=== PATIENT | male | born 1955 | race Caucasian/White ===

== ENCOUNTER 2016-06-04 13:44 | Emergency (ER) | payer MEDICARE, MEDICAID ==
[2016-06-04 17:28] VITALS: BP 146/89
[2016-06-04] MEDS ORDERED: NS 0.9% 1000 ML* 1,000 ML IV ONE (18:11)
--- NOTE | 2016-06-04 18:16 | ED ---
Abdominal Pain/Male - HPI Summary HPI Summary: Patient presents for delayed presentation of intermittent, atraumatic, generalized, abdominal cramping for the last few weeks with associated intermittent nausea and constipation. No allev factors attempted, change to medications, specific aggrav factors, food or drug associations. Came for evaluation. - History of Current Complaint Chief Complaint: EDAbdPain Stated Complaint: CONSTIPATION Time Seen by Provider: 06/04/16 17:58 Hx Obtained From: Patient Onset/Duration: Gradual Onset Timing: Lasting Weeks Pain Intensity: 7 - Allergies/Home Medications Allergies/Adverse Reactions: Allergies Allergy/AdvReac Type Severity Reaction Status Date / Time No Known Allergies Allergy Verified 10/22/15 16:05 PMH/Surg Hx/FS Hx/Imm Hx Endocrine/Hematology History: Reports: Hx Anticoagulant Therapy - coumadin, Hx Diabetes Denies: Hx Thyroid Disease Cardiovascular History: Reports: Hx Hypercholesterolemia, Hx Peripheral Vascular Disease - BL LE DISCOLORED/LE WOUNDS, Other Cardiovascular Problems/ Disorders - CARDIOMYOPATHY, BL LE VEIN SX Denies: Hx Angina, Hx Congestive Heart Failure, Hx Coronary Artery Disease, Hx Hypertension, Hx Myocardial Infarction, Hx Valvular Heart Disease Respiratory History: Reports: Hx Seasonal Allergies Denies: Hx Asthma, Hx Chronic Obstructive Pulmonary Disease (COPD) GI History: Reports: Hx Gastroesophageal Reflux Disease Denies: Hx Ulcer Comment Only: Other GI Disorders - chest pain intermittent over weekned, constant starting last evening History: Reports: Hx Kidney Stones - hx "small one" per pt, Hx Renal Disease - HX OF KIDNEY STONES Denies: Hx Acute Renal Failure, Hx Benign Prostatic Hyperplasia, Hx Chronic Renal Failure, Hx Dialysis, Hx Kidney Infection Musculoskeletal History: Reports: Hx Arthritis - KNEES, Hx Gout, Hx Orthopedic Injury - ORIF left elbow, Hx Scoliosis, Other Musculoskeletal History - carpal tunnel bilateral wrists Sensory History: Reports: Hx Cataracts - BILAT, Hx Contacts or Glasses Denies: Hx Hearing Aid Opthamlomology History: Reports: Hx Cataracts - BILAT, Hx Contacts or Glasses Neurological History: Reports: Other Neuro Impairments/Disorders - 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 scoliosis repair 1972 WITH SPINAL JEET. left elbow repair [place] 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 Denies: Hx Hepatitis, Hx Human Immunodeficiency Virus (HIV), Traveled Outside the [place] in Last 30 Days - Family History Known Family History: Positive: Unknown - Social History Alcohol Use: None Substance Use Type: Reports: None Smoking Status (MU): Former Smoker Length of Time of Smoking/Using Tobacco: 15 yrs Have You Smoked in the Last Year: No Review of Systems Positive: Abdominal Pain, Nausea. Negative: Vomiting, Diarrhea All Other Systems Reviewed And Are Negative: Yes Physical Exam Triage Information Reviewed: Yes Vital Signs On Initial Exam: Initial Vitals Temp Pulse Resp BP Pulse Ox 98.3 F 100 12 137/89 95 06/04/16 13:51 06/04/16 13:51 06/04/16 13:51 06/04/16 13:51 06/04/16 13:51 Vital Signs Reviewed: Yes Appearance: Positive: Well-Appearing, No Pain Distress, Well-Nourished Skin: Positive: Warm, Skin Color Reflects Adequate Perfusion, Dry Eyes: Positive: Normal, EOMI, KATHY Neck: Positive: Supple Respiratory/Lung Sounds: Positive: Clear to Auscultation, Breath Sounds Present Cardiovascular: Positive: Normal, RRR, Pulses are Symmetrical in both Upper and Lower Extremities Abdomen Description: Positive: Nontender, No Organomegaly, Soft, Other: - Hard, brown stool in the rectal vault.. Negative: CVA Tenderness (R), CVA Tenderness (L), Distended, Guarding Male Genital Exam: Positive: normal genitalia, normal prostate, no hernia. Negative: erythema, scrotum tenderness (R), scrotum tenderness (L), testicular tenderness (R), testicular tenderness (L) Musculoskeletal: Positive: Normal, Strength/ROM Intact Neurological: Positive: Normal, Sensory/Motor Intact, Alert, Oriented to Person Place, Time, CN Intact II-III, Reflexes Intact, NV Bundle Intact Distally - Terry Coma Scale Coma Scale Total: 15 Diagnostics - Vital Signs Vital Signs Temp Pulse Resp BP Pulse Ox 06/04/16 17:26 98.7 F 68 20 146/89 95 06/04/16 16:06 98.7 F 100 20 152/102 96 06/04/16 15:04 97.9 F 62 20 127/85 94 06/04/16 13:51 98.3 F 100 12 137/89 95 - Laboratory Result Diagrams: 06/04/16 19:23 06/04/16 19:23 Lab Statement: Any lab studies that have been ordered have been reviewed, and results considered in the medical decision making process. Abdominal Pain Fem Course/Dx - Diagnoses Differential Diagnosis/HQI/PQRI: Bowel Obstruction, Constipation, Other - Unclear cause for the abdominal pain, but psbo and constipation are moderate concern. CT for structural cause. DC home expected with bowel regimen and PCP FU. Provider Diagnoses: Abdominal pain Discharge - Discharge Plan Condition: Stable Disposition: HOME Patient Education Materials: Abdominal Pain (ED), Constipation (ED) Referrals: Pool Morin MD [Primary Care Provider] -
[2016-06-04] MEDS ORDERED: Ondansetron INJ* 2 MG/ML VIAL ONE (19:06)
[2016-06-04 19:33] LABS: Hematocrit 40 % (42-52); Hemoglobin 12.6 g/dl (14.0-18.0); Mean Corpuscular HGB Conc 32 g/dl (31-36); Mean Corpuscular Hemoglobin 24 pg (27-31); Mean Corpuscular Volume 76 fL (80-94); Mean Platelet Volume 8 um3 (7.4-10.4); Red Blood Count 5.29 10^6/ul (4.0-5.4); Red Cell Distribution Width 18 % (10.5-15); White Blood Count 6.7 10^3/ul (3.5-10.8)
[2016-06-04 19:50] LABS: Albumin 3.7 g/dL (3.2-5.2); BUN/Creatinine Ratio 17.7 (8-20); Calcium 9.6 mg/dL (8.6-10.3); EGFR African American 102.1 (>60); EGFR Non-African American 79.4 (>60); Globulin 4.1 g/dL (2-4); Potassium 3.9 mmol/L (3.5-5.0); Total Bilirubin 0.5 mg/dL (0.2-1.0); Total Protein 7.8 g/dL (6.4-8.9)
[2016-06-04] MEDS ORDERED: Iodixanol* (CONTRAST) 320 MG/ML 100 ML SDV IV ONE (20:17)
--- NOTE | 2016-06-04 20:58 | RAD ---
INDICATION: Abdominal pain COMPARISON: CT abdomen and pelvis June 25, 2013 TECHNIQUE: Axial source images were obtained from the hemidiaphragms to the symphysis pubis following administration of oral and intravenous contrast. 141 mL Visipaque 320 was utilized. Coronal and sagittal reconstructed images were acquired. Lung bases: The lung bases are clear. Liver: The liver is normal in size. There are no masses. There is mild hepatic steatosis There is no ductal dilatation. Gallbladder: There is cholelithiasis. There is no thickening gallbladder wall or pericholecystic fluid Spleen: The spleen is normal in size. There are no masses. Pancreas: There is no focal pancreatic mass or ductal dilatation. Adrenal glands: There is no evidence of adrenal mass. Kidneys: The kidneys are normal in size and position. There are prompt nephrograms and there is prompt excretion bilaterally. There are subcentimeter left-sided renal cortical cysts, unchanged. There is no evidence of nephrolithiasis. Adenopathy: There is no evidence of adenopathy by size criteria. Fluid collections: There are no free or localized fluid collections. Vessels:There are no significant atherosclerotic changes involving the aorta. There is no focal aneurysm. The iliac vessels are normal in caliber. The IVC appears normal. GI tract: There are no acute CT bowel findings. There is no obstruction. There is circumferential thickening of the distal esophagus as also described in 2014 appearing unchanged. The stomach and small bowel appear normal. There are scattered diverticula of the sigmoid colon but no convincing CT evidence of acute diverticulitis. Pelvic organs: The prostate and seminal vesicles appear normal Bladder: There are no bladder masses. Abdominal and pelvic soft tissues: The extraperitoneal abdominal and pelvic soft tissues appear normal.. Osseous structures: There are no acute osseous findings. There are spondylitic changes of the lumbar spine. There is a 50% wedge compression deformity of L1, unchanged. Mat[place]os rods. Other: None IMPRESSION: 1. Hepatic steatosis 2. Cholelithiasis, unchanged. 3. Circumferential thickening of the distal esophagus, unchanged. Scattered diverticula of the sigmoid colon without definitive CT findings of acute diverticulitis. 4. Stable 50% compression deformity of L1
== END 2016-06-04 22:22 | disposition home or self-care (01) ==
LOC: ED 13:44
DX: N28.89 Other specified disorders of kidney and ureter (principal); K80.20 Calculus of gallbladder without cholecystitis without obstruction
CPT/HCPCS: 36415; 74177; 80053; 83690; 85027; 85610; 96374; 99282; J2405; Q9967

== ENCOUNTER 2017-02-02 12:12 | Emergency (ER) | payer MEDICARE, MEDICAID ==
--- NOTE | 2017-02-02 13:55 | RAD ---
Indication: Facial and nasal injury. 2 views of the nasal bones and a Drake' view demonstrates no fracture. No other bone or joint abnormality is identified. IMPRESSION: No fracture of the nasal arch is noted.
--- NOTE | 2017-02-02 13:58 | RAD ---
Indication: Right knee pain. 4 views of the right knee demonstrates no fracture. Chondrocalcinosis is noted. No fracture is identified. IMPRESSION: No fracture of the right knee is noted.
[2017-02-02 14:45] VITALS: BP 112/76
--- NOTE | 2017-02-02 14:46 | UC ---
Minor Trauma HPI - HPI Summary HPI Summary: SLIPPED ON GRASS, FELL FORWARD, HIT FACE AND RIGHT KNEE. ABRASION TO KNEE AND TO NOSE WHERE GLASSES HIT NOSE. NO LOC. NO NOSE BLEED. NO N/V. NO HEADACHE. - History of Current Complaint Chief Complaint: UCLowerExtremity Stated Complaint: KNEE COMPLAINT Time Seen by Provider: 02/02/17 12:45 Hx Obtained From: Patient Onset/Duration: Sudden Onset, Lasting Hours Onset Of Pain: Post Accident Severity Initially: Moderate Severity Currently: Moderate Mechanism Of Injury: Fall From A Standing Position Aggravating Factor(s): Ambulation, Weight Bearing Alleviating Factor(s): Nothing - Risk Factors Penetrating Injury Risk Factors: Negative - Allergies/Home Medications Allergies/Adverse Reactions: Allergies Allergy/AdvReac Type Severity Reaction Status Date / Time No Known Allergies Allergy Verified 10/22/15 16:05 PMH/Surg Hx/FS Hx/Imm Hx Previously Healthy: Yes Other History Of: Anticoagulant Therapy - coumadin - Surgical History Surgical History: Yes Surgery Procedure, Year, and Place: bilateral carpal tunnel repair. scoliosis repair 1972 WITH SPINAL JEET. left elbow repair after [place] in [place]. BLLE VEIN SX - Family History Known Family History: Positive: Unknown, Diabetes - Social History Occupation: Disabled Lives: With Family Alcohol Use: None Substance Use Type: None Smoking Status (MU): Former Smoker Length of Time of Smoking/Using Tobacco: 15 yrs Have You Smoked in the Last Year: No When Did the Patient Quit Smoking/Using Tobacco: 20 yrs ago - Immunization History Most Recent Influenza Vaccination: UNSURE & REFUSES Most Recent Tetanus Shot: 2001 Most Recent Pneumonia Vaccination: NEVER & REFUSES Review of Systems Constitutional: Negative Skin: Other - ABRASION NOSE AND RIGHT KNEE Eyes: Negative ENT: Negative Respiratory: Negative Cardiovascular: Negative Gastrointestinal: Negative Genitourinary: Negative Motor: Negative Neurovascular: Negative Musculoskeletal: Arthralgia - RIGHT KNEE, Edema, Myalgia Neurological: Negative Psychological: Negative All Other Systems Reviewed And Are Negative: Yes Physical Exam Triage Information Reviewed: Yes Appearance: Well-Appearing, Well-Nourished, Pain Distress - MILD Vital Signs: Initial Vital Signs Temp 98.9 F 02/02/17 12:20 Pulse 92 02/02/17 12:20 Resp 18 02/02/17 12:20 BP 127/86 02/02/17 12:20 Pulse Ox 96 02/02/17 12:20 Vital Signs Reviewed: Yes Eye Exam: Normal ENT Exam: Normal ENT: Positive: Normal ENT inspection, TMs normal Dental Exam: Normal Neck exam: Normal Neck: Positive: Supple, Nontender Respiratory Exam: Normal Respiratory: Positive: Chest non-tender, Lungs clear, Normal breath sounds, No respiratory distress, No accessory muscle use Cardiovascular Exam: Normal Cardiovascular: Positive: RRR, No Murmur, Pulses Normal, Brisk Capillary Refill Abdominal Exam: Normal Abdomen Description: Positive: Nontender, No Organomegaly Musculoskeletal Exam: Normal Musculoskeletal: Positive: Strength Intact, ROM Intact Neurological Exam: Normal Psychological Exam: Normal Skin: Positive: Other - ABRASION RIGHT KNEE ; ABRASION NOSE Minor Trauma Course/Dx - Differential Dx/Diagnosis Differential Diagnosis/HQI/PQRI: Abrasion(s), Contusion(s), Sprain, Strain Provider Diagnoses: ABRASIONS RIGHT KNEE & NOSE; RIGHT KNEE CONTUSION & SPRAIN Discharge - Discharge Plan Condition: Stable Disposition: HOME Prescriptions: traMADol TAB* [Ultram*] 50 mg PO Q8H PRN #12 tab MDD THREE TABS PRN Reason: Pain Patient Education Materials: Knee Sprain (ED), Contusion in Adults (ED), Abrasion (ED) Referrals: Pool Morin MD [Primary Care Provider] - Timoteo Wells MD [Medical Doctor] -
== END 2017-02-02 14:21 | disposition home or self-care (01) ==
LOC: UCEAST 12:12
DX: S83.91XA Sprain of unspecified site of right knee, initial encounter (principal); S80.211A Abrasion, right knee, initial encounter; S00.31XA Abrasion of nose, initial encounter; W01.0XXA Fall on same level from slipping, tripping and stumbling without subsequent striking against object, initial encounter; Y92.9 Unspecified place or not applicable
CPT/HCPCS: 70160; 99213; G0463

== ENCOUNTER 2017-05-10 07:23 | Emergency (ER) | payer MEDICARE, MEDICAID ==
--- NOTE | 2017-05-10 08:21 | RAD ---
HISTORY: Right hand and wrist pain COMPARISONS: January 22, 2009 VIEWS: 5, Frontal, lateral, and oblique views of the right hand and wrist FINDINGS: BONE DENSITY: Normal. BONES: Again noted is collapse of the proximal carpal row including avascular necrosis versus resection of the scaphoid. This is similar to the 2009 examination. JOINTS: There is associated advanced osteoarthritis of the intercarpal articulations and the radiocarpal and ulnar-carpal articulations. There is osteoarthritis of the first CMC and MCP joints. ALIGNMENT: There is no dislocation. SOFT TISSUES: Unremarkable. OTHER FINDINGS: None. IMPRESSION: 1. COLLAPSE OF THE PROXIMAL CARPAL ROW WITH AVASCULAR NECROSIS VERSUS RESECTION OF THE SCAPHOID SIMILAR TO THE 2009 EXAMINATION. THERE IS ASSOCIATED ADVANCED OSTEOARTHRITIS OF THE WRIST. 2. THERE IS OSTEOARTHRITIS OF THE FIRST CMC AND MCP JOINTS. 3. NO ACUTE OSSEOUS INJURY. IF SYMPTOMS PERSIST, RECOMMEND REPEAT IMAGING
[2017-05-10 08:34] LABS: ABS Basophils 0 10^3/ul (0-0.2); ABS Eosinophils 0.1 10^3/ul (0-0.6); ABS Lymphocytes 1.2 10^3/ul (1.0-4.8); ABS Monocytes 0.5 10^3/ul (0-0.8); ABS Neutrophils 4.5 10^3/ul (1.5-7.7); ABS Nucleated RBC 0 10^3/ul; Eosinophil % 1.5 % (0-6); Hematocrit 36 % (42-52); Hemoglobin 11.7 g/dl (14.0-18.0); Lymphocyte % 19.1 % (25-47); Mean Corpuscular HGB Conc 33 g/dl (31-36); Mean Corpuscular Hemoglobin 25 pg (27-31); Mean Corpuscular Volume 77 fL (80-94); Mean Platelet Volume 8 um3 (7.4-10.4); Nucleated Red Blood Cells % 0.1; Platelet Count 188 10^3/ul (150-450); Red Blood Count 4.65 10^6/ul (4.0-5.4); Red Cell Distribution Width 19 % (10.5-15); White Blood Count 6.4 10^3/ul (3.5-10.8)
[2017-05-10 08:35] LABS: EGFR Non-African American 72.9 (>60)
[2017-05-10] MEDS ORDERED: Ketorolac INJ* 60 MG/2 ML VIAL IM ONE (08:52)
[2017-05-10 09:00] LABS: Urine Appearance Clear; Urine Blood 1+ (Negative); Urine Color Straw; Urine Ketones Negative (Negative); Urine Protein Negative (Negative); Urine Specific Gravity 1.006 (1.010-1.030); Urine Urobilinogen Negative (Negative)
[2017-05-10 10:05] VITALS: BP 129/61
--- NOTE | 2017-05-10 17:17 | ED ---
Isidoro Preciado Angela, scribed for Colton Villagran MD on 05/10/17 at 0744 . Upper Extremity Pain - HPI Summary HPI Summary: This pt is a 62 y/o male presenting [place] [facility] c/o right wrist pain and swelling since yesterday. He denies fall, trauma or heavy lifting. Pt rates his pain 7/ 10 in severity. His pain is aggravated with movement of his wrist. Pt denies history of gout. PMHx of carpal tunnel surgery on right wrist. - History of Current Complaint Chief Complaint: EDExtremityUpper Stated Complaint: RT WRIST PAIN Hx Obtained From: Patient Mechanism Of Injury: Other - none, per pt Onset/Duration: Started Days Ago, Still Present - Allergies/Home Medications Allergies/Adverse Reactions: Allergies Allergy/AdvReac Type Severity Reaction Status Date / Time No Known Allergies Allergy Verified 10/22/15 16:05 PMH/Surg Hx/FS Hx/Imm Hx Endocrine/Hematology History: Reports: Hx Anticoagulant Therapy - coumadin, Hx Diabetes - type 2 dm Denies: Hx Thyroid Disease Cardiovascular History: Reports: Hx Hypercholesterolemia, Hx Peripheral Vascular Disease - BL LE DISCOLORED/LE WOUNDS, Other Cardiovascular Problems/ Disorders - CARDIOMYOPATHY, BL LE VEIN SX Denies: Hx Angina, Hx Congestive Heart Failure, Hx Coronary Artery Disease, Hx Hypertension, Hx Myocardial Infarction, Hx Valvular Heart Disease Respiratory History: Reports: Hx Seasonal Allergies Denies: Hx Asthma, Hx Chronic Obstructive Pulmonary Disease (COPD) GI History: Reports: Hx Gastroesophageal Reflux Disease Denies: Hx Ulcer Comment Only: Other GI Disorders - chest pain intermittent over weekned, constant starting last evening History: Reports: Hx Kidney Stones - hx "small one" per pt, Hx Renal Disease - HX OF KIDNEY STONES Denies: Hx Acute Renal Failure, Hx Benign Prostatic Hyperplasia, Hx Chronic Renal Failure, Hx Dialysis, Hx Kidney Infection Musculoskeletal History: Reports: Hx Arthritis - KNEES, Hx Gout, Hx Orthopedic Injury - ORIF left elbow, Hx Scoliosis, Other Musculoskeletal History - carpal tunnel bilateral wrists Sensory History: Reports: Hx Cataracts - BILAT, Hx Contacts or Glasses Denies: Hx Hearing Aid Opthamlomology History: Reports: Hx Cataracts - BILAT, Hx Contacts or Glasses Neurological History: Reports: Other Neuro Impairments/Disorders - 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 scoliosis repair 1972 WITH SPINAL JEET. left elbow repair after [place] 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 Denies: Hx Hepatitis, Hx Human Immunodeficiency Virus (HIV), Traveled Outside the [place] in Last 30 Days - Family History Known Family History: Positive: Diabetes - Social History Alcohol Use: None Substance Use Type: Reports: None Smoking Status (MU): Former Smoker Length of Time of Smoking/Using Tobacco: 15 yrs Have You Smoked in the Last Year: No Review of Systems Negative: Fever, Chills Eyes: Negative ENT: Negative Cardiovascular: Negative Respiratory: Negative Musculoskeletal: Other - right wrist pain Skin: Negative Neurological: Negative All Other Systems Reviewed And Are Negative: Yes Physical Exam - Summary Physical Exam Summary: VITAL SIGNS: Reviewed. GENERAL: Patient is a well-developed and nourished male who is lying comfortable in the stretcher. Patient is not in any acute respiratory distress. HEAD AND FACE: No signs of trauma. No ecchymosis, hematomas or skull depressions. No sinus tenderness. EYES: PERRLA, EOMI x 2, No injected conjunctiva, no nystagmus. EARS: Hearing grossly intact. Ear canals and tympanic membranes are within normal limits. MOUTH: Oropharynx within normal limits. NECK: Supple, trachea is midline, no adenopathy, no JVD, no carotid bruit, no c- spine tenderness, neck with full ROM. CHEST: Symmetric, no tenderness at palpation LUNGS: Clear to auscultation bilaterally. No wheezing or crackles. CVS: Regular rate and rhythm, S1 and S2 present, no murmurs or gallops appreciated. ABDOMEN: Soft, non-tender. No signs of distention. No rebound no guarding, and no masses palpated. Bowel sounds are normal. EXTREMITIES: FROM in all major joints, no cyanosis or clubbing. Swelling in the right wrist, mostly in the dorsal aspect. There is tenderness at palpation on the right wrist. Good pulses. Good capillary refill. Good ROM. NEURO: Alert and oriented x 3. No acute neurological deficits. Speech is normal and follows commands. SKIN: Dry and warm Triage Information Reviewed: Yes Vital Signs On Initial Exam: Initial Vitals Temp Pulse Resp BP Pulse Ox 99 F 54 18 129/73 98 05/10/17 07:29 01/22/18 07:29 05/10/17 07:29 05/10/17 07:29 05/10/17 07:29 Vital Signs Reviewed: Yes Diagnostics - Vital Signs Vital Signs Temp Pulse Resp BP Pulse Ox 05/10/17 07:29 99 F 54 18 129/73 98 - Laboratory Lab Results: Lab Results 05/10/17 05/10/17 05/10/17 Range/Units 08:10 08:10 08:15 WBC 6.4 (3.5-10.8) 10^3/ul RBC 4.65 (4.0-5.4) 10^6/ul Hgb 11.7 L (14.0-18.0) g/dl Hct 36 L (42-52) % MCV 77 L (80-94) fL MCH 25 L (27-31) pg MCHC 33 (31-36) g/dl RDW 19 H (10.5-15) % Plt Count 188 (150-450) 10^3/ul MPV 8 (7.4-10.4) um3 Neut % (Auto) 71.0 (38-83) % Lymph % (Auto) 19.1 L (25-47) % Ralls % (Auto) 7.7 (1-9) % Eos % (Auto) 1.5 (0-6) % Baso % (Auto) 0.7 (0-2) % Absolute Neuts (auto) 4.5 (1.5-7.7) 10^3/ul Absolute Lymphs (auto) 1.2 (1.0-4.8) 10^3/ul Absolute Monos (auto) 0.5 (0-0.8) 10^3/ul Absolute Eos (auto) 0.1 (0-0.6) 10^3/ul Absolute Basos (auto) 0 (0-0.2) 10^3/ul Absolute Nucleated RBC 0 10^3/ul Nucleated RBC % 0.1 ESR 32 H (0-20) mm/Hr Sodium 137 (133-145) mmol/L Potassium 4.7 (3.5-5.0) mmol/L Chloride 102 (101-111) mmol/L Carbon Dioxide 31 (22-32) mmol/L Anion Gap 4 (2-11) mmol/L BUN 28 H (6-24) mg/dL Creatinine 1.03 (0.67-1.17) mg/dL Est GFR ( Amer) 93.8 (>60) Est GFR (Non-Af Amer) 72.9 (>60) BUN/Creatinine Ratio 27.2 H (8-20) Glucose 86 (70-100) mg/dL Uric Acid 4.1 L (4.4-7.6) mg/dL Calcium 9.4 (8.6-10.3) mg/dL Total Bilirubin 0.40 (0.2-1.0) mg/dL AST 17 (13-39) U/L ALT 16 (7-52) U/L Alkaline Phosphatase 76 (34-104) U/L C-Reactive Protein 7.11 H (< 5.00) mg/L Total Protein 7.9 (6.4-8.9) g/dL Albumin 3.8 (3.2-5.2) g/dL Globulin 4.1 H (2-4) g/dL Albumin/Globulin Ratio 0.9 L (1-3) Urine Color Straw Urine Appearance Clear Urine pH 5.0 (5-9) Ur Specific [place] 1.006 L (1.010-1.030) Urine Protein Negative (Negative) Urine Ketones Negative (Negative) Urine Blood 1+ H (Negative) Urine Nitrate Negative (Negative) Urine Bilirubin Negative (Negative) Urine Urobilinogen Negative (Negative) Ur Leukocyte Esterase Negative (Negative) Urine WBC (Auto) Trace(0-5/hpf) (Absent) Urine RBC (Auto) Trace(0-2/hpf) (Absent) Urine Bacteria Absent (Absent) Hyaline Casts Present H (Absent) Urine Glucose Negative (Negative) Result Diagrams: 05/10/17 08:10 05/10/17 08:10 Lab Statement: Any lab studies that have been ordered have been reviewed, and results considered in the medical decision making process. - Radiology Right wrist XR Xray Interpretation: Positive (See Comments) - IMPRESSION: 1. Collpase of the proximal carpal row with avascular necrosis versus resection of the scaphoid similar to the 2009 examination. There is associated advanced osteoarthritis of the wrist. 2. There is osteoarthritis of the first CMC and MCP joints. 3. No acute osseous injury. If symptoms persist, recommend repeat imaging. Dr. Villagran has reviewed this radiology report. Radiology Interpretation Completed By: Radiologist Right hand XR Xray Interpretation: Positive (See Comments) - IMPRESSION: 1. Collpase of the proximal carpal row with avascular necrosis versus resection of the scaphoid similar to the 2009 examination. There is associated advanced osteoarthritis of the wrist. 2. There is osteoarthritis of the first CMC and MCP joints. 3. No acute osseous injury. If symptoms persist, recommend repeat imaging. Dr. Villagran has reviewed this radiology report. Radiology Interpretation Completed By: Radiologist Re-Evaluation - Re-Evaluation First Eval Re-Evaluation Time: 09:21 Comment: I reviewed the XR results with the pt. Course/Dx - Course Course Of Treatment: This pt is a 62 y/o male presenting to [facility] c/o right wrist pain and swelling since yesterday. He denies fall, trauma or heavy lifting. Pt rates his pain 7/10 in severity. His pain is aggravated with movement of his wrist. Pt denies history of gout. PMHx of carpal tunnel surgery on right wrist. XR shows no fracture or dislocation, and reveals chronic avascular necrosis. Test results within normal limits except CRP of 7.11. At this point I do not believe the pt has gout, he probably has some swelling secondary to osteoarthritis. I gave the pt Toradol with improvement. The pt was placed on a splint and was advised to follow up with orthopedics. Pt is hemodynamically stable, alert and oriented x3. - Diagnoses Differential Diagnosis/HQI/PQRI: Positive: Bursitis, Contusion, Fracture (Closed ), Strain, Sprain Provider Diagnoses: Wrist pain, Osteoarthritis Discharge - Discharge Plan Condition: Stable Disposition: HOME Patient Education Materials: Osteoarthritis (ED), Arthralgia (ED) Referrals: Pool Morin MD [Primary Care Provider] - Timoteo Wells MD [Medical Doctor] - Additional Instructions: Please follow up with Dr. Wells, from orthopedics. RETURN TO THE ED FOR ANY WORSENING SYMPTOMS. The documentation as recorded by the Isidoro ball Angela accurately reflects the service I personally performed and the decisions made by me, Colton Villagran MD.
== END 2017-05-10 10:03 | disposition home or self-care (01) ==
LOC: ED 07:23
DX: M19.031 Primary osteoarthritis, right wrist (principal); M18.9 Osteoarthritis of first carpometacarpal joint, unspecified; M19.041 Primary osteoarthritis, right hand; Z98.890 Other specified postprocedural states; Z87.891 Personal history of nicotine dependence
CPT/HCPCS: 36415; 80053; 81003; 81015; 84550; 85025; 85652; 86140; 96372; 99282; J1885

== ENCOUNTER 2017-09-25 13:21 | Emergency (ER) | payer MEDICARE, MEDICAID ==
[2017-09-25 15:25] VITALS: BP 104/57
--- NOTE | 2017-09-25 17:10 | ED ---
Upper Extremity Pain - HPI Summary HPI Summary: Patient is a 62-year-old male who presents emergency department for swelling and pain to the left 3rd digit of hand. Patient states he noticed pain and swelling last night. He does not recall any specific injuries or falls. Pain is worse with bending and touching digit. Rest makes symptoms better. No associated symptoms of redness to finger, wounds, fever, nausea or vomiting. Symptoms are mild in severity. - History of Current Complaint Chief Complaint: EDExtremityUpper Stated Complaint: LT HAND MIDDLE FINGER Time Seen by Provider: 09/25/17 13:39 Hx Obtained From: Patient - Allergies/Home Medications Allergies/Adverse Reactions: Allergies Allergy/AdvReac Type Severity Reaction Status Date / Time No Known Allergies Allergy Verified 10/22/15 16:05 PMH/Surg Hx/FS Hx/Imm Hx Previously Healthy: Yes Endocrine/Hematology History: Reports: Hx Anticoagulant Therapy - coumadin, Hx Diabetes - type 2 dm Denies: Hx Thyroid Disease Cardiovascular History: Reports: Hx Hypercholesterolemia, Hx Peripheral Vascular Disease - BL LE DISCOLORED/LE WOUNDS, Other Cardiovascular Problems/ Disorders - CARDIOMYOPATHY, BL LE VEIN SX Denies: Hx Angina, Hx Congestive Heart Failure, Hx Coronary Artery Disease, Hx Hypertension, Hx Myocardial Infarction, Hx Valvular Heart Disease Respiratory History: Reports: Hx Seasonal Allergies Denies: Hx Asthma, Hx Chronic Obstructive Pulmonary Disease (COPD) GI History: Reports: Hx Gastroesophageal Reflux Disease Denies: Hx Ulcer Comment Only: Other GI Disorders - chest pain intermittent over weekned, constant starting last evening History: Reports: Hx Kidney Stones - hx "small one" per pt, Hx Renal Disease - HX OF KIDNEY STONES Denies: Hx Acute Renal Failure, Hx Benign Prostatic Hyperplasia, Hx Chronic Renal Failure, Hx Dialysis, Hx Kidney Infection Musculoskeletal History: Reports: Hx Arthritis - KNEES, Hx Gout, Hx Orthopedic Injury - ORIF left elbow, Hx Scoliosis, Other Musculoskeletal History - carpal tunnel bilateral wrists Sensory History: Reports: Hx Cataracts - BILAT, Hx Contacts or Glasses Denies: Hx Hearing Aid Opthamlomology History: Reports: Hx Cataracts - BILAT, Hx Contacts or Glasses Neurological History: Reports: Other Neuro Impairments/Disorders - 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 scoliosis repair 1972 WITH SPINAL JEET. left elbow repair [place] 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 Denies: Hx Hepatitis, Hx Human Immunodeficiency Virus (HIV), Traveled Outside the [place] in Last 30 Days - Family History Known Family History: Positive: Unknown, Diabetes - Social History Occupation: Disabled Lives: Alone Alcohol Use: None Substance Use Type: Reports: None Smoking Status (MU): Former Smoker Length of Time of Smoking/Using Tobacco: 15 yrs Have You Smoked in the Last Year: No Review of Systems Constitutional: Negative Negative: Fever, Chills Positive: Other - pain and swelling to left digit of left hand Positive: Bruising Negative: Weakness, Paresthesia, Numbness All Other Systems Reviewed And Are Negative: Yes Physical Exam Triage Information Reviewed: Yes Vital Signs On Initial Exam: Initial Vitals Temp Pulse Resp BP Pulse Ox 97.7 F 59 16 119/66 93 09/25/17 13:26 09/25/17 13:26 09/25/17 13:26 09/25/17 13:26 09/25/17 13:26 Vital Signs Reviewed: Yes Appearance: Positive: Well-Appearing - Pt. sitting in chair in NAD. Skin: Positive: Warm, Dry Head/Face: Positive: Normal Head/Face Inspection Eyes: Positive: Normal Neck: Positive: Supple Musculoskeletal: Positive: Other - Mild diffuse edeme to the 3rd digit of left hand. Small area of ecchymosis to the proximal palmar aspect of 3rd digit of left hand. Full ROM with flexion and extension with pain. No erythema or increased warmth. No wounds. Brisk capillary refill. Neurological: Positive: Normal, CN Intact II-III Psychiatric: Positive: Affect/Mood Appropriate Diagnostics - Vital Signs Vital Signs Temp Pulse Resp BP Pulse Ox 09/25/17 15:16 97.5 F 52 18 104/57 95 09/25/17 13:26 97.7 F 59 16 119/66 93 - Laboratory Lab Statement: Any lab studies that have been ordered have been reviewed, and results considered in the medical decision making process. Course/Dx - Course Course Of Treatment: Patient presenting with mild edema to right third digit left hand. There is small area of ecchymosis to digit. There is no erythema to the or wounds. Patient has full range of motion of digit with pain. Does not appear to be an infectious process. X-rays negative for fracture dislocation. Advised Tylenol for pain as directed. Ice and elevate. Close follow-up with PCP. Advised patient to return to the ER for redness, increased swelling, increased pain, fever, vomiting. Patient understands and agrees with plan. - Diagnoses Differential Diagnosis/HQI/PQRI: Positive: Contusion, Fracture (Closed), Strain , Sprain Provider Diagnoses: Finger sprain Discharge - Sign-Out/Discharge Documenting (check all that apply): Discharge/Admit/Transfer - Discharge Plan Condition: Good Disposition: HOME Patient Education Materials: Finger Sprain (ED) Referrals: Pool Morin MD [Primary Care Provider] - Additional Instructions: Follow up with PCP if symptoms persist Tylenol for pain as directed Ice and elevate Return to ER for increased swelling, redness, fever, inability to bend finger, or if concerned - Billing Disposition and Condition Condition: GOOD Disposition: Home
--- NOTE | 2017-09-26 08:50 | RAD ---
INDICATION: Swelling of the left middle finger COMPARISON: None. TECHNIQUE: 3 views of the left middle finger were obtained. FINDINGS: Degenerative changes include mild narrowing of the interphalangeal joints with a mild degree of marginal osteophyte formation. The bones are normal alignment. No fracture is seen. IMPRESSION: DEGENERATIVE CHANGES OF THE INTERPHALANGEAL JOINTS CONSISTENT WITH OSTEOARTHRITIS IN THIS OTHERWISE NORMAL EXAMINATION.
== END 2017-09-25 15:16 | disposition home or self-care (01) ==
LOC: ED 13:21
DX: S63.615A Unspecified sprain of left ring finger, initial encounter (principal); X58.XXXA Exposure to other specified factors, initial encounter; Y92.9 Unspecified place or not applicable; M19.042 Primary osteoarthritis, left hand; I73.9 Peripheral vascular disease, unspecified; Z87.891 Personal history of nicotine dependence; Z79.01 Long term (current) use of anticoagulants
CPT/HCPCS: 73140; 99281

== ENCOUNTER 2017-12-07 16:21 | Emergency (ER) | payer MEDICARE, MEDICAID ==
[2017-12-07] MEDS ORDERED: Acetaminophen TAB* 325 MG PO ONE (17:21)
--- NOTE | 2017-12-07 17:55 | ED ---
Lower Extremity - HPI Summary HPI Summary: Patient complains of bilateral lower extremity pain in anterior thighs starting yesterday afternoon. Pain was sudden onset while trying to get up from a recliner. Pain is worse with walking and weightbearing, diminished with sitting. Patient denies trauma, lifting, increase in activity. Denies knee pain, hip pain, urinary retention, incontinence, fever, cough, sore throat, CP, SOB, N/3/D, abdominal pain, change in urine, change in BM. Medical history is none skin a cardiomyopathy, A. fib, DM, HTN, HDL, osteoarthritis, lymphedema bilaterally. Patient on Coumadin. - History of Current Complaint Chief Complaint: EDExtremityLower Stated Complaint: PAIN BOTH LEGS Time Seen by Provider: 12/07/17 16:33 Hx Obtained From: Patient Mechanism Of Injury: Unknown Onset of Pain: Immediate, Hours Onset/Duration: Hours Severity Initially: Moderate Severity Currently: Moderate Pain Intensity: 7 Pain Scale Used: 0-10 Numeric Timing: Intermittent Location: Is Discrete @ Character Of Pain: Aching Associated Signs And Symptoms: Positive: Negative Aggravating Factor(s): Standing, Ambulation, Weight Bearing Alleviating Factor(s): Rest Able to Bear Weight: Yes - Allergies/Home Medications Allergies/Adverse Reactions: Allergies Allergy/AdvReac Type Severity Reaction Status Date / Time No Known Allergies Allergy Verified 10/22/15 16:05 PMH/Surg Hx/FS Hx/Imm Hx Endocrine/Hematology History: Reports: Hx Anticoagulant Therapy - coumadin, Hx Diabetes - type 2 dm Denies: Hx Thyroid Disease Cardiovascular History: Reports: Hx Hypercholesterolemia, Hx Peripheral Vascular Disease - BL LE DISCOLORED/LE WOUNDS, Other Cardiovascular Problems/ Disorders - CARDIOMYOPATHY, BL LE VEIN SX Denies: Hx Angina, Hx Congestive Heart Failure, Hx Coronary Artery Disease, Hx Hypertension, Hx Myocardial Infarction, Hx Valvular Heart Disease Respiratory History: Reports: Hx Seasonal Allergies Denies: Hx Asthma, Hx Chronic Obstructive Pulmonary Disease (COPD) GI History: Reports: Hx Gastroesophageal Reflux Disease Denies: Hx Ulcer Comment Only: Other GI Disorders - chest pain intermittent over weekned, constant starting last evening History: Reports: Hx Kidney Stones - hx "small one" per pt, Hx Renal Disease - HX OF KIDNEY STONES Denies: Hx Acute Renal Failure, Hx Benign Prostatic Hyperplasia, Hx Chronic Renal Failure, Hx Dialysis, Hx Kidney Infection Musculoskeletal History: Reports: Hx Arthritis - KNEES, Hx Gout, Hx Orthopedic Injury - ORIF left elbow, Hx Scoliosis, Other Musculoskeletal History - carpal tunnel bilateral wrists Sensory History: Reports: Hx Cataracts - BILAT, Hx Contacts or Glasses Denies: Hx Hearing Aid Opthamlomology History: Reports: Hx Cataracts - BILAT, Hx Contacts or Glasses Neurological History: Reports: Other Neuro Impairments/Disorders - 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 scoliosis repair 1972 WITH SPINAL JEET. left elbow repair after [place]. 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 Denies: Hx Hepatitis, Hx Human Immunodeficiency Virus (HIV), Traveled Outside the [place] in Last 30 Days - Family History Known Family History: Positive: Unknown, Diabetes - Social History Alcohol Use: None Substance Use Type: Reports: None Smoking Status (MU): Former Smoker Length of Time of Smoking/Using Tobacco: 15 yrs Have You Smoked in the Last Year: No Review of Systems Constitutional: Negative Eyes: Negative ENT: Negative Cardiovascular: Negative Respiratory: Negative Gastrointestinal: Negative Genitourinary: Negative Positive: Myalgia Skin: Negative Neurological: Negative Psychological: Normal All Other Systems Reviewed And Are Negative: Yes Physical Exam - Summary Physical Exam Summary: Tenderness to palpation of bilateral anterior thighs. No erythema, ecchymosis, deformity, swelling, extra warmth noted to bilateral lower extremities, bilateral knees or ankles. Calves bilaterally soft nontender. No pain with palpation of hips. Patient stands easily and balances well during exam of bilateral lower extremities. PMS intact distally on bilateral extremities. History of DM, no ulcers, open wounds noted on bilateral lower extremities. Triage Information Reviewed: Yes Vital Signs On Initial Exam: Initial Vitals Temp Pulse Resp BP Pulse Ox 97.9 F 53 20 117/66 93 12/07/17 16:27 12/07/17 16:27 12/07/17 16:27 12/07/17 16:27 12/07/17 16:27 Vital Signs Reviewed: Yes Appearance: Positive: Well-Appearing Skin: Positive: Warm Head/Face: Positive: Normal Head/Face Inspection Eyes: Positive: Normal Neck: Positive: Supple Respiratory/Lung Sounds: Positive: Clear to Auscultation Cardiovascular: Positive: Normal Abdomen Description: Positive: Nontender Musculoskeletal: Positive: Normal Neurological: Positive: Normal Psychiatric: Positive: Normal AVPU Assessment: Alert - Terry Coma Scale Best Eye Response: 4 - Spontaneous Best Motor Response: 6 - Obeys Commands Best Verbal Response: 5 - Oriented Coma Scale Total: 15 Diagnostics - Vital Signs Vital Signs Temp Pulse Resp BP Pulse Ox 12/07/17 16:27 97.9 F 53 20 117/66 93 - Laboratory Lab Statement: Any lab studies that have been ordered have been reviewed, and results considered in the medical decision making process. Lower Extremity Course/Dx - Course Course Of Treatment: Patient complains of bilateral lower extremity pain in anterior thighs starting yesterday afternoon. Pain was sudden onset while trying to get up from a recliner. Pain is worse with walking and weightbearing, diminished with sitting. Patient denies trauma, lifting, increase in activity. Denies knee pain, hip pain, urinary retention, incontinence, fever, cough, sore throat, CP, SOB, N/3/D, abdominal pain, change in urine, change in BM. Medical history is none skin a cardiomyopathy, A. fib, DM, HTN, HDL, osteoarthritis, lymphedema bilaterally. Patient on Coumadin. Physical exam: Tenderness to palpation of bilateral anterior thighs. No erythema, ecchymosis, deformity, swelling, extra warmth noted to bilateral lower extremities, bilateral knees or ankles. Calves bilaterally soft nontender. No pain with palpation of hips. Patient stands easily and balances well during exam of bilateral lower extremities. PMS intact distally on bilateral extremities. History of DM, no ulcers, open wounds noted on bilateral lower extremities. Full range of motion bilateral hips and bilateral knees. No evidence of cellulitis or septic joint noted. Symptoms consistent with musculoskeletal pain. - Diagnoses Provider Diagnoses: Musculoskeletal pain of left thigh, Musculoskeletal pain of right thigh Discharge - Sign-Out/Discharge Documenting (check all that apply): Patient Departure - Discharge Plan Condition: Stable Disposition: HOME Patient Education Materials: Musculoskeletal Pain (ED) Referrals: Pool Morin MD [Primary Care Provider] - Additional Instructions: Rest and tylenol for pain. Follow up with primary carte. Return to ED for any new or worsening symptoms. - Billing Disposition and Condition Condition: STABLE Disposition: Home
[2017-12-07 18:24] VITALS: BP 0/0
== END 2017-12-07 18:21 | disposition home or self-care (01) ==
LOC: ED 16:21
DX: M79.652 Pain in left thigh (principal); M79.651 Pain in right thigh; Z79.01 Long term (current) use of anticoagulants; E11.9 Type 2 diabetes mellitus without complications
CPT/HCPCS: 99281; A9270-GY

== ENCOUNTER 2017-12-17 12:53 | Inpatient (IN) | payer MEDICARE, MEDICAID ==
[2017-12-17] MEDS ORDERED: Diltiazem DRIP* 100 MG/100 ML ADDV.BAG IVPB ONE (13:30)
[2017-12-17] MEDS ORDERED: Diltiazem IV* 5 MG/ML 5 ML VIAL (for loading dose/IV Push) (25 MG) IV SLOW PU ONE (13:30)
[2017-12-17 14:05] LABS: ABS Basophils 0 10^3/ul (0-0.2); ABS Eosinophils 0 10^3/ul (0-0.6); ABS Lymphocytes 0.5 10^3/ul (1.0-4.8); ABS Monocytes 0.7 10^3/ul (0-0.8); ABS Neutrophils 10.5 10^3/ul (1.5-7.7); ABS Nucleated RBC 0 10^3/ul; Eosinophil % 0.2 % (0-6); Hematocrit 37 % (42-52); Hemoglobin 12.1 g/dl (14.0-18.0); Lymphocyte % 4.2 % (25-47); Mean Corpuscular HGB Conc 33 g/dl (31-36); Mean Corpuscular Hemoglobin 26 pg (27-31); Mean Corpuscular Volume 81 fL (80-94); Mean Platelet Volume 7.6 um3 (7.4-10.4); Nucleated Red Blood Cells % 0; Platelet Count 179 10^3/ul (150-450); Red Blood Count 4.63 10^6/ul (4.00-5.40); Red Cell Distribution Width 16 % (10.5-15); White Blood Count 11.7 10^3/ul (3.5-10.8)
[2017-12-17] MEDS ORDERED: Diltiazem IV VIAL* 125 MG in NS 0.9% 100 ML* 100 ML IVPB ONE (14:15)
[2017-12-17 14:16] LABS: INR 3.15 (0.77-1.02)
[2017-12-17 14:25] LABS: EGFR Non-African American 58.3 (>60)
--- NOTE | 2017-12-17 14:48 | RAD ---
INDICATION: Chest pain. COMPARISON: Correlation is made with a prior study from January 11, 2013. TECHNIQUE: A portable view of the chest was obtained. FINDINGS: The heart is moderately enlarged and has increased slightly in size. There is prominence of the interstitial markings. No focal infiltrate or pleural effusion is seen. The patient is status post posterior spinal fusion of the dorsal spine. IMPRESSION: FINDINGS SUGGESTIVE OF MILD CONGESTIVE HEART FAILURE.
--- NOTE | 2017-12-17 15:00 | ED ---
HPI Chest Pain - HPI Summary HPI Summary: Patient is a 62 y/o M BIBA w/ c/o midsternal chest pain onsetting today at midnight. Chest pain has worsened since onset and is described as a heaviness. He notes no prior episodes of such chest pain, denies N/V. He reports SOB. On triage, pain is rated 4/10. He was at his PCP's office being seen for his upcoming leg surgery. Patient claims previous cardiac catheterization. He denies PMHx of COPD and CHF. Patient has DM II. He received 1 nitro from doctor' s office and 324 mg of ASA from EMS with no relief. Movement aggravates pain. He notes legs are not more swollen than normally. - History of Current Complaint Chief Complaint: EDChestPainROMI Time Seen by Provider: 12/17/17 13:07 Hx Obtained From: Patient Onset/Duration: Started Hours Ago - onset Timing: Constant Current Severity: Moderate - 4/10 Pain Intensity: 4 Pain Scale Used: 0-10 Numeric - 4/10 Character: Heaviness Aggravating Factor(s): Movement Alleviating Factor(s): Nothing Associated Signs and Symptoms: Positive: Shortness of Breath. Negative: Nausea , Vomiting - Allergy/Home Medications Allergies/Adverse Reactions: Allergies Allergy/AdvReac Type Severity Reaction Status Date / Time No Known Allergies Allergy Verified 12/17/17 13:16 Home Medications: Home Medications Warfarin TAB(*) [Coumadin TAB(*)] 5 mg PO SUMOWEFRSA 12/17/17 [History Confirmed 12/17/17] Warfarin TAB(*) [Coumadin TAB(*)] 7.5 mg PO TUTH 12/17/17 [History Confirmed ] PMH/Surg Hx/FS Hx/Imm Hx Endocrine/Hematology History: Reports: Hx Anticoagulant Therapy - coumadin, Hx Diabetes - type 2 dm Denies: Hx Thyroid Disease Cardiovascular History: Reports: Hx Hypercholesterolemia, Hx Peripheral Vascular Disease - BL LE DISCOLORED/LE WOUNDS, Other Cardiovascular Problems/ Disorders - CARDIOMYOPATHY, BL LE VEIN SX Denies: Hx Angina, Hx Congestive Heart Failure, Hx Coronary Artery Disease, Hx Hypertension, Hx Myocardial Infarction, Hx Valvular Heart Disease Respiratory History: Reports: Hx Seasonal Allergies Denies: Hx Asthma, Hx Chronic Obstructive Pulmonary Disease (COPD) GI History: Reports: Hx Gastroesophageal Reflux Disease Denies: Hx Ulcer Comment Only: Other GI Disorders - chest pain intermittent over weekned, constant starting last evening History: Reports: Hx Kidney Stones - hx "small one" per pt, Hx Renal Disease - HX OF KIDNEY STONES Denies: Hx Acute Renal Failure, Hx Benign Prostatic Hyperplasia, Hx Chronic Renal Failure, Hx Dialysis, Hx Kidney Infection Musculoskeletal History: Reports: Hx Arthritis - KNEES, Hx Gout, Hx Orthopedic Injury - ORIF left elbow, Hx Scoliosis, Other Musculoskeletal History - carpal tunnel bilateral wrists Sensory History: Reports: Hx Cataracts - BILAT, Hx Contacts or Glasses Denies: Hx Hearing Aid Opthamlomology History: Reports: Hx Cataracts - BILAT, Hx Contacts or Glasses Neurological History: Reports: Other Neuro Impairments/Disorders - 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 scoliosis repair 1972 WITH SPINAL JEET. left elbow repair after injury in [place]. 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 Denies: Hx Hepatitis, Hx Human Immunodeficiency Virus (HIV), Traveled Outside the [place] in Last 30 Days - Family History Known Family History: Positive: Diabetes - Social History Alcohol Use: None Substance Use Type: Reports: None Smoking Status (MU): Former Smoker Length of Time of Smoking/Using Tobacco: 15 yrs Have You Smoked in the Last Year: No Review of Systems Positive: Chest Pain Positive: Shortness Of Breath Negative: Vomiting, Nausea All Other Systems Reviewed And Are Negative: Yes Physical Exam - Summary Physical Exam Summary: Appearance: The patient is well-nourished in no acute distress and in no acute pain. Skin: The skin is warm and dry and skin color reflects adequate perfusion. HEENT: The head is normocephalic and atraumatic. The pupils are equal and reactive. The conjunctivae are clear and without drainage. Nares are patent and without drainage. Mouth reveals moist mucous membranes and the throat is without erythema and exudate. The external ears are intact. The ear canals are patent and without drainage. The tympanic membranes are intact. Neck: The neck is supple with full range of motion and non-tender. There are no carotid bruits. There is no neck vein distension. Respiratory: Chest is non-tender. Lungs are clear to auscultation and breath sounds are symmetrical and equal. Cardiovascular: Tachycardia, regularly irregular heartbeat. There is no murmur or rub auscultated. There is no peripheral edema and pulses are symmetrical and equal. Abdomen: The abdomen is soft and non-tender. There are normal bowel sounds heard in all four quadrants and there is no organomegaly palpated. Musculoskeletal: There is no back tenderness noted. Extremities are non-tender with full range of motion. There is good capillary refill. There is no peripheral edema or calf tenderness elicited. Neurological: Patient is alert and oriented to person, place and time. The patient has symmetrical motor strength in all four extremities. Cranial nerves are grossly intact. Deep tendon reflexes are symmetrical and equal in all four extremities. Psychiatric: The patient has an appropriate affect and does not exhibit any anxiety or depression. Triage Information Reviewed: Yes Vital Signs On Initial Exam: Initial Vitals Temp Pulse Resp BP Pulse Ox 97.9 F 117 32 110/68 92 12/17/17 13:02 12/17/17 13:02 12/17/17 13:02 12/17/17 13:02 12/17/17 13:02 Vital Signs Reviewed: Yes Diagnostics - Vital Signs Vital Signs Temp Pulse Resp BP Pulse Ox 12/17/17 13:29 119 30 97/59 99 12/17/17 13:18 118 31 130/78 98 12/17/17 13:02 97.9 F 117 32 110/68 92 - Laboratory Lab Results: Lab Results 12/17/17 12/17/17 12/17/17 Range/Units 13:52 13:52 13:52 WBC 11.7 H (3.5-10.8) 10^3/ul RBC 4.63 (4.00-5.40) 10^6/ul Hgb 12.1 L (14.0-18.0) g/dl Hct 37 L (42-52) % MCV 81 (80-94) fL MCH 26 L (27-31) pg MCHC 33 (31-36) g/dl RDW 16 H (10.5-15) % Plt Count 179 (150-450) 10^3/ul MPV 7.6 (7.4-10.4) um3 Neut % (Auto) 89.7 H (38-83) % Lymph % (Auto) 4.2 L (25-47) % Lassen % (Auto) 5.7 (0-7) % Eos % (Auto) 0.2 (0-6) % Baso % (Auto) 0.2 (0-2) % Absolute Neuts (auto) 10.5 H (1.5-7.7) 10^3/ul Absolute Lymphs (auto) 0.5 L (1.0-4.8) 10^3/ul Absolute Monos (auto) 0.7 (0-0.8) 10^3/ul Absolute Eos (auto) 0 (0-0.6) 10^3/ul Absolute Basos (auto) 0 (0-0.2) 10^3/ul Absolute Nucleated RBC 0 10^3/ul Nucleated RBC % 0 INR (Anticoag Therapy) 3.15 H (0.77-1.02) Sodium 139 (135-145) mmol/L Potassium 4.9 (3.5-5.0) mmol/L Chloride 101 (101-111) mmol/L Carbon Dioxide 30 (22-32) mmol/L Anion Gap 8 (2-11) mmol/L BUN 32 H (6-24) mg/dL Creatinine 1.25 H (0.67-1.17) mg/dL Est GFR ( Amer) 70.6 (>60) Est GFR (Non-Af Amer) 58.3 (>60) BUN/Creatinine Ratio 25.6 H (8-20) Glucose 116 H (70-100) mg/dL Lactic Acid (0.5-2.0) mmol/L Calcium 9.4 (8.6-10.3) mg/dL Total Bilirubin 0.50 (0.2-1.0) mg/dL AST 16 (13-39) U/L ALT 16 (7-52) U/L Alkaline Phosphatase 65 (34-104) U/L Troponin I 0.01 (<0.04) ng/mL B-Natriuretic Peptide ( - 100) pg/mL Total Protein 7.7 (6.4-8.9) g/dL Albumin 4.0 (3.2-5.2) g/dL Globulin 3.7 (2-4) g/dL Albumin/Globulin Ratio 1.1 (1-3) TSH 0.27 L (0.34-5.60) mcIU/mL 12/17/17 12/17/17 Range/Units 13:52 13:52 WBC (3.5-10.8) 10^3/ul RBC (4.00-5.40) 10^6/ul Hgb (14.0-18.0) g/dl Hct (42-52) % MCV (80-94) fL MCH (27-31) pg MCHC (31-36) g/dl RDW (10.5-15) % Plt Count (150-450) 10^3/ul MPV (7.4-10.4) um3 Neut % (Auto) (38-83) % Lymph % (Auto) (25-47) % Lassen % (Auto) (0-7) % Eos % (Auto) (0-6) % Baso % (Auto) (0-2) % Absolute Neuts (auto) (1.5-7.7) 10^3/ul Absolute Lymphs (auto) (1.0-4.8) 10^3/ul Absolute Monos (auto) (0-0.8) 10^3/ul Absolute Eos (auto) (0-0.6) 10^3/ul Absolute Basos (auto) (0-0.2) 10^3/ul Absolute Nucleated RBC 10^3/ul Nucleated RBC % INR (Anticoag Therapy) (0.77-1.02) Sodium (135-145) mmol/L Potassium (3.5-5.0) mmol/L Chloride (101-111) mmol/L Carbon Dioxide (22-32) mmol/L Anion Gap (2-11) mmol/L BUN (6-24) mg/dL Creatinine (0.67-1.17) mg/dL Est GFR ( Amer) (>60) Est GFR (Non-Af Amer) (>60) BUN/Creatinine Ratio (8-20) Glucose (70-100) mg/dL Lactic Acid 1.0 (0.5-2.0) mmol/L Calcium (8.6-10.3) mg/dL Total Bilirubin (0.2-1.0) mg/dL AST (13-39) U/L ALT (7-52) U/L Alkaline Phosphatase (34-104) U/L Troponin I (<0.04) ng/mL B-Natriuretic Peptide 86 ( - 100) pg/mL Total Protein (6.4-8.9) g/dL Albumin (3.2-5.2) g/dL Globulin (2-4) g/dL Albumin/Globulin Ratio (1-3) TSH (0.34-5.60) mcIU/mL Result Diagrams: 12/17/17 13:52 12/17/17 13:52 Lab Statement: Any lab studies that have been ordered have been reviewed, and results considered in the medical decision making process. - Radiology CXR Xray Interpretation: Positive (See Comments) Radiology Interpretation Completed By: Radiologist - findings suggestive of mild congestive heart failure; this report was reviewed by ED physician. - EKG 1307 Cardiac Rate: Tachycardia - rate of 118 BPM EKG Rhythm: Atrial Flutter EKG Interpretation: atrial flutter with intermittent LBBB 1555 Cardiac Rate: Tachycardia - rate of 103 BPM EKG Rhythm: Atrial Fibrillation EKG Interpretation: afib with RVR, intermittent LBBB Re-Evaluation - Re-Evaluation First Eval Re-Evaluation Time: 15:25 Comment: Patient will be admitted to [facility] for further workup. This was discussed with patient, he is agreeable with the plan. Second Eval Re-Evaluation Time: 15:44 Comment: Second EKG ordered as patient has c/o chest heaviness and dizziness. Chest Pain Course/Dx - Course Course Of Treatment: Mr. De La Cruz presented to the emergency department with chest pain. On initial EKG in the sub-waiting room he was noted to have atrial fibrillation with RVR and an intermittent left bundle branch block. He was brought back to a monitored room and Cardizem was started. He was only marginally successful and the hospitalist service was contacted for admission and further workup. His rate did slow with the Cardizem and his chest pain did improve. - Diagnoses Provider Diagnoses: Atrial fibrillation with RVR - Provider Notifications Discussed Care Of Patient With: Betty Up Time Discussed With Above Provider: 15:20 Instructed by Provider To: Other - Dr. Up was consulted on patient's case at 1520. Dr. Up accepts patient for admission for further workup. - Critical Care Time Critical Care Time: 30-74 min Discharge - Sign-Out/Discharge Documenting (check all that apply): Patient Departure - admit Signing out patient TO: Betty Up Receiving patient FROM: Ronal Alvarado All imaging exams completed and their final reports reviewed: Yes - Discharge Plan Condition: Good Disposition: ADMITTED TO [facility] - Billing Disposition and Condition Condition: GOOD Disposition: Admitted to [facility] - Attestation Statements Document Initiated by Twin: Yes Documenting Scribe: Pepe Rivera Provider For Whom Twin is Documenting (Include Credential): Ronal Alvarado MD Scribe Attestation: IPepe, scribed for Ronal Alvarado MD on 12/17/17 at 1856. Scribe Documentation Reviewed: Yes Provider Attestation: The documentation as recorded by the Pepe ball accurately reflects the service I personally performed and the decisions made by me, Ronal Alvarado MD
[2017-12-17] MEDS ORDERED: Dextrose 50% Syringe 50 ML* 25 GM/50 ML SYRINGE IV PUSH PRN (16:54)
[2017-12-17] MEDS ORDERED: Naloxone* 0.4 MG/ML 1 ML VIAL ONE (17:39)
[2017-12-17] MEDS ORDERED: Flumazenil* 0.1 MG/ML 5 ML MDV ONE (17:39)
[2017-12-17] MEDS ORDERED: fentaNYL* 50 MCG/ML 2 ML VIAL (100 MCG VIAL) ONE (17:39)
[2017-12-17] MEDS ORDERED: Midazolam* 1 MG/ML 10 ML VIAL (10 MG) ONE (17:40)
[2017-12-17] MEDS ORDERED: Warfarin TAB(*) 2.5 MG PO ONE (20:00)
--- NOTE | 2017-12-17 20:34 | PROCNOTE ---
Cardiology Procedure Note 12/17/2017 External electrical cardioversion Patient with symptomatic atrial flutter despite rate control < 24 hours in duration with INR 3.15 so JODY not required prior Risks, benefits alternatives discussed and patient wished to proceed 6 mg IV versed, 50 mcg IV fentanyl used for conscious sedation Patient cardioverted from atrial flutter to sinus rhythm with 75 J external electrical sync x 1 No complications No cardiac medication changes Thyroid evaluation per Primary service
--- NOTE | 2017-12-17 20:34 | CONSULT ---
Subjective Date of Service: 12/17/17 Interval History: Admission Date: 12/17/17 Consult date 12/17/2017 Service: Hospitalist PMD: Dr. Morin Combustion Engineer: Dr. Guajardo CC: CP, dyspnea, dizziness Reason for consult: Atrial flutter HISTORY OF PRESENT ILLNESS: Mr. De La Cruz is a 62-year-old man with a medical history as below who presents since last night with chest pain, nausea, dizziness and dyspnea found with rapid atrial flutter. He remained symptomatic despite IV rate control. He is anticoagulated with warfarin and has an INR of 3.15 and his atrial arrhythmia symptoms were less than 24 hours. After discussing risks and benefits, he opted for an external electrical cardioversion for symptom relief. This was subsequently performed and successful with conscious sedation. Of note, his TSH was 0.27 Allergies: No Known Drug Allergy PMH/surgical hx: Diabetes Type II Venous Insufficiency Hypertension Atrial Flutter Gastroesophageal Reflux Disease (GERD) Sleep apnea Back Surgery - as a child for scoliosis Morbid obesity Fluctuating non-ischemic cardiomyopathy, LVEF normal as of 07/2017 Intermittent LBBB, appears rate related Carpal Tunnel Release, Vascular Venous insufficiency with wounds, s/p stabl phlebectomy FAMILY HISTORY: The patient's mother is . He is unaware of her health status. He also reports his father is . He has a brother who has history of coronary artery disease. SOCIAL HISTORY: The patient currently lives alone in [place], [place]. He does not have any children and states he does not have a healthcare proxy. He is a former smoker quitting approximately 20 years ago smoking approximately a pack a day. Denies any alcohol use. Sister is at bedside Medications Active Medications: Atorvastatin Calcium (Lipitor*) 10 mg PO DAILY@2100 [facility] Dextrose (D50w Syringe 50 Ml*) 12.5 gm IV PUSH .FOR FS < 60 - SS PRN PRN Reason: FS < 60 Docusate Sodium (Colace Cap*) 100 mg PO BID [facility] Dronedarone (Multaq Tab*) 400 mg PO BID [facility] Febuxostat (Uloric(Nf)) 80 mg PO DAILY [facility] Insulin Human Lispro (Humalog*) 0 units SUBCUT ACHS [facility]; Protocol Metoprolol Succinate (Toprol Xl Tab*) 25 mg PO QAM [facility] Pharmacy Profile Note (Coumadin Daily Reminder*) 1 note FOLLOW UP 1700 [facility] Potassium Chloride (Klor Con Er Tab*) [facility] [place] [facility] Home Medications: Atorvastatin* [Lipitor 20 MG*] 10 mg PO 2100 11/02/14 [History Confirmed ] Dronedarone TAB* [Multaq TAB*] 400 mg PO BID 11/02/14 [History Confirmed ] Furosemide TAB* [Lasix TAB*] 60 mg PO QAM 11/02/14 [History Confirmed 12/17/17] Metformin HCl [Glucophage] 500 mg PO DAILY 11/02/14 [History Confirmed 12/17/17] Metoprolol Succinate [Toprol Xl] 25 mg PO QAM 11/02/14 [History Confirmed ] Potassium Chlor TAB* [Potassium Chlor TAB 20 MEQ*] 10 meq PO QAM 11/02/14 [ History Confirmed 12/17/17] raNITIdine HCl [Ranitidine HCl] 150 mg PO BID 11/02/14 [History Confirmed ] glipiZIDE TAB* [Glucotrol TAB*] 5 mg PO BID 10/22/15 [History Confirmed 12/17/17 ] traMADol TAB* [Ultram*] 50 mg PO Q8H PRN #12 tab MDD THREE TABS 02/02/17 [Rx Confirmed 12/17/17] Docusate Sodium [Dok] 100 mg PO BID 03/29/17 [History Confirmed 12/17/17] Febuxostat [Uloric] 80 mg PO DAILY 03/29/17 [History Confirmed 12/17/17] Lactobacillus Acidophilus [Probiotic] 1 cap PO DAILY 03/29/17 [History Confirmed 12/17/17] Mupirocin 2% OINT* [Bactroban 2 % Oint*] 1 applic TOPICAL BID 03/29/17 [History Confirmed 12/17/17] Tizanidine HCl 4 mg PO TID PRN 03/29/17 [History Confirmed 12/17/17] Lisinopril [Zestril 5 MG-] 5 mg PO DAILY 03/30/17 [History Confirmed 12/17/17] Warfarin TAB(*) [Coumadin TAB(*)] 5 mg PO SUMOWEFRSA 12/17/17 [History Confirmed 12/17/17] Warfarin TAB(*) [Coumadin TAB(*)] 7.5 mg PO TUTH 12/17/17 [History Confirmed ] Review of Systems - Measurements Intake and Output: Intake and Output Last 24 Hours 12/15/17 12/16/17 12/17/17 12/18/17 06:59 06:59 06:59 06:59 Output Total 150 Balance -150 Weight 282 lb Output: Urine 150 - Review of Systems Constitutional Symptoms: Positive: Weakness, Fatigue Negative: Weight Gain, Weight Loss Dermatology: Negative: Rash, Skin Lesions HEENT: Negative: Change in Hearing, Vertigo Eyes: Negative: Change in Vision, Double Vision Thyroid: Negative: Cold Intolerance, Heat Intolerance, Change in Skin/Hair Pulmonary: Positive: Shortness of Breath Negative: Cough, Sputum, Hemoptysis, COPD Cardiology: Positive: Chest Pain, Shortness of Breath, Edema Negative: Palpitations, Swelling of Ankles, Peripheral Vascular Dis, Syncope , Claudication, Paroxysmal Nocturnal Dyspnea, Orthopnea Gastroenterology: Negative: Abdominal Pain, Nausea, Vomiting, Anorexia Genital - Urinary: Negative: Dysuria, Hematuria Musculoskeletal: Negative: Joint Pain, Joint Stiffness Endocrinology: Positive: Obesity, Diabetes, Pituitary Disease Negative: Adrenal Problems Hematologic/Lymphatic: Positive: Use of Anticoagulant Negative: Anemia, Easy Brusing, Use of Antiplatelet Drugs Neurology: Negative: Change in Speech, Change in Sphincter Function, Change in Walking Psychiatry: Negative: Unusual Anxiety, Suicidal Ideation Allergic/Immunologic: Negative: Hx HIV, Immunocompromise Review of Systems Statement: All other review of systems negative, unless stated above. Objective Vital Signs: Temp Pulse Resp BP Pulse Ox 98.3 F 78 20 110/63 96 12/17/17 19:37 12/17/17 19:01 12/17/17 19:00 12/17/17 19:01 12/17/17 19:01 Oxygen Devices in Use Now: None Appearance: nad, pleasant Ears/Nose/Mouth/Throat: Clear Oropharnyx, Mucous Membranes Moist Neck: Trachea Midline, - - uncertain jvp Respiratory: Symmetrical Chest Expansion and Respiratory Effort, Clear to Auscultation Cardiovascular: - - irregularly irregular, distant, 1+ edema, no significant murmur Abdominal: - - soft, obese Extremities: No Clubbing, Cyanosis Skin: No Rash or Ulcers Neurological: Alert and Oriented x 3 Laboratory Results: 12/17/17 13:52 12/17/17 13:52 INR (Anticoag Therapy) 3.15 (0.77-1.02) H 12/17/17 13:52 Total Bilirubin 0.50 mg/dL (0.2-1.0) 12/17/17 13:52 AST 16 U/L (13-39) 12/17/17 13:52 ALT 16 U/L (7-52) 12/17/17 13:52 Alkaline Phosphatase 65 U/L (34-104) 12/17/17 13:52 B-Natriuretic Peptide 86 pg/mL (-100) 12/17/17 13:52 Total Protein 7.7 g/dL (6.4-8.9) 12/17/17 13:52 Albumin 4.0 g/dL (3.2-5.2) 12/17/17 13:52 Globulin 3.7 g/dL (2-4) 12/17/17 13:52 Albumin/Globulin Ratio 1.1 (1-3) 12/17/17 13:52 TSH 0.27 mcIU/mL (0.34-5.60) L 12/17/17 13:52 12/17/17 12/17/17 12/17/17 13:52 16:25 18:20 Troponin I 0.01 0.01 0.01 12/17/17 19:53 Troponin I 0.01 Diagnostic Imaging: The patient competed a transesophageal echocardiogram 03/30/17 which showed mildly dilated LV size with moderate to severely depressed LV dysfunction with LVEF estimated 30-35%, global hypokinesis, severe bi-atrial dilatation, mild mitral regurgitation, mild dilatation of the aortic root and no intra-cardiac thrombus. Since prior transthoracic echocardiogram completed 12/23/16, there is no significant change. The patient subsequently underwent electrical cardioversion to NSR from AF also on 03/30/17. The patient completed a transthoracic echocardiogram 07/26/2017 which shows normal left ventricular size, moderate asymetric LVH, normal LVEF of 60-65%, mild bi-atrial dilatation, functionally benign heart valves, no significant pulmonary hypertension, mildlly dilated aortic root and mildly dilated ascending aorta. Since the prior transthoracic echocardiogram completed 12/23/16 and prior transesophageal echocardiogram completed 03/30/17, pertinent changes are prior LVEF reportedly moderate to severely depressed and prior moderate pulmonary hypertension noted; overall there does appear to be significant improvement. The patient completed a cardiac chemical nuclear stress test on a two day protocol January 11, 2017, which was abnormal and felt to be high risk. There was no convincing of ischemia; however, there was severe and extensive infarction pattern seen in the anterior wall, inferior wall and septum with intact rest and stress myocardial perfusion seen only in the lateral wall and severely depressed left ventricular function Cardiac catheterization completed 04/20/17 with normal coronary anatomy and moderate to severe LV dysfunction with LVEF 30% as well as anterior wall severe hypokinesis. EKG Data: ekg 12/17/2017: atrial flutter: LVH with repolarization abnormalities, given history likely aberrant beats with LBBB pattern post-cardioversion: NSR, LVH with repolarization pattern, 1avb, one appears conducted pac with aberrant conduction Assessment/Plan Mr De La Cruz is a 62 year old man with a history as above who presents with symptomatic atrial flutter now s/p cardioversion - Continue current cardiac medications except increase toprol from 25 to 50 mg po daily (ordered) - Thyroid evaluation and treatment per Primary service - If otherwise remains stable can be discharged Wednesday from a cardiac standpoint - Patient should follow up with Dr. Evan Guajardo as an outpatient Thank you for allowing me to participate in the cardiovascular care of this patient. Please do not hesitate to contact me with questions or concerns
[2017-12-17] MEDS: Atorvastatin* 10 MG TAB PO SCH (20:54)
[2017-12-17] MEDS: Docusate CAP* 100 MG PO SCH (20:54)
[2017-12-17] MEDS: Dronedarone TAB* 400 MG PO SCH (20:55)
[2017-12-17] MEDS: Insulin LISPRO* 1 UNITS UNIT SUBCUT SCH (21:41)
--- NOTE | 2017-12-17 21:53 | HP ---
CC: Dr. Morin; Dr. Guajardo * HISTORY AND PHYSICAL: DATE OF ADMISSION: 12/17/17 PROVIDER: Saba Dawson NP ATTENDING PHYSICIAN: Dr. Washington * (report dictated by Saba Dawson NP). PRIMARY CARE PROVIDER: Dr. Morin. PRIMARY SERVER SYSTEMS ADMINISTRATOR: Dr. Guajardo. CHIEF COMPLAINT: Midsternal chest pain, shortness of breath, dizziness; sent by ambulance from primary care provider's office. HISTORY OF PRESENT ILLNESS: Mr. De La Cruz is a 62-year-old chronically ill male with a past medical history of atrial fibrillation status post cardioversion on Coumadin, cardiomyopathy with an EF of 30%, hypertension with LVH, non-insulin dependent type 2 diabetes, obesity, peripheral vascular disease status post vascular surgery, chronic lower extremity edema, who presented to the emergency department today from the primary care provider's office for complaint of midsternal chest pain starting last evening, in which he reports he developed midsternal chest pain around midnight, nausea, in which he vomited x1 last night , dizziness with ambulation and shortness of breath. In the emergency department , he was found to be in rapid AFib with a heart rate of 118. The patient's initial troponin is 0.01. The patient did undergo a cardiac catheterization with Dr. Steen in early 2018, which showed normal coronary arteries and moderate LV dysfunction with an EF of 30% with anterior wall severe hypokinesis. On evaluation in the emergency department, the patient is sitting up in the stretcher alert and oriented x3, in no acute distress. He does report when he went to stand 20 minutes ago, he felt very dizzy. The patient was started on a Cardizem drip by the emergency department. This was initially started at 10 mg , titrated up to 15 and at that time, his blood pressure dropped with systolic blood pressures in the 70s and low 80s. The drip was then decreased back down to 10 mg and his systolic blood pressures have been stable systolically in the 90s and low 100s. The patient's heart rate currently is between a 100 and 110. He reports he feels a little bit better, but still states he does not feel well. He currently denies chest pain or heaviness. No shortness of breath. Denies dizziness. The patient reports prior to last evening, he felt well and has not had any recent illnesses. No further nausea or vomiting. Denies abdominal pain. No diarrhea or constipation. The patient will be admitted to the hospitalist service to the ICU with plan for cardioversion by the manager of financial reporting. Please note the patient is noted to have a TSH of 0.27. The patient denies history of thyroid disease in the past and is not noted in this chart. The patient denies any recent increase in lower extremity edema. Denies orthopnea. Denies any recent cough or wheezing. PAST MEDICAL HISTORY: 1. Atrial fibrillation status post cardioversion. 2. History of cardiac catheterization 04/20/2017 showing normal coronary arteries, moderate LV dysfunction with EF of 30% with anterior wall severe hypokinesis. 3. Hypertension with LVH. 4. Non-insulin dependent type 2 diabetes. 5. Obesity. 6. Cardiomyopathy with an EF of 30%. 7. Chronic lower extremity edema. 8. Peripheral vascular disease status post vascular surgery approximately 1 to 2 years ago with [facility]. 9. Gout. 10. History of spinal francie placed in high school for scoliosis. 11. Hyperlipidemia. HOME MEDICATIONS: 1. Lasix 60 mg p.o. q.a.m. 2. Uloric 80 mg p.o. daily. 3. Multaq 400 mg p.o. b.i.d. 4. Docusate sodium 100 mg p.o. b.i.d. 5. Lipitor 10 mg p.o. daily at 2100. 6. Lisinopril 5 mg p.o. daily. 7. Metoprolol succinate 25 mg p.o. q.a.m. 8. Bactroban 2% one application topically b.i.d. 9. Potassium chloride 10 mEq p.o. q.a.m. 10. Tizanidine HCl 4 mg p.o. t.i.d. p.r.n. 11. Coumadin 7.5 mg p.o. Wednesday and . 12. Coumadin 5 mg p.o. Wednesday, Wednesday, Wednesday, Wednesday, and Wednesday. 13. Glipizide 5 mg p.o. b.i.d. 14. Ranitidine 150 mg p.o. b.i.d. 15. Tramadol 50 mg p.o. q.8 hours p.r.n. ALLERGIES: No known allergies. FAMILY HISTORY: The patient's mother is . He is unaware of her health status. He also reports his father is . He has a brother who has history of coronary artery disease. SOCIAL HISTORY: The patient currently lives alone in [place], [place]. He does not have any children and states he does not have a healthcare proxy. He is a former smoker quitting approximately 20 years ago smoking approximately a pack a day. Denies any alcohol use. REVIEW OF SYSTEMS: A 14-point review of systems was performed. All the pertinent positives and negatives are mentioned in the history of present illness. Otherwise, negative. PHYSICAL EXAMINATION GENERAL APPEARANCE: Chronically ill 62-year-old male, alert and oriented x3, in no acute distress. VITAL SIGNS: Temperature 97.9, heart rate 110, respirations 20, pulse oximetry 95% on 4 L nasal cannula, blood pressure 95/62. HEENT: Head is normocephalic, atraumatic. Pupils are equal and reactive to light. Oropharynx is clear. Moist mucous membranes. NECK: Supple. CARDIAC: Irregularly irregular. No JVD noted. 1+ lower extremity edema noted to bilateral lower extremities. RESPIRATORY: Lungs are clear to auscultation bilaterally. Good aeration throughout. No accessory muscle use. ABDOMEN: Obese, soft, nontender, nondistended. Normal bowel sounds throughout. EXTREMITIES: No clubbing or cyanosis. Vascular skin changes to bilateral lower extremities. NEURO: Cranial nerves II through XII are grossly intact. No focal deficits noted. PSYCH: Flat affect. [id number] historian. Appropriate to situation. SKIN: No open wounds, lesions, or rashes noted. ASSESSMENT AND PLAN: Mr. De La Cruz is a 62-year-old male with a past medical history of atrial fibrillation status post cardioversion on Coumadin, cardiomyopathy with an EF of 30%, chronic lower extremity edema, peripheral vascular disease, non-insulin dependent type 2 diabetes, obesity, hypertension, who presents to the emergency department today with atrial fibrillation with rapid ventricular rate. 1. Atrial fibrillation with rapid ventricular rate. The patient was started on Cardizem drip in the emergency department. It has been difficult to titrate due to softer blood pressures. The patient clinically is stable; however, he will be admitted to the ICU for close monitoring and plan for manager of financial reporting, Dr. Wray who I spoke to over the phone to cardiovert the patient. The patient reports he has not had anything to eat since last evening at 7 p.m. His INR is therapeutic at 3.15. It is noted that the patient's TSH is suppressed at 0.27 per the patient chart review. I do not see that he has had a history of thyroid disease in the past. I have added on a thyroid panel. There was some question in the emergency department that the patient had mild congestive heart failure per the chest x-ray showing finding suggestive mild congestive heart failure; however, in comparison to the prior chest x-ray, this appears to be very similar and his BNP is 86 as well as he does not appear to be fluid overload on exam. However, with the atrial fibrillation with RVR and poor perfusion, very possibly he does have some mild congestive heart failure. At this time, I am going to hold his home Lasix dose due to hypotension, however, this needs to be reconsidered to restart in the morning. Continue the Multaq and metoprolol succinate home doses and wait further recommendations from the manager of financial reporting. The patient's INR is 3.15. The patient would normally take 5 mg of Coumadin this evening. We will give the patient half the dose 2.5 mg and recheck INR in the morning. 2. Acute renal failure. The patient's creatinine is 1.25, slightly above his baseline most likely in the setting of hyperperfusion. Repeat BMP in the morning. 3. Hypertension. The patient is on lisinopril, Lasix, and metoprolol succinate , as well as a Multaq. As stated above, we will continue the metoprolol succinate and Multaq, but will hold lisinopril and Lasix due to soft blood pressures. 4. Non-insulin dependent type 2 diabetes. Hold oral diabetic medications. Start fingerstick blood glucose monitoring a.c. and h.s. with lispro sliding scale. 5. Peripheral vascular disease. Continue Coumadin. 6. Hyperlipidemia. Continue Lipitor. 7. DVT prophylaxis. INR is therapeutic, on Coumadin. 8. Code status. Full code. 9. Disposition. Inpatient ICU. TIME SPENT: Approximately 60 minutes were spent on this admission. SABA DAWSON, OPERATIONS RESEARCH GROUP MANAGER [id number]/[facility] #: [id number] DOROTHY
[2017-12-18 06:39] LABS: ABS Basophils 0 10^3/ul (0-0.2); ABS Eosinophils 0.1 10^3/ul (0-0.6); ABS Lymphocytes 1.2 10^3/ul (1.0-4.8); ABS Monocytes 0.7 10^3/ul (0-0.8); ABS Neutrophils 6.5 10^3/ul (1.5-7.7); ABS Nucleated RBC 0 10^3/ul; Eosinophil % 0.7 % (0-6); Hematocrit 34 % (42-52); Hemoglobin 11.1 g/dl (14.0-18.0); Lymphocyte % 14.1 % (25-47); Mean Corpuscular HGB Conc 33 g/dl (31-36); Mean Corpuscular Hemoglobin 26 pg (27-31); Mean Corpuscular Volume 81 fL (80-94); Mean Platelet Volume 7.6 um3 (7.4-10.4); Nucleated Red Blood Cells % 0; Platelet Count 169 10^3/ul (150-450); Red Blood Count 4.22 10^6/ul (4.00-5.40); Red Cell Distribution Width 16 % (10.5-15); White Blood Count 8.5 10^3/ul (3.5-10.8)
[2017-12-18 06:42] LABS: INR 3.71 (0.77-1.02)
[2017-12-18 06:56] LABS: EGFR Non-African American 43.6 (>60)
[2017-12-18] MEDS: Insulin LISPRO* 1 UNITS UNIT SUBCUT SCH ×4 (07:30→21:30)
[2017-12-18] MEDS ORDERED: NS 0.9% 500 ML* 500 ML IV ONE (07:54)
--- NOTE | 2017-12-18 08:52 | PN ---
Subjective Date of Service: 12/18/17 Interval History: Patient seen and examined. States he is feeling better than yesterday. Denies SOB, no chest pain, no chest pressure or palpitations. No further complaints. Objective Active Medications: Atorvastatin Calcium (Lipitor*) 10 mg PO DAILY@2100 [facility] Last Admin: 12/17/17 20:54 Dose: 10 mg Dextrose (D50w Syringe 50 Ml*) 12.5 gm IV PUSH .FOR FS < 60 - SS PRN PRN Reason: FS < 60 Docusate Sodium (Colace Cap*) 100 mg PO BID [facility] Last Admin: 12/17/17 20:54 Dose: 100 mg Dronedarone (Multaq Tab*) 400 mg PO BID [facility] Last Admin: 12/17/17 20:55 Dose: 400 mg Febuxostat (Uloric(Nf)) 80 mg PO DAILY [facility] Sodium Chloride (Ns 0.9% 500 Ml*) 500 mls @ 500 mls/hr IV ONCE ONE Stop: 12/18/17 08:53 Last Admin: 12/18/17 08:36 Dose: 500 mls/hr Insulin Human Lispro (Humalog*) 0 units SUBCUT [facility]; Protocol Last Admin: 12/17/17 21:41 Dose: Not Given Metoprolol Succinate (Toprol Xl Tab*) 50 mg PO QAM [facility] Pharmacy Profile Note (Coumadin Daily Reminder*) 1 note FOLLOW UP 1700 [facility] Potassium Chloride (Klor Con Er Tab*) 10 meq PO QAM [facility] Vital Signs - 8 hr 12/18/17 12/18/17 12/18/17 00:50 01:00 01:10 Temperature Pulse Rate 64 66 59 Respiratory 20 Rate Blood Pressure 83/52 (mmHg) O2 Sat by Pulse 95 95 95 Oximetry 12/18/17 12/18/17 12/18/17 01:15 01:20 01:30 Temperature Pulse Rate 77 76 70 Respiratory Rate Blood Pressure 93/53 96/69 (mmHg) O2 Sat by Pulse 92 97 97 Oximetry 12/18/17 12/18/17 12/18/17 01:40 01:50 02:00 Temperature Pulse Rate 63 72 69 Respiratory 22 Rate Blood Pressure 108/50 (mmHg) O2 Sat by Pulse 96 97 97 Oximetry 12/18/17 12/18/17 12/18/17 02:10 02:20 02:30 Temperature Pulse Rate 70 64 60 Respiratory Rate Blood Pressure (mmHg) O2 Sat by Pulse 99 97 97 Oximetry 12/18/17 12/18/17 12/18/17 02:40 02:50 02:59 Temperature Pulse Rate 60 64 Respiratory 20 Rate Blood Pressure (mmHg) O2 Sat by Pulse 98 98 Oximetry 12/18/17 12/18/17 12/18/17 03:00 03:10 03:20 Temperature Pulse Rate 63 77 71 Respiratory Rate Blood Pressure 99/46 (mmHg) O2 Sat by Pulse 96 99 96 Oximetry 12/18/17 12/18/17 12/18/17 03:30 03:40 03:50 Temperature Pulse Rate 74 77 76 Respiratory Rate Blood Pressure (mmHg) O2 Sat by Pulse 95 95 95 Oximetry 12/18/17 12/18/17 12/18/17 04:00 04:10 04:20 Temperature 99.2 F Pulse Rate 76 63 64 Respiratory 23 Rate Blood Pressure 110/52 (mmHg) O2 Sat by Pulse 97 96 95 Oximetry 12/18/17 12/18/17 12/18/17 04:30 04:40 04:50 Temperature Pulse Rate 57 63 62 Respiratory Rate Blood Pressure (mmHg) O2 Sat by Pulse 95 96 95 Oximetry 12/18/17 12/18/17 12/18/17 05:00 05:10 05:20 Temperature Pulse Rate 60 60 84 Respiratory 22 Rate Blood Pressure 103/53 (mmHg) O2 Sat by Pulse 96 95 97 Oximetry 12/18/17 12/18/17 12/18/17 05:30 05:40 05:50 Temperature Pulse Rate 68 82 63 Respiratory Rate Blood Pressure (mmHg) O2 Sat by Pulse 91 98 98 Oximetry 12/18/17 12/18/17 06:00 08:00 Temperature 99.1 F Pulse Rate 74 Respiratory Rate Blood Pressure 115/65 (mmHg) O2 Sat by Pulse 98 Oximetry Oxygen Devices in Use Now: None Appearance: Alert, NAD Eyes: No Scleral Icterus, PERRLA, - - glasses Ears/Nose/Mouth/Throat: NL Teeth, Lips, Gums, Clear Oropharnyx, Mucous Membranes Moist Neck: NL Appearance and Movements; NL JVP, Trachea Midline Respiratory: Symmetrical Chest Expansion and Respiratory Effort, Clear to Auscultation Cardiovascular: NL Sounds; No Murmurs; No JVD, RRR, No Edema Abdominal: NL Sounds; No Tenderness; No Distention Extremities: No Clubbing, Cyanosis Neurological: Alert and Oriented x 3, NL Sensation Nutrition: Taking PO's Result Diagrams: 12/18/17 06:00 12/18/17 06:00 Additional Lab and Data: Lab Results 12/17/17 12/17/17 12/17/17 Range/Units 13:52 13:52 13:52 WBC 11.7 H (3.5-10.8) 10^3/ul RBC 4.63 (4.00-5.40) 10^6/ul Hgb 12.1 L (14.0-18.0) g/dl Hct 37 L (42-52) % MCV 81 (80-94) fL MCH 26 L (27-31) pg MCHC 33 (31-36) g/dl RDW 16 H (10.5-15) % Plt Count 179 (150-450) 10^3/ul MPV 7.6 (7.4-10.4) um3 Neut % (Auto) 89.7 H (38-83) % Lymph % (Auto) 4.2 L (25-47) % Amite % (Auto) 5.7 (0-7) % Eos % (Auto) 0.2 (0-6) % Baso % (Auto) 0.2 (0-2) % Absolute Neuts (auto) 10.5 H (1.5-7.7) 10^3/ul Absolute Lymphs (auto) 0.5 L (1.0-4.8) 10^3/ul Absolute Monos (auto) 0.7 (0-0.8) 10^3/ul Absolute Eos (auto) 0 (0-0.6) 10^3/ul Absolute Basos (auto) 0 (0-0.2) 10^3/ul Absolute Nucleated RBC 0 10^3/ul Nucleated RBC % 0 INR (Anticoag Therapy) 3.15 H (0.77-1.02) Sodium 139 (135-145) mmol/L Potassium 4.9 (3.5-5.0) mmol/L Chloride 101 (101-111) mmol/L Carbon Dioxide 30 (22-32) mmol/L Anion Gap 8 (2-11) mmol/L BUN 32 H (6-24) mg/dL Creatinine 1.25 H (0.67-1.17) mg/dL Est GFR ( Amer) 70.6 (>60) Est GFR (Non-Af Amer) 58.3 (>60) BUN/Creatinine Ratio 25.6 H (8-20) Glucose 116 H (70-100) mg/dL Lactic Acid (0.5-2.0) mmol/L Calcium 9.4 (8.6-10.3) mg/dL Total Bilirubin 0.50 (0.2-1.0) mg/dL AST 16 (13-39) U/L ALT 16 (7-52) U/L Alkaline Phosphatase 65 (34-104) U/L Troponin I 0.01 (<0.04) ng/mL B-Natriuretic Peptide ( - 100) pg/mL Total Protein 7.7 (6.4-8.9) g/dL Albumin 4.0 (3.2-5.2) g/dL Globulin 3.7 (2-4) g/dL Albumin/Globulin Ratio 1.1 (1-3) TSH 0.27 L (0.34-5.60) mcIU/mL 12/17/17 12/17/17 Range/Units 13:52 13:52 WBC (3.5-10.8) 10^3/ul RBC (4.00-5.40) 10^6/ul Hgb (14.0-18.0) g/dl Hct (42-52) % MCV (80-94) fL MCH (27-31) pg MCHC (31-36) g/dl RDW (10.5-15) % Plt Count (150-450) 10^3/ul MPV (7.4-10.4) um3 Neut % (Auto) (38-83) % Lymph % (Auto) (25-47) % Amite % (Auto) (0-7) % Eos % (Auto) (0-6) % Baso % (Auto) (0-2) % Absolute Neuts (auto) (1.5-7.7) 10^3/ul Absolute Lymphs (auto) (1.0-4.8) 10^3/ul Absolute Monos (auto) (0-0.8) 10^3/ul Absolute Eos (auto) (0-0.6) 10^3/ul Absolute Basos (auto) (0-0.2) 10^3/ul Absolute Nucleated RBC 10^3/ul Nucleated RBC % INR (Anticoag Therapy) (0.77-1.02) Sodium (135-145) mmol/L Potassium (3.5-5.0) mmol/L Chloride (101-111) mmol/L Carbon Dioxide (22-32) mmol/L Anion Gap (2-11) mmol/L BUN (6-24) mg/dL Creatinine (0.67-1.17) mg/dL Est GFR ( Amer) (>60) Est GFR (Non-Af Amer) (>60) BUN/Creatinine Ratio (8-20) Glucose (70-100) mg/dL Lactic Acid 1.0 (0.5-2.0) mmol/L Calcium (8.6-10.3) mg/dL Total Bilirubin (0.2-1.0) mg/dL AST (13-39) U/L ALT (7-52) U/L Alkaline Phosphatase (34-104) U/L Troponin I (<0.04) ng/mL B-Natriuretic Peptide 86 ( - 100) pg/mL Total Protein (6.4-8.9) g/dL Albumin (3.2-5.2) g/dL Globulin (2-4) g/dL Albumin/Globulin Ratio (1-3) TSH (0.34-5.60) mcIU/mL Microbiology and Other Data: Microbiology 12/17/17 20:00 Nasal Screen MRSA (PCR) - Final Nasal Mrsa Not Detected Diagnostic Imaging: Patient Name: OLIVER COSTELLO Medical Record#: [id number] Ordering Physician: Ronal Alvarado MD Acct.#: [id number] : 1955 Age: 62 Sex: M Location: EMERGENCY DEPARTMENT Exam Date: 12/17/17 1330 ADM Status: REG ER Order Information: CHEST AP PORTABLE Accession Number: [id number] CPT: 30035 INDICATION: Chest pain. COMPARISON: Correlation is made with a prior study from January 11, 2013. TECHNIQUE: A portable view of the chest was obtained. FINDINGS: The heart is moderately enlarged and has increased slightly in size. There is prominence of the interstitial markings. No focal infiltrate or pleural effusion is seen. The patient is status post posterior spinal fusion of the dorsal spine. IMPRESSION: FINDINGS SUGGESTIVE OF MILD CONGESTIVE HEART FAILURE. <Electronically signed by Markie Hurtado MD in [place]> 12/17/17 1445 Dictated By: Markie Hurtado MD Dictated Date/Time: 12/17/17 1445 Transcribed Date/Time: 12/17/17 1443 Copy to: Assess/Plan/Problems-Billing Assessment: This is a 62 year old male with complex medical comorbidities that presented to the ER with complaints of chest pressure, found to be in afib with RVR, now s/p cardioversion. - Patient Problems (1) Atrial fibrillation with rapid ventricular response Code(s): I48.91 - UNSPECIFIED ATRIAL FIBRILLATION SNOMED Code(s): 836979341210243 Comment: - Cardizem drip DC'd - S/P successful cardioversion - Continue BB and multaq per cardiology - Countinue coumadin, currently therapeutic - Does not appear fluid overloaded (2) Hypotension Comment: - Likely combination of cardizem, BP meds and general hypovolemia - Will give small bolus NS now and monitor BP - Continue to hold BP meds except metoprolol (3) EMELY (acute kidney injury) Code(s): N17.9 - ACUTE KIDNEY FAILURE, UNSPECIFIED SNOMED Code(s): 98983072 Comment: - Likely 2/2 hypovolemia/hypotension, daily lasix use and cardizem drip - Small fluid bolus now and monitor for fluid overload - Continue to monitor renal function daily - Hold nephrotoxic meds (4) Diabetes mellitus Code(s): E11.9 - TYPE 2 DIABETES MELLITUS WITHOUT COMPLICATIONS SNOMED Code(s) : 52397405 Comment: - Hold PO meds - Continue lispro SS (5) Cardiomyopathy Code(s): I42.9 - CARDIOMYOPATHY, UNSPECIFIED SNOMED Code(s): 08198814 Comment: - Cardiac cath earlier this year showed no CAD - EF around 30% iwth severe hypokinesis - CXR suggestive of CHF, however clinically he is not hypervolemic - Continue supportive care (6) Abnormal TSH Code(s): R79.89 - OTHER SPECIFIED ABNORMAL FINDINGS OF BLOOD CHEMISTRY SNOMED Code(s): 793407273 Comment: - O.27 yesterday, in the past TSH was around 0.4 - T3, T4 normal - Pending anti-TPO - Repeat TSH this AM (7) Peripheral vascular disease Code(s): I73.9 - PERIPHERAL VASCULAR DISEASE, UNSPECIFIED SNOMED Code(s): 905340528 Comment: - With chronic edema - Supportive care, PT eval (8) Obesity Code(s): E66.9 - OBESITY, UNSPECIFIED SNOMED Code(s): 518370664 Comment: - Heart healthy diet, recommend weight loss in the setting of CM and PVD (9) GERD (gastroesophageal reflux disease) Code(s): K21.9 - GASTRO-ESOPHAGEAL REFLUX DISEASE WITHOUT ESOPHAGITIS SNOMED Code(s): 882378351 Comment: - On ranitidine at home, will start PPI today (10) DVT prophylaxis Code(s): DQU0264 - SNOMED Code(s): 421875851 Comment: - On coumadin (11) Full code status Code(s): Z78.9 - OTHER SPECIFIED HEALTH STATUS SNOMED Code(s): 959254764 Status and Disposition: PT eval today. Patient appears deconditioned. Was at [facility] in the past. Re-eval later for dispo.
[2017-12-18] MEDS ORDERED: Metoprolol Succinate XL TAB* 25 MG PO SCH (09:00)
[2017-12-18] MEDS: Potassium Chlor TAB* 10 MEQ TAB.ER PO SCH (09:03)
[2017-12-18] MEDS: Metoprolol Succinate XL TAB* 50 MG PO SCH (09:03)
[2017-12-18] MEDS: Dronedarone TAB* 400 MG PO SCH ×2 (09:03→21:30)
[2017-12-18] MEDS: Docusate CAP* 100 MG PO SCH ×2 (09:03→21:30)
[2017-12-18] MEDS: FEBUXOSTAT 40 MG PO SCH (09:04)
[2017-12-18] MEDS: Atorvastatin* 10 MG TAB PO SCH (21:30)
[2017-12-19] MEDS: Omeprazole CAP* 20 MG PO SCH (06:08)
[2017-12-19] MEDS: traMADol TAB* 50 MG PO PRN (07:36)
[2017-12-19] MEDS: Insulin LISPRO* 1 UNITS UNIT SUBCUT SCH ×4 (07:41→20:42)
[2017-12-19] MEDS: Potassium Chlor TAB* 10 MEQ TAB.ER PO SCH (09:39)
[2017-12-19] MEDS: Metoprolol Succinate XL TAB* 50 MG PO SCH (09:39)
[2017-12-19] MEDS: FEBUXOSTAT 40 MG PO SCH (09:39)
[2017-12-19] MEDS: Docusate CAP* 100 MG PO SCH ×2 (09:39→19:54)
[2017-12-19] MEDS: Dronedarone TAB* 400 MG PO SCH ×2 (09:39→19:53)
[2017-12-19] MEDS ORDERED: Magnesium Sulfate 1 GM IV* 1 GM/100 ML BAG IV ONE (09:45)
--- NOTE | 2017-12-19 13:40 | PN ---
Subjective Date of Service: 12/19/17 Interval History: Patient seen and examined. Appears very nervous but states he feels "ok". Denies any chest pain, no SOB, no palpitations. Complains of fatigue and inability to ambulate secondary to chronic left knee pain. States he has "a touch of arthritis" on that side. Objective Active Medications: Atorvastatin Calcium (Lipitor*) 10 mg PO DAILY@2100 [facility] Last Admin: 12/18/17 21:30 Dose: 10 mg Dextrose (D50w Syringe 50 Ml*) 12.5 gm IV PUSH .FOR FS < 60 - SS PRN PRN Reason: FS < 60 Docusate Sodium (Colace Cap*) 100 mg PO BID [facility] Last Admin: 12/19/17 09:39 Dose: 100 mg Dronedarone (Multaq Tab*) 400 mg PO BID [facility] Last Admin: 12/19/17 09:39 Dose: 400 mg Febuxostat (Uloric(Nf)) 80 mg PO DAILY [facility] Last Admin: 12/19/17 09:39 Dose: 80 mg Insulin Human Lispro (Humalog*) 0 units SUBCUT [facility]; Protocol Last Admin: 12/19/17 12:08 Dose: 12 units Metoprolol Succinate (Toprol Xl Tab*) 50 mg PO QAM [facility] Last Admin: 12/19/17 09:39 Dose: 50 mg Omeprazole (Prilosec Cap*) 20 mg PO DAILY@0600 [facility] Last Admin: 12/19/17 06:08 Dose: 20 mg Pharmacy Profile Note (Coumadin Daily Reminder*) 1 note FOLLOW UP 1700 [facility] Last Admin: 12/18/17 18:49 Dose: Not Given Potassium Chloride (Klor Con Er Tab*) 10 meq PO QAM [facility] Last Admin: 12/19/17 09:39 Dose: 10 meq Tramadol HCl (Ultram*) 50 mg PO Q8H PRN PRN Reason: PAIN Last Admin: 12/19/17 07:36 Dose: 50 mg Vital Signs - 8 hr 12/19/17 12/19/17 12/19/17 07:25 07:36 07:49 Temperature Pulse Rate 116 Respiratory 22 22 22 Rate Blood Pressure 153/65 (mmHg) O2 Sat by Pulse 94 Oximetry 12/19/17 12/19/17 09:41 11:28 Temperature 98.0 F Pulse Rate 56 Respiratory 22 22 Rate Blood Pressure 142/53 (mmHg) O2 Sat by Pulse 100 Oximetry Oxygen Devices in Use Now: Nasal Cannula Appearance: Alert, anxious Eyes: No Scleral Icterus, PERRLA Ears/Nose/Mouth/Throat: NL Teeth, Lips, Gums, Mucous Membranes Moist Neck: NL Appearance and Movements; NL JVP, Trachea Midline Respiratory: Symmetrical Chest Expansion and Respiratory Effort, Clear to Auscultation Cardiovascular: NL Sounds; No Murmurs; No JVD, RRR, - - LE edema +2 Extremities: No Clubbing, Cyanosis Skin: No Rash or Ulcers Neurological: Alert and Oriented x 3, NL Sensation Nutrition: Taking PO's Result Diagrams: 12/18/17 06:00 12/18/17 06:00 Additional Lab and Data: Lab Results 12/17/17 12/17/17 12/17/17 Range/Units 13:52 13:52 13:52 WBC 11.7 H (3.5-10.8) 10^3/ul RBC 4.63 (4.00-5.40) 10^6/ul Hgb 12.1 L (14.0-18.0) g/dl Hct 37 L (42-52) % MCV 81 (80-94) fL MCH 26 L (27-31) pg MCHC 33 (31-36) g/dl RDW 16 H (10.5-15) % Plt Count 179 (150-450) 10^3/ul MPV 7.6 (7.4-10.4) um3 Neut % (Auto) 89.7 H (38-83) % Lymph % (Auto) 4.2 L (25-47) % [place] % (Auto) 5.7 (0-7) % Eos % (Auto) 0.2 (0-6) % Baso % (Auto) 0.2 (0-2) % Absolute Neuts (auto) 10.5 H (1.5-7.7) 10^3/ul Absolute Lymphs (auto) 0.5 L (1.0-4.8) 10^3/ul Absolute Monos (auto) 0.7 (0-0.8) 10^3/ul Absolute Eos (auto) 0 (0-0.6) 10^3/ul Absolute Basos (auto) 0 (0-0.2) 10^3/ul Absolute Nucleated RBC 0 10^3/ul Nucleated RBC % 0 INR (Anticoag Therapy) 3.15 H (0.77-1.02) Sodium 139 (135-145) mmol/L Potassium 4.9 (3.5-5.0) mmol/L Chloride 101 (101-111) mmol/L Carbon Dioxide 30 (22-32) mmol/L Anion Gap 8 (2-11) mmol/L BUN 32 H (6-24) mg/dL Creatinine 1.25 H (0.67-1.17) mg/dL Est GFR ( Amer) 70.6 (>60) Est GFR (Non-Af Amer) 58.3 (>60) BUN/Creatinine Ratio 25.6 H (8-20) Glucose 116 H (70-100) mg/dL Lactic Acid (0.5-2.0) mmol/L Calcium 9.4 (8.6-10.3) mg/dL Total Bilirubin 0.50 (0.2-1.0) mg/dL AST 16 (13-39) U/L ALT 16 (7-52) U/L Alkaline Phosphatase 65 (34-104) U/L Troponin I 0.01 (<0.04) ng/mL B-Natriuretic Peptide ( - 100) pg/mL Total Protein 7.7 (6.4-8.9) g/dL Albumin 4.0 (3.2-5.2) g/dL Globulin 3.7 (2-4) g/dL Albumin/Globulin Ratio 1.1 (1-3) TSH 0.27 L (0.34-5.60) mcIU/mL 12/17/17 12/17/17 Range/Units 13:52 13:52 WBC (3.5-10.8) 10^3/ul RBC (4.00-5.40) 10^6/ul Hgb (14.0-18.0) g/dl Hct (42-52) % MCV (80-94) fL MCH (27-31) pg MCHC (31-36) g/dl RDW (10.5-15) % Plt Count (150-450) 10^3/ul MPV (7.4-10.4) um3 Neut % (Auto) (38-83) % Lymph % (Auto) (25-47) % [place] % (Auto) (0-7) % Eos % (Auto) (0-6) % Baso % (Auto) (0-2) % Absolute Neuts (auto) (1.5-7.7) 10^3/ul Absolute Lymphs (auto) (1.0-4.8) 10^3/ul Absolute Monos (auto) (0-0.8) 10^3/ul Absolute Eos (auto) (0-0.6) 10^3/ul Absolute Basos (auto) (0-0.2) 10^3/ul Absolute Nucleated RBC 10^3/ul Nucleated RBC % INR (Anticoag Therapy) (0.77-1.02) Sodium (135-145) mmol/L Potassium (3.5-5.0) mmol/L Chloride (101-111) mmol/L Carbon Dioxide (22-32) mmol/L Anion Gap (2-11) mmol/L BUN (6-24) mg/dL Creatinine (0.67-1.17) mg/dL Est GFR ( Amer) (>60) Est GFR (Non-Af Amer) (>60) BUN/Creatinine Ratio (8-20) Glucose (70-100) mg/dL Lactic Acid 1.0 (0.5-2.0) mmol/L Calcium (8.6-10.3) mg/dL Total Bilirubin (0.2-1.0) mg/dL AST (13-39) U/L ALT (7-52) U/L Alkaline Phosphatase (34-104) U/L Troponin I (<0.04) ng/mL B-Natriuretic Peptide 86 ( - 100) pg/mL Total Protein (6.4-8.9) g/dL Albumin (3.2-5.2) g/dL Globulin (2-4) g/dL Albumin/Globulin Ratio (1-3) TSH (0.34-5.60) mcIU/mL Microbiology and Other Data: Microbiology 12/17/17 20:00 Nasal Screen MRSA (PCR) - Final Nasal Mrsa Not Detected Diagnostic Imaging: Patient Name: OLIVER COSTELLO Medical Record#: [id number] Ordering Physician: Ronal Alvarado MD Acct.#: [id number] : 1955 Age: 62 Sex: M Location: EMERGENCY DEPARTMENT Exam Date: 12/17/17 1330 ADM Status: REG ER Order Information: CHEST AP PORTABLE Accession Number: [id number] CPT: 42339 INDICATION: Chest pain. COMPARISON: Correlation is made with a prior study from January 11, 2013. TECHNIQUE: A portable view of the chest was obtained. FINDINGS: The heart is moderately enlarged and has increased slightly in size. There is prominence of the interstitial markings. No focal infiltrate or pleural effusion is seen. The patient is status post posterior spinal fusion of the dorsal spine. IMPRESSION: FINDINGS SUGGESTIVE OF MILD CONGESTIVE HEART FAILURE. <Electronically signed by Markie Hurtado MD in [facility]> 12/17/17 1445 Dictated By: Markie Hurtado MD Dictated Date/Time: 12/17/17 1445 Transcribed Date/Time: 12/17/17 1443 Copy to: Assess/Plan/Problems-Billing Assessment: This is a 62 year old male with complex medical comorbidities that presented to the ER with complaints of chest pressure, found to be in afib with RVR, now s/p cardioversion. - Patient Problems (1) Atrial fibrillation with rapid ventricular response Code(s): I48.91 - UNSPECIFIED ATRIAL FIBRILLATION SNOMED Code(s): 293368623458523 Comment: - Off cardizem drip since 12/18 - S/P successful cardioversion - Continue BB and multaq per cardiology - Hold coumadin today, INR = 3.71 - Does not appear fluid overloaded (2) Hypotension Comment: - Now resolved/normotensive - Likely combination of cardizem, BP meds and general hypovolemia - s/p small bolus (3) EMELY (acute kidney injury) Code(s): N17.9 - ACUTE KIDNEY FAILURE, UNSPECIFIED SNOMED Code(s): 70246278 Comment: - Likely 2/2 hypovolemia/hypotension, daily lasix use and cardizem drip - Small fluid bolus now and monitor for fluid overload - Continue to monitor renal function daily - Hold nephrotoxic meds (4) Diabetes mellitus Code(s): E11.9 - TYPE 2 DIABETES MELLITUS WITHOUT COMPLICATIONS SNOMED Code(s) : 73884478 Comment: - Hold PO meds - Continue lispro SS (5) Cardiomyopathy Code(s): I42.9 - CARDIOMYOPATHY, UNSPECIFIED SNOMED Code(s): 88477562 Comment: - Cardiac cath earlier this year showed no CAD - EF around 30% iwth severe hypokinesis - CXR suggestive of CHF, however clinically he is not hypervolemic - Continue supportive care (6) Abnormal TSH Code(s): R79.89 - OTHER SPECIFIED ABNORMAL FINDINGS OF BLOOD CHEMISTRY SNOMED Code(s): 066805628 Comment: - O.27 yesterday, in the past TSH was around 0.4 - T3, T4 normal - Thyroid peroxidase WNL - Likely subclinical hyperthyroidism, continue BB, will likely need thyroid uptake screening as an outpatient (7) Peripheral vascular disease Code(s): I73.9 - PERIPHERAL VASCULAR DISEASE, UNSPECIFIED SNOMED Code(s): 080389177 Comment: - With chronic edema - Supportive care (8) Obesity Code(s): E66.9 - OBESITY, UNSPECIFIED SNOMED Code(s): 026500794 Comment: - Heart healthy diet, recommend weight loss in the setting of CM and PVD (9) GERD (gastroesophageal reflux disease) Code(s): K21.9 - GASTRO-ESOPHAGEAL REFLUX DISEASE WITHOUT ESOPHAGITIS SNOMED Code(s): 343526671 Comment: - On ranitidine at home, started PPI (10) DVT prophylaxis Code(s): [id number] - SNOMED Code(s): 291906731 Comment: - On coumadin (11) Full code status Code(s): Z78.9 - OTHER SPECIFIED HEALTH STATUS SNOMED Code(s): 262201733 Status and Disposition: Patient did poorly with PT, highly recommend STR, patient would like [facility].
[2017-12-19] MEDS: Atorvastatin* 10 MG TAB PO SCH (19:53)
[2017-12-20] MEDS: Omeprazole CAP* 20 MG PO SCH (06:05)
[2017-12-20] MEDS: traMADol TAB* 50 MG PO PRN ×2 (06:05→19:21)
[2017-12-20] MEDS: Insulin LISPRO* 1 UNITS UNIT SUBCUT SCH ×4 (07:20→20:32)
--- NOTE | 2017-12-20 09:03 | PN ---
Subjective Date of Service: 12/20/17 Interval History: Patient seen and examined. States he still has pain in left knee, but did better in PT yesterday. Remains on O2, but denies SOB, no chest pain and no palpitations. Objective Active Medications: Atorvastatin Calcium (Lipitor*) 10 mg PO DAILY@2100 [facility] Last Admin: 12/19/17 19:53 Dose: 10 mg Dextrose (D50w Syringe 50 Ml*) 12.5 gm IV PUSH .FOR FS < 60 - SS PRN PRN Reason: FS < 60 Docusate Sodium (Colace Cap*) 100 mg PO BID [facility] Last Admin: 12/19/17 19:54 Dose: 100 mg Dronedarone (Multaq Tab*) 400 mg PO BID [facility] Last Admin: 12/19/17 19:53 Dose: 400 mg Febuxostat (Uloric(Nf)) 80 mg PO DAILY [facility] Last Admin: 12/19/17 09:39 Dose: 80 mg Insulin Human Lispro (Humalog*) 0 units SUBCUT [facility]; Protocol Last Admin: 12/20/17 07:20 Dose: Not Given Metoprolol Succinate (Toprol Xl Tab*) 50 mg PO QAM [facility] Last Admin: 12/19/17 09:39 Dose: 50 mg Omeprazole (Prilosec Cap*) 20 mg PO DAILY@0600 [facility] Last Admin: 12/20/17 06:05 Dose: 20 mg Pharmacy Profile Note (Coumadin Daily Reminder*) 1 note FOLLOW UP 1700 [facility] Last Admin: 12/19/17 16:13 Dose: Not Given Potassium Chloride (Klor Con Er Tab*) 10 meq PO QAM [facility] Last Admin: 12/19/17 09:39 Dose: 10 meq Tramadol HCl (Ultram*) 50 mg PO Q8H PRN PRN Reason: PAIN Last Admin: 12/20/17 06:05 Dose: 50 mg Vital Signs - 8 hr 12/20/17 12/20/17 03:17 06:05 Temperature 97.5 F Pulse Rate 58 Respiratory 20 18 Rate Blood Pressure 138/63 (mmHg) O2 Sat by Pulse 96 Oximetry Oxygen Devices in Use Now: Nasal Cannula Appearance: alert, NAD Eyes: No Scleral Icterus, PERRLA Ears/Nose/Mouth/Throat: Clear Oropharnyx, Mucous Membranes Moist Neck: NL Appearance and Movements; NL JVP, Trachea Midline Respiratory: Symmetrical Chest Expansion and Respiratory Effort, Clear to Auscultation Cardiovascular: NL Sounds; No Murmurs; No JVD, RRR Abdominal: NL Sounds; No Tenderness; No Distention Extremities: No Clubbing, Cyanosis, - - bipedal edema at baseline Skin: No Rash or Ulcers Neurological: Alert and Oriented x 3 Nutrition: Taking PO's Result Diagrams: 12/18/17 06:00 12/18/17 06:00 Additional Lab and Data: Lab Results 12/17/17 12/17/17 12/17/17 Range/Units 13:52 13:52 13:52 WBC 11.7 H (3.5-10.8) 10^3/ul RBC 4.63 (4.00-5.40) 10^6/ul Hgb 12.1 L (14.0-18.0) g/dl Hct 37 L (42-52) % MCV 81 (80-94) fL MCH 26 L (27-31) pg MCHC 33 (31-36) g/dl RDW 16 H (10.5-15) % Plt Count 179 (150-450) 10^3/ul MPV 7.6 (7.4-10.4) um3 Neut % (Auto) 89.7 H (38-83) % Lymph % (Auto) 4.2 L (25-47) % [place] % (Auto) 5.7 (0-7) % Eos % (Auto) 0.2 (0-6) % Baso % (Auto) 0.2 (0-2) % Absolute Neuts (auto) 10.5 H (1.5-7.7) 10^3/ul Absolute Lymphs (auto) 0.5 L (1.0-4.8) 10^3/ul Absolute Monos (auto) 0.7 (0-0.8) 10^3/ul Absolute Eos (auto) 0 (0-0.6) 10^3/ul Absolute Basos (auto) 0 (0-0.2) 10^3/ul Absolute Nucleated RBC 0 10^3/ul Nucleated RBC % 0 INR (Anticoag Therapy) 3.15 H (0.77-1.02) Sodium 139 (135-145) mmol/L Potassium 4.9 (3.5-5.0) mmol/L Chloride 101 (101-111) mmol/L Carbon Dioxide 30 (22-32) mmol/L Anion Gap 8 (2-11) mmol/L BUN 32 H (6-24) mg/dL Creatinine 1.25 H (0.67-1.17) mg/dL Est GFR ( Amer) 70.6 (>60) Est GFR (Non-Af Amer) 58.3 (>60) BUN/Creatinine Ratio 25.6 H (8-20) Glucose 116 H (70-100) mg/dL Lactic Acid (0.5-2.0) mmol/L Calcium 9.4 (8.6-10.3) mg/dL Total Bilirubin 0.50 (0.2-1.0) mg/dL AST 16 (13-39) U/L ALT 16 (7-52) U/L Alkaline Phosphatase 65 (34-104) U/L Troponin I 0.01 (<0.04) ng/mL B-Natriuretic Peptide ( - 100) pg/mL Total Protein 7.7 (6.4-8.9) g/dL Albumin 4.0 (3.2-5.2) g/dL Globulin 3.7 (2-4) g/dL Albumin/Globulin Ratio 1.1 (1-3) TSH 0.27 L (0.34-5.60) mcIU/mL 12/17/17 12/17/17 Range/Units 13:52 13:52 WBC (3.5-10.8) 10^3/ul RBC (4.00-5.40) 10^6/ul Hgb (14.0-18.0) g/dl Hct (42-52) % MCV (80-94) fL MCH (27-31) pg MCHC (31-36) g/dl RDW (10.5-15) % Plt Count (150-450) 10^3/ul MPV (7.4-10.4) um3 Neut % (Auto) (38-83) % Lymph % (Auto) (25-47) % [place] % (Auto) (0-7) % Eos % (Auto) (0-6) % Baso % (Auto) (0-2) % Absolute Neuts (auto) (1.5-7.7) 10^3/ul Absolute Lymphs (auto) (1.0-4.8) 10^3/ul Absolute Monos (auto) (0-0.8) 10^3/ul Absolute Eos (auto) (0-0.6) 10^3/ul Absolute Basos (auto) (0-0.2) 10^3/ul Absolute Nucleated RBC 10^3/ul Nucleated RBC % INR (Anticoag Therapy) (0.77-1.02) Sodium (135-145) mmol/L Potassium (3.5-5.0) mmol/L Chloride (101-111) mmol/L Carbon Dioxide (22-32) mmol/L Anion Gap (2-11) mmol/L BUN (6-24) mg/dL Creatinine (0.67-1.17) mg/dL Est GFR ( Amer) (>60) Est GFR (Non-Af Amer) (>60) BUN/Creatinine Ratio (8-20) Glucose (70-100) mg/dL Lactic Acid 1.0 (0.5-2.0) mmol/L Calcium (8.6-10.3) mg/dL Total Bilirubin (0.2-1.0) mg/dL AST (13-39) U/L ALT (7-52) U/L Alkaline Phosphatase (34-104) U/L Troponin I (<0.04) ng/mL B-Natriuretic Peptide 86 ( - 100) pg/mL Total Protein (6.4-8.9) g/dL Albumin (3.2-5.2) g/dL Globulin (2-4) g/dL Albumin/Globulin Ratio (1-3) TSH (0.34-5.60) mcIU/mL Microbiology and Other Data: Microbiology 12/17/17 20:00 Nasal Screen MRSA (PCR) - Final Nasal Mrsa Not Detected Diagnostic Imaging: Patient Name: OLIVER COSTELLO Medical Record#: [id number] Ordering Physician: Ronal Alvarado MD Acct.#: [id number] : 1955 Age: 62 Sex: M Location: EMERGENCY DEPARTMENT Exam Date: 12/17/17 1330 ADM Status: REG ER Order Information: CHEST AP PORTABLE Accession Number: [id number] CPT: 57403 INDICATION: Chest pain. COMPARISON: Correlation is made with a prior study from January 11, 2013. TECHNIQUE: A portable view of the chest was obtained. FINDINGS: The heart is moderately enlarged and has increased slightly in size. There is prominence of the interstitial markings. No focal infiltrate or pleural effusion is seen. The patient is status post posterior spinal fusion of the dorsal spine. IMPRESSION: FINDINGS SUGGESTIVE OF MILD CONGESTIVE HEART FAILURE. <Electronically signed by Markie Hurtado MD in [facility]> 12/17/17 1445 Dictated By: Markie Hurtado MD Dictated Date/Time: 12/17/17 1445 Transcribed Date/Time: 12/17/17 1443 Copy to: Assess/Plan/Problems-Billing Assessment: This is a 62 year old male with complex medical comorbidities that presented to the ER with complaints of chest pressure, found to be in afib with RVR, now s/p cardioversion. - Patient Problems (1) Atrial fibrillation with rapid ventricular response Code(s): I48.91 - UNSPECIFIED ATRIAL FIBRILLATION SNOMED Code(s): 813688246418316 Comment: - Off cardizem drip since 12/18 - S/P successful cardioversion - Continue BB and multaq per cardiology - Held coumadin yesterday for INR = 3.71, recheck today and adjust coumadin accordingly - Does not appear fluid overloaded (2) Hypotension Comment: - Now resolved/normotensive - Likely combination of cardizem, BP meds and general hypovolemia - s/p small bolus (3) EMELY (acute kidney injury) Code(s): N17.9 - ACUTE KIDNEY FAILURE, UNSPECIFIED SNOMED Code(s): 06156726 Comment: - Likely 2/2 hypovolemia/hypotension, daily lasix use and cardizem drip - Follow BMP today, restart lasix today (4) Diabetes mellitus Code(s): E11.9 - TYPE 2 DIABETES MELLITUS WITHOUT COMPLICATIONS SNOMED Code(s) : 63281164 Comment: - Hold PO meds - Continue lispro SS (5) Cardiomyopathy Code(s): I42.9 - CARDIOMYOPATHY, UNSPECIFIED SNOMED Code(s): 51775197 Comment: - Cardiac cath earlier this year showed no CAD - EF around 30% iwth severe hypokinesis - CXR suggestive of CHF, however clinically he is not hypervolemic, restart lasix today - Walking sats to wean O2 - Continue supportive care (6) Abnormal TSH Code(s): R79.89 - OTHER SPECIFIED ABNORMAL FINDINGS OF BLOOD CHEMISTRY SNOMED Code(s): 614043730 Comment: - O.27 yesterday, in the past TSH was around 0.4 - T3, T4 normal - Thyroid peroxidase WNL - Likely subclinical hyperthyroidism, continue BB, will likely need thyroid uptake screening as an outpatient (7) Peripheral vascular disease Code(s): I73.9 - PERIPHERAL VASCULAR DISEASE, UNSPECIFIED SNOMED Code(s): 707199085 Comment: - With chronic edema, lasix restarted - Supportive care (8) Obesity Code(s): E66.9 - OBESITY, UNSPECIFIED SNOMED Code(s): 928437316 Comment: - Heart healthy diet, recommend weight loss in the setting of CM and PVD (9) GERD (gastroesophageal reflux disease) Code(s): K21.9 - GASTRO-ESOPHAGEAL REFLUX DISEASE WITHOUT ESOPHAGITIS SNOMED Code(s): 046529617 Comment: - On ranitidine at home, started PPI (10) DVT prophylaxis Code(s): OLQ4438 - SNOMED Code(s): 622890553 Comment: - On coumadin (11) Full code status Code(s): Z78.9 - OTHER SPECIFIED HEALTH STATUS SNOMED Code(s): 066462718 Status and Disposition: Patient did better with PT yesterday, however we should re-evaluate again today for dispo, likely STR.
[2017-12-20] MEDS: Furosemide TAB* 20 MG PO SCH (10:07)
[2017-12-20] MEDS: Dronedarone TAB* 400 MG PO SCH ×2 (10:08→19:54)
[2017-12-20] MEDS: Docusate CAP* 100 MG PO SCH ×2 (10:08→19:54)
[2017-12-20] MEDS: Potassium Chlor TAB* 10 MEQ TAB.ER PO SCH (10:08)
[2017-12-20] MEDS: Metoprolol Succinate XL TAB* 50 MG PO SCH (10:08)
[2017-12-20] MEDS: FEBUXOSTAT 40 MG PO SCH (10:09)
[2017-12-20 11:15] LABS: INR 1.89 (0.77-1.02)
[2017-12-20 11:27] LABS: EGFR Non-African American 86.3 (>60)
[2017-12-20] MEDS: Warfarin TAB(*) 5 MG PO SCH (17:11)
[2017-12-20] MEDS: Atorvastatin* 10 MG TAB PO SCH (19:54)
[2017-12-21] MEDS: Omeprazole CAP* 20 MG PO SCH (04:51)
[2017-12-21] MEDS: traMADol TAB* 50 MG PO PRN (04:51)
[2017-12-21 06:18] LABS: ABS Basophils 0 10^3/ul (0-0.2); ABS Eosinophils 0.1 10^3/ul (0-0.6); ABS Lymphocytes 0.9 10^3/ul (1.0-4.8); ABS Monocytes 0.5 10^3/ul (0-0.8); ABS Neutrophils 3.9 10^3/ul (1.5-7.7); ABS Nucleated RBC 0 10^3/ul; Eosinophil % 2.2 % (0-6); Hematocrit 34 % (42-52); Hemoglobin 10.9 g/dl (14.0-18.0); Lymphocyte % 17.3 % (25-47); Mean Corpuscular HGB Conc 32 g/dl (31-36); Mean Corpuscular Hemoglobin 26 pg (27-31); Mean Corpuscular Volume 81 fL (80-94); Mean Platelet Volume 7.5 um3 (7.4-10.4); Nucleated Red Blood Cells % 0; Platelet Count 180 10^3/ul (150-450); Red Blood Count 4.17 10^6/ul (4.00-5.40); Red Cell Distribution Width 16 % (10.5-15); White Blood Count 5.5 10^3/ul (3.5-10.8)
[2017-12-21 06:24] LABS: INR 1.55 (0.77-1.02)
[2017-12-21 06:36] LABS: EGFR Non-African American 76.3 (>60)
[2017-12-21] MEDS: Insulin LISPRO* 1 UNITS UNIT SUBCUT SCH ×4 (07:41→21:16)
[2017-12-21] MEDS: FEBUXOSTAT 40 MG PO SCH (08:03)
[2017-12-21] MEDS: Dronedarone TAB* 400 MG PO SCH ×2 (08:03→21:16)
[2017-12-21] MEDS: Metoprolol Succinate XL TAB* 50 MG PO SCH (08:04)
[2017-12-21] MEDS: Docusate CAP* 100 MG PO SCH ×2 (08:04→21:15)
[2017-12-21] MEDS: Furosemide TAB* 20 MG PO SCH (08:04)
[2017-12-21] MEDS: Potassium Chlor TAB* 10 MEQ TAB.ER PO SCH (08:04)
[2017-12-21] MEDS ORDERED: Warfarin TAB(*) 5 MG PO SCH (17:00)
--- NOTE | 2017-12-21 18:34 | PN ---
Subjective Date of Service: 12/21/17 Interval History: Patient seen and examined. States he feels improved, Did better in PT today and oxygen via NC down to 1.5 liters. Denies chest pain, remains sinus kali on tele. No further complaints. Objective Active Medications: Atorvastatin Calcium (Lipitor*) 10 mg PO DAILY@2100 [facility] Last Admin: 12/20/17 19:54 Dose: 10 mg Dextrose (D50w Syringe 50 Ml*) 12.5 gm IV PUSH .FOR FS < 60 - SS PRN PRN Reason: FS < 60 Docusate Sodium (Colace Cap*) 100 mg PO BID [facility] Last Admin: 12/21/17 08:04 Dose: 100 mg Dronedarone (Multaq Tab*) 400 mg PO BID [facility] Last Admin: 12/21/17 08:03 Dose: 400 mg Febuxostat (Uloric(Nf)) 80 mg PO DAILY [facility] Last Admin: 12/21/17 08:03 Dose: 80 mg Furosemide (Lasix Tab*) 20 mg PO DAILY [facility] Last Admin: 12/21/17 08:04 Dose: 20 mg Insulin Human Lispro (Humalog*) 0 units SUBCUT LOCATED WITHIN [facility]; Protocol Last Admin: 12/21/17 17:48 Dose: 3 units Metoprolol Succinate (Toprol Xl Tab*) 50 mg PO [facility] Last Admin: 12/21/17 08:04 Dose: 50 mg Omeprazole (Prilosec Cap*) 20 mg PO DAILY@0600 [facility] Last Admin: 12/21/17 04:51 Dose: 20 mg Pharmacy Profile Note (Coumadin Daily Reminder*) 1 note FOLLOW UP 1700 [facility] Last Admin: 12/21/17 17:59 Dose: 1 note Potassium Chloride (Klor Con Er Tab*) 10 meq PO QAM [facility] Last Admin: 12/21/17 08:04 Dose: 10 meq Tramadol HCl (Ultram*) 50 mg PO Q8H PRN PRN Reason: PAIN Last Admin: 12/21/17 04:51 Dose: 50 mg Warfarin Sodium (Coumadin Tab(*)) 5 mg PO SuMoWeFrSa@1700 [facility]; Protocol Last Admin: 12/20/17 17:11 Dose: 5 mg Warfarin Sodium (Coumadin Tab(*)) 7.5 mg PO TuTh@1700 [facility]; Protocol Last Admin: 12/21/17 17:48 Dose: 7.5 mg Vital Signs - 8 hr 12/21/17 12/21/17 11:10 15:26 Temperature 98.5 F 98.0 F Pulse Rate 53 55 Respiratory 20 20 Rate Blood Pressure 119/57 135/53 (mmHg) O2 Sat by Pulse 98 99 Oximetry Oxygen Devices in Use Now: Nasal Cannula Appearance: alert, NAD Eyes: No Scleral Icterus, PERRLA Ears/Nose/Mouth/Throat: NL Teeth, Lips, Gums, Mucous Membranes Moist Neck: NL Appearance and Movements; NL JVP, Trachea Midline Respiratory: Symmetrical Chest Expansion and Respiratory Effort, Clear to Auscultation Cardiovascular: NL Sounds; No Murmurs; No JVD, - - bipedal edema, SB on tele Abdominal: NL Sounds; No Tenderness; No Distention Extremities: No Clubbing, Cyanosis Skin: No Rash or Ulcers Neurological: Alert and Oriented x 3, NL Sensation Nutrition: Taking PO's Result Diagrams: 12/21/17 05:53 12/21/17 05:53 Additional Lab and Data: Lab Results 12/17/17 12/17/17 12/17/17 Range/Units 13:52 13:52 13:52 WBC 11.7 H (3.5-10.8) 10^3/ul RBC 4.63 (4.00-5.40) 10^6/ul Hgb 12.1 L (14.0-18.0) g/dl Hct 37 L (42-52) % MCV 81 (80-94) fL MCH 26 L (27-31) pg MCHC 33 (31-36) g/dl RDW 16 H (10.5-15) % Plt Count 179 (150-450) 10^3/ul MPV 7.6 (7.4-10.4) um3 Neut % (Auto) 89.7 H (38-83) % Lymph % (Auto) 4.2 L (25-47) % Hunt % (Auto) 5.7 (0-7) % Eos % (Auto) 0.2 (0-6) % Baso % (Auto) 0.2 (0-2) % Absolute Neuts (auto) 10.5 H (1.5-7.7) 10^3/ul Absolute Lymphs (auto) 0.5 L (1.0-4.8) 10^3/ul Absolute Monos (auto) 0.7 (0-0.8) 10^3/ul Absolute Eos (auto) 0 (0-0.6) 10^3/ul Absolute Basos (auto) 0 (0-0.2) 10^3/ul Absolute Nucleated RBC 0 10^3/ul Nucleated RBC % 0 INR (Anticoag Therapy) 3.15 H (0.77-1.02) Sodium 139 (135-145) mmol/L Potassium 4.9 (3.5-5.0) mmol/L Chloride 101 (101-111) mmol/L Carbon Dioxide 30 (22-32) mmol/L Anion Gap 8 (2-11) mmol/L BUN 32 H (6-24) mg/dL Creatinine 1.25 H (0.67-1.17) mg/dL Est GFR ( Amer) 70.6 (>60) Est GFR (Non-Af Amer) 58.3 (>60) BUN/Creatinine Ratio 25.6 H (8-20) Glucose 116 H (70-100) mg/dL Lactic Acid (0.5-2.0) mmol/L Calcium 9.4 (8.6-10.3) mg/dL Total Bilirubin 0.50 (0.2-1.0) mg/dL AST 16 (13-39) U/L ALT 16 (7-52) U/L Alkaline Phosphatase 65 (34-104) U/L Troponin I 0.01 (<0.04) ng/mL B-Natriuretic Peptide ( - 100) pg/mL Total Protein 7.7 (6.4-8.9) g/dL Albumin 4.0 (3.2-5.2) g/dL Globulin 3.7 (2-4) g/dL Albumin/Globulin Ratio 1.1 (1-3) TSH 0.27 L (0.34-5.60) mcIU/mL 12/17/17 12/17/17 Range/Units 13:52 13:52 WBC (3.5-10.8) 10^3/ul RBC (4.00-5.40) 10^6/ul Hgb (14.0-18.0) g/dl Hct (42-52) % MCV (80-94) fL MCH (27-31) pg MCHC (31-36) g/dl RDW (10.5-15) % Plt Count (150-450) 10^3/ul MPV (7.4-10.4) um3 Neut % (Auto) (38-83) % Lymph % (Auto) (25-47) % Hunt % (Auto) (0-7) % Eos % (Auto) (0-6) % Baso % (Auto) (0-2) % Absolute Neuts (auto) (1.5-7.7) 10^3/ul Absolute Lymphs (auto) (1.0-4.8) 10^3/ul Absolute Monos (auto) (0-0.8) 10^3/ul Absolute Eos (auto) (0-0.6) 10^3/ul Absolute Basos (auto) (0-0.2) 10^3/ul Absolute Nucleated RBC 10^3/ul Nucleated RBC % INR (Anticoag Therapy) (0.77-1.02) Sodium (135-145) mmol/L Potassium (3.5-5.0) mmol/L Chloride (101-111) mmol/L Carbon Dioxide (22-32) mmol/L Anion Gap (2-11) mmol/L BUN (6-24) mg/dL Creatinine (0.67-1.17) mg/dL Est GFR ( Amer) (>60) Est GFR (Non-Af Amer) (>60) BUN/Creatinine Ratio (8-20) Glucose (70-100) mg/dL Lactic Acid 1.0 (0.5-2.0) mmol/L Calcium (8.6-10.3) mg/dL Total Bilirubin (0.2-1.0) mg/dL AST (13-39) U/L ALT (7-52) U/L Alkaline Phosphatase (34-104) U/L Troponin I (<0.04) ng/mL B-Natriuretic Peptide 86 ( - 100) pg/mL Total Protein (6.4-8.9) g/dL Albumin (3.2-5.2) g/dL Globulin (2-4) g/dL Albumin/Globulin Ratio (1-3) TSH (0.34-5.60) mcIU/mL Microbiology and Other Data: Microbiology 12/17/17 20:00 Nasal Screen MRSA (PCR) - Final Nasal Mrsa Not Detected Diagnostic Imaging: Patient Name: OLIVER COSTELLO Medical Record#: [id number] Ordering Physician: Ronal Alvarado MD Acct.#: [id number] : 1955 Age: 62 Sex: M Location: EMERGENCY DEPARTMENT Exam Date: 12/17/17 1330 ADM Status: REG ER Order Information: CHEST AP PORTABLE Accession Number: [id number] CPT: 26987 INDICATION: Chest pain. COMPARISON: Correlation is made with a prior study from January 11, 2013. TECHNIQUE: A portable view of the chest was obtained. FINDINGS: The heart is moderately enlarged and has increased slightly in size. There is prominence of the interstitial markings. No focal infiltrate or pleural effusion is seen. The patient is status post posterior spinal fusion of the dorsal spine. IMPRESSION: FINDINGS SUGGESTIVE OF MILD CONGESTIVE HEART FAILURE. <Electronically signed by Markie Hurtado MD in OV> 12/17/17 144 Dictated By: Markie Hurtado MD Dictated Date/Time: 12/17/17 1445 Transcribed Date/Time: 12/17/17 1443 Copy to: Assess/Plan/Problems-Billing Assessment: This is a 62 year old male with complex medical comorbidities that presented to the ER with complaints of chest pressure, found to be in afib with RVR, now s/p cardioversion. - Patient Problems (1) Atrial fibrillation with rapid ventricular response Code(s): I48.91 - UNSPECIFIED ATRIAL FIBRILLATION SNOMED Code(s): 917507226947944 Comment: - Off cardizem drip since 12/18 - S/P successful cardioversion - Continue BB and multaq per cardiology - INR = 1.55 today, continue coumadin - Does not appear fluid overloaded (2) Hypotension Comment: - Now resolved/normotensive - Likely combination of cardizem, BP meds and general hypovolemia - s/p small bolus (3) EMELY (acute kidney injury) Code(s): N17.9 - ACUTE KIDNEY FAILURE, UNSPECIFIED SNOMED Code(s): 06709740 Comment: - Likely 2/2 hypovolemia/hypotension, daily lasix use and cardizem drip - Follow BMP and continue lasix daily (4) Diabetes mellitus Code(s): E11.9 - TYPE 2 DIABETES MELLITUS WITHOUT COMPLICATIONS SNOMED Code(s) : 04834947 Comment: - Hold PO meds - Continue lispro SS (5) Cardiomyopathy Code(s): I42.9 - CARDIOMYOPATHY, UNSPECIFIED SNOMED Code(s): 76524008 Comment: - Cardiac cath earlier this year showed no CAD - EF around 30% iwth severe hypokinesis - CXR suggestive of CHF, however clinically he is not hypervolemic, continue lasix - Walking sats to wean O2 today to determine home O2 requirement - Continue supportive care (6) Abnormal TSH Code(s): R79.89 - OTHER SPECIFIED ABNORMAL FINDINGS OF BLOOD CHEMISTRY SNOMED Code(s): 851567111 Comment: - O.27 yesterday, in the past TSH was around 0.4 - T3, T4 normal - Thyroid peroxidase WNL - Likely subclinical hyperthyroidism, continue BB, will likely need thyroid uptake screening as an outpatient (7) Peripheral vascular disease Code(s): I73.9 - PERIPHERAL VASCULAR DISEASE, UNSPECIFIED SNOMED Code(s): 496707781 Comment: - With chronic edema, lasix restarted - Supportive care (8) Obesity Code(s): E66.9 - OBESITY, UNSPECIFIED SNOMED Code(s): 574646616 Comment: - Heart healthy diet, recommend weight loss in the setting of CM and PVD (9) GERD (gastroesophageal reflux disease) Code(s): K21.9 - GASTRO-ESOPHAGEAL REFLUX DISEASE WITHOUT ESOPHAGITIS SNOMED Code(s): 834278912 Comment: - On ranitidine at home, started PPI (10) DVT prophylaxis Code(s): CQM5951 - SNOMED Code(s): 297929932 Comment: - On coumadin (11) Full code status Code(s): Z78.9 - OTHER SPECIFIED HEALTH STATUS SNOMED Code(s): 848060350 Status and Disposition: Patient accepted at [facility] but no bed yet.
[2017-12-21] MEDS: Atorvastatin* 10 MG TAB PO SCH (21:15)
[2017-12-22] MEDS: Omeprazole CAP* 20 MG PO SCH (06:12)
[2017-12-22 06:58] LABS: ABS Basophils 0 10^3/ul (0-0.2); ABS Eosinophils 0.1 10^3/ul (0-0.6); ABS Lymphocytes 0.8 10^3/ul (1.0-4.8); ABS Monocytes 0.5 10^3/ul (0-0.8); ABS Neutrophils 4.1 10^3/ul (1.5-7.7); ABS Nucleated RBC 0 10^3/ul; Eosinophil % 1.5 % (0-6); Hematocrit 36 % (42-52); Hemoglobin 11.9 g/dl (14.0-18.0); Mean Corpuscular HGB Conc 33 g/dl (31-36); Mean Corpuscular Hemoglobin 26 pg (27-31); Mean Corpuscular Volume 80 fL (80-94); Mean Platelet Volume 7.7 um3 (7.4-10.4); Nucleated Red Blood Cells % 0; Platelet Count 181 10^3/ul (150-450); Red Cell Distribution Width 16 % (10.5-15); White Blood Count 5.6 10^3/ul (3.5-10.8)
[2017-12-22 07:00] LABS: INR 1.48 (0.77-1.02)
[2017-12-22 07:32] LABS: EGFR Non-African American 82.1 (>60)
[2017-12-22] MEDS: Metoprolol Succinate XL TAB* 50 MG PO SCH (09:51)
[2017-12-22] MEDS: Potassium Chlor TAB* 10 MEQ TAB.ER PO SCH (09:51)
[2017-12-22] MEDS: Furosemide TAB* 20 MG PO SCH (09:51)
[2017-12-22] MEDS: Dronedarone TAB* 400 MG PO SCH ×2 (09:51→20:38)
[2017-12-22] MEDS: Insulin LISPRO* 1 UNITS UNIT SUBCUT SCH ×4 (09:52→20:38)
[2017-12-22] MEDS: Docusate CAP* 100 MG PO SCH ×2 (10:01→20:38)
[2017-12-22] MEDS: FEBUXOSTAT 40 MG PO SCH (10:02)
[2017-12-22] MEDS: Warfarin TAB(*) 5 MG PO SCH (17:39)
[2017-12-22] MEDS: Atorvastatin* 10 MG TAB PO SCH (20:38)
--- NOTE | 2017-12-22 23:08 | DS ---
CC: Dr. Jada Washington; Dr. Ayo Che; Dr. Morin; Dr. Guajardo; Dr. Grupo Wray * DISCHARGE SUMMARY: DATE OF ADMISSION: 12/17/17 DATE OF DISCHARGE: 12/23/17 ATTENDING FOR THIS ADMISSION: Dr. Jada Washington MY ATTENDING FOR TODAY: Dr. Ayo Che * (DICTATED BY SOFIYA HAMEED NP) PRIMARY CARE PROVIDER: Dr. Morin. PRIMARY BRAZING MACHINE SETTER: Dr. Guajardo HOSPITAL COURSE: This is a 62-year-old male patient with complex comorbidities including atrial fibrillation, cardiomyopathy, ejection fraction of 30%, hypertension, left ventricular hypertrophy, non-insulin dependent diabetes mellitus, PVD, chronic lower extremity edema and obesity. The patient presented to the emergency department with the complaint of midsternal chest pain and palpitations, also some nausea and dizziness. He vomited 1 time prior to his admission and was also becoming progressively short of breath. In the ED , he was found to be in rapid AFib. The patient had negative troponins. It was noted that the patient had a cardiac cath early in 2018 which showed no acute coronary artery disease. He had clean arteries and moderate left ventricular dysfunction, however, he did have some severe anterior wall hypokinesis. The patient was seen by Dr. Wray, who brought the patient in for cardioversion. The patient underwent that procedure on 12/17/17. The patient was externally cardioverted for his symptomatic atrial fib/flutter. He did not respond to rate control, also his INR was slightly elevated at 3.15 and so the patient did not undergo JODY. The patient was sedated for the procedure. He was successfully cardioverted and had no complications after. He had some few bouts of ventricular ectopy which resolved on their own. The patient's blood sugar remained stable. Rest of his laboratories were essentially unremarkable. The patient was having some trouble amputating. He was initially admitted to the ICU, however, he was downgraded after he was medically stable. He was seen by physical therapy who determined the short- term rehab as the patient is generally very deconditioned and given his cardiomyopathy does have trouble ambulating. Short-term rehab is recommended. The patient did obtain a bed offer initially from [facility], however, [facility] did not have any male beds. [facility] made an offer and are agreeable to take him on 12/23/17. Thyroid peroxidase antibody is 4.71, thyroglobulin antibody was less than 1.8. TSH was moderately suppressed at 0.27 and 0.23. DISCHARGE DIAGNOSES: 1. Atrial fibrillation with rapid ventricular response status post cardioversion. 2. Acute renal failure. The patient's baseline creatinine was slightly above on admission. He responded well to fluid management. 3. History of hypertension. The patient was hypotensive. His Lasix was initially held. Blood pressure medications were titrated and then he was continued on his Multaq. Lisinopril and Lasix again initially were held and then restarted later. 4. Diabetes mellitus. We held his oral diabetic medications. Fingersticks were stable and he received lispro sliding scale. 5. History of peripheral vascular disease. The patient is on Coumadin that will be continued. 6. Hyperlipidemia, stable on Lipitor. 7. Deconditioning, the patient requiring short-term rehab. 8. Subclinical hypothyroidism. MEDICATIONS FOR DISCHARGE: Include: 1. Ranitidine 150 mg p.o. b.i.d. 2. Glipizide 5 mg p.o. b.i.d. 3. Tramadol 50 mg q.8 as needed. 4. Coumadin 5 mg Wednesday, Wednesday, Wednesday, Wednesday, Wednesday; 7.5 mg on Tuesdays and . 5. Tizanidine 4 mg p.o. t.i.d. 6. K-Katey 10 mEq daily. 7. Bactroban topical daily. 8. Metoprolol succinate XL 25 mg in the morning. 9. Glucophage 500 mg p.o. daily. 10. Lisinopril 5 mg daily. 11. Probiotic 1 capsule daily. 12. Furosemide 60 mg daily. 13. Uloric 80 mg daily. 14. Multaq 400 mg p.o. b.i.d. 15. Docusate 100 mg p.o. b.i.d. 16. Lipitor 10 mg daily in the evening. DISPOSITION: The patient will be discharged to [facility]. All questions were answered. The patient states his understanding of his discharge plan, and his medications. FOLLOWUP: The patient is instructed to follow up with his primary care provider , Dr. Morin after he is discharged from rehab. He is also instructed to follow up with Dr. Guajardo, his camera repairman also after discharge from rehab. Followup with Dr. Morin to continue to follow the patient's thyroid function and determine if therapy should be initiated or if the patient needs additional testing on his thyroid as an outpatient. The patient was discharged in stable condition. All questions were answered. The patient stated understanding of his discharge instructions. REVIEW OF SYSTEMS: Review of systems is negative except as noted in the hospital course above. PHYSICAL EXAMINATION: The patient is alert, in no acute distress. Vital signs are 134/60, heart rate of 52, he is sinus kali, respiratory rate of 16, O2 saturation 94% on 1.5 L, temperature is 98.1. HEENT: The patient is atraumatic , normocephalic. PERRLA with nonicteric sclerae. Oral mucosa is moist. Tongue is midline. Neck: Supple. Nontender. No JVD noted. No carotid bruits auscultated. Cardiovascular: Rate is irregular. Rhythm is bradycardic. No murmurs, gallops, or rubs noted. Lungs are clear bilaterally to auscultation, slightly diminished at the bases. No wheezing, rhonchi, or rales. Abdomen is soft, nontender, nondistended, moderately obese. Positive bowel sounds in all 4 quadrants. No organomegaly noted. was deferred. Musculoskeletal: There is no clubbing and no cyanosis. He has bipedal lower extremity edema +2. He has full range of motion, steady gait with wheelchair and assistance. Neurologic: He is grossly intact with no focalities. Psychiatric: He is cooperative and appropriate. LABORATORY DATA: Dated 12/22/17, WBCs 5.6, RBCs 4.50, hemoglobin 11.9, hematocrit 36, platelets 181. BUN 23, creatinine 0.93, GFR is 82.1, glucose is 141. SOFIYA HOA YOKOJaiden, SILVERWARE BUFFER [id number]/[facility] #: [id number] [facility]
[2017-12-23] MEDS: Omeprazole CAP* 20 MG PO SCH (05:57)
[2017-12-23 06:13] LABS: ABS Basophils 0 10^3/ul (0-0.2); ABS Eosinophils 0.1 10^3/ul (0-0.6); ABS Lymphocytes 0.9 10^3/ul (1.0-4.8); ABS Monocytes 0.6 10^3/ul (0-0.8); ABS Neutrophils 4.2 10^3/ul (1.5-7.7); ABS Nucleated RBC 0 10^3/ul; Eosinophil % 1.8 % (0-6); Hematocrit 34 % (42-52); Hemoglobin 11.3 g/dl (14.0-18.0); Lymphocyte % 14.8 % (25-47); Mean Corpuscular HGB Conc 33 g/dl (31-36); Mean Corpuscular Hemoglobin 26 pg (27-31); Mean Corpuscular Volume 80 fL (80-94); Mean Platelet Volume 7.2 um3 (7.4-10.4); Nucleated Red Blood Cells % 0; Platelet Count 183 10^3/ul (150-450); Red Blood Count 4.29 10^6/ul (4.00-5.40); Red Cell Distribution Width 16 % (10.5-15); White Blood Count 5.8 10^3/ul (3.5-10.8)
[2017-12-23 06:17] LABS: INR 1.52 (0.77-1.02)
[2017-12-23 06:26] LABS: EGFR Non-African American 80.1 (>60)
[2017-12-23] MEDS ORDERED: Enoxaparin(*) 150 MG/ML 1 ML SYRINGE SUBCUT ONE (08:15)
[2017-12-23 08:20] VITALS: BP 150/60
[2017-12-23] MEDS: Dronedarone TAB* 400 MG PO SCH (09:06)
[2017-12-23] MEDS: Docusate CAP* 100 MG PO SCH (09:06)
[2017-12-23] MEDS: Potassium Chlor TAB* 10 MEQ TAB.ER PO SCH (09:06)
[2017-12-23] MEDS: Furosemide TAB* 20 MG PO SCH (09:07)
[2017-12-23] MEDS: FEBUXOSTAT 40 MG PO SCH (09:07)
[2017-12-23] MEDS: Metoprolol Succinate XL TAB* 50 MG PO SCH (09:07)
[2017-12-23] MEDS: Insulin LISPRO* 1 UNITS UNIT SUBCUT SCH (09:07)
--- NOTE | 2017-12-23 09:44 | DS ---
ADDENDUM: Addendum to discharge summary dictated originally by Pastora Mims NP DATE OF ADMISSION: 12/17/17 DATE OF DISCHARGE: 12/23/17 ADDENDUM TO DISCHARGE SUMMARY OF PATIENT WHO IS LEAVING TO [facility]: Due to patient's INR on the day of discharge of 1.5 and history of recent cardioversion, it is necessary for the patient to be bridged with Lovenox until his INR is therapeutic. For that reason, the patient is going to be placed on Lovenox at 120 mg subcutaneously every 12 hours and he is going to get the first injection in the hospital prior to discharge. It is recommended for the patient's INR to be above 2 for the Lovenox to be discontinued. The Coumadin prescription at discharge is unchanged. Dr. Guajardo's office was called and notified about the need of followup. Dr. Guajardo's office will call [facility] with a followup appointment for patient. The patient remained in sinus rhythm prior to discharge. PHYSICAL EXAM AT THE TIME OF DISCHARGE: Blood pressure of 144/57, heart rate of 50 and regular, respiratory rate 20, oxygen saturation 95% on room air, temperature 98.0. General: The patient is a pleasant is a 62-year-old male who is no acute distress. Alert, awake and oriented x3. HEENT: Head: Atraumatic, normocephalic. Eyes: Pupils are equal, reactive to light and accommodation. Oropharynx is clear. Mucosa moist. Neck is supple. No JVD. No bruits bilaterally. Cardiovascular: Regular rate and rhythm. No murmur. Respiratory: Clear to auscultation bilaterally. Abdomen: Soft, nontender. Bowel sounds are present in all 4 quadrants. Extremities: There is +1 pitting pedal edema. Pulses +2 bilaterally. No clubbing, cyanosis. On evaluation of patient's skin, the patient has rather severe venostasis discoloration of bilateral lower extremities with no evidence of active dermatitis. Neuro evaluation: Cranial nerves II through XII grossly intact. Motor strength is 5/ 5 bilaterally. Please note that patient is rather obese and deconditioned. [id number]/[facility] #: [id number] [facility]
== END 2017-12-23 11:20 | DRG 309 ==
LOC: ED 12:53 → ICU 16:16 → MEDTELE 12-18 17:46
PROVIDERS: ADMIT Hospitalist; ATTEND Internal Medicine
PROC: 5A2204Z Restoration of Cardiac Rhythm, Single (ICD-10-PCS; principal; 2017-12-17)
DX: I48.91 Unspecified atrial fibrillation (principal); N17.9 Acute kidney failure, unspecified; I48.92 Unspecified atrial flutter; E11.51 Type 2 diabetes mellitus with diabetic peripheral angiopathy without gangrene; I42.9 Cardiomyopathy, unspecified; J30.2 Other seasonal allergic rhinitis; K21.9 Gastro-esophageal reflux disease without esophagitis; M10.9 Gout, unspecified; M17.0 Bilateral primary osteoarthritis of knee; E11.40 Type 2 diabetes mellitus with diabetic neuropathy, unspecified; E11.36 Type 2 diabetes mellitus with diabetic cataract; I44.7 Left bundle-branch block, unspecified; E66.9 Obesity, unspecified; E78.5 Hyperlipidemia, unspecified; I95.9 Hypotension, unspecified; I10 Essential (primary) hypertension; G47.30 Sleep apnea, unspecified; I77.819 Aortic ectasia, unspecified site; I27.20 Pulmonary hypertension, unspecified; E02 Subclinical iodine-deficiency hypothyroidism; Z79.01 Long term (current) use of anticoagulants; Z87.442 Personal history of urinary calculi; Z86.14 Personal history of Methicillin resistant Staphylococcus aureus infection; Z83.3 Family history of diabetes mellitus; Z87.891 Personal history of nicotine dependence; Z82.49 Family history of ischemic heart disease and other diseases of the circulatory system; Z79.84 Long term (current) use of oral hypoglycemic drugs; Z68.39 Body mass index [BMI] 39.0-39.9, adult
CPT/HCPCS: 36415; 71045; 80048; 80053; 82565; 83605; 83735; 83880; 84439; 84443; 84479; 84481; 84484; 84520; 85025; 85610; 86376; 86800; 87641; 93005; 99283; A9270-GY; G8978-GP-CK; G8979-GP-CH; J1650; J2250; J2310; J3010; J3475

== ENCOUNTER 2018-03-14 08:47 | Emergency (ER) | payer MEDICARE, MEDICAID ==
[2018-03-14 09:28] LABS: ABS Basophils 0 10^3/ul (0-0.2); ABS Eosinophils 0.1 10^3/ul (0-0.6); ABS Lymphocytes 1.4 10^3/ul (1.0-4.8); ABS Monocytes 0.5 10^3/ul (0-0.8); ABS Neutrophils 4.9 10^3/ul (1.5-7.7); ABS Nucleated RBC 0 10^3/ul; Eosinophil % 1.5 % (0-6); Hematocrit 37 % (42-52); Lymphocyte % 20.6 % (25-47); Mean Corpuscular HGB Conc 32 g/dl (31-36); Mean Corpuscular Hemoglobin 26 pg (27-31); Mean Corpuscular Volume 80 fL (80-94); Nucleated Red Blood Cells % 0; Platelet Count 222 10^3/ul (150-450); Red Blood Count 4.68 10^6/ul (4.00-5.40); Red Cell Distribution Width 17 % (10.5-15)
--- NOTE | 2018-03-14 10:23 | ED ---
Upper Extremity Pain - HPI Summary HPI Summary: Patient is a 62-year-old male with a remote history of bilateral carpal tunnel surgery performed by Dr. Lloyd presenting to the ED with a 5 day history of acute swelling. Denies any injury. Denies any erythema, warmth, red streaking up the arm, fevers. Denies any decrease in sensation or strength. However, patient is endorsing some intermittent tingling to the fingertips of the index, middle and ring fingers. Continues to be able to flex at the wrist, but is unable to extend. Denies any pain to the forearm. He has never had anything like this before since his surgeries. Denies history of sepsis or septic joint. - History of Current Complaint Chief Complaint: EDExtremityUpper Stated Complaint: LEFT WRIST INJURY Time Seen by Provider: 03/14/18 08:48 Hx Obtained From: Patient Onset/Duration: Started Hours Ago Timing: Constant Severity Initially: Moderate Severity Currently: Moderate Pain Location: Wrist Character: Aching Aggravating Factor(s): Movement, Lifting, Extension Alleviating Factor(s): Rest, Ice Associated Signs & Symptoms: Positive: Swelling. Negative: Redness, Bruising Related History: Dominant Hand Right - Risk Factors Non-Orthopedic Risk Factor: Negative DVT Risk Factors: Negative Septic Arthritis Risk Factor: Negative Compartment Syndrome Risk Factors: Pain - Allergies/Home Medications Allergies/Adverse Reactions: Allergies Allergy/AdvReac Type Severity Reaction Status Date / Time No Known Allergies Allergy Verified 03/14/18 08:53 PMH/Surg Hx/FS Hx/Imm Hx Previously Healthy: Yes Endocrine/Hematology History: Reports: Hx Anticoagulant Therapy - coumadin, Hx Diabetes Denies: Hx Thyroid Disease Cardiovascular History: Reports: Hx Hypercholesterolemia, Other Cardiovascular Problems/Disorders - CARDIOMYOPATHY, BL LE VEIN SX Denies: Hx Angina, Hx Congestive Heart Failure, Hx Coronary Artery Disease, Hx Hypertension, Hx Myocardial Infarction, Hx Peripheral Vascular Disease, Hx Valvular Heart Disease Respiratory History: Reports: Hx Seasonal Allergies Denies: Hx Asthma, Hx Chronic Obstructive Pulmonary Disease (COPD) GI History: Reports: Hx Gastroesophageal Reflux Disease Denies: Hx Ulcer Comment Only: Other GI Disorders - chest pain intermittent over weekned, constant starting last evening History: Reports: Hx Kidney Stones - hx "small one" per pt, Hx Renal Disease - HX OF KIDNEY STONES Denies: Hx Acute Renal Failure, Hx Benign Prostatic Hyperplasia, Hx Chronic Renal Failure, Hx Dialysis, Hx Kidney Infection Musculoskeletal History: Reports: Hx Arthritis - KNEES, Hx Gout, Hx Orthopedic Injury - ORIF left elbow, Hx Scoliosis, Other Musculoskeletal History - carpal tunnel bilateral wrists Sensory History: Reports: Hx Cataracts - BILAT, Hx Contacts or Glasses Denies: Hx Hearing Aid Opthamlomology History: Reports: Hx Cataracts - BILAT, Hx Contacts or Glasses Neurological History: Reports: Other Neuro Impairments/Disorders - 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 scoliosis repair 1972 WITH SPINAL JEET. left elbow repair after injury in [place]. BLLE VEIN SX Hx Anesthesia Reactions: No - Immunization History Hx Pertussis Vaccination: No Immunizations Up to Date: Yes Infectious Disease History: No Infectious Disease History: Reports: Hx of Known/Suspected MRSA - TO LEGS Denies: Hx Hepatitis, Hx Human Immunodeficiency Virus (HIV), Traveled Outside the [place] in Last 30 Days - Family History Known Family History: Positive: Unknown, Diabetes - Social History Occupation: Unemployed Lives: With Family Alcohol Use: None Hx Substance Use: No Substance Use Type: Reports: None Hx Tobacco Use: Yes Smoking Status (MU): Former Smoker Length of Time of Smoking/Using Tobacco: 15 yrs Have You Smoked in the Last Year: No Review of Systems Negative: Fever, Chills, Fatigue, Skin Diaphoresis Negative: Epistaxis, Dental Pain Negative: Palpitations, Chest Pain Genitourinary: Negative Positive: no symptoms reported, see HPI Positive: Arthralgia - left wrist swelling and pain (dorsal side of the wrist) Negative: Rash, Bruising Neurological: Negative All Other Systems Reviewed And Are Negative: Yes Physical Exam Triage Information Reviewed: Yes Vital Signs On Initial Exam: Initial Vitals Temp Pulse Resp BP Pulse Ox 100 F 65 16 145/67 94 03/14/18 08:50 03/14/18 08:50 03/14/18 08:50 03/14/18 08:50 03/14/18 08:50 Vital Signs Reviewed: Yes Appearance: Positive: Well-Appearing, Well-Nourished Skin: Positive: Warm, Skin Color Reflects Adequate Perfusion Head/Face: Positive: Normal Head/Face Inspection Eyes: Positive: EOMI, KATHY, Conjunctiva Clear Neck: Positive: Supple Respiratory/Lung Sounds: Positive: Clear to Auscultation, Breath Sounds Present Cardiovascular: Positive: RRR, Pulses are Symmetrical in both Upper and Lower Extremities Musculoskeletal: Positive: Strength/ROM Intact, Pain @ - left wrist pain and swelling Neurological: Positive: Speech Normal Psychiatric: Positive: Normal, Affect/Mood Appropriate AVPU Assessment: Alert Diagnostics - Vital Signs Vital Signs Temp Pulse Resp BP Pulse Ox 03/14/18 08:50 100 F 65 16 145/67 94 - Laboratory Lab Results: Lab Results 03/14/18 03/14/18 Range/Units 09:21 09:22 WBC 7.0 (3.5-10.8) 10^3/ul RBC 4.68 (4.00-5.40) 10^6/ul Hgb 12.0 L (14.0-18.0) g/dl Hct 37 L (42-52) % MCV 80 (80-94) fL MCH 26 L (27-31) pg MCHC 32 (31-36) g/dl RDW 17 H (10.5-15) % Plt Count 222 (150-450) 10^3/ul MPV 7.0 L (7.4-10.4) fL Neut % (Auto) 70.4 (38-83) % Lymph % (Auto) 20.6 L (25-47) % [place] % (Auto) 7.0 (0-7) % Eos % (Auto) 1.5 (0-6) % Baso % (Auto) 0.5 (0-2) % Absolute Neuts (auto) 4.9 (1.5-7.7) 10^3/ul Absolute Lymphs (auto) 1.4 (1.0-4.8) 10^3/ul Absolute Monos (auto) 0.5 (0-0.8) 10^3/ul Absolute Eos (auto) 0.1 (0-0.6) 10^3/ul Absolute Basos (auto) 0 (0-0.2) 10^3/ul Absolute Nucleated RBC 0 10^3/ul Nucleated RBC % 0 C-Reactive Protein 4.93 (<8.01) mg/L Result Diagrams: 03/14/18 09:22 Lab Statement: Any lab studies that have been ordered have been reviewed, and results considered in the medical decision making process. Course/Dx - Course Course Of Treatment: During the course of treatment, the patient is evaluated for left wrist swelling with a mild amount of pain. Patient is unable to extend at the wrist, but continues to be able to flex. Range of motion is limited. There is acute swelling to the wrist with pain on palpation to the dorsum of the wrist without pain on palpation to the volar side of the wrist. Denies any fevers, sweats, chills. Denies any erythema or warmth to the area. He endorses acute swelling 4 days ago which is not improved with his at home medications of ibuprofen and using ice. X-ray obtained which shows similar to the contralateral wrist there is advanced arthropathy with collapse and resorption of the proximal carpal row as described. Decreased bone density. No discrete fracture evident. No compelling radiographic stigmata of osteomyelitis. Discussed with patient, treatment options. Patient will follow- up with Dr. Lloyd this week. He understands return precautions for erythema, warmth, worsening swelling or pain to the area. At this time I did not believe this is a septic joint, osteomyelitis or concern for infection otherwise. Labs obtained and are otherwise unremarkable including a WBC and CRP. - Diagnoses Differential Diagnosis/HQI/PQRI: Positive: Contusion, Fracture (Closed), Strain , Sprain Provider Diagnoses: Wrist swelling, Osteoarthritis Discharge - Sign-Out/Discharge Documenting (check all that apply): Patient Departure - Discharge Plan Condition: Stable Disposition: HOME Referrals: Pool Morin MD [Primary Care Provider] - Melvina Lloyd MD [Medical Doctor] - Additional Instructions: Please follow-up with Dr. Lloyd KAREN Call today to make an appointment - Billing Disposition and Condition Condition: STABLE Disposition: Home
[2018-03-14 10:40] VITALS: BP 136/61
== END 2018-03-14 10:39 | disposition home or self-care (01) ==
LOC: ED 08:47
DX: M25.432 Effusion, left wrist (principal); M19.032 Primary osteoarthritis, left wrist; Z79.01 Long term (current) use of anticoagulants; Z87.891 Personal history of nicotine dependence; I87.311 Chronic venous hypertension (idiopathic) with ulcer of right lower extremity; L97.811 Non-pressure chronic ulcer of other part of right lower leg limited to breakdown of skin; M79.632 Pain in left forearm; M25.532 Pain in left wrist; R60.0 Localized edema
CPT/HCPCS: 36415; 85025; 86140; 99212; 99282; G0463

== ENCOUNTER 2018-12-28 23:32 | Observation (INO) | payer MEDICARE, MEDICAID ==
[2018-12-28] MEDS ORDERED: oxyCODONE/Acetamin 5/325 MG* TAB PO ONE (23:50)
--- NOTE | 2018-12-29 00:52 | ED ---
Lower Extremity - HPI Summary HPI Summary: This patient is a 63 year old M history of atrial fibrillation, on Coumadin arriving via ambulance to [facility] with a chief complaint of left knee pain and left wrist pain due to a fall since 929 on 12/28/18. Patient states that he fell onto his left knee and left wrist when he tripped on a curb earlier today. Patient states that his knee pain has worsened since the fall and notes difficulty with ambulation. The patient rates the pain 8/10 in severity per leadership program internship. Symptoms aggravated by movement. Symptoms alleviated by rest. Patient has SHx of bilateral wrist surgery for carpel tunnel. Patient has PMHx of Afib, HTN and takes labetalol as well as Coumadin. - History of Current Complaint Chief Complaint: EDFall Stated Complaint: FALL PER EMS Time Seen by Provider: 12/28/18 23:39 Hx Obtained From: Patient Mechanism Of Injury: Fall From A Standing Position Onset of Pain: Post Accident Onset/Duration: Hours - 929 on 12/28/18 Severity Currently: Severe Pain Intensity: 8 Pain Scale Used: 0-10 Numeric Timing: Constant, Lasting Hours Location: Is Discrete @ - left knee and left wrist Associated Signs And Symptoms: Positive: Knee Pain Aggravating Factor(s): Nothing Alleviating Factor(s): Nothing - Allergies/Home Medications Allergies/Adverse Reactions: Allergies Allergy/AdvReac Type Severity Reaction Status Date / Time No Known Allergies Allergy Verified 12/29/18 00:28 PMH/Surg Hx/FS Hx/Imm Hx Endocrine/Hematology History: Reports: Hx Anticoagulant Therapy - coumadin, Hx Diabetes Denies: Hx Thyroid Disease Cardiovascular History: Reports: Hx Hypercholesterolemia, Other Cardiovascular Problems/Disorders - CARDIOMYOPATHY, BL LE VEIN SX Denies: Hx Angina, Hx Congestive Heart Failure, Hx Coronary Artery Disease, Hx Hypertension, Hx Myocardial Infarction, Hx Peripheral Vascular Disease, Hx Valvular Heart Disease Respiratory History: Reports: Hx Seasonal Allergies Denies: Hx Asthma, Hx Chronic Obstructive Pulmonary Disease (COPD) GI History: Reports: Hx Gastroesophageal Reflux Disease Denies: Hx Ulcer Comment Only: Other GI Disorders - chest pain intermittent over weekned, constant starting last evening History: Reports: Hx Kidney Stones - hx "small one" per pt, Hx Renal Disease - HX OF KIDNEY STONES Denies: Hx Acute Renal Failure, Hx Benign Prostatic Hyperplasia, Hx Chronic Renal Failure, Hx Dialysis, Hx Kidney Infection Musculoskeletal History: Reports: Hx Arthritis - KNEES, Hx Gout, Hx Orthopedic Injury - ORIF left elbow, Hx Scoliosis, Other Musculoskeletal History - carpal tunnel bilateral wrists Sensory History: Reports: Hx Cataracts - BILAT, Hx Contacts or Glasses Denies: Hx Hearing Aid Opthamlomology History: Reports: Hx Cataracts - BILAT, Hx Contacts or Glasses Neurological History: Reports: Other Neuro Impairments/Disorders - DIABETIC NEUTOPATHY IN LEGS - Surgical History Surgical History: Yes Surgery Procedure, Year, and Place: bilateral carpal tunnel repair. scoliosis repair 1972 WITH SPINAL JEET. left elbow repair after injury in [place]. 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 Denies: Hx Hepatitis, Hx Human Immunodeficiency Virus (HIV), Traveled Outside the [place] in Last 30 Days - Family History Known Family History: Positive: Diabetes - Social History Alcohol Use: None Hx Substance Use: No Substance Use Type: Reports: None Hx Tobacco Use: Yes Smoking Status (MU): Former Smoker Length of Time of Smoking/Using Tobacco: 15 yrs Have You Smoked in the Last Year: No Review of Systems Negative: Fever Positive: Other - left knee pain, left wrist pain All Other Systems Reviewed And Are Negative: Yes Physical Exam - Summary Physical Exam Summary: Constitutional: Well-developed, Well-nourished, Alert. (-) Distressed Skin: Chronic venous stasis changes of lower extremities, HENT: Normocephalic; Atraumatic Eyes: Conjunctiva normal Neck: Musculoskeletal ROM normal neck. (-) JVD, (-) Stridor, (-) Nuchal rigidity Cardio: Irregularly irregular, Heart sounds normal; Intact distal pulses; Radial pulses are 2+ and symmetric. (-) Murmur Pulmonary/Chest wall: Effort normal. (-) Respiratory distress, (-) Wheezes, (-) Rales Abd: Soft, (-) tenderness, (-) Distension, (-) Guarding, (-) Rebound Musculoskeletal: (-) Edema, Tenderness over left ventral wrist with no obvious deformity, Swelling of L knee w tenderness over patella, pain with knee flexion 2+ dp pulse bilaterally Lymph: (-) Cervical adenopathy Neuro: Alert, Oriented x3 Psych: Mood and affect Normal Triage Information Reviewed: Yes Vital Signs On Initial Exam: Initial Vitals Temp Pulse Resp BP Pulse Ox 98.3 F 102 16 153/89 92 12/28/18 23:35 12/28/18 23:35 12/28/18 23:35 12/28/18 23:35 12/28/18 23:35 Vital Signs Reviewed: Yes Diagnostics - Vital Signs Vital Signs Temp Pulse Resp BP Pulse Ox 12/29/18 00:25 16 12/29/18 00:12 91 131/78 95 12/29/18 00:00 109 93 12/28/18 23:41 97 153/89 89 12/28/18 23:35 98.3 F 102 16 153/89 92 - Laboratory Result Diagrams: 12/29/18 03:17 12/29/18 03:17 Lab Statement: Any lab studies that have been ordered have been reviewed, and results considered in the medical decision making process. - Radiology Wrist Xray Radiology Interpretation Completed By: ED Physician Summary of Radiographic Findings: Wrist XR reveals, per ED Physician, No acute fractures. Pending offical report. Knee Xray Radiology Interpretation Completed By: ED Physician Summary of Radiographic Findings: Knee XR reveals, per ED Physician, No acute fractures. Pending offical report. Hand Xray Radiology Interpretation Completed By: ED Physician Summary of Radiographic Findings: Hand XR reveals, per ED Physician, No acute fractures. Pending offical report. Left Wrist Xray Radiology Interpretation Completed By: ED Physician Summary of Radiographic Findings: Wrist XR reveals, per ED Physician, No acute fractures. Pending offical report. Left Knee Xray Radiology Interpretation Completed By: ED Physician Summary of Radiographic Findings: Knee XR reveals, per ED Physician, No acute fractures. Pending offical report. Left Hand Xray Radiology Interpretation Completed By: ED Physician Summary of Radiographic Findings: Hand XR reveals, per ED Physician, No acute fractures. Pending offical report. Xray Radiology Interpretation Completed By: ED Physician - CT Left Lower Extremity CT scan CT Interpretation Completed By: Radiologist Summary of CT Findings: Lower Extremity CT scan reveals, per Radiologist, IMPRESSION: 1. Acute traumatic patellar fracture. 2. Moderate tricompartmental left knee primary osteoarthritis. ED Physician has reviewed this report. Re-Evaluation - Re-Evaluation First Eval Comment: CT knee shows a linear patellar fracture without displacement. Patient placed in a knee immobilizer. Given that patient has L wrist pain, is nonweightbearing of the left leg, patient will likely need rehab for safe mobility. Will admit to medicine Lower Extremity Course/Dx - Course Course Of Treatment: 63-year-old male on Coumadin presents with left knee pain and left wrist pain after fall. Physical exam with a well-appearing male, no acute distress. Tenderness to the volar surface of distal radius and patella. Plain films without obvious fractures. Will check a CT of the knee given severe tenderness and inability to ambulate - Diagnoses Provider Diagnoses: Patellar fracture, Wrist pain, Fall - Physician Notifications Discussed Care Of Patient With: Jolene Ramos Time Discussed With Above Provider: 02:48 Instructed by Provider To: Other - Patient's case was discussed with Dr. Ramos , Dr. Ramos accepts for admission. Discharge ED - Sign-Out/Discharge Documenting (check all that apply): Patient Departure - admitted Patient Received Moderate/Deep Sedation with Procedure: No - Discharge Plan Condition: Stable Disposition: ADMITTED TO [facility] Referrals: Pool Morin MD [Primary Care Provider] - - Billing Disposition and Condition Condition: STABLE Disposition: Admitted to [facility] - Attestation Statements Document Initiated by Twin: Yes Documenting Scribe: La Rivera Provider For Whom Twin is Documenting (Include Credential): Jama Partida MD Scribe Attestation: La Preciado, scribed for Jama Partida MD on 12/29 at 0354. Scribe Documentation Reviewed: Yes Provider Attestation: The documentation as recorded by the [email or web address], La Rivera accurately reflects the service I personally performed and the decisions made by Jama rodriguez MD Status of Scribe Document: Viewed
[2018-12-29] MEDS ORDERED: Morphine 4 MG/ML VIAL (1 ml) 4 MG/ML VIAL IV ONE (02:46)
[2018-12-29 03:27] LABS: Hematocrit 36 % (42-52); Hemoglobin 11.7 g/dL (14.0-18.0); Mean Corpuscular HGB Conc 32 g/dL (31-36); Mean Corpuscular Hemoglobin 26 pg (27-31); Mean Corpuscular Volume 82 fL (80-94); Mean Platelet Volume 7.6 fL (7.4-10.4); Platelet Count 201 10^3/uL (150-450); Red Blood Count 4.44 10^6 /uL (4.18-5.48); Red Cell Distribution Width 17 % (10-15); White Blood Count 7.7 10^3/uL (3.5-10.8)
[2018-12-29 03:41] LABS: BUN/Creatinine Ratio 25.6 (8-20); Calcium 8.7 mg/dL (8.6-10.3); EGFR African American 51.4 (>60); EGFR Non-African American 42.5 (>60); Magnesium 2.1 mg/dL (1.9-2.7); Potassium 4.9 mmol/L (3.5-5.0)
[2018-12-29] MEDS ORDERED: Acetaminophen TAB* 325 MG PO PRN (03:43)
[2018-12-29] MEDS ORDERED: Magnesium Hydroxide LIQ* 30 ML UDC PO PRN ×2 (03:43→18:26)
[2018-12-29] MEDS ORDERED: tiZANidine TAB* 2 MG PO PRN (03:46)
[2018-12-29 03:49] LABS: INR 1.94 (0.82-1.09)
[2018-12-29] MEDS: traMADol TAB* 50 MG PO PRN ×2 (04:59→21:51)
[2018-12-29] MEDS: Potassium Chlor TAB* 10 MEQ TAB.ER PO SCH (08:21)
[2018-12-29] MEDS: Lactobacillus Acidophilus* 1 TAB PO SCH (08:21)
[2018-12-29] MEDS: glipiZIDE TAB* 5 MG PO SCH ×2 (08:22→17:14)
[2018-12-29] MEDS: Famotidine TAB* 20 MG PO SCH ×2 (08:22→21:30)
[2018-12-29] MEDS: metFORMIN* 500 MG TAB PO SCH (08:23)
[2018-12-29] MEDS: Dronedarone TAB* 400 MG PO SCH ×2 (08:23→17:14)
[2018-12-29] MEDS: Metoprolol Succinate XL TAB* 25 MG PO SCH (08:31)
[2018-12-29] MEDS ORDERED: Furosemide TAB* 20 MG PO SCH (09:00)
[2018-12-29] MEDS ORDERED: Lisinopril TAB* 5 MG PO SCH (09:00)
--- NOTE | 2018-12-29 09:17 | HP ---
CC: Dr. Morin * HISTORY AND PHYSICAL: DATE OF ADMISSION: 12/29/18 PRIMARY CARE PHYSICIAN: Dr. Morin. HEALTHCARE PROXY: His brother, Lisandro. CODE STATUS: Full. CHIEF COMPLAINT: Significant left knee pain after a mechanical fall. HISTORY OF PRESENT ILLNESS: Mr. De La Cruz is a 62-year-old man with AFib, on warfarin; heart failure with reduced ejection fraction 30%; hypertension; diabetes; obesity; chronic lower extremity edema; peripheral vascular disease; and gout who is presenting with significant left knee pain after suffering from a mechanical fall this morning. He reports being in his usual state of health, when he went to [place] to visit his mother and sister. As he was going to step up on a curb, he misstepped and fell and landed on his left knee and left wrist. Around this time, he denies lightheadedness, shortness of breath, chest pain or loss of consciousness. He did not hit his head when he fell. Afterwards, he was able to eat breakfast, but the pain was not getting better throughout the day, so he came to the emergency room. In the emergency room, imaging per EM doctor read showed a left patellar closed fracture, so it was recommended that he be nonweightbearing on this leg and follow up in ortho clinic; however, the patient was unable to use crutches given difficulty understanding how to use them as well as significant wrist pain, so he is asked to be admitted to the medical service for pain control, physical therapy, and possible orthopedics consult. PAST MEDICAL HISTORY: 1. Atrial fibrillation, status post cardioversion, now in normal sinus rhythm on warfarin. 2. Heart failure, reduced ejection fraction 30%, cardiac catheterization 2017 with normal coronaries. 3. Hypertension. 4. Diabetes, type 2. 5. Obesity. 6. Chronic lower extremity edema and peripheral vascular disease, status post vascular surgeries. 7. Gout. 8. Carpal tunnel, status post surgery bilaterally. 9. History of spinal francie placed in high school for scoliosis. HOME MEDICATIONS: 1. Warfarin 5 mg 5 days a week, 7.5 mg 2 days a week. 2. Metformin 500 mg daily. 3. Glipizide 5 mg twice a day. 4. Tramadol 50 mg every 8 hours as needed for pain. 5. Ranitidine 150 mg twice a day. 6. Tizanidine 4 mg every 8 hours as needed for muscle spasm. 7. Furosemide 60 mg daily. 8. Potassium 10 mEq daily. 9. Metoprolol 25 mg daily. 10. Lisinopril 5 mg daily. 11. Febuxostat 80 mg daily. 12. Atorvastatin 20 mg daily. 13. Dronedarone 400 mg twice a day. 14. Lactobacillus 1 tablet daily. ALLERGIES: No known drug allergies. FAMILY HISTORY: The patient denies heart disease, diabetes, or hypertension. He states his brother recently received a pacemaker, he is not sure why. SOCIAL HISTORY: The patient lives alone. 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 He is a never smoker, drinker, or recreational drug user. His healthcare proxy is his brother, Lisandro. REVIEW OF SYSTEMS: A complete 10-point review of systems was performed and pertinent positives and negatives are listed in the HPI. PHYSICAL EXAMINATION GENERAL: Anxious-appearing man in no acute distress. He is alert and interactive. Significant delay occasionally in answering questions. VITAL SIGNS: The patient is afebrile, heart rate 80s, blood pressure 138/83, respiratory rate 16, oxygen saturation 94% on room air. HEENT: OP clear. Moist mucous membranes. NECK: No JVD. LUNGS: Clear to auscultation bilaterally. HEART: Regular rate and rhythm. No murmurs, gallops or rubs. ABDOMEN: Soft, nontender, and nondistended. EXTREMITIES: Warm and well perfused. Mild tenderness surrounding left wrist without gross abnormalities or deformities. No swelling noted. Full range of motion intact, but elicits mild pain. Left knee with mild swelling. No appreciable effusion. Significant tenderness over patella without overlying ecchymosis. Significant pain with passive knee flexion. Distal lower extremities with diffuse hyperpigmented skin and chronic venous stasis changes. DP pulses 1+ bilaterally. NEUROLOGIC: A and O x3. No slurred speech. DIAGNOSTIC STUDIES/LAB DATA: CBC, BMP, and INR are pending. Wrist, knee, and hand x-rays are pending official report. Lower extremity CT with acute traumatic patellar fracture on the left, moderate tricompartmental left knee primary osteoarthritis. ASSESSMENT AND PLAN: Mr. De La Cruz is a 63-year-old man with atrial fibrillation, on warfarin; heart failure, reduced ejection fraction 30%; diabetes; hypertension; obesity; and chronic back pain, status post spinal surgeries who is presenting in the setting of a mechanical left with a left patellar fracture. 1. Patellar fracture. The patient is to be nonweightbearing on that leg. We will consult Ortho in the morning. PT order placed. Will control pain with high-dose Tylenol every 8 hours as needed for [id number] pain or tramadol 50 mg every 8 hours as needed for severe pain. We will continue to reassess pain medication requirement. 2. Wrist pain, pending official Radiology read. 3. Heart failure. Continue the patient's home metoprolol 25 mg daily and lisinopril 5 mg daily with furosemide 60 mg daily and potassium oral supplement daily. We will continue to monitor blood pressure and heart rate and up titrate these medicines accordingly. Continue to monitor BMP to assess the need for potassium supplement. 4. Atrial fibrillation. Continue the patient's home warfarin, dosed by INR level. Continue dronedarone 400 mg twice a day. 5. Chronic back pain. The patient will be continued on Tylenol and tramadol p.r.n. as above with tizanidine as needed for muscle spasm. 6. Diabetes. We will continue the patient's home metformin 500 mg daily and glipizide 5 mg twice a day; however, inpatient medical team can consider discontinuing glipizide as this is no longer a recommended sulfonylurea. He can likely have more metformin if further glucose control as needed or consider other medications such as linagliptin or liraglutide. 7. Gout. Continue febuxostat 80 mg daily. 8. DVT prophylaxis. The patient is on therapeutic anticoagulation with warfarin. 9. Code status. The patient is full code. TIME SPENT: Approximately 60 minutes was spent on admission of this patient, more than half of which was spent at bedside for interview and exam. [id number]/[facility] #: [id number] DOROTHY
[2018-12-29] MEDS: FEBUXOSTAT 40 MG PO SCH ×2 (10:46→14:51)
--- NOTE | 2018-12-29 14:26 | CONS ---
CONSULTATION REPORT: DATE OF CONSULT: 12/29/18 ATTENDING ORTHOPEDIC PROVIDER: Dr. Timoteo Drake. CHIEF COMPLAINT: Left patellar fracture. HISTORY OF PRESENT ILLNESS: The patient is a 63-year-old male who presents to [facility] Emergency Room on 12/29/18 with history of AFib, heart failure, hypertension, diabetes, obesity, chronic lower extremity edema, peripheral vascular disease, and gout. His presenting complaint was significant left knee pain after a mechanical fall while visiting his mother at [place] this morning. He tripped while stepping onto a curb and fell directly onto his left knee and left wrist. He had severe pain of the left knee and mild pain of the left wrist. He denies any associated chest pain, shortness of breath, dizziness, or nausea with the fall. He did not hit his head and did not lose consciousness. The patient was admitted due to inability to ambulate with crutches and need for rehab placement. PAST MEDICAL HISTORY: Atrial fibrillation, heart failure, hypertension, diabetes, obesity, chronic lower extremity edema and peripheral vascular disease , gout, carpal tunnel. PAST SURGICAL HISTORY: Carpal tunnel bilateral, spinal francie placement for scoliosis. HOME MEDICATIONS: 1. Warfarin 5 mg 5 days a week, 7.5 mg 2 days a week. 2. Metformin 500 mg daily. 3. Glipizide 5 mg twice a day. 4. Tramadol 50 mg every 8 hours as needed for pain. 5. Ranitidine 150 mg twice a day. 6. Tizanidine 4 mg every 8 hours as needed for muscle spasm. 7. Furosemide 60 mg daily. 8. Potassium 10 mEq daily. 9. Metoprolol 25 mg daily. 10. Lisinopril 5 mg daily. 11. Febuxostat 80 mg daily. 12. Atorvastatin 20 mg daily. 13. Dronedarone 400 mg twice a day. 14. Lactobacillus 1 tab daily. ALLERGIES: No known drug allergies. FAMILY HISTORY: Brother, history of pacemaker placement. SOCIAL HISTORY: The patient lives alone. Nonsmoker, nondrinker. No drug use. REVIEW OF SYSTEMS: General: Denies fever, chills. HEENT: Denies any head trauma. Cardiac: Confirms history of AFib. No current chest pain. Respiratory: Denies any shortness of breath. GI: Denies any abdominal pain, nausea, vomiting, diarrhea. : Denies any dysuria. Musculoskeletal: Positive for left knee pain. Left wrist pain has resolved. Neuro: Confirms sensation intact throughout bilateral upper and lower extremities. PHYSICAL EXAM: Vital Signs: Temperature 97.6, pulse rate 93, respiratory rate 20, oxygen saturation 92% on 1 L oxygen, and blood pressure 113/72. General: The patient appears well. He is in no acute distress. HEENT: Normocephalic, atraumatic. Extraocular movements intact. Lungs: Clear to auscultation bilaterally. Cardiac: S1, S2. Abdomen: Soft, nontender. Extremities: Bilateral upper extremities: Skin envelope intact. Very mild tenderness to palpation about wrist joint more so on the radial side, though no point tenderness and no severe tenderness. Flexion, extension, ulnar deviation, radial deviation intact without pain. Flexion and extension of digits, elbow, and shoulder intact without pain as well. Right upper extremity: Nontender to palpation. Flexion and extension of all joints intact without pain. Bilateral lower extremities: There are significant venous stasis changes bilateral lower extremities with no open wounds at this time. Right lower extremity: Skin envelope is intact. He is nontender to palpation. Able to flex and extend the MTPs, ankle, knee, and hip without pain. Negative log roll of the hip. Left lower extremity: The patient is wearing a knee immobilizer. Skin envelope is intact. Flexion and extension at MTPs and ankle intact without pain. Negative log roll of the hip. The patient is unwilling to flex at the hip due to pain in the knee. He is able to engage the quadriceps muscle with no obvious defect , but he is unwilling to attempt to straight leg raise due to pain in the knee. Knee flexion was not attempted. He is globally tender around the knee, most severely directly over the patella. Neuro: Sensation intact to light touch bilateral lower extremities. Vascular: DP 2+ bilateral lower extremities. Obvious venous stasis hyperpigmentation bilateral lower extremities. DIAGNOSTIC STUDIES/LAB DATA: White blood cell count 7.7, hemoglobin 11.7, hematocrit 36. INR 1.94. Sodium 139, potassium 4.9, creatinine 1.64. Left lower extremity CT scan: Acute linear patellar fracture with no displacement. Left wrist x-ray: No acute fracture. Scaphoid bone is dysplastic and small. ASSESSMENT: Left patellar fracture. PLAN: The patient should remain with knee in extension in his knee immobilizer until follow up visit. He can be weight bearing as tolerated with immobilizer in place. Reviewed with Dr Mccabe who agrees with assessment and plan and will see the patient in 2 weeks as an outpatient. SUZI CHAVES [id number]/[facility] #: [id number] [facility]ICAL CENTERIron
--- NOTE | 2018-12-29 15:47 | PN ---
Subjective Date of Service: 12/29/18 Interval History: Pt had mechanical fall and landed on L knee. No LOC, did not strike head. Pt continues to have L knee pain rated at 7/10. Knee is placed in immobilizer. L wrist pain has improved and he rates this at 4/10. He has no other complaints today. Objective Active Medications: Acetaminophen (Tylenol Tab*) 975 mg PO Q8H PRN Atorvastatin Calcium (Lipitor*) 10 mg PO 2100 CELENA Dronedarone (Multaq Tab*) 400 mg PO BID WITH MEALS CELENA Famotidine (Pepcid Tab*) 20 mg PO BID CELENA Febuxostat (Uloric(Nf)) 80 mg PO DAILY CELENA Furosemide (Lasix Tab*) 60 mg PO QAM CELENA Glipizide (Glucotrol Tab*) 5 mg PO BID AC CELENA Lactobacillus Rhamnosus (Lactobacillus Acidophilus*) 1 tab PO DAILY CELENA Lisinopril (Prinivil Tab*) 5 mg PO DAILY CELENA Magnesium Hydroxide (Milk Of Magnesia Liq*) 30 ml PO Q4H PRN Metformin HCl (Glucophage*) 1,000 mg PO DAILY WITH MEAL [facility] Metformin HCl (Glucophage*) 500 mg PO 1700 CELENA Metoprolol Succinate (Toprol Xl Tab*) 25 mg PO QAM [facility] Potassium Chloride (Klor Con Er Tab*) 10 meq PO QAM [facility] Tizanidine HCl (Zanaflex Tab*) 4 mg PO TID PRN Tramadol HCl (Ultram*) 50 mg PO Q8H PRN Warfarin Sodium (Coumadin Tab(*)) 5 mg PO SUMOWEFRSA [facility]; Protocol Warfarin Sodium (Coumadin Tab(*)) 7.5 mg PO TUTH [facility]; Protocol Vital Signs: Temp Pulse Resp BP Pulse Ox 97.6 F 93 20 113/72 92 12/29/18 11:25 12/29/18 11:25 12/29/18 11:25 12/29/18 11:25 12/29/18 11:42 Oxygen Devices in Use Now: None Appearance: Pt is laying flat in bed with HOB elevated. He appears mildly uncomfortable. Eyes: No Scleral Icterus, PERRLA Ears/Nose/Mouth/Throat: Clear Oropharnyx, Mucous Membranes Moist Neck: NL Appearance and Movements; NL JVP, Trachea Midline Respiratory: Symmetrical Chest Expansion and Respiratory Effort, Clear to Auscultation Cardiovascular: NL Sounds; No Murmurs; No JVD, RRR Abdominal: NL Sounds; No Tenderness; No Distention, No Hepatosplenomegaly Extremities: No Edema, No Clubbing, Cyanosis, - - L wrist TTP with ROM intact. L knee in immobilizer; sensation intact. Chronic skin changes to b/l LE. Pedal pulses intact b/l. Neurological: Alert and Oriented x 3, NL Sensation Result Diagrams: 12/29/18 03:17 12/29/18 03:17 Assess/Plan/Problems-Billing Assessment: 63yom PMHxAF on warfarin, HF EF 30%, PVD, obesity, chronic LE edema presents with patellar fracture after mechanical fall. - Patient Problems (1) Left patella fracture Comment: -Mechanical fall resulting in L patellar fracture -Ortho consulted; thank you for recommendations -L knee immobilizer in place -WBAT with immobilizer -PT/OT ordered; likely will d/c to [facility] -Continue pain management; bowel regimen added -F/u with Dr. Mccabe outpatient 2 weeks after d/c (2) Left wrist pain Comment: -L wrist pain improving -XR shows small, dysplastic scaphoid suggestive of previous trauma/avascular necrosis -Ortho consulted (3) EMELY (acute kidney injury) Comment: -Suspect this is due to hypovolemia -Holding lisinopril -Hold lasix x1 dose; set to restart 12/31 -Gentle IV hydration x1L (4) Heart failure with reduced ejection fraction Comment: -Holding lisinopril in setting of EMELY -Holding lasix x1 dose tomorrow morning; set to restart 12/31 (5) Atrial fibrillation Comment: -Continue home metoprolol -Continue Coumadin -Monitor INR (6) Diabetes mellitus Comment: -Continue home medications metformin, glipizide (7) Obesity Comment: -BMI 42.8 (8) DVT prophylaxis Comment: -Continue home coumadin (9) Full code status Status and Disposition: Observation. Awaiting [facility] placement.
[2018-12-29] MEDS ORDERED: NS 0.9% 1000 ML** 1,000 ML IV SCH (16:45)
[2018-12-29] MEDS ORDERED: metFORMIN* 500 MG TAB PO SCH (17:00)
[2018-12-29] MEDS ORDERED: Warfarin TAB(*) 5 MG PO SCH (17:00)
[2018-12-29] MEDS ORDERED: Senna TAB 8.6 mg* TAB PO PRN (18:26)
[2018-12-29] MEDS ORDERED: Atorvastatin* 10 MG TAB PO SCH (21:00)
[2018-12-29] MEDS: Docusate CAP* 100 MG PO PRN (21:30)
[2018-12-30 05:41] LABS: INR 1.85 (0.82-1.09)
[2018-12-30 05:55] LABS: BUN/Creatinine Ratio 26.8 (8-20); Calcium 8.9 mg/dL (8.6-10.3); EGFR African American 69.1 (>60); EGFR Non-African American 57.1 (>60); Potassium 4.9 mmol/L (3.5-5.0)
[2018-12-30] MEDS: Metoprolol Succinate XL TAB* 25 MG PO SCH (08:45)
[2018-12-30] MEDS: metFORMIN* 500 MG TAB PO SCH (08:45)
[2018-12-30] MEDS: Potassium Chlor TAB* 10 MEQ TAB.ER PO SCH (08:45)
[2018-12-30] MEDS: glipiZIDE TAB* 5 MG PO SCH (08:45)
[2018-12-30] MEDS: Lactobacillus Acidophilus* 1 TAB PO SCH (08:45)
[2018-12-30] MEDS: FEBUXOSTAT 40 MG PO SCH (08:46)
[2018-12-30] MEDS: Dronedarone TAB* 400 MG PO SCH (08:46)
[2018-12-30] MEDS: Famotidine TAB* 20 MG PO SCH (08:46)
[2018-12-30] MEDS: Docusate CAP* 100 MG PO PRN (09:00)
--- NOTE | 2018-12-30 11:16 | PN ---
Progress Note - Progress Note Date of Service: 12/30/18 SOAP: Subjective: Pt is doing well. Pain controlled. Compliant with knee immobilizer. Brian F/C, CP/SOB or calf pain Objective: PE- 63 y/o WDWN M NAD LLE- immobilizer in proper placement, skin intact, mild effusion of knee, calf soft NT, +DF/PF ankle, NVI Vital Signs Temp Pulse Resp BP Pulse Ox 97.5 F 106 18 131/72 97 12/30/18 07:50 12/30/18 07:50 12/30/18 08:00 12/30/18 07:50 12/30/18 07:50 Laboratory Results - last 24 hr 12/30/18 12/30/18 05:09 05:09 INR (Anticoag Therapy) 1.85 H Sodium 139 Potassium 4.9 Chloride 105 Carbon Dioxide 31 Anion Gap 3 BUN 34 H Creatinine 1.27 H Est GFR ( Amer) 69.1 Est GFR (Non-Af Amer) 57.1 BUN/Creatinine Ratio 26.8 H Glucose 94 Calcium 8.9 Assessment: Left knee patellar fracture Plan: NWB Immobilzer- keep knee in ext at all times Wrist pain d/t OA is resolved, Ok to f/u with Dr. Lloyd outpatient as needed F/U with Dr. Mccabe in 2 weeks
--- NOTE | 2018-12-30 12:34 | PN ---
Subjective Date of Service: 12/30/18 Interval History: Mr. De La Cruz denies complaint today and is happy with the plan for discharge to subacute rehab. Objective Active Medications: Acetaminophen (Tylenol Tab*) 975 mg PO Q8H PRN Atorvastatin Calcium (Lipitor*) 10 mg PO 2100 CELENA Docusate Sodium (Colace Cap*) 100 mg PO BID PRN Dronedarone (Multaq Tab*) 400 mg PO BID WITH MEALS CELENA Famotidine (Pepcid Tab*) 20 mg PO BID CELENA Febuxostat (Uloric(Nf)) 80 mg PO DAILY CELENA Furosemide (Lasix Tab*) 60 mg PO QAM CELENA Glipizide (Glucotrol Tab*) 5 mg PO BID AC CELENA Lactobacillus Rhamnosus (Lactobacillus Acidophilus*) 1 tab PO DAILY CELENA Magnesium Hydroxide (Milk Of Magnesia Liq*) 30 ml PO BID PRN Metformin HCl (Glucophage*) 1,000 mg PO DAILY WITH MEAL [facility] Metformin HCl (Glucophage*) 500 mg PO 1700 [facility] Metoprolol Succinate (Toprol Xl Tab*) 25 mg PO QAM [facility] Potassium Chloride (Klor Con Er Tab*) 10 meq PO QAM [facility] Senna (Senokot 8.6 Mg Tab*) 1 tab PO BEDTIME PRN Tizanidine HCl (Zanaflex Tab*) 4 mg PO TID PRN Tramadol HCl (Ultram*) 50 mg PO Q8H PRN Warfarin Sodium (Coumadin Tab(*)) 5 mg PO SUMOWEFRSA [facility]; Protocol Warfarin Sodium (Coumadin Tab(*)) 7.5 mg PO TUTH [facility]; Protocol Vital Signs: Temp Pulse Resp BP Pulse Ox 98.0 F 101 19 122/67 90 12/30/18 11:45 12/30/18 11:45 12/30/18 11:45 12/30/18 11:45 12/30/18 11:45 Oxygen Devices in Use Now: None Appearance: Male sitting up in chair in NAD Eyes: No Scleral Icterus Ears/Nose/Mouth/Throat: Mucous Membranes Moist Neck: Trachea Midline Respiratory: Symmetrical Chest Expansion and Respiratory Effort, Clear to Auscultation Cardiovascular: NL Sounds; No Murmurs; No JVD Abdominal: NL Sounds; No Tenderness; No Distention Skin: No Rash or Ulcers Neurological: Alert and Oriented x 3, NL Muscle Strength and Tone Nutrition: Taking PO's Result Diagrams: 12/29/18 03:17 12/30/18 05:09 Assess/Plan/Problems-Billing Assessment: 63yom PMHxAF on warfarin, HF EF 30%, PVD, obesity, chronic LE edema presents with patellar fracture after mechanical fall. - Patient Problems (1) Left patella fracture Comment: - Mechanical fall resulting in L patellar fracture - Appreciate ortho recommendations - L knee immobilizer in place. WBAT with immobilizer - PT/OT ordered, needs [facility] - Continue pain management; bowel regimen added - F/u with Dr. Mccabe outpatient 2 weeks after d/c (2) EMELY (acute kidney injury) Comment: - Resolving - Suspect this is due to hypovolemia - Holding lisinopril until follow up labs early next week - Hold lasix x1 dose; set to restart 12/31 (3) Heart failure with reduced ejection fraction Comment: - Holding lisinopril in setting of EMELY, plan to resume after recheck of labs early next week - Restart lasix 12/31 (4) Atrial fibrillation Comment: - Continue home metoprolol - Continue Coumadin - Monitor INR (5) Left wrist pain Comment: - L wrist pain improving - XR shows small, dysplastic scaphoid suggestive of previous trauma/avascular necrosis (6) DVT prophylaxis Comment: -Continue home coumadin (7) Full code status Comment: Status and Disposition: Observation. Discharge to [facility]
--- NOTE | 2018-12-30 14:18 | DS ---
CC: Dr. Morin * [facility] DISCHARGE SUMMARY: DATE OF ADMISSION: 12/29/18 DATE OF DISCHARGE: 12/30/18 PRIMARY CARE PHYSICIAN: Dr. Morin. ATTENDING PHYSICIAN: Dr. Angel Dubon * (dictation provided by Nia Barnes NP). PRIMARY DIAGNOSES: 1. Left patellar fracture. 2. Acute kidney injury, resolving. SECONDARY DIAGNOSES: 1. Atrial fibrillation, on warfarin. 2. History of chronic systolic congestive heart failure, ejection fraction 30%. 3. Hypertension. 4. Type 2 diabetes, [id number]. 5. Obesity. 6. Chronic lower extremity edema and peripheral vascular disease, status post vascular surgeries. 7. Gout. 8. Carpal tunnel, status post surgery bilaterally. 9. History of spinal francie placed in high school for scoliosis. MEDICATIONS AT THE TIME OF DISCHARGE: 1. Tramadol 50 mg as needed. 2. Ranitidine 150 mg p.o. b.i.d. 3. Glipizide 5 mg p.o. b.i.d. 4. Warfarin 5 mg on Wednesday, Wednesday, Wednesday, Wednesday, Wednesday and warfarin on Wednesday, at 7.5 mg. 5. Tizanidine 4 mg p.o. t.i.d. p.r.n. 6. Potassium chloride 10 mEq p.o. q.a.m. 7. Mupirocin 2% one application topically b.i.d. 8. Metoprolol succinate 25 mg p.o. q.a.m. 9. Lactobacillus 1 cap p.o. daily. 10. Furosemide 60 mg p.o. q.a.m. 11. Febuxostat 80 mg p.o. daily. 12. Multaq 400 mg p.o. b.i.d. 13. Docusate 100 mg p.o. b.i.d. 14. Atorvastatin 10 mg p.o. daily. 15. Metformin 1000 mg in the morning and 500 mg in the evening. 16. Magnesium hydroxide 30 mL p.o. b.i.d. p.r.n. HOSPITAL COURSE: Mr. De La Cruz is a 63-year-old male with a past medical history of atrial fibrillation, on Coumadin; chronic systolic congestive heart failure; and pky-ceerqim-vjdhvkgan diabetes, who presented to the hospital on 12/29/18 with concern for knee pain after a fall. Please see the dictated H and P from Jolene Ramos MD, for complete details. The patient states that he misstepped on a curb and landed on his left knee and left wrist. In the emergency room here, he had imaging, which consisted of a knee x-ray, which showed no acute osseous injury; however, he did go on for a lower extremity CT, which showed acute traumatic patellar fracture, moderate tricompartmental left knee primary osteoarthritis. For his wrist pain, he also had a hand and wrist x-ray, both of which were negative for acute injury. He had labs, which showed a BUN and creatinine of 42 and 1.64 respectively. This was higher than he has been in the past and our last check in February 2018 showed a 1.16 creatinine. For this , he was given intravenous fluids and his Lasix and lisinopril were held. Today , his BUN is 34 and his creatinine is 1.27. Mr. De La Cruz has been seen in consultation by the orthopedic services team and I refer you to their note for complete details, but in brief, they recommended that the patient wear a knee immobilizer and be weightbearing as tolerated. He will be seeing Dr. Mccabe in followup in 2 weeks. The plan is for Mr. De La Cruz to resume his Lasix tomorrow, but to hold lisinopril until he has a recheck of his BUN and creatinine on Wednesday of next week, at which time lisinopril could be resumed. I will also note that the patient is on metformin and if his BUN and creatinine remain elevated, there should be consideration for discontinuation of this medication and review of all his meds to make sure that they are appropriate given his new creatinine clearance. Mr. De La Cruz is medically stable for discharge to [facility] where he will be having subacute rehab. DISPOSITION: To [facility]. DIET: Low-fat, low-salt, low-carb. ACTIVITY: Weightbearing as tolerated with knee immobilizer in place. FOLLOWUP PLANS: 1. Please follow up with Dr. Garcia in 2 weeks. 2. Please follow up with your primary care physician at the time of discharge from the rehab facility. TIME SPENT: Approximately 60 minutes were spent on the discharge of this patient, more than half the time was spent with the patient at the bedside reviewing the events leading up to this hospitalization, performing the physical examination, and reviewing the plan of care. NIA BARNES NP [id number]/[facility] #: [id number] DOROTHY
[2018-12-30 15:35] VITALS: BP 142/72
[2018-12-30] MEDS ORDERED: Warfarin TAB(*) 5 MG PO SCH (17:00)
[2018-12-31] MEDS ORDERED: Furosemide TAB* 20 MG PO SCH (09:00)
== END 2018-12-30 16:55 ==
LOC: ED 23:32 → MED 12-29 03:43
PROVIDERS: ADMIT Internal Medicine; ATTEND Internal Medicine
DX: S82.002A Unspecified fracture of left patella, initial encounter for closed fracture (principal); M25.532 Pain in left wrist; I10 Essential (primary) hypertension; E11.9 Type 2 diabetes mellitus without complications; W01.0XXA Fall on same level from slipping, tripping and stumbling without subsequent striking against object, initial encounter; Y92.9 Unspecified place or not applicable; Z79.01 Long term (current) use of anticoagulants; K21.9 Gastro-esophageal reflux disease without esophagitis; Z87.442 Personal history of urinary calculi; Z86.14 Personal history of Methicillin resistant Staphylococcus aureus infection; Z87.891 Personal history of nicotine dependence; E66.9 Obesity, unspecified; R60.0 Localized edema; I73.9 Peripheral vascular disease, unspecified; M10.9 Gout, unspecified; G56.03 Carpal tunnel syndrome, bilateral upper limbs; Z79.899 Other long term (current) drug therapy
CPT/HCPCS: 36415; 80048; 83735; 85027; 85610; 93005; 96374; 99284; A9270-GY; G0378; G8978-GP-CJ; G8979-GP-CI; G8987-GO-CK; G8988-GO-CH; J2270

== ENCOUNTER 2019-01-18 00:18 | Inpatient (IN) | payer MEDICARE, MEDICAID ==
--- NOTE | 2019-01-18 01:21 | ED ---
Shortness of Breath - HPI Summary HPI Summary: Pt is a 63 y/o M presenting to the ED brought in by EMS from [facility] for shortness of breath. He states he experienced sudden SOB and severe cough causing him to vomit mucous tonight. He notes he was recently sent to [facility] for rehab after breaking his L knee cap after a fall. He notes hx of COPD, CHF, and AFib. - History of Current Complaint Chief Complaint: EDShortnessOfBreath Time Seen by Provider: 01/18/19 00:36 Hx Obtained From: Patient Onset/Duration: Sudden Onset, Lasting Hours Current Severity: Moderate Dyspnea At: Rest Aggravating Factors: Nothing Alleviating Factors: Nothing Associated Signs & Symptoms: Cough (Productive) - Allergy/Home Medications Allergies/Adverse Reactions: Allergies Allergy/AdvReac Type Severity Reaction Status Date / Time No Known Allergies Allergy Verified 12/29/18 00:28 PMH/Surg Hx/FS Hx/Imm Hx Previously Healthy: Yes Endocrine/Hematology History: Reports: Hx Anticoagulant Therapy - coumadin, Hx Diabetes Denies: Hx Thyroid Disease Cardiovascular History: Reports: Hx Atrial Fibrillation, Hx Congestive Heart Failure, Hx Hypercholesterolemia, Other Cardiovascular Problems/Disorders - CARDIOMYOPATHY, BL LE VEIN SX Denies: Hx Angina, Hx Coronary Artery Disease, Hx Hypertension, Hx Myocardial Infarction, Hx Peripheral Vascular Disease, Hx Valvular Heart Disease Respiratory History: Reports: Hx Chronic Obstructive Pulmonary Disease (COPD), Hx Seasonal Allergies Denies: Hx Asthma GI History: Reports: Hx Gastroesophageal Reflux Disease Denies: Hx Ulcer Comment Only: Other GI Disorders - chest pain intermittent over weekned, constant starting last evening History: Reports: Hx Kidney Stones - hx "small one" per pt, Hx Renal Disease - HX OF KIDNEY STONES Denies: Hx Acute Renal Failure, Hx Benign Prostatic Hyperplasia, Hx Chronic Renal Failure, Hx Dialysis, Hx Kidney Infection Musculoskeletal History: Reports: Hx Arthritis - KNEES, Hx Gout, Hx Orthopedic Injury - ORIF left elbow, Hx Scoliosis, Other Musculoskeletal History - carpal tunnel bilateral wrists Sensory History: Reports: Hx Cataracts - BILAT, Hx Contacts or Glasses Denies: Hx Hearing Aid Opthamlomology History: Reports: Hx Cataracts - BILAT, Hx Contacts or Glasses Neurological History: Reports: Other Neuro Impairments/Disorders - 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 scoliosis repair 1972 WITH SPINAL JEET. left elbow repair after injury in [place]. 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 Denies: Hx Hepatitis, Hx Human Immunodeficiency Virus (HIV), Traveled Outside the [place] in Last 30 Days - Family History Known Family History: Positive: Diabetes - Social History Alcohol Use: None Hx Substance Use: No Substance Use Type: Reports: None Hx Tobacco Use: Yes Smoking Status (MU): Former Smoker Length of Time of Smoking/Using Tobacco: 15 yrs Have You Smoked in the Last Year: No Review of Systems Positive: Shortness Of Breath, Cough Positive: Vomiting All Other Systems Reviewed And Are Negative: Yes Physical Exam - Summary Physical Exam Summary: Constitutional: Well-developed, Well-nourished, Alert. (-) Distressed Skin: Warm, Dry HENT: Normocephalic; Atraumatic Eyes: Conjunctiva normal Neck: Musculoskeletal ROM normal neck. (-) JVD, (-) Stridor, (-) Tracheal deviation Cardio: Rhythm regular, rate normal, Heart sounds normal; Intact distal pulses. Radial pulses are 2+ and symmetric. (-) Murmur Pulmonary/Chest wall: Effort normal. (-) Respiratory distress, (-) Wheezes, (-) Rales Abd: Soft, (-) tenderness, (-) Distension, (-) Guarding, (-) Rebound Musculoskeletal: (-) Edema Lymph: (-) Cervical adenopathy Neuro: Alert, Oriented x3 Psych: Mood and affect Normal Triage Information Reviewed: Yes Vital Signs On Initial Exam: Initial Vitals Temp Pulse Resp BP Pulse Ox 98.2 F 88 22 129/101 83 01/18/19 00:27 01/18/19 00:27 01/18/19 00:27 01/18/19 00:27 01/18/19 00:27 Vital Signs Reviewed: Yes Procedures - Sedation Patient Received Moderate/Deep Sedation with Procedure: No Diagnostics - Vital Signs Vital Signs Temp Pulse Resp BP Pulse Ox 01/18/19 00:34 94 25 137/98 96 01/18/19 00:27 98.2 F 88 22 129/101 83 - Laboratory Result Diagrams: 01/19/19 06:22 01/19/19 06:22 Lab Statement: Any lab studies that have been ordered have been reviewed, and results considered in the medical decision making process. - Radiology CXR Radiology Interpretation Completed By: ED Physician Summary of Radiographic Findings: Right middle lobe infiltrate vs. edema. Pending official radiology report. - EKG 0037 Cardiac Rate: Other Rate - 100bpm atrial flutter EKG Rhythm: Atrial Flutter ST Segment: Normal Ectopy: None Summary of EKG Findings: EKG at 0037 shows atrial flutter at 100bpm with LBBB. Unchanged from prior. No STEMI. Re-Evaluation - Re-Evaluation 1st re-eval Re-Evaluation Time: 02:06 Change: Unchanged Comment: Pt states he is feeling okay. I informed him of the plan for abx and he is agreeable. Course/Dx - Course Course Of Treatment: Patient is here with worsening or S4 status from a [facility]. Upon arrival, patient was satting well on 4 L nasal cannula. Patient does not need oxygen at home. Patient had an x-ray showed a right middle lobe infiltrate. Patient had blood work performed which showed normal BNP and no other other etiologies for his shortness of breath. Patient is therapeutic on his Coumadin and I do not believe the symptoms represent a PE. Given patient's oxygen requirement and infiltrate, patient was admitted to the hospital for pneumonia. Patient is given Levaquin and cefepime as he lives in a [facility]. - Diagnoses Provider Diagnoses: PNA (pneumonia) - Physician Notifications Discussed Care of Patient With: Tenzin Lorenzo Time Discussed With Above Provider: 02:11 Instructed by Provider To: Admit As Inpatient Discharge ED - Sign-Out/Discharge Documenting (check all that apply): Patient Departure - Discharge Plan Condition: Stable Disposition: ADMITTED TO [facility] - Billing Disposition and Condition Condition: STABLE Disposition: Admitted to [facility] - Attestation Statements Document Initiated by Scribe: Yes Documenting Scribe: Angie Land Provider For Whom Twin is Documenting (Include Credential): Tima Read MD. Scribe Attestation: Angie Preciado, scribed for Tima Read MD. on 01/21/19 at 1041. Scribe Documentation Reviewed: Yes Provider Attestation: The documentation as recorded by the Angie ball accurately reflects the service I personally performed and the decisions made by me, Tima Read MD. Status of Scribe Document: Viewed
[2019-01-18 01:35] LABS: ABS Eosinophils 0.1 10^3/ul (0-0.6); ABS Lymphocytes 0.9 10^3/ul (1.0-4.8); ABS Monocytes 0.6 10^3/ul (0-0.8); ABS Neutrophils 5.4 10^3/ul (1.5-7.7); Eosinophil % 1.2 %; Hematocrit 38 % (42-52); Hemoglobin 12.1 g/dL (14.0-18.0); Lymphocyte % 13.4 %; Mean Corpuscular HGB Conc 32 g/dL (31-36); Mean Corpuscular Hemoglobin 26 pg (27-31); Mean Corpuscular Volume 80 fL (80-94); Mean Platelet Volume 7.3 fL (7.4-10.4); Platelet Count 250 10^3/uL (150-450); Red Blood Count 4.73 10^6 /uL (4.18-5.48); Red Cell Distribution Width 16 % (10-15)
--- OUTSIDE RECORDS SUMMARY | 2019-01-18 01:38 | XMS REPORT | Continuity of Care Document ---
:1955 External Reference #:[id number] Author Name Zhou Salazar M.D. 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 Onset: 09/28/2014 Localized, primary osteoarthritis Radha Lopes M.D. Onset: 11/15/2014 Lymphedema Radha Lopes M.D. Onset: 11/15/2014 Ulcer of lower extremity Radha Lopes M.D. Onset: 11/15/2014 Hypertrophic Obstructive Evan Guajardo M.D., [facility], Onset: 01/04/2015 Cardiomyopathy FASNC Electrocardiogram abnormal Evan Guajardo M.D., [facility], Onset: 03/08/2015 FASNC Disturbance in sleep behavior Nhi Portillo MD Onset: 07/24/2015 Morbid obesity Nhi Portillo MD Onset: 07/24/2015 Obstructive sleep apnea syndrome Nhi Portillo MD Onset: 10/16/2015 Persistent atrial fibrillation Evan Guajardo M.D., [facility], Onset: 2016 FASNC Essential hypertension Evan Guajardo M.D., [facility], Onset: 04/26/2017 FASNC Paroxysmal atrial fibrillation Evan Guajardo M.D., [facility], Onset: 2017 FASNC Cardiomyopathy, unspecified Evan Guajardo M.D., [facility], Onset: 04/26/2017 FASNC Acute renal failure syndrome Yessica Jean NP Onset: 12/17/2017 Atrial fibrillation Yessica Jean, JIG GRINDER Onset: 12/17/2017 Type 2 diabetes mellitus with diabetic Yessica Jean, JIG GRINDER Onset: 12/17/2017 peripheral angiopathy without gangrene Peripheral vascular disease Yessica Jean NP Onset: 12/17/2017 Obesity Pastora Mims, JIG GRINDER Onset: 12/18/2017 Thoracic aortic ectasia Evan Guajardo M.D., [facility], Onset: 04/22/2018 [facility] Social History Type Date Description Comments Sex Unknown ETOH Use Denies alcohol use Tobacco Use Start: Unknown End: Patient is a former smoker Quit 1989 Unknown Recreational Drug Use Denies Drug Use Smoking Status Reviewed: 01/04/19 Patient is a former smoker Quit 1989 Exercise Type/Frequency Exercises sporadically Allergies, Adverse Reactions, Alerts Description No Known Drug Allergies Medications Active Medications SIG Qnty Indications Ordering Date Provider Zinc 15 1 by mouth every 30tabs E60 Taina Price, 05/17/2018 66mg Tablets day GILLIAN ESPINOZA, CIG[employer] P[employer]ER-BC Vitron-C 1 po q day x 6 30tabs D50.8 Taina Price, 05/17/2018 65-125mg months GILLIAN ESPINOZA, CIG[employer] P[employer]ER-BC Tablets Meloxicam 1 by mouth daily 60tabs Melvina Lloyd 04/07/2018 7.5mg Tablets M.DSonam Lisinopril 1 by mouth per 90tabs R94.31 Evan Ryan 03/09/2017 5mg Tablets day. Lamonte Guajardo, [facility] Toprol XL 1 po qd 90tabs Evan Ryan 04/27/2012 25mg Tablets Lamonte Guajardo, ER 24HR [facility], [facility] Metformin HCL take one tablet by Unknown 1000mg mouth twice a day Tablets Lactobacillus 1 by mouth twice a Unknown Tablets day Metoprolol Succinate 1 by mouth every Unknown ER day 25mg Tablets ER 24HR Dok Take One Capsule Unknown 100mg Capsules By Mouth Twice A Day Uloric Take One Tablet By Unknown 80mg Tablets Mouth Every Day For Gout Tramadol HCL Take One Tablet By Unknown 50mg Mouth Every 6 Tablets Hours as Needed For Pain Maximum Mohini Potassium Chloride 1 by mouth every Unknown day 10Meq Tablets ER Probiotic Daily 1 tab three times Unknown a day Capsules Furosemide 3 po qam as Unknown 20mg Tablets directed for edema Warfarin Sodium 7.5mg tues and Unknown 5mg thur, 5 mg Tablets mon,wed,fri,sat,crawford n PM as directed ( adjustment per Dr. Morin) Ranitidine HCL take one tablet by Unknown 150mg mouth twice a day Tablets Multaq 1 tab twice daily Unknown 400mg Tablets Atorvastatin Calcium take 1/2 tablet at Unknown bedtime 20mg Tablets Metformin HCL ER 2 by mouth in Am, Unknown 500mg 1 by mouth in PM Tablets ER 24HR Glipizide 1 by mouth twice a Unknown 5mg Tablets day Medications Administered in Office Medication SIG Qnty Indications Ordering Provider Date Depomedrol 40MG Melvina Lloyd M.D. 03/17/2018 Injection Technetium TC 99M Ica Nuclear Schedule 01/11/2017 Tetrofosmin, Per Unit Dose Up To 40 Millicuries Injection Inj, Regadenoson, 0.1 MG Evan Guajardo M.D., 01/06/2017 Injection FACC, CORAZON Aminophylline Evan Guajardo M.D., 01/06/2017 Injection FACC, JOAQUINANC Technetium TC 99M Evan Guajardo M.D., 01/06/2017 Tetrofosmin, Per Unit Dose Up CORAZON BENTON To 40 Millicuries Injection Inj, Regadenoson, 0.1 MG Evan Guajardo M.D., 03/21/2015 Injection ARCHANAC, FASNC Inj, Regadenoson, 0.1 MG Ceferino Steen M.D. 03/21/2015 Injection Aminophylline Evan Guajardo M.D., 03/21/2015 Injection CHETAN, CORAZON Aminophylline Ceferino Steen M.D. 03/21/2015 Injection Technetium TC 99M Evan Guajardo M.D., 03/21/2015 Tetrofosmin, Per Unit Dose Up CORAZON BENTON To 40 Millicuries Injection Technetium TC 99M Ceferino Steen M.D. 03/21/2015 Tetrofosmin, Per Unit Dose Up To 40 Millicuries Injection Depomedrol 80MG Radha Lopes M.D. 09/28/2014 Injection Immunizations Description No Information Available Vital Signs Date Vital Result Comment 01/04/2019 11:12am Height 69 inches 5'9" Weight 276.00 lb Heart Rate 96 /min BP Systolic 120 mmHg BP Diastolic 70 mmHg Respiratory Rate 16 /min Body Temperature 98.8 F Pain Level 6 BMI (Body Mass Index) 40.8 kg/m2 11/09/2018 9:58am Height 69 inches 5'9" Weight 284.00 lb with shoes Heart Rate 58 /min BP Systolic Sitting 148 mmHg lue large cuff BP Diastolic Sitting 70 mmHg lue large cuff BP Systolic Standing 134 mmHg lue large cuff BP Diastolic Standing 70 mmHg lue large cuff Respiratory Rate 20 /min BMI (Body Mass Index) 41.9 kg/m2 Ejection Fraction 60-65% echo. 11/02/18 Results Description No Information Available Procedures Date Code Description Status 11/09/2018 47825 EKG Tracing & Interpretation Completed 11/02/2018 20987 ECHO Transthoracic, Real-Time 2D With Doppler And Color Completed Flow 11/02/2018 64607 ECHO Transthoracic, Real-Time 2D With Doppler And Color Completed Flow 07/22/2018 51278 Apply Unna Boot Completed Medical Devices Description No Information Available Encounters Type Date Location Provider Dx Diagnosis Office Visit 11/09/2018 [facility] Evan Ryan I77.810 Thoracic aortic 10:15a Of Tyler Guajardo M.D., ectasia [facility], [facility] I10 Essential (primary) hypertension R94.31 Abnormal electrocardiogram [ECG] [EKG] I42.2 Other hypertrophic cardiomyopathy Office Visit 07/11/2018 11:40a [facility] [address] [facility] Wesley Brito, I83.009 Varicose veins MD of [facility] lower extremity w ulcer of [facility] site Assessments Date Code Description Provider 01/04/2019 S82.002A Unspecified fracture of left patella, Zhou Salazar M.D. initial encounter for closed fracture 11/09/2018 I77.810 Thoracic aortic ectasia Evan Guajardo M.D., [facility], [facility] 11/09/2018 I10 Essential (primary) hypertension Evan Guajardo M.D., [facility], [facility] 11/09/2018 R94.31 Abnormal electrocardiogram [ECG] Evan Guajardo M.D., [EKG] [facility], [facility] 11/09/2018 I42.2 Other hypertrophic cardiomyopathy Evan Guajardo M.D., [facility] 11/02/2018 I42.9 Cardiomyopathy, unspecified Evan Guajardo M.D., [facility] 11/02/2018 I42.9 Cardiomyopathy, unspecified Traveling ECHO 1 07/22/2018 I83.018 Varicose veins of right lower Wesley Brito MD extremity with ulcer other par 07/22/2018 I83.028 Varicose veins of l low extrem w Wesley Brito MD ulcer oth part of lower leg 07/11/2018 I83.009 Varicose veins of unspecified lower Wesley Brito MD extremity with ulcer of Plan of Treatment Future Appointment(s):02/06/2019 10:45 am - Zhou Salazar M.D. at [facility]01/04/2019 - Zhou Salazar M.D.S82.002A Unspecified fracture of left patella, initial encounter for closed fractureFollow up:Follow up: February 06, 2019 OK to put weight on the left foot Use a walker OK to start left leglifting exercises. 10 in the morning and evening for 5 seconds each Start to wiggle the left knee for straight to a little bending (20 degrees of bending) now also. Move the left ankle and toes each morning and evening as well Use the knee brace most of the time until 02/02/2019, to keep the knee mainly straight The knee cap takes 6-8 weeks to heal up Functional Status Description No Information Available Mental Status Description No Information Available Referrals Description No Information Available
--- OUTSIDE RECORDS SUMMARY | 2019-01-18 01:38 | XMS REPORT | Continuity of Care Document ---
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 Onset: 06/03/2007 Hypertrophic obstructive cardiomyopathy Pool Morin M.D. Onset: 2007 Idiopathic scoliosis AND/OR Pool Morin M.D. Onset: 06/03/2007 kyphoscoliosis Obesity Pool Morin M.D. Onset: 09/07/2007 Contact dermatitis Pool Morin M.D. Onset: 01/09/2008 Edema Pool Morin M.D. Onset: 07/03/2008 Peripheral venous insufficiency Pool Morin M.D. Onset: 09/26/2010 Type 2 diabetes mellitus Pool Morin M.D. Onset: 11/07/2010 Benign neoplasm of skin Pool Morin M.D. Onset: 12/09/2010 Dystrophia unguium Pool Morin M.D. Onset: 03/23/2011 Cellulitis and abscess of lower limb Pool Morin M.D. Onset: 06/20/2011 Ulcer of lower extremity Pool Morin M.D. Onset: 06/29/2011 Tachycardia Pool Morin M.D. Onset: 07/21/2011 Hypertrophic Obstructive Cardiomyopathy Pool Morin M.D. Onset: 2011 Atrial flutter Pool Morin M.D. Onset: 07/31/2011 Acute bronchitis Chanelle Abarca M.D. Onset: 08/12/2011 Anticoagulant agent Pool Morin M.D. Onset: 10/30/2011 Arthralgia of the ankle and/or foot Pool Morin M.D. Onset: 11/09/2011 Gout Pool Morin M.D. Onset: 11/09/2011 Chest pain Pool Morin M.D. Onset: 02/05/2012 Gastroesophageal reflux disease Pool Morin M.D. Onset: 02/05/2012 Carbuncle of leg (excluding foot) Pool Morin M.D. Onset: 08/19/2012 Late effect of open wound of extremities Pool Morin M.D. Onset: 2013 without tendon injury Hyperlipidemia Pool Morin M.D. Onset: 01/29/2014 Eruption Pool Morin M.D. Onset: 02/23/2014 Cellulitis Pool Morin M.D. Onset: 08/27/2014 Disorder of male genital organ Pool Morin M.D. Onset: 09/03/2014 Cellulitis and abscess of toe Pool Morin M.D. Onset: 09/11/2014 Congenital capsular cataract Pool Morin M.D. Onset: 11/01/2014 Essential hypertension Pool Morin M.D. Onset: 02/01/2015 Obstructive hypertrophic cardiomyopathy Pool Morin M.D. Onset: 2014 Balanoposthitis Pool Morin M.D. Onset: 03/04/2015 Candidiasis of skin and nails Pool Morin M.D. Onset: 03/04/2015 Symptom of skin and integumentary tissue Pool Morin M.D. Onset: 2014 Other cardiomyopathies Pool Morin M.D. Onset: 04/02/2015 Hypoxemia Pool Morin M.D. Onset: 05/20/2015 Paroxysmal atrial fibrillation Pool Morin M.D. Onset: 04/21/2016 Slow transit constipation Pool Morin M.D. Onset: 06/15/2016 Idiopathic gout, unspecified site Pool Morin M.D. Onset: 08/18/2016 Benign prostatic hypertrophy without Pool Morin M.D. Onset: 08/18/2016 outflow obstruction Localized, primary osteoarthritis Pool Morin M.D. Onset: 08/18/2016 Persistent atrial fibrillation Pool Morin M.D. Onset: 05/31/2017 Social History Type Date Description Comments Sex Unknown Tobacco Use Start: Unknown End: Unknown Former Cigarette Smoker 1994 ETOH Use Denies alcohol use Tobacco Use Start: Unknown End: Unknown Patient is a former smoker Smoking Status Reviewed: 12/26/18 Patient is a former smoker Allergies, Adverse Reactions, Alerts Active Allergies Reaction Severity Comments Date NKDA 12/01/2010 Seasonal 01/09/2010 Medications Active Medications SIG Qnty Indications Ordering Date Provider Betamethasone apply to affected 45gm R21 Ella Montero 12/26/2018 Dipropionate area twice a day LUCIUS Colon 0.05% Cream Docusate Sodium take one capsule 60caps K59.09 Pool Morin, 04/08/2018 100mg by mouth twice a M.D. Capsules day Tylenol Extra 1-2 tab by mouth 90tabs Pool Morin, 01/25/2018 Strength as needed pain M.D. 500mg Tablets Lisinopril 1 by mouth every 90tabs [facility] 09/01/2017 5mg day [facility] [place] Miralax 17 gm in 8 oz 527units Pool Morin, 05/31/2017 3350NF Powder water daily as M.D. needed for constipation Biofreeze Colorless apply to sore spot 1Tube R10.11 Maria Del Carmen 06/25/2016 abdomen three Peg, TRAINING AND DEVELOPMENT REP 4% Gel times a day Ammonium Lactate apply to dry skin 400units L24.4 Maria Del Carmen 05/29/2016 12% two times A day as Peg, TRAINING AND DEVELOPMENT REP Lotion needed Uloric take one tablet by 30tabs M10.9 Pool Morin, 12/02/2015 80mg Tablets mouth every day M.D. for gout Tramadol HCL take one tablet by 120tabs I87.2 Pool Morin, 04/08/2015 50mg mouth every 6 M.D. Tablets hours as needed for pain maximum daily dose = 4 tablets M25.562 M79.622 Glipizide take one tablet by 60tabs Pool Morin, 11/05/2014 5mg Tablets mouth twice a day M.D. Metformin HCL ER take two tablets by 90tabs Pool Morin, 02/01/2014 500mg mouth every morning M.D. Tablets ER 24HR and take one tablet by mouth every evening Multaq take 1 tablet by 60tabs Pool Morin, 05/20/2012 400mg Tablets mouth two times M.D. daily Atorvastatin Calcium take 1/2 tablet by 30tabs Pool Morin, 05/20/2012 20mg mouth every day M.D. Tablets Toprol XL take one tablet by 30tabs Rodriguez Gordon, 04/18/2012 25mg Tablets ER mouth every day M.D. 24HR Ranitidine HCL take 1 tablet by 60tabs R07.9 Pool Morin, 02/05/2012 150mg Tablets mouth two times M.D. daily for hiatal hernia Warfarin Sodium take two tablets by 60tabs Daniel Guzman, 07/31/2011 5mg Tablets mouth every day or M.D. as directed Furosemide take three tablets 90tabs R60.0 Pool Morin, 01/05/2011 20mg Tablets by mouth every day M.D. as needed for edema Probiotic 1 po tid Unknown Tablets DR Potassium Chloride ER take one tablet by 30tabs Pool Morin, 10Meq mouth every day M.D. Tablets ER Medications Administered in Office Medication SIG Qnty Indications Ordering Provider Date Injection Rocephrin 250 MG SWETHA Mark 03/25/2015 Injection Injection Subcutaneous Or SWETHA Mark 03/25/2015 Intramuscular Injection TB Intradermal Test Pool Morin M.D. 01/06/2010 Injection TB Intradermal Test Anastasia Theodore 12/18/2009 Injection Immunizations CPT Code Status Date Vaccine Lot # [id number] Given 04/02/2015 Tdap Tetanus, W Pertussis [id number] Vital Signs Date Vital Result Comment 12/26/2018 10:11am BP Systolic 132 mmHg BP Diastolic 80 mmHg Heart Rate 112 /min Body Temperature 98.8 F Respiratory Rate 17 /min Weight 280.00 lb 11/15/2018 8:41am BP Systolic 152 mmHg BP Diastolic 66 mmHg Weight 285.38 lb Results Test Date Facility Test Result H/L Range Note Laboratory test 12/06/2018 [facility] ([facility]) 2.9 2.0-3.0 finding (607)- - Laboratory test 11/03/2018 [facility] ([facility]) 2.2 2.0-3.0 finding (607)- - Lipid Profile 10/04/2018 [facility]) Cholesterol 133 mg/dL 120- 200 Triglycerides 95 mg/dL 30-200 HDL Cholesterol 41 mg/dL 30-70 LDL (Calculated) 73 CALC 0-129 VLDL Cholesterol 19 mg/dL 0-50 HDL Risk Factor 3.2 CALC 0.0-4.4 CBC Electronic Fma 10/04/2018 [facility]) WBC 4.7 x10^3/UL 4.0- 10.0 RBC 4.48 x10^6/UL 3.93-6.00 HGB 11.7 g/dL Low 12.0-17.0 HCT 38 % 35-50 MCV 85.5 fL 80.0-95.0 MCH 26.1 pg 25.6-32.2 MCHC 32.2 g/dL 32.2-36.0 RDW-CV 15.2 % High 11.6-14.4 PLT 186 x10^3/UL 163-400 MPV 10.2 fL 9.4-12.4 Tri# 2.84 x10^3/UL 1.56-6.13 Lymph# 1.19 x10^3/UL 1.18-3.74 [place]# 0.52 x10^3/UL 0.24-0.82 Eos # 0.2 x10^3/UL 0.0-0.5 Baso # 0.02 x10^3/UL 0.01-0.08 Tri% 60.2 % 34.0-70.0 Lymph % 25.2 % 20.0-52.0 [place]% 11.0 % 5.0-12.0 Eos% 3.2 % 0.7-7.0 Baso% 0.4 % 0.1-1.2 Comprehensive Metabolic 10/04/2018 [facility](fma) Sodium 140 mEq/L 134-149 Prof Potassium 5.2 mEq/L 3.6-5.5 Chloride 100 mEq/L 94-112 Carbon Dioxide 31 mEq/L 21-32 Glucose 63 mg/dL Low 70-105 1 BUN 46 mg/dL High 6-26 Creatinine 1.4 mg/dL 0.6-1.4 BUN/Creat Ratio 32.9 CALC 8.0-36.0 Calcium 9.3 mg/dL 8.6-10.2 Total Protein 7.9 g/dL 6.4-8.3 Albumin 4.4 g/dL 3.8-5.5 Globulin 3.5 g/dL 2.0-4.8 A/G Ratio 1.3 CALC 0.6-2.3 Alk. Phosphatase 67 U/L 22-95 Alt (SGPT) 20 U/L 7-35 Ast (Sgot) 22 U/L 5-34 Total Bilirubin 0.2 mg/dL 0.2-1.3 GFR Non- 54 ml/min/1.73m^ Low >=60 GFR >60 ml/min/1.73m^ >=60 Laboratory test 10/04/2018 [facility] Hemoglobin A1c 6.3 % High 4.1- 5.7 finding (607)- - (Fma) Inr (Fma) 2.3 2.0-3.0 Laboratory test 08/31/2018 [facility] (Fma) 2.3 2.0-3.0 finding (607)- - Wound 08/22/2018 [facility] Wound/Misc SEE RESULT 2 Culture/Sensi Culture-Gram BELOW Stain Laboratory test 08/01/2018 [facility] (Fma) 2.2 2.0-3.0 finding (607)- - Laboratory test 07/01/2018 [facility] Hemoglobin A1c 6.5% % High 4.1 -5.7 finding (607)- - (Fma) Inr (Fma) 2.7 2.0-3.0 1 RESULTS VERIFIED BY REPEAT ANALYSIS 2 SEE RESULT BELOW Name: COSTELLOOLIVER : [address]: Doreen Obrien MD Acct: [id number] Unit: [id number] AGE: 63 Location: WOUND Re08/22/18 SEX: M Status: REG REF SPEC: [id number] SABRINA: 08/22/[address] [facility] [address]: Doreen Obrien MD REQ: [id number] RECD: 08/22/18 STATUS: RONNIE DOWNING DR: Pool Morin MD _ SOURCE: LEG, RIGHT SPDESC: ORDERED: Culture Stain Procedure Result Reported Site Wound/Misc Gram Stain Final 08/23/18- 0820 ML 1+ Epithelial Cells No Neutrophils Observed No Organisms Seen Wound/Misc Culture Final 08/24/18- 1135 ML Organism 1 NORMAL AIME Quantity 3+ * ML - Main Lab . END OF REPORT DEPARTMENT OF PATHOLOGY, [address] [place] [address] Manjeet Del Valle M.D. Director [facility] # [id number] Procedures Date Code Description Status 12/06/2018 25335 Finger Or Heel Stick Completed 11/03/2018 60464 Finger Or Heel Stick Completed 08/31/2018 42004 Finger Or Heel Stick Completed 08/01/2018 36061 Finger Or Heel Stick Completed 07/01/2018 17330 Finger Or Heel Stick Completed 10/24/2015 [id number] Colonoscopy Completed Medical Devices Description No Information Available Encounters Type Date Location Provider Dx Diagnosis Office Visit 12/26/2018 Main Office Ella Montero R21 Rash and other 10:30a LUCIUS Colon nonspecific skin eruption Office Visit 11/15/2018 Main Office Oralia Salcedo S90.922A Unspecified 8:30a LUCIUS Salvador superficial injury of left foot, init encntr M25.562 Pain in left knee Office Visit 10/04/2018 10:00a Main Office Pool Morin, I10 Essential ( primary) M.D. hypertension E11.9 Type 2 diabetes mellitus without complications I48.3 Typical atrial flutter Z79.01 correction (current) use of anticoagulants I87.2 Venous insufficiency (chronic) (peripheral) I42.1 Obstructive hypertrophic cardiomyopathy K21.9 Gastro-esophageal reflux disease without esophagitis Office Visit 10/04/2018 8:00a Main Office Pool Morin, I10 Essential ( primary) M.D. hypertension E11.9 Type 2 diabetes mellitus without complications I48.3 Typical atrial flutter Z79.01 correction (current) use of anticoagulants I87.2 Venous insufficiency (chronic) (peripheral) I42.1 Obstructive hypertrophic cardiomyopathy K21.9 Gastro-esophageal reflux disease without esophagitis Office Visit 08/10/2018 11:30a Main Office Maria Del Carmen Ruvalcaba, R21 Rash and other TRAINING AND DEVELOPMENT REP nonspecific skin eruption Office Visit 07/01/2018 8:00a Main Office Pool Morin, I10 Essential ( primary) M.D. hypertension E11.9 Type 2 diabetes mellitus without complications I48.3 Typical atrial flutter I87.2 Venous insufficiency (chronic) (peripheral) I42.1 Obstructive hypertrophic cardiomyopathy K21.9 Gastro-esophageal reflux disease without esophagitis Z79.01 correction (current) use of anticoagulants Assessments Date Code Description Provider 12/26/2018 R21 Rash and other nonspecific skin eruption Ella Colon, LUCIUS 12/06/2018 Z79.01 long term (current) use of anticoagulants Pool Morin M.D. 12/06/2018 I48.3 Typical atrial flutter Pool Morin M.D. 11/15/2018 S90.922A Unspecified superficial injury of left Oralia Salvador , LUCIUS foot, initial encount 11/15/2018 M25.562 Pain in left knee Oralia Salvador, LUCIUS 11/03/2018 Z79.01 long term (current) use of anticoagulants Pool Morin M.D. 11/03/2018 I48.3 Typical atrial flutter Pool Morin M.D. 10/04/2018 I10 Essential (primary) hypertension Pool Mroin M.D. 10/04/2018 E11.9 Type 2 diabetes mellitus without Pool Morin M.D. complications 10/04/2018 I48.3 Typical atrial flutter Pool Morin M.D. 10/04/2018 Z79.01 correction (current) use of anticoagulants Pool Morin M.D. 10/04/2018 I87.2 Venous insufficiency (chronic) Pool Morin M.D. (peripheral) 10/04/2018 I42.1 Obstructive hypertrophic cardiomyopathy Pool Morin M.D. 10/04/2018 K21.9 Gastro-esophageal reflux disease without Pool Morin M.D. esophagitis 08/31/2018 Z79.01 correction (current) use of anticoagulants Pool Morin M.D. 08/31/2018 I48.3 Typical atrial flutter Pool Morin M.D. 08/10/2018 R21 Rash and other nonspecific skin eruption Maria Del Carmen Ruvalcaba, [facility] 08/01/2018 Z79.01 correction (current) use of anticoagulants Pool Morin M.D. 08/01/2018 I48.3 Typical atrial flutter Pool Morin M.D. 07/01/2018 I10 Essential (primary) hypertension Pool Morin M.D. 07/01/2018 E11.9 Type 2 diabetes mellitus without Pool Morin M.D. complications 07/01/2018 I48.3 Typical atrial flutter Pool Morin M.D. 07/01/2018 I87.2 Venous insufficiency (chronic) Pool Morin M.D. (peripheral) 07/01/2018 I42.1 Obstructive hypertrophic cardiomyopathy Pool Morin M.D. 07/01/2018 K21.9 Gastro-esophageal reflux disease without Pool Morin M.D. esophagitis 07/01/2018 Z79.01 correction (current) use of anticoagulants Pool Morin M.D. Plan of Treatment Future Appointment(s):01/03/2019 10:15 am - Pool Morin M.D. at Main Gyjmnf8802/03/2019 8:00 am - Pool Morin M.D. at Main Ininmr7412/26/2018 - Ella Colon, NPR21 Rash and other nonspecific skin eruptionNew Medication :Betamethasone Dipropionate 0.05 % - apply to affected area twice a dayComments: Supportive Care: avoid new lotions, soaps, laundry detergentavoid sun exposure to rashavoid itching if possible keep rash clean and dryTake medications as directed.If rash worsens or is not responsive to therapy, please return to office or seek medical attention.AllComments:Medication Management Patient Understands medications he 's taking? Yes No Are there Barriers to Adherence? Yes No Has the patient been asked about herbal supplements and therapies, andOTC meds? Yes No Care Plan1. Patient has been queried about patient's goals/preferences and functional/lifestyle goals at relevant visits. If relevant, describe: na2. Treatment goals as explained to the patient: above3. Are there barriers to meeting treatment goals? Yes No If Yes, please describe: comorbid conditions, polypharmacy 4. Self- Management goals as described to the patient: Yes NoAs always, we strongly encourage a healthy diet and making physical activity apart of your every day life. If you have questions about how or where to start, please contact the office. Functional Status Description No Information Available Mental Status Description No Information Available Referrals Description No Information Available
[2019-01-18 01:41] LABS: INR 2.61 (0.82-1.09)
[2019-01-18 01:53] LABS: Albumin/Globulin Ratio 1.1 (1-3); Calcium 9.4 mg/dL (8.6-10.3); EGFR African American 61.2 (>60); EGFR Non-African American 50.6 (>60); Globulin 3.5 g/dL (2-4); Potassium 4.3 mmol/L (3.5-5.0); Total Bilirubin 0.4 mg/dL (0.2-1.0); Total Protein 7.5 g/dL (6.4-8.9)
[2019-01-18 01:55] LABS: Troponin I 0.01 ng/mL (<0.04)
[2019-01-18] MEDS ORDERED: Cefepime(*) 1 GM in NS 0.9% 50 ML* 50 ML IVPB ONE (02:04)
[2019-01-18] MEDS ORDERED: Levofloxacin 750 MG IVPREMIX(* 750 MG/150 ML BAG IVPB ONE (02:04)
[2019-01-18] MEDS ORDERED: NS 0.9% 50 ML* 50 ML ONE (02:09)
[2019-01-18] MEDS ORDERED: Cefepime 1 GM in Dextrose(*) 1 GM/50 ML BAG IV ONE (02:19)
[2019-01-18] MEDS ORDERED: Albuterol 2.5 MG/3 ML NEB.SOL* (0.083%) INH PRN (04:28)
--- NOTE | 2019-01-18 08:28 | HP ---
CC: Dr. Morin * DATE OF ADMISSION: 01/18/19 PRIMARY CARE PHYSICIAN: Dr. Morin. CHIEF COMPLAINT: Shortness of breath. HISTORY OF PRESENT ILLNESS: This is a 53-year-old gentleman with past medical history of AFib, who was recently admitted for left knee pain after mechanical fall, noted to have left knee fracture, history of congestive heart failure with EF of 30%, hypertension, diabetes, obesity, chronic lower extremity edema, history of peripheral vascular disease, came in due to cough and shortness of breath. The patient has been at [facility] after he had the left patellar fracture. He was doing well up until yesterday when he started severe coughing spell, which was productive of white sputum, not accompanied by any chest pain or any further leg swelling or any runny nose or any sore throat. He was severely short of breath and was noted to be hypoxic and was sent to the ER for further evaluation. Per ER doctor, his chest x-ray suggested more of pneumonia type picture and he was started on some antibiotics and recommended for admission as he was still hypoxic on room air to low 86. PAST MEDICAL HISTORY: As mentioned, history of heart failure with reduced ejection fraction as of previous echo-cardiogram at 30%; history of AFib, on Coumadin for anticoagulation; history of hypertension; history of type 2 diabetes; history of morbid obesity; history of chronic lower extremity edema; and peripheral vascular disease. PAST SURGICAL HISTORY: Include left elbow repair, history of multiple vascular surgeries for both lower extremities, history of carpal tunnel repair, and spinal francie placed many years ago for scoliosis. HOME MEDICATIONS: Currently still pending medical reconciliation for proper dosing, but the patient was on according to previous H and P; 1. Coumadin. 2. Metformin. 3. Glipizide. 4. Tramadol. 5. Ranitidine. 6. Tizanidine. 7. Furosemide. 8. Potassium. 9. Metoprolol. 10. Lisinopril. 11. Febuxostat. 12. Atorvastatin. 13. Dronedarone. 14. Lactobacillus. ALLERGIES: No known drug allergies. FAMILY HISTORY: His brother recently received a pacemaker, he is unsure of why. SOCIAL HISTORY: The patient lives at [facility], prior to that he used to live alone at home. 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 He has smoked about a pack a day for 5 years, but quit in 1989. Denies any drug or alcohol use. He is otherwise full code and his brother, Lisandro , is the healthcare proxy. REVIEW OF SYSTEMS: A 14-point review of systems did not reveal any new information other than the ones mentioned in the HPI. PHYSICAL EXAMINATION GENERAL: The patient is awake, alert, and oriented x3. Does not appear to be in any acute distress. VITAL SIGNS: Temperature was noted to be 98.2, BP was 129/101, heart rate 88, respirations 22, saturating 83% on room air, which improved to 96% on 2 L nasal cannula. HEAD AND NECK: Atraumatic and normocephalic. Bilateral pupils are reactive. Oral mucosa is moist. NECK: Supple. No jugular venous distention. LUNGS: Clear to auscultation bilaterally. No wheezes, rhonchi, or rales. HEART: S1, S2, regular rate and rhythm. ABDOMEN: Obese, soft, nontender. EXTREMITIES: The patient had bilateral chronic venous stasis changes in the lower extremity with left knee being minimally tender. DIAGNOSTIC STUDIES/LAB DATA: CBC was unremarkable except for mild anemia with hemoglobin of 12.1, hematocrit of 38, platelet count within normal limits. Coagulation profile shows INR therapeutic at 2.61. Venous blood gas shows pH normal at 7.40. Comprehensive metabolic panel shows BUN elevated at 31, creatinine elevated at 1.41. Portable chest x-ray was read by the ER physician as possible right middle lobe pneumonia, however, I suspect the patient is having more vascular congestion, causing hypoxia. I ordered a repeat PA lateral imaging. We will wait for the official read by the Radiology. EKG shows atrial flutter with 2:1 block and left bundle type picture with QRS duration to be at 184. When compared to his previous EKG from 3 weeks ago, still showed the atrial flutter and left bundle-branch block, however, the QRS duration was much more narrower. ASSESSMENT: 1. Shortness of breath, suspect secondary to congestive heart failure, possible pneumonia. We will wait and see what the official read by Radiology is. Currently, the patient is stable. We will continue the oxygen therapy and consider starting the patient on higher dose Lasix versus antibiotics based on the official x-ray read. We will also start the patient on DuoNeb. 2. Atrial flutter/fibrillation, on anticoagulation. We will restart Coumadin and dronedarone once dose confirmed by Pharmacy. 3. History of diabetes. We will start the patient on insulin sliding scale. 4. History of congestive heart failure with low ejection fraction. We will repeat echocardiogram and given his left bundle-branch block and elevated QRS duration, he may be a candidate for BiV pacemaker for better cardiac synchronization, if okay with Cardiology and consider Cardiology consult in the morning. 5. History of chronic kidney disease. Creatinine is stable compared to his previous admission. 6. History of recent left patellar fracture. We will continue with physical therapy. 7. DVT prophylaxis. The patient is already on Coumadin therapy. 8. Code status. The patient is full code. As mentioned, his brother, Lisandro, would be the healthcare proxy. [id number]/CPS #: [id number] MTDD
[2019-01-18] MEDS ORDERED: Perflutren Lipid Microsphere* 3 ML VIAL ONE (08:42)
[2019-01-18] MEDS ORDERED: tiZANidine TAB* 2 MG PO PRN (10:27)
[2019-01-18] MEDS ORDERED: traMADol TAB* 50 MG PO PRN (10:27)
[2019-01-18] MEDS ORDERED: Magnesium Hydroxide LIQ* 30 ML UDC PO PRN (10:27)
[2019-01-18] MEDS: cefTRIAXone(*) 1 GM in NS 0.9% 50 ML* 50 ML IVPB SCH (11:05)
--- NOTE | 2019-01-18 11:45 | ECHO ---
*[facility]* [place] [address] Fax #: [phone] Transthoracic Echocardiogram Patient: Cesar De La Cruz : 1955 Study Date: 01/18/2019 Age: 63 Gender: M HR: 109 bpm Height: 68.9 in /175 cm BSA: 2.53 m^2 Weight: 276 lb /125.5 kg BMI: 41 kg/m^2 *Clinical Reimbursement Specialist: * Dary Quiroz [facility] *Referring Physician: * Tenzin Lorenzo *Reading Physician: * Shraddha Cuellar MD Indications: SOB. History: Atrial fibrillation. Congestive heart failure. Risk factors: Former tobacco use. Diabetes mellitus. Dyslipidemia. Conclusions Summary: - Left ventricle: The cavity size is normal. Wall thickness is moderately increased. Systolic function is mildly to moderately reduced. The estimated ejection fraction is 35-40%. There is interventricular dyssynchrony c/w patients LBBB. - Right ventricle: Systolic function is low normal. - Tricuspid valve: There is trace to mild regurgitation. - Aorta: The ascending aorta internal dimension in the A-P direction, maximal systolic dimension is 3.5 cm. - Ascending aorta: The ascending aorta is mildly dilated. - Pulmonary arteries: Systolic pressure is within the normal range. The peak pressure during systole by Doppler is 24.0 mm Hg. - Compared with the patient's prior transesophageal echocardiogram of 04/04/17EF previously 30-35%, aortic, mitral and tricuspid valve function not significantly changed. Pulmonary regurgitation is new. Aorta dilatation of the arch is new. Study data: Transthoracic echocardiogram. Procedure: Transthoracic echocardiography was performed. Image quality was adequate. Intravenous Definity , 2 mlswas administered. Image enhancement administered by GILLIAN Mckoyfeeder worker power unit operator. Complete 2D, spectral Doppler, and color flow Doppler. Location: ICU Patient status: Inpatient. Patient room number: 7. Rhythm: Atrial fibrillation. LBBB. Findings Left ventricle: The cavity size is normal. Wall thickness is moderately increased. Systolic function is mildly to moderately reduced. The estimated ejection fraction is 35-40%. There is interventricular dyssynchrony. Left ventricular diastolic function parameters are indeterminate. Right ventricle: The cavity size is normal. Systolic function is low normal. Ventricular septum: There is septal flattening of the interventricular septum consistent with RV volume or pressure overload. The outflow septum has a sigmoid appearance. Left atrium: The atrium is mildly dilated. Right atrium: The atrium is mildly to moderately dilated. Mitral valve: The Mitral valve annulus appears calcified. The leaflets are mildly thickened. There is no evidence of stenosis. There is trace regurgitation. Aortic valve: The annulus is mildly calcified. The valve is trileaflet. The leaflets are mildly thickened. There is no evidence of stenosis. There is no significant regurgitation. Tricuspid valve: The leaflets are normal thickness. There is no evidence of stenosis. There is trace to mild regurgitation. Pulmonic valve: The leaflets are normal thickness. There is no evidence of stenosis. There is mild regurgitation. Aorta: Aortic root: The aortic root is mildly dilated. Ascending aorta: The ascending aorta is mildly dilated. Aortic arch: The aortic arch is not visualized. Pericardium: There is no significant pericardial effusion. Pulmonary arteries: The main pulmonary artery is normal-sized. Systolic pressure is within the normal range. Systemic veins: Inferior vena cava: The vessel is normal in size. There is (>= 50%) respiratory change in the IVC dimension. Measurements Left ventricle Value Ref Aortic valve Value Ref VINCENZO, LAX 4.9 cm 4.2 - 5.8 Parish diam, ED 2.3 cm ----- ESD, LAX (H) 4.5 cm 2.5 - 4.0 Peak v, S 1.5 m/sec ----- FS, LAX (L) 8 % 25 - 43 Peak grad, S 9.0 mm Hg ----- PW, ED, LAX (H) 1.6 cm 0.6 - 1.0 EF (L) 18 % 52 - 72 Mitral valve Value Ref E', lat parish, TDI (L) 5.8 cm/sec >=10.0 Peak E 0.92 m/sec --- -- E/e', lat parish, 16 Decel time 169 ms ----- TDI Peak grad, D 3.4 mm Hg ----- LVOT Value Ref Pulmonic valve Value Ref Peak tomas, S 0.83 m/sec Peak v, S 0.98 m/sec ----- Peak grad, S 3 mm Hg Peak grad, S 4.0 mm Hg ----- Ventricular septum Value Ref Tricuspid valve Value Ref IVS, ED (H) 1.8 cm 0.6 - 1.0 TR peak v 2.24 m/sec <=2.8 Peak RV-RA grad, S 20 mm Hg ----- Right ventricle Value Ref VINCENZO, LAX 3.1 cm Aortic root Value Ref VINCENZO minor ax, A4C (H) 4.0 cm 1.9 - 3.5 Root diam 3.6 cm <4.5 mid Pressure, S 28 mm Hg Ascending aorta Value Ref AAo AP diam, S 3.5 cm ----- Left atrium Value Ref AP dim, ES (H) 4.50 cm 3.00 - Decending aorta Value Ref 4.00 Lulú peak tomas 0.52 m/sec ----- ML dim, A4C 5.1 cm SI dim, A4C 6.2 cm Pulmonary artery Value Ref Vol/bsa, ES, A/L (H) 43 ml/m^2 16 - 34 Pressure, S 24.0 mm Hg ----- Right atrium Value Ref Inferior vena cava Value Ref SI dim, ES (H) 5.9 cm 3.4 - 5.3 Diam 1.0 cm ----- ML dim, ES, A4C (H) 5.9 cm 2.6 - 4.4 Estimated RAP 8 mm Hg Legend: (L) and (H) guerita values outside specified reference range. Prepared and electronically signed by Shraddha Cuellar MD 01/18/2019 11:44
[2019-01-18 11:46] LABS: % Iron Saturation 9 % (15-55); Anion Gap 5 mmol/L (2-11); BUN/Creatinine Ratio 20.2 (8-20); Blood Urea Nitrogen 26 mg/dL (6-24); CO2 Carbon Dioxide 34 mmol/L (22-32); Calcium 9.1 mg/dL (8.6-10.3); Chloride 98 mmol/L (101-111); EGFR African American 67.8 (>60); EGFR Non-African American 56.1 (>60); Glucose 181 mg/dL (70-100); Iron 38 ug/dL (50-212); Potassium 4.1 mmol/L (3.5-5.0); Sodium 137 mmol/L (135-145); Total Iron Binding Capacity 409 mcg/dL (250-450); Transferrin 292 mg/dL (203-362)
[2019-01-18 12:06] LABS: Ferritin 15.7 ng/mL (24-336)
[2019-01-18] MEDS ORDERED: Furosemide IV* 10 MG/ML 2 ML VIAL (20 MG) IV SLOW PU ONE (12:14)
[2019-01-18] MEDS ORDERED: Iron Sucrose* 20 MG/ML 5 ML VIAL IV PUSH ONE (12:20)
[2019-01-18] MEDS: DOXYcycline IV* 100 MG in NS 0.9% 250 ML* 250 ML IVPB SCH ×2 (12:41→22:35)
[2019-01-18] MEDS ORDERED: Iron Sucrose* 200 MG in NS 0.9% 100 ML* 100 ML IVPB ONE (13:00)
[2019-01-18] MEDS: Dronedarone TAB* 400 MG PO SCH ×2 (14:00→21:11)
[2019-01-18] MEDS ORDERED: metFORMIN* 500 MG TAB PO SCH (17:00)
--- NOTE | 2019-01-18 17:30 | PN ---
Subjective Date of Service: 01/18/19 Interval History: Patient states he is feeling entirely better and denies any SOB. Patient also denies CP, dizziness, N/V, F/C, abdominal pain, diarrhea, or other pain. Patient is very anxious for discharge. Family History: Unchanged from Admission Social History: Unchanged from Admission Past Medical History: Unchanged from Admission Objective Active Medications: Albuterol (Ventolin 2.5 Mg/3 Ml Neb.Mariah*) 2.5 mg INH RT.T1NP-UHYIM AWAKE PRN PRN Reason: sob/wheezing Atorvastatin Calcium (Lipitor*) 10 mg PO 2100 [facility] Dronedarone (Multaq Tab*) 400 mg PO BID [facility] Last Admin: 01/18/19 14:00 Dose: 400 mg Febuxostat (Uloric(Nf)) 80 mg PO DAILY [facility] Furosemide (Lasix Tab*) 60 mg PO QAM [facility] Glipizide (Glucotrol Tab*) 5 mg PO BID [facility] Doxycycline Hyclate 100 mg/ (Sodium Chloride) 250 mls @ 250 mls/hr IVPB Q12H [facility] Last Admin: 01/18/19 12:41 Dose: 250 mls/hr Ceftriaxone Sodium 1 gm/ (Sodium Chloride) 50 mls @ 100 mls/hr IVPB Q24H [facility] Last Admin: 01/18/19 11:05 Dose: 100 mls/hr Lactobacillus Rhamnosus (Lactobacillus Acidophilus*) 1 tab PO DAILY [facility] Magnesium Hydroxide (Milk Of Magnesia Liq*) 30 ml PO BID PRN PRN Reason: CONSTIPATION Metformin HCl (Glucophage*) 500 mg PO 1700 [facility] Last Admin: 01/18/19 17:01 Dose: 500 mg Metformin HCl (Glucophage*) 1,000 mg PO DAILY WITH MEAL [facility] Metoprolol Succinate (Toprol Xl Tab*) 25 mg PO QAM [facility] Potassium Chloride (Klor Con Er Tab*) 10 meq PO QAM [facility] Ranitidine HCl (Zantac Soln* Oralsyr (Nf)) 150 mg PO BID [facility] Tizanidine HCl (Zanaflex Tab*) 4 mg PO TID PRN PRN Reason: spasm Tramadol HCl (Ultram*) 50 mg PO Q8H PRN PRN Reason: PAIN Warfarin Sodium (Coumadin Tab(*)) 5 mg PO DAILY [facility]; Protocol Vital Signs - 8 hr 01/18/19 01/18/1901/18/19 11:15 12:15 15:15 Temperature 98.3 F 97.7 F 98.3 F Pulse Rate 93 110 Respiratory 18 20 Rate Blood Pressure 117/70 132/84 (mmHg) O2 Sat by Pulse 95 92 Oximetry Oxygen Devices in Use Now: Nasal Cannula Appearance: 63yo male who appears stated age and is sitting in the bed in NAD. Eyes: No Scleral Icterus, PERRLA Ears/Nose/Mouth/Throat: NL Teeth, Lips, Gums, Clear Oropharnyx, Mucous Membranes Moist Neck: NL Appearance and Movements; NL JVP, Trachea Midline Respiratory: Symmetrical Chest Expansion and Respiratory Effort, - - Diminished in bases. Cardiovascular: NL Sounds; No Murmurs; No JVD, RRR, - - 1+ B/L LE edema with brawny changes and chronic venous stasis changes. Abdominal: NL Sounds; No Tenderness; No Distention, No Hepatosplenomegaly Lymphatic: No Cervical Adenopathy Extremities: No Clubbing, Cyanosis, - - Left Leg in Brace. Skin: No Nodules or Sclerosis Neurological: Alert and Oriented x 3, NL Sensation, NL Muscle Strength and Tone , - - CN II-XII intact. Result Diagrams: 01/18/19 01:27 01/18/19 10:55 Microbiology and Other Data: Microbiology 01/18/19 06:34 Nasal Screen MRSA (PCR) - Final Nasal Mrsa Not Detected Assess/Plan/Problems-Billing Assessment: Patient is a 63yo male with a PMH for NICM, Afib, CKD, HTN, LBBB, here with Acute hypoxic respiratory failure with productive cough and concern for pneumonia. - Patient Problems (1) Acute respiratory failure with hypoxia Current Visit: Yes Status: Acute Code(s): J96.01 - ACUTE RESPIRATORY FAILURE WITH HYPOXIA SNOMED Code(s): 68441757 Comment: - Resaturating to low 80s on RA - Due to ? Combination of PNA and HF exacerbation - Antibiotics and diuresis - Improving subjectively. (2) Pneumonia Current Visit: Yes Status: Acute Code(s): J18.9 - PNEUMONIA, UNSPECIFIED ORGANISM SNOMED Code(s): 184794244 Comment: - Questionable infiltrate on CXR - Continue ceftriaxone and Azithromycin - Productive cough, no fevers - Check Urine antigens (3) Heart failure with reduced ejection fraction Current Visit: No Status: Acute Code(s): I50.20 - UNSPECIFIED SYSTOLIC ( CONGESTIVE) HEART FAILURE SNOMED Code(s): 180045433 Comment: - Acute on Chronic - Already on BB - Will need ACEI, Possibly Spironolactone - Will discuss the appropriateness of Multaq with solar manager. - IV lasix today, then PO lasix tomorrow. (4) TONI (obstructive sleep apnea) Current Visit: Yes Status: Acute Code(s): G47.33 - OBSTRUCTIVE SLEEP APNEA ( ADULT) (PEDIATRIC) SNOMED Code(s): 82843765 Comment: - Documented in record - Noted to desaturate while sleeping - Denies ever having been tested. Needs outpatient F/U (5) EMELY (acute kidney injury) Current Visit: No Status: Acute Code(s): N17.9 - ACUTE KIDNEY FAILURE, UNSPECIFIED SNOMED Code(s): 94799538 Comment: - Resolving - Possibly due to fluid overload or infection - Monitor with diuresis (6) Atrial fibrillation Current Visit: No Status: Acute Code(s): I48.91 - UNSPECIFIED ATRIAL FIBRILLATION SNOMED Code(s): 40143432 Comment: - Continue home metoprolol - Continue Coumadin - Monitor INR - On Multaq for rhythm control but in Afib, will discuss with primary solar manager Dr. Guajardo who will be in the hospital tomorrow. (7) Cardiomyopathy Current Visit: No Status: Acute Code(s): I42.9 - CARDIOMYOPATHY, UNSPECIFIED SNOMED Code(s): 83563724 Comment: - Cardiac cath showed no CAD - EF now 35-40%, was 60-65% earlier this year - Will discuss with solar manager tomorrow. (8) Diabetes mellitus Current Visit: No Status: Acute Code(s): E11.9 - TYPE 2 DIABETES MELLITUS WITHOUT COMPLICATIONS SNOMED Code(s): 00451363 Comment: -Continue home medications metformin, glipizide (9) Peripheral vascular disease Current Visit: No Status: Acute Code(s): I73.9 - PERIPHERAL VASCULAR DISEASE , UNSPECIFIED SNOMED Code(s): 025717494 Comment: - With chronic edema, lasix restarted - With venous stasis - Supportive care, keep legs elevated. (10) Left patella fracture Current Visit: No Status: Acute Code(s): S82.002A - UNSP FRACTURE OF LEFT PATELLA, INIT FOR CLOS FX SNOMED Code(s): 69894824 Comment: - Mechanical fall resulting in L patellar fracture - Appreciate ortho recommendations - L knee immobilizer in place. WBAT with immobilizer - PT/OT at [facility] on D/C - Continue pain management; bowel regimen added - F/u with Dr. Mccabe outpatient 2 weeks after d/c (11) DVT prophylaxis Current Visit: No Status: Acute Code(s): OCN0028 - SNOMED Code(s): 547259689 Comment: -Continue home coumadin - Therapeutic (12) Full code status Current Visit: No Status: Acute Code(s): Z78.9 - OTHER SPECIFIED HEALTH STATUS SNOMED Code(s): 012756482 Comment: Status and Disposition: Observation for PNA and CHF.
[2019-01-18] MEDS ORDERED: Atorvastatin* 20 MG TAB PO SCH (21:00)
[2019-01-18] MEDS: glipiZIDE TAB* 5 MG PO SCH (21:10)
[2019-01-18] MEDS: RANITIDINE 15 MG/ML PO SCH (21:11)
[2019-01-19 06:42] LABS: ABS Eosinophils 0.1 10^3/ul (0-0.6); ABS Monocytes 0.6 10^3/ul (0-0.8); ABS Neutrophils 4.7 10^3/ul (1.5-7.7); Eosinophil % 1.1 %; Hematocrit 40 % (42-52); Hemoglobin 13.1 g/dL (14.0-18.0); Lymphocyte % 15.8 %; Mean Corpuscular HGB Conc 33 g/dL (31-36); Mean Corpuscular Hemoglobin 26 pg (27-31); Mean Corpuscular Volume 80 fL (80-94); Mean Platelet Volume 7.7 fL (7.4-10.4); Nucleated Red Blood Cells % 0.1; Platelet Count 251 10^3/uL (150-450); Red Blood Count 5.03 10^6 /uL (4.18-5.48); Red Cell Distribution Width 16 % (10-15); White Blood Count 6.4 10^3/uL (3.5-10.8)
[2019-01-19 06:57] LABS: BUN/Creatinine Ratio 19.4 (8-20); Calcium 9.6 mg/dL (8.6-10.3); EGFR Non-African American 58.7 (>60); Magnesium 1.8 mg/dL (1.9-2.7); Potassium 4.4 mmol/L (3.5-5.0)
[2019-01-19] MEDS ORDERED: Magnesium Sulfate 2 GM IV* 2 GM/50 ML BAG IVPB ONE (07:17)
[2019-01-19] MEDS ORDERED: metFORMIN* 500 MG TAB PO SCH (08:30)
[2019-01-19] MEDS ORDERED: Metoprolol Succinate XL TAB* 25 MG PO SCH ×2 (09:00→21:00)
[2019-01-19] MEDS ORDERED: Iron Sucrose* 200 MG in NS 0.9% 100 ML* 100 ML IVPB ONE (09:00)
[2019-01-19] MEDS ORDERED: Furosemide TAB* 20 MG PO SCH (09:00)
[2019-01-19] MEDS ORDERED: Warfarin TAB(*) 5 MG PO SCH (09:00)
[2019-01-19] MEDS ORDERED: Potassium Chlor TAB* 10 MEQ TAB.ER PO SCH (09:00)
[2019-01-19] MEDS ORDERED: Lactobacillus Acidophilus* 1 TAB PO SCH (09:00)
[2019-01-19] MEDS ORDERED: FEBUXOSTAT 40 MG PO SCH (09:00)
[2019-01-19] MEDS: cefTRIAXone(*) 1 GM in NS 0.9% 50 ML* 50 ML IVPB SCH (10:14)
[2019-01-19] MEDS: glipiZIDE TAB* 5 MG PO SCH (10:58)
[2019-01-19] MEDS: RANITIDINE 15 MG/ML PO SCH (11:03)
[2019-01-19] MEDS: Dronedarone TAB* 400 MG PO SCH (11:16)
[2019-01-19] MEDS: DOXYcycline IV* 100 MG in NS 0.9% 250 ML* 250 ML IVPB SCH (11:39)
[2019-01-19 12:33] VITALS: BP 150/81
--- NOTE | 2019-01-19 12:37 | DS ---
CC: [facility] * DATE OF ADMISSION: 01/18/2019. DATE OF DISCHARGE: 01/19/2019. PRIMARY CARE PHYSICIAN: Dr. Pool Morin. MY ATTENDING PHYSICIAN WHILE IN THE HOSPITAL: Dr. Jolene Ramos * (dictated by SUZI Correia). PATIENT'S OUTPATIENT RHEOSTAT ASSEMBLER: Dr. Evan Guajardo. PRIMARY DISCHARGE DIAGNOSES: Community-acquired pneumonia, secondary to probable with slight CHF exacerbation, new diagnosis heart failure with reduced ejection fraction, iron deficiency, acute kidney injury resolved, acute hypoxic respiratory failure resolved. SECONDARY DISCHARGE DIAGNOSES: Atrial fibrillation, recent patellar fracture, hypertension, gout, diabetes mellitus type 2, non-insulin dependent. STUDIES DONE WHILE IN THE HOSPITAL: 1. Chest x-ray from 01/18/2019, read as atelectasis versus consolidation, likely mild CHF. Repeat chest x-ray shows no significant changes. 2. Transthoracic echocardiogram showed a decreased ejection to 35 to 40 percent with significant interventricular dyssynchrony due to left bundle branch block. 3. EKG shows left bundle branch block, atrial fibrillation, rate of 100, QTC 529, ST segment is otherwise uninterpretable due to large left bundle branch block, QRS duration 184 msec. MEDICATIONS AT DISCHARGE: 1. Potassium Chloride 10 mEq p.o. daily. 2. Furosemide 60 mg p.o. daily. 3. Ranitidine 150 mg p.o. b.i.d. 4. Atorvastatin 10 mg p.o. daily. 5. Glipizide 5 mg p.o. b.i.d. 6. Tramadol 50 mg p.o. daily. 7. Tizanidine 4 mg p.o. t.i.d. as needed. 8. Lactobacillus Acidophilus one tab p.o. daily. 9. Uloric 80 mg p.o. daily. 10. Docusate 100 mg p.o. b.i.d. 11. Warfarin 5 mg p.o. daily. 12. Magnesium Hydroxide 30 ml p.o. b.i.d. as needed. 13. Metformin 1,000 mg p.o. daily. 14. Metformin 500 mg p.o. nightly. 15. Albuterol 2.5 mg inhalation q.4 hours as needed for wheezing. 16. Cefuroxime 500 mg p.o. b.i.d. times 10 doses. 17. Doxycycline 100 mg p.o. b.i.d. times 10 doses. 18. Metoprolol Succinate 25 mg p.o. b.i.d. 19. Ferrous Sulfate 325 mg p.o. daily at noon. New medications at discharge: Albuterol, Cefuroxime, Doxycycline, Metoprolol, Ferrous Sulfate. Medications discontinued at discharge: Dronedarone 400 mg p.o. b.i.d., Metoprolol Succinate 25 mg p.o. daily. HOSPITAL COURSE: This is a brief summary of the patient's presentation. For more details, please see the history and physical from Dr. Tenzin Lorenzo on 2018. In brief, the patient is a 63-year-old male with a past medical history significant significant for the above who presented to the emergency department after he was sent in from [facility] after he was found to be short of breath with a productive cough and hypoxia. The patient had no documented fevers or chills. The patient is not a very good historian. The patient in the emergency department was found to be hypoxic, was given antibiotics and started on oxygen. He had a chest x-ray which was read as above, concerning for pneumonia and CHF. The patient was given one IV dose of Lasix and was started on Ceftriaxone and Azithromycin and Doxycycline and improved greatly. The patient has been able to be weaned off of his oxygen. The patient was found to be in atrial fibrillation which he was also in when he was admitted to this institution in early December of 2018. The patient's echocardiogram was read as above which showed a newly decreased EF which is decreased from when he was most recently seen by his outpatient pulmonary function technician, Dr. Evan Guajardo in October of this year. The patient improved greatly and felt back to his baseline on 2018. His oxygen saturations were staying above 90 percent on room air. His heart rate was variable between the 80s and 1-teens. The patient has chronic lower extremity venous stasis changes with trace edema, unchanged during this admission. Patient was insistent on discharge back to [facility] on 01/19/2019. The patient was found to be iron deficient while in the hospital and was given one dose of IV iron due to the efficacy in decreasing the frequency of CHF exacerbations. The patient also had an acute kidney injury and acute knee injury with his creatinine trending down approaching his mostly known baseline. PHYSICAL EXAMINATION ON THE DAY OF DISCHARGE: General: The patient is a 63-year - old male who appears stated age and is sitting comfortably in bed, in no acute distress. Vital Signs: Temperature 98.5, pulse rate 85, respiratory rate 20, oxygen saturation 90 percent on room air, blood pressure 149/63. HEENT : Head normocephalic, atraumatic. Sclerae anicteric. No conjunctival injection. Nasal mucosa moist. Oral mucosa moist. No pharyngeal erythema, discharge, or exudate. Neck: Supple, nontender. No lymphadenopathy. No carotid bruits auscultated. No JVD. Cardiac: Regular rate and rhythm. No clicks, murmurs, gallops, or rubs. Pulses are 2+ in the bilateral dorsalis pedis , posterior tibialis, and radial areas. There are not any changes in bilateral lower extremity chronic venous stasis changes. Respiratory: Clear to auscultation bilaterally. No wheezes, rales, or rhonchi. Good air exchange bilaterally. Abdomen: Soft, nontender, nondistended. Bowel sounds present. Normoactive in all four quadrants. No hepatosplenomegaly. No abdominal bruits auscultated. No hepatojugular reflux. Genitourinary: No suprapubic or CVA tenderness. Skin: Clean, dry, and intact. Venous stasis changes as above. Neuro: Cranial nerves II through XII intact. No focal deficits. Alert and oriented times three. Psychiatric: Pleasant and cooperative. Musculoskeletal: Left leg is in a knee brace and immobilized. DISCHARGE PLAN BY PROBLEM: 1. Acute hypoxic respiratory failure, resolved: The patient's acute hypoxic respiratory failure was likely due to the combination of community-acquired pneumonia and mild CHF exacerbation. This resolved with diuretics and antibiotics. The patient will be continued on antibiotics as above and resumed on his home diuretic regimen. The patient's rate will be hopefully better controlled with his increased Metoprolol. His Multaq has been stopped as he is currently in atrial fibrillation with heart failure and is contraindicated. The patient should continued to be monitored and diuresed as needed to achieve euvolemia at [facility]. 2. Heart failure, reduced ejection fraction: The patient's heart failure and reduced ejection fraction is likely due to the combination of his atrial fibrillation which he has not tolerated in the past and his left bundle branch block. The patient should follow-up with his outpatient pulmonary function technician, Dr. Evan Guajardo, in one month to assess his rhythm and consider cardioversion and possible biventricular pacemaker placement for resynchronization therapy at some point. The patient will continue on his Lasix as above. The patient is on Metoprolol. The patient at his follow-up will be considered for an DIOMEDES inhibitor and possibly Spironolactone therapy. The patient was given one dose of IV iron for symptomatic control and was started on oral iron. The patient is currently therapeutic on his Warfarin. 3. Iron deficiency anemia: Treatment as above with IV transitioned to oral iron. 4. Left patellar fracture: Continue PT and OT. Follow-up as outpatient with Orthopedics as scheduled. 5. Diabetes mellitus type 2: Continue the patient's Glipizide and Metformin. 6. Gout: Continue patient's Uloric. 7. Pneumonia: Antibiotics as above. CONDITION ON DISCHARGE: Stable. DISPOSITION: To [facility]. SUZI CORREIA [id number]/[facility] #: [id number] DOROTHY
--- NOTE | 2019-01-19 14:00 | CONS ---
CC: Dr. Morin * CARDIOLOGY CONSULTATION: DATE OF CONSULT: 01/19/19 REFERRING PHYSICIAN: SUZI Key. REASON FOR CARDIOLOGY CONSULTATION: RECURRENT AF AND CMP. HISTORY OF PRESENT ILLNESS: The patient was admitted on 01/18/19, who developed abrupt shortness of breath. Here he was found to have pneumonia and concern for congestive heart failure. He was also found to have recurrence of his atrial fibrillation and cardiomyopathy. The patient is responding to antibiotics and diuresis. The patient states he is feeling better now and would like to go home. He denies chest pain, shortness of breath at this time, in fact, he states his breathing is "fine." He also denies fainting or palpitations. Repeat echocardiogram completed yesterday showed ejection fraction of 35% to 40%. PAST MEDICAL HISTORY: Includes chronic left bundle branch block with paroxysmal atrial fibrillation with resultant prior non-ischemic cardiomyopathy , requiring cardioversion on 03/30/17 with normalization of LV function. The patient had been maintained on dronedarone. No CAD on cath 04/20/17. Other past medical history includes hypertension, hyperlipidemia, recent left lower extremity cellulitis after tripping, diabetes, GERD. OUTPATIENT MEDICATIONS: 1. Lipitor 10 mg once a day. 2. Lasix 60 mg p.o. q. a.m. 3. Glucotrol 5 mg p.o. b.i.d. 4. Metformin 500 mg p.o. q.p.m. and 1 g p.o. daily with meals 5. Toprol-XL 25 mg daily. 6. Potassium chloride 10 mEq once a day. 7. Zantac 150 mg p.o. b.i.d. 8. Ultram 50 mg p.o. q.8 hours p.r.n. 9. Coumadin as directed. ALLERGIES: The patient denies allergies to medications. He denies shrimp, sea food allergies. FAMILY HISTORY: Negative for TX, stroke, cancer, diabetes. His brother has had a pacemaker. SOCIAL HISTORY: The patient denies smoking cigarettes, abuse of alcohol. No use of illicit drugs. He is avoiding caffeine since March 2017. He is recently residing at [facility] as he is convalescing from his left lower extremity cellulitis, but usually lives alone in an apartment. 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 Prior to his left lower extremity cellulitis injury 2 weeks ago, he had been walking quite a bit without problems. REVIEW OF SYSTEMS: The patient denies personal history of stroke, cancer, vomiting of blood, coughing up blood, bright red blood per rectum, bleeding stomach ulcer, renal calculi, cholelithiasis, asthma, emphysema, pneumonia, or tuberculosis. He does have a sleep apnea, but was not treated. He does not use home oxygen. He has a history of diabetes. He has a history of hypertension. He denies prior TX, coronary bypass grafting surgery or stent. He has had prior cardiomyopathy with atrial fibrillation. He denies psychiatric illnesses, lupus, psoriasis, seizures, Parkinson disease, myasthenia gravis, thyroid disorder, liver disorder, kidney disorders, claudication symptoms, pulmonary emboli, GERD symptoms currently. All other review of systems are negative x14 except as per this documentation. PHYSICAL EXAM: On general exam, height 5 feet 9 inches, weight 269 pounds, temperature 98.2 degrees Fahrenheit, had been as high as 99 on admission. Heart rate 94, blood pressure 125/67, O2 saturation 92%. On general exam, he is a pleasant, eccentric gentleman, in no acute distress. HEENT shows cranium is normocephalic and atraumatic. Moist mucosal membranes. Neck veins are not distended on limited assessment. There are no carotid bruits. Visible skin warm and perfused. Affect appropriate. He appears oriented. Moderate kyphoscoliosis. Back exam stable. Lungs revealed few rhonchi at the right base. There are no wheezes. Cardiac Exam: S1, S2. Irregular rate. soft HS murmur without radiation. There is no rub or gallop. PMI is nondisplaced. Abdomen: Soft and appears benign. Extremities show 1+ peripheral brawny edema. His left lower extremity has a splint in place with bandages covering his LLE cellultis. DIAGNOSTIC STUDIES/LAB DATA: A 12-lead EKG competed on 01/18/19 at 00:37 demonstrates atrial fibrillation/flutter with left bundle branch block. Echocardiogram completed 01/18/19. Please see also that report. EF reported at 35% to 40%. Echo 11/02/18 [facility] [employer]IC[employer]: Normal LV size and LVEF 60-65%. Impaired diastolic relaxation. Mod LAE. Functionally benign heart valves. Mildly dilated aortic root. NSC 07/26/17. The patient competed a transesophageal echocardiogram 03/30/17 which showed mildly dilated LV size with moderate to severely depressed LV dysfunction with LVEF estimated 30-35%, global hypokinesis, severe bi-atrial dilatation, mild mitral regurgitation, mild dilatation of the aortic root and no intra-cardiac thrombus. Since prior transthoracic echocardiogram completed 12/23/16, there is no significant change. The patient subsequently underwent electrical cardioversion to NSR from AF also on 03/30/17. The patient completed a transthoracic echocardiogram 07/26/2017 which shows normal left ventricular size, moderate asymetric LVH, normal LVEF of 60-65%, mild bi-atrial dilatation, functionally benign heart valves, no significant pulmonary hypertension, mildlly dilated aortic root and mildly dilated ascending aorta. Since the prior transthoracic echocardiogram completed 12/23/16 and prior transesophageal echocardiogram completed 03/30/17, pertinent changes are prior LVEF reportedly moderate to severely depressed and prior moderate pulmonary hypertension noted; overall there does appear to be significant improvement. EKG [facility] [employer]: NSR with 1 PVC, 1st AV block. inc LBBB. LVH and anterolateral Tw changes. NSC 01/25/18. The patient completed a cardiac chemical nuclear stress test on a two day protocol January 11, 2017, which was abnormal and felt to be high risk. There was no convincing of ischemia; however, there was severe and extensive infarction pattern seen in the anterior wall, inferior wall and septum with intact rest and stress myocardial perfusion seen only in the lateral wall and severely depressed left ventricular function with EF at rest of 22% and stress 17%. Cardiac catheterization completed 04/20/17 with normal coronary anatomy and moderate to severe LV dysfunction with LVEF 30% as well as anterior wall severe hypokinesis. White blood cell count 6.4, hematocrit 40, platelet count 251. INR 2.61. Sodium 138, potassium 4.4, chloride 100, BUN 24, creatinine 1.24, magnesium 1.8. IMPRESSION: Mr. De La Cruz is a 63-year-old gentleman with a history of paroxysmal atrial fibrillation with rate related cardiomyopathy with recurrence of his atrial fibrillation of uncertain onset. He was admitted with volume overload, likely related to recurrence of the atrial fibrillation which seems precipitated by his left lower extremity cellulitis and pneumonia. His recurrent cardiomyopathy appears related to the recurrence of the atrial fibrillation and the PAF itself seems precipitated by his pneumonia and LLE cellulitis. RECOMMENDATIONS: 1. For now, we would like the patient to complete his treatment for pneumonia and left lower extremity cellulitis and then plan for cardioversion if he remains in atrial fibrillation. The patient is insistent on being discharged today so can pursue cardioversion as outpatient. At this point, given that he was admitted with decompensated congestive heart failure, he is no longer a candidate for Multaq, so we will discontinue that. We will increase his Toprol- XL to 25 mg p.o. b.i.d. for heart rate control and continue his Coumadin therapy as well as diuresis. He did not appear volume overloaded at this time. 2. Treat obstructive sleep apnea as an outpatient. 3. Keep magnesium 2 or greater. 4. Follow up with myself in 4 to 6 weeks after discharge and if he remains in atrial fibrillation and is symptomatic, we would plan for cardioversion at that time, again, once antibiotic therapy for his left lower extremity cellulitis and recently diagnosed pneumonia are complete. 5. Other management as per the hospitalist medicine service.Case discussed with Mr. Zamora. Dear Mr. Jeremiah Zamora, many thanks for asking me to participate in the cardiovascular consultative care of Mr. De La Cruz. I have discussed the above in detail with the patient who states clearly he is in agreement with these recommendations including pursuing outpatient cardioversion if needed. Please do not hesitate to contact me if you have any questions or concerns regarding the patient's cardiovascular consultative care. [id number]/[facility] #: [id number] MTDD
== END 2019-01-19 14:00 | DRG 291 ==
LOC: ED 00:18 → ICU 04:28 → MEDTELE 12:29
PROVIDERS: ADMIT Internal Medicine; ATTEND Internal Medicine
DX: I13.0 Hypertensive heart and chronic kidney disease with heart failure and stage 1 through stage 4 chronic kidney disease, or unspecified chronic kidney disease (principal); J18.9 Pneumonia, unspecified organism; J96.01 Acute respiratory failure with hypoxia; I50.23 Acute on chronic systolic (congestive) heart failure; S82.002A Unspecified fracture of left patella, initial encounter for closed fracture; J44.0 Chronic obstructive pulmonary disease with (acute) lower respiratory infection; I48.92 Unspecified atrial flutter; L03.116 Cellulitis of left lower limb; N17.9 Acute kidney failure, unspecified; I48.0 Paroxysmal atrial fibrillation; E78.00 Pure hypercholesterolemia, unspecified; J30.2 Other seasonal allergic rhinitis; E11.51 Type 2 diabetes mellitus with diabetic peripheral angiopathy without gangrene; E66.01 Morbid (severe) obesity due to excess calories; I44.7 Left bundle-branch block, unspecified; N18.9 Chronic kidney disease, unspecified; E78.5 Hyperlipidemia, unspecified; I42.8 Other cardiomyopathies; I34.0 Nonrheumatic mitral (valve) insufficiency; I77.819 Aortic ectasia, unspecified site; I27.20 Pulmonary hypertension, unspecified; G47.33 Obstructive sleep apnea (adult) (pediatric); M17.0 Bilateral primary osteoarthritis of knee; K21.9 Gastro-esophageal reflux disease without esophagitis; I87.8 Other specified disorders of veins; D50.9 Iron deficiency anemia, unspecified; M10.9 Gout, unspecified; E11.42 Type 2 diabetes mellitus with diabetic polyneuropathy; W19.XXXA Unspecified fall, initial encounter; E11.36 Type 2 diabetes mellitus with diabetic cataract; Z86.14 Personal history of Methicillin resistant Staphylococcus aureus infection; Z87.891 Personal history of nicotine dependence; Z87.442 Personal history of urinary calculi; Z68.39 Body mass index [BMI] 39.0-39.9, adult; Y92.9 Unspecified place or not applicable; Z79.84 Long term (current) use of oral hypoglycemic drugs; Z79.01 Long term (current) use of anticoagulants
CPT/HCPCS: 36415; 71045; 71046; 80048; 80053; 82728; 82803; 83540; 83550; 83735; 83880; 84484; 85025; 85610; 87641; 87899; 93005; 93306; 96365; 96366; 99284; A9270-GY; C8929; G8978-GP-CI; G8978-GP-CJ; G8979-GP-CI; G8980-GP-CI; J0692; J0696; J1756; J1940; J3475

== ENCOUNTER 2019-01-30 13:33 | Inpatient (IN) | payer MEDICARE, MEDICAID ==
--- NOTE | 2019-01-30 13:54 | ED ---
Shortness of Breath - HPI Summary HPI Summary: Pt. is a 63 y.o male who presents to the ER from [facility] for SOB. Pt. admitted 01/18 for pneumonia and CHF. Pt. reportedly had O2 sats in the 80's today with ambulation. Pt. has a hx of CHF, afib, PVD. Pt. placed on 4L NC by EMS and states he is feeling better. Pt. denies cp, fever, abd. pain, vomiting. Has ongoing cough. Sxs are moderate in severity. No current modifying factors. - History of Current Complaint Time Seen by Provider: 01/30/19 13:46 Hx Obtained From: Patient, EMS - Allergy/Home Medications Allergies/Adverse Reactions: Allergies Allergy/AdvReac Type Severity Reaction Status Date / Time No Known Allergies Allergy Verified 12/29/18 00:28 Home Medications: Home Medications Lactobacillus Acidophilus/Fos [Acidophilus Probiotic Tablet] 1 each PO DAILY [History Confirmed 01/30/19] ceFUROXime 250 MG TAB [Ceftin TAB 250 MG(*)] 500 mg PO BID 01/30/19 [History Confirmed 01/30/19] PMH/Surg Hx/FS Hx/Imm Hx Previously Healthy: Yes Endocrine/Hematology History: Reports: Hx Anticoagulant Therapy - coumadin, Hx Diabetes Denies: Hx Thyroid Disease Cardiovascular History: Reports: Hx Atrial Fibrillation, Hx Congestive Heart Failure, Hx Hypercholesterolemia, Other Cardiovascular Problems/Disorders - CARDIOMYOPATHY, BL LE VEIN SX Denies: Hx Angina, Hx Coronary Artery Disease, Hx Hypertension, Hx Myocardial Infarction, Hx Peripheral Vascular Disease, Hx Valvular Heart Disease Respiratory History: Reports: Hx Chronic Obstructive Pulmonary Disease (COPD), Hx Seasonal Allergies Denies: Hx Asthma GI History: Reports: Hx Gastroesophageal Reflux Disease Denies: Hx Ulcer Comment Only: Other GI Disorders - chest pain intermittent over weekned, constant starting last evening History: Reports: Hx Kidney Stones - hx "small one" per pt, Hx Renal Disease - HX OF KIDNEY STONES Denies: Hx Acute Renal Failure, Hx Benign Prostatic Hyperplasia, Hx Chronic Renal Failure, Hx Dialysis, Hx Kidney Infection Musculoskeletal History: Reports: Hx Arthritis - KNEES, Hx Gout, Hx Orthopedic Injury - ORIF left elbow, Hx Scoliosis, Other Musculoskeletal History - carpal tunnel bilateral wrists Sensory History: Reports: Hx Cataracts - BILAT, Hx Contacts or Glasses Denies: Hx Hearing Aid Opthamlomology History: Reports: Hx Cataracts - BILAT, Hx Contacts or Glasses Neurological History: Reports: Other Neuro Impairments/Disorders - 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 scoliosis repair 1972 WITH SPINAL JEET. left elbow repair after injury in [place]. BLLE VEIN SX Hx Anesthesia Reactions: No Infectious Disease History: Reports: Hx of Known/Suspected MRSA - TO LEGS Denies: Hx Hepatitis, Hx Human Immunodeficiency Virus (HIV) - Family History Known Family History: Positive: Diabetes, Non-Contributory - Social History Occupation: Retired Lives: [facility] Alcohol Use: None Hx Substance Use: No Substance Use Type: Reports: None Hx Tobacco Use: Yes Smoking Status (MU): Former Smoker Type: Cigarettes Length of Time of Smoking/Using Tobacco: 15 yrs Have You Smoked in the Last Year: No Review of Systems Constitutional: Negative Negative: Fever Cardiovascular: Negative Positive: Shortness Of Breath, Cough Gastrointestinal: Negative Neurological: Negative All Other Systems Reviewed And Are Negative: Yes Physical Exam Triage Information Reviewed: Yes Vital Signs Reviewed: Yes Appearance: Positive: Ill-Appearing - Pt. sitting up in bed. Speaks in short sentences. Skin: Positive: Warm, Dry Head/Face: Positive: Normal Head/Face Inspection Neck: Positive: Supple Respiratory/Lung Sounds: Positive: Breath Sounds Present, Decreased Breath Sounds, Rhonchi Cardiovascular: Positive: Tachycardia Abdomen Description: Positive: Nontender, Soft Musculoskeletal: Positive: Other - Knee immobilizer on left. Chronic venous stasis changes bialterally .. Negative: Edema Left, Edema Right Neurological: Positive: Normal, CN Intact II-III Psychiatric: Positive: Affect/Mood Appropriate Procedures - Sedation Patient Received Moderate/Deep Sedation with Procedure: No Diagnostics - Laboratory Result Diagrams: 01/30/19 14:41 01/30/19 14:32 Lab Statement: Any lab studies that have been ordered have been reviewed, and results considered in the medical decision making process. Course/Dx - Course Course Of Treatment: Pt. presenting with increased SOB. Afebrile. Hypotensive. HR in the one teens. Oxygen saturation in mid 90's on 4L NC. CXR reviewed with Dr. Rao and he is concerned for right sided infiltrate. He recommends treating for HAP with cefepime and azithromycin. Bolus of NS given due to tachycardia and hypotension. ECG done at 1410 shows atrial flutter at 64bpm, LBBB, unchanged from prior tracing. CBC is unremarkable. INR low at 1.83, pH 7.24, K 5.1, cl 97, BUN 46, cr 3.33, GFR 18.8, trop 0.16, crp 102, BNP 1020. CXR per radiology showing vascular congestion without effusion. Case discussed with hospitalist, Dr. Hayes, who accepts pt. for admission. - Diagnoses Provider Diagnoses: CHF (congestive heart failure), Acute kidney injury, Elevated troponin Discharge ED - Sign-Out/Discharge Documenting (check all that apply): Patient Departure - Discharge Plan Condition: Stable Disposition: ADMITTED TO [facility] - Billing Disposition and Condition Condition: STABLE [facility] - Attestation Statements Provider Attestation: pt seen by midlevel provider independently, based on their assessment, it was not necessary to present the case to me but I was available for consultation. I did not form a physician-patient relationship with the patient. The chart however, has been reviewed. am signing this note strictly in an administrative capacity.
[2019-01-30] MEDS ORDERED: Cefepime 2 GM in Dextrose(*) 2 GM/50 ML BAG IV ONE (14:16)
[2019-01-30] MEDS ORDERED: Azithromycin 500 mg/250 ml NS 500 MG/250 ML BAG IVPB ONE (14:16)
[2019-01-30] MEDS ORDERED: NS 0.9% 1000 ML** 1,000 ML IV ONE (14:18)
[2019-01-30] MEDS ORDERED: Albuterol/Ipratropium NEB.SOL* Albuterol 2.5 MG/Ipratropium 0.5 MG 3 ML INH ONE (14:19)
[2019-01-30] MEDS: NS 0.9% 250 ML* 250 ML IV ONE ×2 (14:33→15:27)
[2019-01-30 14:57] LABS: ABS Lymphocytes 1.2 10^3/ul (1.0-4.8); ABS Neutrophils 6.5 10^3/ul (1.5-7.7); Hematocrit 38 % (42-52); Hemoglobin 11.8 g/dL (14.0-18.0); Lymphocyte % 14.1 %; Mean Corpuscular HGB Conc 31 g/dL (31-36); Mean Corpuscular Hemoglobin 26 pg (27-31); Mean Corpuscular Volume 82 fL (80-94); Mean Platelet Volume 7.8 fL (7.4-10.4); Platelet Count 208 10^3/uL (150-450); Red Blood Count 4.58 10^6 /uL (4.18-5.48); Red Cell Distribution Width 17 % (10-15); White Blood Count 8.7 10^3/uL (3.5-10.8)
[2019-01-30 15:06] LABS: Activated Partial Thrombo Time 39.5 seconds (26.0-38.0); INR 1.83 (0.82-1.09)
[2019-01-30 15:17] LABS: ALT 352 U/L (7-52); AST 267 U/L (13-39); Albumin 3.8 g/dL (3.2-5.2); Albumin/Globulin Ratio 0.9 (1-3); Alkaline Phosphatase 67 U/L (34-104); BUN/Creatinine Ratio 13.8 (8-20); Blood Urea Nitrogen 46 mg/dL (6-24); CO2 Carbon Dioxide 32 mmol/L (22-32); Calcium 9.2 mg/dL (8.6-10.3); Chloride 97 mmol/L (101-111); EGFR African American 22.7 (>60); EGFR Non-African American 18.8 (>60); Globulin 4.2 g/dL (2-4); Glucose 88 mg/dL (70-100); Sodium 137 mmol/L (135-145)
[2019-01-30 15:21] LABS: Troponin I 0.16 ng/mL (<0.04)
[2019-01-30 15:24] LABS: Anion Gap 8 mmol/L (2-11); Potassium 5.1 mmol/L (3.5-5.0)
[2019-01-30] MEDS ORDERED: Warfarin TAB(*) 5 MG PO SCH (17:00)
[2019-01-30] MEDS ORDERED: Diltiazem IV push/loading dose 5 MG/ML 5 ML vial (25 mg) ONE (17:15)
[2019-01-30] MEDS ORDERED: Diltiazem IV BAG* D5W Premix 125 MG/125 ML BAG IV ONE (17:23)
[2019-01-30] MEDS ORDERED: Diltiazem IV push/loading dose 5 MG/ML 5 ML vial (25 mg) IV SLOW PU ONE (17:25)
[2019-01-30] MEDS ORDERED: tiZANidine TAB* 2 MG PO PRN (17:25)
[2019-01-30] MEDS ORDERED: Magnesium Hydroxide LIQ* 30 ML UDC PO PRN (17:25)
[2019-01-30] MEDS ORDERED: Albuterol 2.5 MG/3 ML NEB.SOL* (0.083%) INH PRN (17:25)
[2019-01-30 17:30] LABS: Troponin I 0.17 ng/mL (<0.04)
[2019-01-30 17:45] LABS: Urine Appearance Cloudy; Urine Bacteria Absent (Absent); Urine Bilirubin Negative (Negative); Urine Blood Negative (Negative); Urine Color Amber; Urine Glucose 1+(50 mg/dL) (Negative); Urine Ketones Trace (Negative); Urine Nitrite Negative (Negative); Urine Protein 1+(30 mg/dL) (Negative); Urine Red Blood Cell Absent (Absent); Urine Specific Gravity 1.021 (1.010-1.030); Urine Squamous Epithelial Cell Present (Absent); Urine Urobilinogen Negative (Negative); Urine White Blood Cell 1+(6-10/hpf) (Absent)
--- NOTE | 2019-01-30 17:56 | HP ---
History of Present Illness - History of Present Illness Reason for Visit: shortness of breath History of Present Illness: This is a 63 y/o M with history of HFrEF, Atrial Flutter/Fibrillation(on metoprolol and warfarin), HTN, Non insulin depepndent DM, PVD, GERD, Gout with recent hospitalization on 01/19/2019 for PNA and CHF exacerbation presented with Shortness of Breath. Patient is not a good historian. He was discharged to [facility] for physical therapy. This morning he had acute onset of SOB that was progressive and was present even at rest. He reports that he was not able to complete whole sentence because of SOB. He also experienced palpitation for about few seconds. He has orthopnea; he usually used 2 pillows while sleeping but now he uses 3 pillow to make himself comfortable. He doesnot report of chest pain, cough, light headedness, syncope, weakness, fever, chills and rigor. According to him he uses oxygen at [facility] as needed. He reports having normal appetite and normal sleep. In hospital: His oxygen saturation was found to be in 80's and was placed on 4L of oxygen. His HR was on 110's and BP was in 90-105/60-70 mm Hg. He was given fluids and received dose of cefepime and azithro for suspicion of pneumonia. EKG showed Atrial Flutter with Atrial rate of 234 and 2:1 heart block and left bundle branch block with QRS>120. His Chest Xray showed Cardiomegaly with pulmonary interstitial infiltrate. His blood work up showed elevated troponin 0.16, HB 11.8, subtherapeutic INR 1.85, Creatinine of 3.33, AST 267, ALT 352 and elevated BNP 1020. - Past Medical History Past Medical History: 1. Heart failure with reduced Ejection fraction of 35-40%- on furosemide 2 Atrial Flutter/atrial fibrillation on metoprolol and warfarin 3.Hypertension 4. Diabetes 5. PVD 6. GERD 7. Gout - Past Surgical History Past Surgical History: Includes multiple vascular surgeries for bilateral lower limb, carpel tunnel repair, left elbow surgery and spinal francie placed for scoliosis. - Past Family History Past Family History: Denies heart disease, HTN and diabetes. His brother has pacemaker;unclear etiology. - Past Social History Past Social History: Patient comes from [facility]. He is there for physical s/p left patellar fracture. He used to live alone before that. He quit smoking and drinking in 1989. He does not have recreational drug use. His PCP is Marcel Morin. His HCP his brother, Lisandro De La Cruz([phone]). He is Full code. Review of Systems - Review of Systems Respiratory: Positive: Shortness of Breath Cardiovascular: Positive: Palpitations, Orthopnea - Medications/Allergies Allergies/Adverse Reactions: Allergies Allergy/AdvReac Type Severity Reaction Status Date / Time No Known Allergies Allergy Verified 12/29/18 00:28 Medications: Current Medications Albuterol (Ventolin 2.5 Mg/3 Ml Neb.Mariah*) 2.5 mg INH RT.[id number] AWAKE PRN PRN Reason: sob/wheezing Atorvastatin Calcium (Lipitor*) 10 mg PO 2100 [facility] Docusate Sodium (Colace Cap*) 100 mg PO BID [facility] Ferrous Sulfate (Ferrous Sulfate Tab*) 325 mg PO 1200 [facility] Diltiazem/Dextrose (Cardizem Iv D5w Bag* Premix) 125 mg in 125 mls @ 5 mls/hr IV ED ONCE ONE; Protocol Stop: 01/31/19 18:22 Last Admin: 01/30/19 17:32 Dose: 5 mls/hr Magnesium Hydroxide (Milk Of Magnmaura Liq*) 30 ml PO BID PRN PRN Reason: CONSTIPATION Metoprolol Succinate (Toprol Xl Tab*) 25 mg PO BID [facility] Non-Formulary Medication (Tizanidine Hcl [Tizanidine Hcl]) 4 mg PO TID PRN PRN Reason: spasm Warfarin Sodium (Coumadin Tab(*)) 5 mg PO DAILY@1700 [facility]; Protocol Exam Vital Signs: Vital Signs (72 hours) 01/30/19 01/30/19 01/30/19 13:56 13:57 14:00 Temperature 98.2 F Pulse Rate 119 117 118 Respiratory 20 29 Rate Blood Pressure 97/74 (mmHg) O2 Sat by Pulse 95 97 94 Oximetry 01/30/19 01/30/19 01/30/19 14:01 14:19 14:44 Temperature 98.5 F Pulse Rate 119 118 Respiratory 21 20 Rate Blood Pressure 97/74 (mmHg) O2 Sat by Pulse 96 99 Oximetry 01/30/19 01/30/19 01/30/19 14:55 15:00 15:02 Temperature Pulse Rate 118 123 119 Respiratory 22 22 28 Rate Blood Pressure 105/67 100/63 (mmHg) O2 Sat by Pulse 100 86 98 Oximetry 01/30/19 01/30/19 01/30/19 15:32 16:00 16:02 Temperature Pulse Rate 120 119 122 Respiratory 19 18 22 Rate Blood Pressure 100/68 80/68 (mmHg) O2 Sat by Pulse 98 79 84 Oximetry 01/30/19 01/30/19 01/30/19 16:09 16:30 16:32 Temperature Pulse Rate 118 118 Respiratory 24 21 Rate Blood Pressure 90/70 103/73 (mmHg) O2 Sat by Pulse 91 96 Oximetry Exam: Patient is lying on a bed with 2 pillows and in semirecumbant position with no acute distress. Nasal cannula in situ. HEENT: Normocephalic and atraumatic. PERRLA. Sclera anicteric. Neck: JVp not visible because of obesity Lungs: Crackles heard on bilateral lung with more on right side. Heart: Heart rate is 118. S1/S2 heard with no murmur Abdomen: Soft, nondistended and nontender. Extremities: Purple discoloration of bilateral lower extremities with pitting edema. Distal pulse palpable Neuro: Alert, oriented and conscious Assessment/Plan - Assessment/Plan Assessment: This is a 63 y/o M with history of HFrEF, Atrial Flutter/Fibrillation(on metoprolol and warfarin), HTN, Non insulin depepndent DM, PVD, GERD, Gout with recent hospitalization on 01/19/2019 for PNA and CHF exacerbation presented with acute exacerbation of systolic heart failure. Found to have hypoxia with hypercapnia Plan: 1. Shortness of breath: He is having acute exacerbation of HF which could be because of atrial flutter. He has crackles on bilateral lungs; although possibility of pneumonia as well. We will gently diurese him as his creatinine is elevated. WE will check input and output daily and measure his weight. His neutrophil count is normal and he has no cough so pneumonia less likely. WE will monitor him for any cough. 2. Acute hypoxia with hypercapnia: Could be because of bilateral pulmonary edema. We will gently diurese him and put him on oxygen and if needed on BiPAP/ CPAP. 3. Elevated Troponin: His troponin is 0.17. He denies chest pain. EKG showed Atrial flutter with 2:1 AV block and LBBB, ST elevation present but was same as before. WE think this is more demand ischemia. we will trend his troponin. We have talked to Dr. Wray and he will see patient tomorrow. Dr. Steen is the oil exploration engineer log roper tomorrow. 4. Elevated Creatinine: Could be EMELY from decrease perfusion 2/2 decrease CO. We will monitor his BMP tomorrow. Could also be interstitial nephritis from Febuxostat. we will hold this medication. 5. Subtherapeutic INR: His INR is 1.85. He is on warfarin 5 mg daily. We will continue warfarin and check his INR tomorrow. 6. Elevated transaminases: COuld be congestive because of heart failure. 7. Hypertension: BP on softer side. 8. DM: Holding his metformin and glipizide. We will start him on sliding scale insulin. 9. Gout: Meds on hold 10. DVT prophylaxis: On warfarin 11. Diet: heart healthy diet 12. Full code Attestation Documenting Resident: Manuel Guy Supervising Physician: Pop Rogel Attestation: This service has been performed in part by a resident under the direction of a teaching physician.I, Pop Rogel, performed the service, or was physically present during the critical, or rehman portions of the service, furnished by the resident. I participated in the management of the patient.
[2019-01-30] MEDS: Diltiazem IV BAG* D5W Premix 125 MG/125 ML BAG IV SCH (18:00)
--- NOTE | 2019-01-30 19:02 | PN ---
Progress Note - Progress Note Date of Service: 01/30/19 Note: Event note: Admitted patient with resident between 345-630 pm. Patient has recurrent CHF, EMELY, elevated troponin. Initial plan was admit to telemetry, rate control w/ diltiazem. After 2 hours of treatment by team in ED, diltiazem titrated up 10 mg/hr, HR still in 120 range, BP 104/60. Patient has become more somnolent. Initial VBG shows respiratory acidosis and hypoxia. Hypoxia has been easily corrected w/ O2, but suspect worsening hypercapnea. Will switch admission to ICU, start BiPAP for acute hypercapneic and hypoxic respiratory failure. EKG: atrial flutter with 2:1 block CXR: pulmonary edema Diuresis difficult w/ creatinine 3.3. Cardiology aware, will see in AM, may need cardioversion. Will start digoxin for rate control, inotropy.
[2019-01-30] MEDS ORDERED: Dextrose 50% VIAL 50 ml IV PUSH PRN (19:05)
[2019-01-30] MEDS ORDERED: NON FORMULARY MED* (Ranitidine Hcl [Ranitidine Hcl] 150 MG) PO SCH (21:00)
[2019-01-30] MEDS: Digoxin IV* 0.5 MG/2 ML AMP (0.25 MG/ML) IV SLOW PU SCH (21:12)
[2019-01-30] MEDS: Atorvastatin* 10 MG TAB PO SCH (21:13)
[2019-01-30] MEDS: Docusate CAP* 100 MG PO SCH (21:13)
[2019-01-30] MEDS: Metoprolol Succinate XL TAB* 25 MG PO SCH (21:13)
[2019-01-30 21:59] LABS: Urine Appearance Clear; Urine Bacteria Absent (Absent); Urine Bilirubin Negative (Negative); Urine Blood Negative (Negative); Urine Color Yellow; Urine Glucose Negative (Negative); Urine Ketones Negative (Negative); Urine Nitrite Negative (Negative); Urine Protein 1+(30 mg/dL) (Negative); Urine Red Blood Cell Absent (Absent); Urine Specific Gravity 1.016 (1.010-1.030); Urine Urobilinogen Negative (Negative); Urine White Blood Cell Absent (Absent)
[2019-01-30 22:00] LABS: Glucose 61 mg/dL (70-100)
[2019-01-30 22:02] LABS: Troponin I 0.15 ng/mL (<0.04)
[2019-01-30] MEDS: Insulin LISPRO* 1 UNITS UNIT SUBCUT SCH (22:50)
[2019-01-30 23:55] LABS: Troponin I 0.13 ng/mL (<0.04)
[2019-01-31] MEDS: Digoxin IV* 0.5 MG/2 ML AMP (0.25 MG/ML) IV SLOW PU SCH ×2 (02:04→06:14)
[2019-01-31] MEDS: Diltiazem IV BAG* D5W Premix 125 MG/125 ML BAG IV SCH (02:05)
[2019-01-31 04:41] LABS: ABS Lymphocytes 0.9 10^3/ul (1.0-4.8); ABS Monocytes 0.8 10^3/ul (0-0.8); ABS Neutrophils 6.9 10^3/ul (1.5-7.7); Eosinophil % 0.2 %; Hematocrit 36 % (42-52); Hemoglobin 11.6 g/dL (14.0-18.0); Lymphocyte % 10.9 %; Mean Corpuscular HGB Conc 32 g/dL (31-36); Mean Corpuscular Hemoglobin 26 pg (27-31); Mean Corpuscular Volume 82 fL (80-94); Mean Platelet Volume 7.7 fL (7.4-10.4); Platelet Count 183 10^3/uL (150-450); Red Blood Count 4.39 10^6 /uL (4.18-5.48); Red Cell Distribution Width 17 % (10-15); White Blood Count 8.7 10^3/uL (3.5-10.8)
[2019-01-31 04:46] LABS: INR 2.17 (0.82-1.09)
[2019-01-31 05:02] LABS: Albumin 3.3 g/dL (3.2-5.2); Calcium 8.6 mg/dL (8.6-10.3); Total Bilirubin 0.4 mg/dL (0.2-1.0)
[2019-01-31 05:08] LABS: Albumin/Globulin Ratio 0.9 (1-3); BUN/Creatinine Ratio 13.7 (8-20); EGFR African American 16.8 (>60); EGFR Non-African American 13.9 (>60); Globulin 3.7 g/dL (2-4); Potassium 5.7 mmol/L (3.5-5.0)
[2019-01-31] MEDS ORDERED: Patiromer POWDER* 8.4 GM PAK PO SCH (07:00)
--- NOTE | 2019-01-31 07:43 | PN ---
Subjective Date of Service: 01/31/19 Interval History: Patient tolerated BiPAP for a time overnight, became more alert, and refused to continue to use. He states breathing is fine today. He wants grande catheter out, and to get OOB to chair. Denies chest pain, palpitations. Family History: Unchanged from Admission Social History: Unchanged from Admission Past Medical History: Unchanged from Admission Objective Active Medications: Albuterol (Ventolin 2.5 Mg/3 Ml Neb.Mariah*) 2.5 mg INH RT.[id number] AWAKE PRN PRN Reason: sob/wheezing Atorvastatin Calcium (Lipitor*) 10 mg PO 2100 [facility] Last Admin: 01/30/19 21:13 Dose: Not Given Dextrose (Dextrose 50% Vial 50 Ml*) 25 ml IV PUSH .FOR FS < 60 - SS PRN PRN Reason: FS < 60 Last Admin: 01/30/19 23:24 Dose: 25 ml Docusate Sodium (Colace Cap*) 100 mg PO BID [facility] Last Admin: 01/30/19 21:13 Dose: Not Given Ferrous Sulfate (Ferrous Sulfate Tab*) 325 mg PO 1200 [facility] Diltiazem/Dextrose (Cardizem Iv D5w Bag* Premix) 125 mg in 125 mls @ 10 mls/hr IV .PER PROTOCOL [facility]; Protocol Last Admin: 01/31/19 02:05 Dose: 10 mls/hr Insulin Human Lispro (Humalog*) 0 units SUBCUT ACHS [facility]; Protocol Last Admin: 01/30/19 22:50 Dose: Not Given Magnesium Hydroxide (Milk Of Magnesia Liq*) 30 ml PO BID PRN PRN Reason: CONSTIPATION Metoprolol Succinate (Toprol Xl Tab*) 25 mg PO BID [facility] Last Admin: 01/30/19 21:13 Dose: Not Given Patiromer (Veltassa Powder*) 8.4 gm PO DAILY [facility] Stop: 01/31/19 08:00 Tizanidine HCl (Zanaflex Tab*) 4 mg PO TID PRN PRN Reason: spasm Warfarin Sodium (Coumadin Tab(*)) 5 mg PO DAILY@1700 [facility]; Protocol Last Admin: 01/30/19 21:12 Dose: Not Given Vital Signs - 8 hr 01/30/19 01/30/19 01/31/19 23:45 23:46 00:00 Temperature 36.9 C 36.9 C 36.9 C Pulse Rate 117 118 117 Respiratory 16 15 10 Rate Blood Pressure 111/75 113/71 (mmHg) O2 Sat by Pulse 97 97 100 Oximetry 01/31/19 01/31/19 01/31/19 01:45 02:00 02:15 Temperature 37.1 C 37.1 C 37.1 C Pulse Rate 81 81 85 Respiratory 17 18 16 Rate Blood Pressure 107/67 107/66 117/72 (mmHg) O2 Sat by Pulse 97 98 97 Oximetry 01/31/19 01/31/19 01/31/19 02:30 02:31 02:45 Temperature 37.1 C 37.1 C Pulse Rate 94 84 77 Respiratory 16 21 23 Rate Blood Pressure 130/59 116/59 (mmHg) O2 Sat by Pulse 94 96 94 Oximetry 01/31/19 01/31/19 01/31/19 05:15 05:30 05:45 Temperature 37.3 C 37.1 C 37.1 C Pulse Rate 106 117 117 Respiratory 22 23 22 Rate Blood Pressure 120/65 (mmHg) O2 Sat by Pulse 98 97 94 Oximetry 01/31/19 01/31/19 01/31/19 06:00 06:16 06:30 Temperature 37.1 C 37.1 C 37.1 C Pulse Rate 118 118 Respiratory 24 21 22 Rate Blood Pressure 119/72 120/65 (mmHg) O2 Sat by Pulse 94 92 Oximetry 01/31/19 01/31/19 01/31/19 06:32 06:46 07:00 Temperature 37.1 C 37.1 C 37.1 C Pulse Rate 216 102 Respiratory 18 18 21 Rate Blood Pressure 129/72 (mmHg) O2 Sat by Pulse 94 92 Oximetry Oxygen Devices in Use Now: BiPAP Appearance: plethoric, no resp distress Ears/Nose/Mouth/Throat: Clear Oropharnyx Respiratory: Symmetrical Chest Expansion and Respiratory Effort, - - diminished at bases bilat Cardiovascular: - - tachy, regular Abdominal: NL Sounds; No Tenderness; No Distention Extremities: - - 1+ LE edema bilat, chronic venostasis changes Neurological: Alert and Oriented x 3 Lines/Tubes/Other Access: Clean, Dry and Intact Grande, Clean, Dry and Intact Peripheral IV Nutrition: Taking PO's Result Diagrams: 01/31/19 04:32 01/31/19 04:32 Additional Lab and Data: Selected Entries 01/30/19 01/30/19 18:10 18:50 Temperature 36.8 C Heart Rate 115 Respiratory 21 Rate Blood Pressure 102/72 (mmHg) O2 Sat by Pulse 100 Oximetry Laboratory Tests 01/30/19 01/30/19 01/30/19 21:28 21:28 23:21 INR (Anticoag Therapy) VBG pH 7.24 L VBG pCO2 76 H VBG pO2 77.0 H VBG HCO3 27.0 AST ALT Troponin I 0.15 H* 0.13 H* 01/31/19 01/31/19 04:32 04:32 INR (Anticoag Therapy) 2.17 H VBG pH VBG pCO2 VBG pO2 VBG HCO3 AST 142 H ALT 280 H Troponin I Microbiology and Other Data: Microbiology 01/30/19 21:28 Nasal Screen MRSA (PCR) - Final Nasal Mrsa Not Detected Assess/Plan/Problems-Billing Assessment: 63 year old with recent admission for pneumonia HFrEF, admitted with CHF exacerbation, atrial flutter, acute kidney injury. - Patient Problems (1) Acute respiratory failure with hypoxia Current Visit: Yes Status: Acute Priority: High Code(s): J96.01 - ACUTE RESPIRATORY FAILURE WITH HYPOXIA SNOMED Code(s): 47207928 Comment: -also had respiratory acidosis, improved pCO2 with BiPAP -Oxygenating well on O2 by cannula -risk of needing repeat BiPAP -respiratory failure is due to volume overload, CHF (2) Atrial flutter with rapid ventricular response Current Visit: Yes Status: Acute Priority: High Code(s): I48.92 - UNSPECIFIED ATRIAL FLUTTER SNOMED Code(s): 9548168 Comment: -Rate control is mildly improved w/ diltiazem and digoxin, BP has improved -Cardiology consult today, may need chemical and/or electrical cardioversion -Repeat EKG to assess for NSR vs controlled A-flutter. -INR at goal 2-3 today, continue warfarin (3) EMELY (acute kidney injury) Current Visit: No Status: Acute Priority: Medium Code(s): N17.9 - ACUTE KIDNEY FAILURE, UNSPECIFIED SNOMED Code(s): 92954295 Comment: - Now has oliguric renal failure - Discussed w/ Dr. Whitaker, he will see this morning - Assess for post-renal obstruction w/ ultrasound - Trial of high-dose lasix IV - Differential includes AIN (Uloric) vs ATN, vs cardio-renal state (4) Type 2 diabetes mellitus Current Visit: Yes Status: Acute Priority: Medium Comment: -Metformin and sulfonurea on hold due to ARF -Blood sugars low-normal, has sliding scale if needed (5) DVT prophylaxis Current Visit: No Status: Acute Priority: Low Code(s): UIJ9902 - SNOMED Code(s): 969309085 Comment: - will lower dose warfarin due to hepatic/kidney injury - Therapeutic (6) Troponin level elevated Current Visit: Yes Status: Acute Priority: Medium Code(s): R79.89 - OTHER SPECIFIED ABNORMAL FINDINGS OF BLOOD CHEMISTRY SNOMED Code(s): 475294991 Comment: -Did not have syndrome of nonSTEMI -Appears to have demand ischemia (7) Mobility impaired Current Visit: Yes Status: Acute Priority: Low Code(s): Z74.09 - OTHER REDUCED MOBILITY SNOMED Code(s): 88674259 Comment: -Grande removed per patient request -Physical therapy (8) Cardiomyopathy Current Visit: No Status: Acute Priority: Medium Code(s): I42.9 - CARDIOMYOPATHY, UNSPECIFIED SNOMED Code(s): 63016873 Comment: - Cardiac cath 04/20/17 showed no CAD - EF now 35-40% on 01/18/19 - rate control improved w/ digoxin, will check level, risk of overdose due to EMELY - Attempting to diurese despite creatinine elevation Status and Disposition: inpatient/ICU
[2019-01-31 08:16] LABS: Digoxin 1.5 ng/ml (0.8-2.0)
--- NOTE | 2019-01-31 08:20 | CONSULT ---
Consult Consult: Nephro Consult By Dr. Arlette Whitaker, [facility] Nephrology Consult on 01/31/2019, requested for EMELY, Fluid Overload & Hyper-K. Requested by Jackelin Rogel/Hospitalist 63 year old was admitted last night with progressive SOB, had Hypoxia O2 Sat 80s % & SBP 90-105/60-70. CXR showed Cardiomegaly with pulmonary interstitial infiltrate. s/p recent pneumonia few weeks ago. Provisional Dx CHF exacerbation` AFib RVR. He didnt receive diuretics, in view of rising sCr. But received IVF & ABx. Of note, known AFib with RVR. Still Hypoxic and Hypercapneic. RVR Rx on diltiazem drip & BP dropped 104/60. Transferred from Tele to MICU, started on BiPAP for acute hypercapnia and hypoxic respiratory failure. Poor compliance to BiPAP sCr on admission was 3.3, s/p Progressive EMELY, todays sCr 4.5, with K 5.7. sCr baseline 1.3 earlier 01/2019 I spoke to Hospitalist to give Lasix 60 mg IV once and get Renal U/S. He's incontinent and refused Negron back in, will complicate UOP assessment. Of note, Dig Level Ok 1.5. On Coumadin INR 2.2~an issue if to have a dialysis catheter. Had high ALT/AST on admission 267/350, today 142/280. Possibly cardiac related. Good news, ALT/AST improving quickly. UA bland, -ve RBCs, -ve WBCs but +1 Ptn. UOP is oliguric. At home on Lasix 60 qd, hasn't been resumed yet. Was on KCl at home, explains Hyper-K 5.7 ABG in ED 7.4/66/32 and today worse 7.24/76/35. O2 sat 97% Past Medical History: Recent PNA 01/2019 AFib on Coumadin HFrEF 30-35% HTN Gout DM~Insulin Dyslipidemia PVD HomeMeds: Medication Instructions Recorded Confirmed Type Atorvastatin* [Lipitor 20 MG*] 10 mg PO 2100 11/02/14 01/30/19 History Furosemide TAB* [Lasix TAB*] 60 mg PO QAM 11/02/14 01/30/19 History Potassium Chlor TAB* [Potassium 10 meq PO QAM 11/02/14 01/30/19 History Chlor TAB 20 MEQ*] raNITIdine HCl [Ranitidine HCl] 150 mg PO BID 11/02/14 01/30/19 History glipiZIDE TAB* [Glucotrol TAB*] 5 mg PO BID 10/22/15 01/30/19 History Docusate Sodium [Dok] 100 mg PO BID 03/29/17 01/30/19 History Febuxostat [Uloric] 80 mg PO DAILY 03/29/17 01/30/19 History Tizanidine HCl 4 mg PO TID PRN 03/29/17 01/30/19 History Warfarin TAB(*) [Coumadin TAB(*)] 5 mg PO DAILY 12/17/17 01/30/19 History Lactobacillus Acidophilus/Fos 1 each PO DAILY 01/30/19 01/30/19 History [Acidophilus Probiotic Tablet] ceFUROXime 250 MG TAB [Ceftin TAB 500 mg PO BID 01/30/19 01/30/19 History 250 MG(*)] Active Inpatient Meds; Albuterol (Ventolin 2.5 Mg/3 Ml Neb.Mariah*) 2.5 mg INH RT.[id number] AWAKE PRN PRN Reason: sob/wheezing Atorvastatin Calcium (Lipitor*) 10 mg PO [facility] Last Admin: 01/30/19 21:13 Dose: Not Given Dextrose (Dextrose 50% Vial 50 Ml*) 25 ml IV PUSH .FOR FS < 60 - SS PRN PRN Reason: FS < 60 Last Admin: 01/30/19 23:24 Dose: 25 ml Docusate Sodium (Colace Cap*) 100 mg PO BID [facility] Last Admin: 01/30/19 21:13 Dose: Not Given Ferrous Sulfate (Ferrous Sulfate Tab*) 325 mg PO 1200 [facility] Furosemide (Lasix Iv*) 60 mg IV DAILY [facility] Diltiazem/Dextrose (Cardizem Iv D5w Bag* Premix) 125 mg in 125 mls @ 10 mls/hr IV .PER PROTOCOL [facility]; Protocol Last Admin: 01/31/19 02:05 Dose: 10 mls/hr Insulin Human Lispro (Humalog*) 0 units SUBCUT ACHS [facility]; Protocol Last Admin: 01/30/19 22:50 Dose: Not Given Magnesium Hydroxide (Milk Of Magnesia Liq*) 30 ml PO BID PRN PRN Reason: CONSTIPATION Metoprolol Succinate (Toprol Xl Tab*) 25 mg PO BID [facility] Last Admin: 01/30/19 21:13 Dose: Not Given Tizanidine HCl (Zanaflex Tab*) 4 mg PO TID PRN PRN Reason: spasm Warfarin Sodium (Coumadin Tab(*)) 2.5 mg PO DAILY@1700 [facility]; Protocol Allergies: No Known Allergies Allergy (Verified 12/29/18 00:28) Social History,Family History &Surgical History:Reviewed 12-Point Review of Systemobtained: Negative exceptpertinent positives: Constitutional no fever no weight loss Eyes No blurry vision CV shortness of breath. no chest pain no syncope. + edema Resp shortness of breath but no cough no wheezing G.I. no diarrhea no nausea no vomiting no pain no blood per rectum no burning no obstruction symptoms Skin no rash. but redness on LE Neurology No seizures or neurologic deficit Endocrine no diabetes Hem/Lymp no bleeding no lymph nodes Immun/Allergy no allergic actions Musculoskeletal no Arthritis no swelling no pain Psych no anxiety no depression no hallucination Objective: 10 Pointmulti systemexam: Negative except pertinent positive Vital Signs: Temp Pulse Resp BP Pulse Ox 98.8 F 115 23 129/72 92 01/31/19 07:01 01/31/19 07:01 01/31/19 07:01 01/31/19 07:00 01/31/19 07:01 Vital Signs Temp 98.8 F 01/31/19 07:01 Pulse 115 01/31/19 07:01 Resp 23 01/31/19 07:01 BP 129/72 01/31/19 07:00 Pulse Ox 92 01/31/19 07:01 Intake & Output 01/30/19 01/31/19 01/31/19 18:59 06:59 18:59 Intake Total 1050 439 Output Total 325 50 Balance 1050 114 -50 Weight 117.934 kg 117.486 kg Intake: IV Fluids 1050 Medicated IV 139 GEN - Diltiazem/Cardizem 139 Oral 300 Output: Negron 325 50 Constitutional Alert Oriented x 3 Abdomen SoftAbdomen No Ascites Heart: AFib, RVR, LE Edema, No murmur Lungs: B/L Crackles Extremities: + edema, NO rash but redness Laboratory Reviewed VBG pH 7.24 (7.32-7.43) L 01/30/19 21:28 Sodium 139 mmol/L (135-145) 01/31/19 04:32 Potassium 5.7 mmol/L (3.5-5.0) H 01/31/19 04:32 BUN 59 mg/dL (6-24) H 01/31/19 04:32 Creatinine 4.32 mg/dL (0.67-1.17) H 01/31/19 04:32 Calcium 8.6 mg/dL (8.6-10.3) 01/31/19 04:32 AST 142 U/L (13-39) H 01/31/19 04:32 ALT 280 U/L (7-52) H 01/31/19 04:32 Imaging: CXR: P. Edema & Cardiomegally Assessment and Plan: *EMELY: Possible ATN vs Cardio-Renal, challenge with Lasix as above and record UOP. If there's good response, start Bumex/Lasix drip. ATN likely ischemic ATN! *Proteinuria: Minimal, -ve Blood. I doubt GN or AIN. *BP dropped on few occasions, could played a role in ATN *Volume status: Fluid overloaded, stop IVF. Lasix as above *Hyper-K s/p Veltassa, may decrease with IV Lasix *If fails Lasix challenge, will needs to correct INR for dialysis catheter placement.
[2019-01-31] MEDS ORDERED: Furosemide IV* 10 MG/ML 10 ML VIAL (100 MG) IV SCH (09:00)
[2019-01-31] MEDS ORDERED: Febuxostat(NF) 40 MG TAB PO SCH (09:00)
[2019-01-31] MEDS: Insulin LISPRO* 1 UNITS UNIT SUBCUT SCH ×4 (09:15→21:23)
[2019-01-31] MEDS ORDERED: Furosemide IV* 10 MG/ML 10 ML VIAL (100 MG) IV ONE (11:07)
[2019-01-31] MEDS ORDERED: Amiodarone IV VIAL** 50 MG/ML 3 ML (150 MG) VIAL SLOW PUSH ONE (11:11)
[2019-01-31] MEDS ORDERED: Furosemide IV* 10 MG/ML 10 ML VIAL (100 MG) ONE (11:12)
[2019-01-31] MEDS ORDERED: Amiodarone DRIP 150 MG in D5W 100 ML *LOADING DOSE* OVER 10 MIN IV ONE (11:30)
[2019-01-31] MEDS: Docusate CAP* 100 MG PO SCH ×2 (11:59→22:07)
[2019-01-31] MEDS: Metoprolol Succinate XL TAB* 25 MG PO SCH ×2 (11:59→21:24)
[2019-01-31] MEDS: Ferrous Sulfate TAB* 325 MG PO SCH (12:00)
[2019-01-31] MEDS ORDERED: Amiodarone 360 MG IVPREMIX* 360 MG/200 ML BAG IV ONE (12:00)
--- NOTE | 2019-01-31 12:25 | CONS ---
CC: Dr. Pop Rogel; Dr. Evan Guajardo; Dr. Pool Morin * CARDIOLOGY CONSULTATION DATE OF CONSULTATION: 01/31/2019. INDICATION FOR CONSULTATION: Congestive heart failure, atrial fibrillation, tachycardia. HISTORY OF PRESENT ILLNESS: The patient is a 63-year-old gentleman with a history of nonischemic cardiomyopathy secondary to atrial fibrillation. He was seen this past summer in October by Dr. Guajardo. At that time, he was in normal sinus rhythm. He was maintained on anticoagulation with Coumadin and on Multaq to maintain normal sinus rhythm. He was admitted to the hospital earlier this month with presumed diagnosis of pneumonia. At that time, he was in atrial fibrillation. An echocardiogram at that time shows an ejection fraction of 30 percent which is down from his normal ejection fraction of 50 percent. At that time, the decision was to maximally medically treat his pneumonia and rate control, continue anticoagulation and consider cardioversion as an outpatient. The patient was discharged from the hospital. He was readmitted to the hospital yesterday with worsening congestive heart failure and shortness of breath. Currently, the patient is in atrial fibrillation, atrial flutter with a heart rate of 110. He has a left bundle branch block. He is currently on BiPAP satting 95 percent. His blood pressure is 118/55. The patient is somewhat somnolent and not able to participate in his care. His history was derived from the medical records. PAST MEDICAL HISTORY: Significant for nonischemic cardiomyopathy, paroxysmal atrial fibrillation, renal insufficiency, diabetes, gastroesophageal reflux disease. PAST SURGICAL HISTORY: Back surgery as a child, carpal tunnel surgery. OUTPATIENT MEDICATIONS: 1. Potassium 10 mEq two times a day. 2. Lasix 60 mg a day. 3. Atorvastatin 20 mg a day. 4. Ranitidine 150 mg a day. 5. Glucotrol 5 mg a day. 6. Tramadol 50 mg as needed. 7. Uloric 80 mg a day. 8. Coumadin as directed. 9. Metformin 1,000 mg with meals. 10. Metoprolol Succinate 25 mg b.i.d. 11. Cefuroxime 500 mg b.i.d. ALLERGIES: No known drug allergies. FAMILY HISTORY: Positive for diabetes and heart disease. SOCIAL HISTORY: He lives alone. He is currently disabled and is not working. He is a previous smoker, he quit in 1989. He denies alcohol. Denies illicit drug use. Rare caffeine. He does not get any exercise on a regular basis. REVIEW OF SYSTEMS: Review of systems could not be established as he is somewhat somnolent. PHYSICAL EXAM: On physical exam, temperature is 98.9, heart rate is 108, blood pressure is 123/78, respiratory rate is 30, oxygen saturation is 93 percent on BiPAP. Sclerae anicteric. Oropharynx is pink without erythema. Carotids are difficult to assess because of the BiPAP. Cardiac Exam: Distal heart sounds. S1, S2 without any murmurs, rubs, or gallops. Tachycardic. Lungs have mild rales. It is difficult to auscultate because of the BiPAP. Abdomen is obese, soft, nontender, nondistended with normoactive bowel sounds. Extremities show minimal edema. Again, the patient is somnolent. Neuro exam could not be completed. DIAGNOSTIC STUDIES/LAB DATA: White count 8.7, hemoglobin 11, hematocrit 38, platelet count 183. Chemistries: Potassium 5.7, BUN 59, creatinine 4.3, his baseline creatinine is somewhere around 1.2. AST and ALT are mildly elevated. Troponin is minimally elevated at 0.07. BNP is 1,020. EKG shows atrial flutter with a left bundle branch block, heart rate 110. IMPRESSION: This is a 63-year-old gentleman with a history of nonischemic cardiomyopathy, history of tachycardic-induced cardiomyopathy back in 2017. He was admitted to the hospital with congestive heart failure. Again, the patient was admitted to the hospital ten days ago with pneumonia and atrial fibrillation with rapid ventricular response. Decision at that time was to continue anticoagulation, rate response, and consider cardioversion as an outpatient. The patient was readmitted to the hospital with worsening shortness of breath and worsening congestive heart failure. Again, the patient is now on BiPAP. RECOMMENDATIONS: For now my recommendation is to continue rate control agents and continue anticoagulation. His INR today is 2.17. Ultimately, the patient would do better back in normal sinus rhythm. It is my recommendation that the patient undergo cardioversion. Because of his renal insufficiency and mild LFT abnormalities, the only antiarrhythmic available to this patient is Amiodarone. The patient will be started on IV Amiodarone today in hopes of maintaining normal sinus rhythm after cardioversion. Further recommendations pending further studies. [id number]/[facility] #: [id number] DOROTHY
[2019-01-31] MEDS ORDERED: Bumetanide IV* 10 MG in PREMIX* 0 ML IV SCH ×2 (15:00→17:22)
[2019-01-31 15:28] LABS: BUN/Creatinine Ratio 16.5 (8-20); Calcium 8.9 mg/dL (8.6-10.3); EGFR African American 19.4 (>60)
[2019-01-31] MEDS ORDERED: Bumetanide IV* 0.25 MG/ML 4 ML VIAL SLOW PUSH ONE (16:00)
[2019-01-31] MEDS ORDERED: Warfarin TAB(*) 2.5 MG PO SCH (17:00)
[2019-01-31 17:03] LABS: Urine Appearance Clear; Urine Bacteria 1+ (Absent); Urine Bilirubin Negative (Negative); Urine Blood 2+ (Negative); Urine Color Yellow; Urine Glucose Negative (Negative); Urine Ketones Negative (Negative); Urine Nitrite Negative (Negative); Urine Protein Negative (Negative); Urine Red Blood Cell 3+(>10/hpf) (Absent); Urine Specific Gravity 1.009 (1.010-1.030); Urine Squamous Epithelial Cell Present (Absent); Urine Urobilinogen Negative (Negative); Urine White Blood Cell Trace(0-5/hpf) (Absent)
[2019-01-31] MEDS ORDERED: KETAMINE HCL* 50 MG/ML 10 ML VIAL ONE (17:13)
[2019-01-31] MEDS ORDERED: Propofol* 10 MG/ML 20 ML BTL ONE (17:14)
[2019-01-31] MEDS ORDERED: Lidocaine 2% PF * 5 ML VIAL ONE (17:14)
[2019-01-31] MEDS ORDERED: Midazolam* 1 MG/ML 2 ML VIAL (2 MG) ONE (17:14)
--- NOTE | 2019-01-31 19:38 | CARD ---
CC: Dr. Evan Guajardo * CARDIOVERSION REPORT: DATE OF PROCEDURE: 01/31/19 - ROOM #ICU-05 PROCEDURE: Cardioversion. INDICATION: Atrial fibrillation. The patient is a 63-year-old gentleman with a history of nonischemic cardiomyopathy, who recently was in the hospital with pneumonia, found to have an ejection fraction of 30% and in atrial fibrillation. The patient was readmitted to the hospital with shortness of breath and rapid ventricular response to his AFib. Cardioversion was recommended. DESCRIPTION OF PROCEDURE: The patient was in a fasting state. Informed consent had been obtained prior to the procedure. The patient is on chronic Coumadin therapy. The patient had been on amiodarone for 4 hours prior to the cardioversion. The patient was anesthetized with propofol by Dr. Perez. The patient was cardioverted with 150 Joules of synchronized biphasic energy. The patient converted to sinus bradycardia at 55 beats per minute with a left bundle- branch block. The patient tolerated the procedure well. There were no complications. Plan is to continue amiodarone and anticoagulation. [id number]/[facility] #: [id number] DOROTHY
[2019-01-31 21:42] LABS: BUN/Creatinine Ratio 19.7 (8-20); Calcium 8.6 mg/dL (8.6-10.3); EGFR African American 20.7 (>60); EGFR Non-African American 17.1 (>60)
[2019-01-31 21:45] LABS: Potassium 5.1 mmol/L (3.5-5.0)
[2019-01-31] MEDS: Atorvastatin* 10 MG TAB PO SCH (22:07)
[2019-02-01 03:15] LABS: ABS Lymphocytes 0.8 10^3/ul (1.0-4.8); ABS Monocytes 0.6 10^3/ul (0-0.8); ABS Neutrophils 6.1 10^3/ul (1.5-7.7); Eosinophil % 0.5 %; Hematocrit 34 % (42-52); Hemoglobin 11.1 g/dL (14.0-18.0); Lymphocyte % 10.1 %; Mean Corpuscular HGB Conc 32 g/dL (31-36); Mean Corpuscular Hemoglobin 26 pg (27-31); Mean Corpuscular Volume 81 fL (80-94); Mean Platelet Volume 7.9 fL (7.4-10.4); Platelet Count 188 10^3/uL (150-450); Red Blood Count 4.27 10^6 /uL (4.18-5.48); Red Cell Distribution Width 16 % (10-15); White Blood Count 7.5 10^3/uL (3.5-10.8)
[2019-02-01 03:24] LABS: INR 2.55 (0.82-1.09)
[2019-02-01 03:30] LABS: BUN/Creatinine Ratio 21.2 (8-20); Calcium 8.8 mg/dL (8.6-10.3); EGFR African American 24.5 (>60); EGFR Non-African American 20.2 (>60); Magnesium 1.7 mg/dL (1.9-2.7); Phosphorus 4.3 mg/dL (2.5-5.0); Potassium 4.7 mmol/L (3.5-5.0)
[2019-02-01 03:39] LABS: Digoxin 1.5 ng/ml (0.8-2.0)
--- NOTE | 2019-02-01 08:01 | PN ---
Progress Note - Progress Note Date of Service: 02/01/19 Note: Nephro f/u Dr. Arlette Mcfarland [employer] Nephrology 02/01/2019 EMELY in a setting of ATN, CRS~Cardiorenal Syndrome, Hypoxia O2 sat 80s & Hyotension 90-105. [place] Pulmonary Edema, s/p recent pneumonia. Has AFib with RVR. s/p diltiazem and Amio drip, on BiPAP for acute hypercapnia and hypoxic respiratory failure. sCr baseline 1.3 earlier 01/2019 sCr on admission 3.3, peaked up to 4.5, s/p excellent response to Lasix 60 mg then 80 mg IVP with 700 cc UOP in 6 hours. He's on Bumex drip now and sCr is still improving. Negron back in, UOP 4 L <24Hr UA bland Active Inpatient Meds: Albuterol (Ventolin 2.5 Mg/3 Ml Neb.Mariah*) 2.5 mg INH [id number] AWAKE PRN PRN Reason: sob/wheezing Atorvastatin Calcium (Lipitor*) 10 mg PO 2100 [facility] Last Admin: 01/31/19 22:07 Dose: 10 mg Docusate Sodium (Colace Cap*) 100 mg PO BID [facility] Last Admin: 01/31/19 22:07 Dose: 100 mg Ferrous Sulfate (Ferrous Sulfate Tab*) 325 mg PO 1200 [facility] Last Admin: 01/31/19 12:00 Dose: 325 mg Diltiazem/Dextrose (Cardizem Iv D5w Bag* Premix) 125 mg in 125 mls @ 10 mls/hr IV .PER PROTOCOL [facility]; Protocol Last Admin: 01/31/19 02:05 Dose: 10 mls/hr Bumetanide 10 mg/ IV Solution 40 mls @ 0 mls/hr IV .PER RATE [facility]; Protocol Last Admin: 01/31/19 22:24 Dose: 1 mls/hr Insulin Human Lispro (Humalog*) 0 units SUBCUT ACHS [facility]; Protocol Last Admin: 01/31/19 21:23 Dose: Not Given Magnesium Hydroxide (Milk Of Magnesia Liq*) 30 ml PO BID PRN PRN Reason: CONSTIPATION Metoprolol Succinate (Toprol Xl Tab*) 25 mg PO BID [facility] Last Admin: 01/31/19 21:24 Dose: Not Given Objective: Vitals: Vital Signs Temp 99.1 F 02/01/19 06:01 Pulse 62 02/01/19 06:01 Resp 21 02/01/19 06:01 BP 138/80 02/01/19 06:00 Pulse Ox 97 02/01/19 06:01 Intake & Output 01/31/19 02/01/19 02/01/19 18:59 06:59 18:59 Intake Total 705 75 Output Total 1345 2735 Balance -640 -2660 Weight 112.8 kg Intake: Medicated IV 305 75 CC - Amiodarone 229 59 GEN - Bumetanide 16 GEN - Diltiazem/Cardizem 76 Oral 400 Output: Urine 650 Negron 342 2735 Other: Estimated Void Small # Voids 1 Laboratory Reviewed Sodium 136 mmol/L (135-145) 02/01/19 02:58 Potassium 4.7 mmol/L (3.5-5.0) 02/01/19 02:58 BUN 66 mg/dL (6-24) H 02/01/19 02:58 Creatinine 3.12 mg/dL (0.67-1.17) H 02/01/19 02:58 Calcium 8.8 mg/dL (8.6-10.3) 02/01/19 02:58 Magnesium 1.7 mg/dL (1.9-2.7) L 02/01/19 02:58 Assessment and Plan: *EMELY: Ischemic ATN vs Cardio-Renal. CRS is very likely as he responded quickly to Lasix challenge then Bumex drip. *BP Ok *Lytes OK *No indication for [employer] *Repeat CXR, ABG and BNP
[2019-02-01] MEDS: Acetaminophen TAB* 325 MG PO PRN ×2 (08:39→15:03)
[2019-02-01] MEDS: Metoprolol Succinate XL TAB* 25 MG PO SCH ×2 (08:43→19:33)
[2019-02-01] MEDS: Docusate CAP* 100 MG PO SCH ×2 (08:43→19:31)
--- NOTE | 2019-02-01 09:14 | PN ---
Subjective Date of Service: 02/01/19 - CC: SOB Interval History: Patient states breathing has improved. Still some orthopnea. he wants to get OOB to chair. Medications Active Medications: Acetaminophen (Tylenol Tab*) 650 mg PO Q4H PRN PRN Reason: PAIN - MILD Last Admin: 02/01/19 08:39 Dose: 650 mg Albuterol (Ventolin 2.5 Mg/3 Ml Neb.Mariah*) 2.5 mg INH RT.[id number] AWAKE PRN PRN Reason: sob/wheezing Atorvastatin Calcium (Lipitor*) 10 mg PO 2100 [facility] Last Admin: 01/31/19 22:07 Dose: 10 mg Bumetanide (Bumex*) 1 mg SLOW PUSH BID [facility] Dextrose (Dextrose 50% Vial 50 Ml*) 25 ml IV PUSH .FOR FS < 60 - SS PRN PRN Reason: FS < 60 Last Admin: 01/30/19 23:24 Dose: 25 ml Docusate Sodium (Colace Cap*) 100 mg PO BID [facility] Last Admin: 02/01/19 08:43 Dose: 100 mg Ferrous Sulfate (Ferrous Sulfate Tab*) 325 mg PO 1200 [facility] Last Admin: 01/31/19 12:00 Dose: 325 mg Diltiazem/Dextrose (Cardizem Iv D5w Bag* Premix) 125 mg in 125 mls @ 10 mls/hr IV .PER PROTOCOL [facility]; Protocol Last Admin: 01/31/19 02:05 Dose: 10 mls/hr Insulin Human Lispro (Humalog*) 0 units SUBCUT ACHS [facility]; Protocol Last Admin: 01/31/19 21:23 Dose: Not Given Magnesium Hydroxide (Milk Of Magnesia Liq*) 30 ml PO BID PRN PRN Reason: CONSTIPATION Magnesium Oxide (Magox 400 Tab*) 400 mg PO DAILY [facility] Metoprolol Succinate (Toprol Xl Tab*) 25 mg PO BID [facility] Last Admin: 02/01/19 08:43 Dose: 25 mg Objective Vital Signs: Temp Pulse Resp BP Pulse Ox 99.5 F 71 14 133/62 96 02/01/19 08:30 02/01/19 08:15 02/01/19 08:30 02/01/19 08:00 02/01/19 08:15 Oxygen Devices in Use Now: None, Nasal Cannula Appearance: short obese male seated 80 degrees in "V" position in bed, comfortable. Mild tachypnea when speaking. Eyes: PERRLA Ears/Nose/Mouth/Throat: Clear Oropharnyx Neck: Trachea Midline Respiratory: Symmetrical Chest Expansion and Respiratory Effort - Diminished BS bases bilaterally, right worse than left. Cardiovascular: RRR - , occasional extrasystoles and no murmurs heard, distant. Abdominal: - - marked centripetal obesity, normal bowel sounds, rotund but distensible. Extremities: - - freckling of legs to knees. mild edema. Skin: - - no cyanosis. Neurological: Alert and Oriented x 3 Laboratory Results: 02/01/19 02:58 02/01/19 02:58 INR (Anticoag Therapy) 2.55 (0.82-1.09) H 02/01/19 02:58 APTT 39.5 seconds (26.0-38.0) H 01/30/19 14:32 Total Bilirubin 0.40 mg/dL (0.2-1.0) 01/31/19 04:32 AST 142 U/L (13-39) H 01/31/19 04:32 ALT 280 U/L (7-52) H 01/31/19 04:32 Alkaline Phosphatase 60 U/L (34-104) 01/31/19 04:32 B-Natriuretic Peptide 1020 pg/mL (<=100) H 01/30/19 14:41 Total Protein 7.0 g/dL (6.4-8.9) 01/31/19 04:32 Albumin 3.3 g/dL (3.2-5.2) 01/31/19 04:32 Globulin 3.7 g/dL (2-4) 01/31/19 04:32 Albumin/Globulin Ratio 0.9 (1-3) L 01/31/19 04:32 01/30/19 01/30/19 01/30/19 14:32 17:00 21:28 Troponin I 0.16 H* 0.17 H* 0.15 H* 01/30/19 23:21 Troponin I 0.13 H* Diagnostic Imaging: *[facility]* [place] [address] Fax #: [phone] Transthoracic Echocardiogram Patient: Cesar De La Cruz : 1955 Study Date: 01/18/2019 Summary: - Left ventricle: The cavity size is normal. Wall thickness is moderately increased. Systolic function is mildly to moderately reduced. The estimated ejection fraction is 35-40%. There is interventricular dyssynchrony c/w patients LBBB. - Right ventricle: Systolic function is low normal. - Tricuspid valve: There is trace to mild regurgitation. - Aorta: The ascending aorta internal dimension in the A-P direction, maximal systolic dimension is 3.5 cm. - Ascending aorta: The ascending aorta is mildly dilated. - Pulmonary arteries: Systolic pressure is within the normal range. The peak pressure during systole by Doppler is 24.0 mm Hg. - Compared with the patient's prior transesophageal echocardiogram of 04/04/17EF previously 30-35%, aortic, mitral and tricuspid valve function not significantly changed. Pulmonary regurgitation is new. Aorta dilatation of the arch is new. EKG Data: Monitor: NSR, frequent PAC's and PVC's. Assessment/Plan 63 yo male with CM, CHF, likely due to persistent afib (noted with pneumonia in December). Now s/p CV yesterday following amiodarone initiation and aggressive diuresis. Improving. PAF: Start oral amiodarone 400 mg/day INR may increase. Continue metoprolol for now. Off dilt gtt. On coumadin. CHF/low EF Agree with converting to oral bumex, but continue diuresis. -Aldactone/ACEI would likely not be tolerated with RI -Option of changing metoprolol to Coreg, could also be done as outpatient. -Follow EF as outpatient post spiritism of NSR. RI: Renal seeing.
--- NOTE | 2019-02-01 09:24 | PN ---
Subjective Date of Service: 02/01/19 Interval History: Patient did not tolerate BiPAP overnight. He reports leg pain, and some new purple dots on legs near area of venous stasis. States breathing is better. Family History: Unchanged from Admission Social History: Unchanged from Admission Past Medical History: Unchanged from Admission Objective Active Medications: Acetaminophen (Tylenol Tab*) 650 mg PO Q4H PRN PRN Reason: PAIN - MILD Last Admin: 02/01/19 08:39 Dose: 650 mg Albuterol (Ventolin 2.5 Mg/3 Ml Neb.Mariah*) 2.5 mg INH [id number] AWAKE PRN PRN Reason: sob/wheezing Atorvastatin Calcium (Lipitor*) 10 mg PO 2100 [facility] Last Admin: 01/31/19 22:07 Dose: 10 mg Bumetanide (Bumex*) 1 mg SLOW PUSH BID [facility] Dextrose (Dextrose 50% Vial 50 Ml*) 25 ml IV PUSH .FOR FS < 60 - SS PRN PRN Reason: FS < 60 Last Admin: 01/30/19 23:24 Dose: 25 ml Docusate Sodium (Colace Cap*) 100 mg PO BID [facility] Last Admin: 02/01/19 08:43 Dose: 100 mg Ferrous Sulfate (Ferrous Sulfate Tab*) 325 mg PO 1200 [facility] Last Admin: 01/31/19 12:00 Dose: 325 mg Insulin Human Lispro (Humalog*) 0 units SUBCUT [facility]; Protocol Last Admin: 01/31/19 21:23 Dose: Not Given Magnesium Hydroxide (Milk Of Magnesia Liq*) 30 ml PO BID PRN PRN Reason: CONSTIPATION Magnesium Oxide (Magox 400 Tab*) 400 mg PO DAILY [facility] Metoprolol Succinate (Toprol Xl Tab*) 25 mg PO BID [facility] Last Admin: 02/01/19 08:43 Dose: 25 mg Vital Signs - 8 hr 02/01/19 02/01/19 02/01/19 05:01 05:31 06:00 Temperature 37.2 C 37.3 C 37.3 C Pulse Rate 70 72 75 Respiratory 20 21 23 Rate Blood Pressure 136/65 138/80 (mmHg) O2 Sat by Pulse 96 95 97 Oximetry 02/01/19 02/01/19 02/01/19 07:00 07:01 07:15 Temperature 37.4 C 37.4 C 37.4 C Pulse Rate 70 72 69 Respiratory 26 20 19 Rate Blood Pressure 121/67 (mmHg) O2 Sat by Pulse 98 97 97 Oximetry 02/01/19 02/01/19 02/01/19 07:30 07:45 08:00 Temperature 37.5 C 37.5 C 37.5 C Pulse Rate 73 69 68 Respiratory 22 20 19 Rate Blood Pressure 133/62 (mmHg) O2 Sat by Pulse 97 97 96 Oximetry Oxygen Devices in Use Now: None, Nasal Cannula Appearance: alert, no distress Ears/Nose/Mouth/Throat: Clear Oropharnyx Neck: No Thyroid Enlargement, Masses Respiratory: Clear to Percussion, - - rales RT base Cardiovascular: NL Sounds; No Murmurs; No JVD, - - 1+ edema bilat LE Abdominal: NL Sounds; No Tenderness; No Distention Skin: - - venous stasis changes Lines/Tubes/Other Access: Clean, Dry and Intact Negron, Clean, Dry and Intact Peripheral IV Result Diagrams: 02/01/19 02:58 02/01/19 02:58 Additional Lab and Data: Laboratory Tests 02/01/19 02/01/19 02:58 02:58 INR (Anticoag Therapy) 2.55 H Magnesium 1.7 L Digoxin 1.5 Microbiology and Other Data: Microbiology 01/30/19 21:28 Nasal Nasal Screen MRSA (PCR) - Final Mrsa Not Detected 01/30/19 16:55 Urine Urine Culture - Final No Growth (<1,000 CFU/mL) 01/30/19 14:41 Blood Venous Aerobic Blood Culture - Preliminary 01/30/19 14:41 Blood Venous Anaerobic Blood Culture - Preliminary No Growth Day 1 No Growth Day 1 01/30/19 14:32 Blood Venous Aerobic Blood Culture - Preliminary 01/30/19 14:32 Blood Venous Anaerobic Blood Culture - Preliminary No Growth Day 1 No Growth Day 1 EKG Data: NSR, with frequent PVCs on monitor Assess/Plan/Problems-Billing Assessment: 63 year old with recent admission for pneumonia HFrEF, admitted with CHF exacerbation, atrial flutter, acute kidney injury. - Patient Problems (1) Acute respiratory failure with hypoxia Current Visit: Yes Status: Acute Priority: High Code(s): J96.01 - ACUTE RESPIRATORY FAILURE WITH HYPOXIA SNOMED Code(s): 36209175 Comment: -also had respiratory acidosis, improved pCO2 with BiPAP -Oxygenating well on O2 by cannula -partially resolved at this point, stable to go to 4S -rechecking VBG, re hypercapnea (2) Atrial flutter with rapid ventricular response Current Visit: Yes Status: Acute Priority: High Code(s): I48.92 - UNSPECIFIED ATRIAL FLUTTER SNOMED Code(s): 1257393 Comment: -Status post DC cardioversion yesterday afternoon, also on amiodarone -Will start oral amiodarone, 200 BID for 2 weeks, then 200 qd -INR at goal 2-3 today, continue warfarin at lower dose, INR will be elevated by amio (3) EMELY (acute kidney injury) Current Visit: No Status: Acute Priority: Medium Code(s): N17.9 - ACUTE KIDNEY FAILURE, UNSPECIFIED SNOMED Code(s): 23986591 Comment: - Diuresed 5 kg fluid with IV Bumex. - Can switch to bolus bumex - Creatinine improving, due to cardio-renal syndrome - Discussed with Dr. Whitaker (4) Type 2 diabetes mellitus Current Visit: Yes Status: Acute Priority: Medium Comment: -Metformin and sulfonurea on hold due to ARF -Blood sugars low-normal, has sliding scale if needed (5) DVT prophylaxis Current Visit: No Status: Acute Priority: Low Code(s): BED2272 - SNOMED Code(s): 066474961 Comment: - Therapeutic on warfarin (6) Troponin level elevated Current Visit: Yes Status: Acute Priority: Medium Code(s): R79.89 - OTHER SPECIFIED ABNORMAL FINDINGS OF BLOOD CHEMISTRY SNOMED Code(s): 307200001 Comment: -Did not have syndrome of nonSTEMI -Appears to have demand ischemia (7) Mobility impaired Current Visit: Yes Status: Acute Priority: Low Code(s): Z74.09 - OTHER REDUCED MOBILITY SNOMED Code(s): 45435653 Comment: -Physical therapy (8) Cardiomyopathy Current Visit: No Status: Acute Priority: Medium Code(s): I42.9 - CARDIOMYOPATHY, UNSPECIFIED SNOMED Code(s): 84414742 Comment: - Cardiac cath 04/20/17 showed no CAD - EF now 35-40% on 01/18/19 - Will need outpatient spironolactone if creatinine allows - Continue Toprol XL Status and Disposition: inpatient
[2019-02-01] MEDS: Insulin LISPRO* 1 UNITS UNIT SUBCUT SCH ×4 (09:33→19:54)
[2019-02-01] MEDS: Magnesium Oxide TAB* 400 MG PO SCH (09:38)
[2019-02-01] MEDS: Amiodarone TAB* 400 MG PO SCH ×2 (10:52→19:29)
[2019-02-01] MEDS: Bumetanide IV* 0.25 MG/ML 4 ML VIAL SLOW PUSH SCH ×2 (10:53→19:30)
[2019-02-01] MEDS: Ferrous Sulfate TAB* 325 MG PO SCH (12:19)
[2019-02-01] MEDS: Warfarin TAB(*) 2 MG PO SCH (18:28)
[2019-02-01] MEDS: Atorvastatin* 10 MG TAB PO SCH (19:30)
[2019-02-02 05:57] LABS: ABS Eosinophils 0.1 10^3/ul (0-0.6); ABS Lymphocytes 0.8 10^3/ul (1.0-4.8); ABS Monocytes 0.6 10^3/ul (0-0.8); ABS Neutrophils 5.6 10^3/ul (1.5-7.7); Hematocrit 37 % (42-52); Hemoglobin 12.2 g/dL (14.0-18.0); Mean Corpuscular HGB Conc 33 g/dL (31-36); Mean Corpuscular Hemoglobin 26 pg (27-31); Mean Corpuscular Volume 80 fL (80-94); Nucleated Red Blood Cells % 0.1; Platelet Count 207 10^3/uL (150-450); Red Blood Count 4.69 10^6 /uL (4.18-5.48); Red Cell Distribution Width 16 % (10-15)
[2019-02-02 06:03] LABS: INR 2.04 (0.82-1.09)
[2019-02-02 06:30] LABS: BUN/Creatinine Ratio 36.2 (8-20); Calcium 9.3 mg/dL (8.6-10.3); EGFR African American 44.8 (>60); Potassium 4.5 mmol/L (3.5-5.0)
--- NOTE | 2019-02-02 07:14 | PN ---
Subjective Date of Service: 02/02/19 Interval History: Hd 4 on 02/02 Transferred from ICU on 02/01 On overnight pulse oximetry had desaturation event No acute overnight events VS stable; bradycardic LAbs- creatinine 1.85; co2-38 CXR- Cardiomegaly with pulmonary edema No complaint at present. Concerned about grande's; wants to have it removed has mild right knee pain- no swelling, redness On 2.5 L of oxygen On overnigth pulse oximetry had desaturation event Objective Active Medications: Acetaminophen (Tylenol Tab*) 650 mg PO Q4H PRN PRN Reason: PAIN - MILD Last Admin: 02/01/19 15:03 Dose: 650 mg Albuterol (Ventolin 2.5 Mg/3 Ml Neb.Mariah*) 2.5 mg INH [id number] AWAKE PRN PRN Reason: sob/wheezing Amiodarone HCl (Cordarone Tab*) 400 mg PO BID [facility] Stop: 02/07/19 21:01 Last Admin: 02/01/19 19:29 Dose: 400 mg Atorvastatin Calcium (Lipitor*) 10 mg PO 2100 [facility] Last Admin: 02/01/19 19:30 Dose: 10 mg Bumetanide (Bumex*) 1 mg SLOW PUSH BID [facility] Last Admin: 02/01/19 19:30 Dose: 1 mg Dextrose (Dextrose 50% Vial 50 Ml*) 25 ml IV PUSH .FOR FS < 60 - SS PRN PRN Reason: FS < 60 Last Admin: 01/30/19 23:24 Dose: 25 ml Docusate Sodium (Colace Cap*) 100 mg PO BID [facility] Last Admin: 02/01/19 19:31 Dose: 100 mg Ferrous Sulfate (Ferrous Sulfate Tab*) 325 mg PO 1200 [facility] Last Admin: 02/01/19 12:19 Dose: 325 mg Insulin Human Lispro (Humalog*) 0 units SUBCUT ACHS [facility]; Protocol Last Admin: 02/01/19 19:54 Dose: 12 units Magnesium Hydroxide (Milk Of Magnesia Liq*) 30 ml PO BID PRN PRN Reason: CONSTIPATION Last Admin: 02/01/19 15:04 Dose: 30 ml Magnesium Oxide (Magox 400 Tab*) 400 mg PO DAILY [facility] Last Admin: 02/01/19 09:38 Dose: 400 mg Metoprolol Succinate (Toprol Xl Tab*) 25 mg PO BID [facility] Last Admin: 02/01/19 19:33 Dose: 25 mg Warfarin Sodium (Coumadin Tab(*)) 2 mg PO QPM [facility] Last Admin: 02/01/19 18:28 Dose: 2 mg Vital Signs - 8 hr 02/02/19 02/02/19 00:00 04:00 Temperature 97.7 F 97.8 F Pulse Rate 62 52 Respiratory 17 16 Rate Blood Pressure 135/73 138/67 (mmHg) O2 Sat by Pulse 89 97 Oximetry Oxygen Devices in Use Now: None, Nasal Cannula Exam: Patient is sitting on a chair with nasal canula wiht no acute distress. HEENT: Normocephalic and atramatic Lungs: Decreased breath sound Heart: S1/S2 heard with no murmur Abdomen: Sst, distended and nontender. NOrmal BS heard Extremitites: Chronic venous stasis changes Neuro: Alert, oriented and conscious. Result Diagrams: 02/02/19 05:39 02/02/19 05:39 Additional Lab and Data: Laboratory Tests 02/01/19 02/01/19 02:58 02:58 INR (Anticoag Therapy) 2.55 H Magnesium 1.7 L Digoxin 1.5 Microbiology and Other Data: Microbiology 01/30/19 21:28 Nasal Nasal Screen MRSA (PCR) - Final Mrsa Not Detected 01/30/19 16:55 Urine Urine Culture - Final No Growth (<1,000 CFU/mL) 01/30/19 14:41 Blood Venous Aerobic Blood Culture - Preliminary 01/30/19 14:41 Blood Venous Anaerobic Blood Culture - Preliminary No Growth Day 1 No Growth Day 1 01/30/19 14:32 Blood Venous Aerobic Blood Culture - Preliminary 01/30/19 14:32 Blood Venous Anaerobic Blood Culture - Preliminary No Growth Day 1 No Growth Day 1 EKG Data: NSR, with frequent PVCs on monitor Assess/Plan/Problems-Billing Assessment: 63 year old with history of HFrEF, AF(on metoprolol and warfarin), HTN, DM, PVD , GERD, Gout and recent admission for pneumonia HFrEF, admitted with CHF exacerbation, atrial flutter, acute kidney injury. s/p cardioversion(01/31) - Patient Problems (1) Heart failure with reduced ejection fraction Current Visit: No Status: Acute Code(s): I50.20 - UNSPECIFIED SYSTOLIC ( CONGESTIVE) HEART FAILURE SNOMED Code(s): 574353175 Comment: - Acute on Chronic Heart failure - last echo on 01/18 shows Ef of 35-40% - On metoprolol and bumetanide - has T wave changes in today ECG; could be demand form LV strain - Cardio following -Echo pending (2) Acute respiratory failure with hypoxia Current Visit: Yes Status: Acute Priority: High Code(s): J96.01 - ACUTE RESPIRATORY FAILURE WITH HYPOXIA SNOMED Code(s): 60529000 Comment: -Improving -On 2.5 L of oxygen - we will check his blood gs tomorrow (3) Atrial flutter with rapid ventricular response Current Visit: Yes Status: Acute Priority: High Code(s): I48.92 - UNSPECIFIED ATRIAL FLUTTER SNOMED Code(s): 2643439 Comment: -S/P cardioversion on 01/31 -rate controlled by metoprolol -rhythm control- amiodarone 200 mg BID -Embolism control- warfarin 2 mg; INR is 2.04; goal INR 2-3 (4) EMELY (acute kidney injury) Current Visit: No Status: Acute Priority: Medium Code(s): N17.9 - ACUTE KIDNEY FAILURE, UNSPECIFIED SNOMED Code(s): 78094906 Comment: - Creatinine dropping downn to 1.85 -most likely cardiorenal - on PO bumex now -will monitor bmp tomorrow -nephro following (5) Type 2 diabetes mellitus Current Visit: Yes Status: Acute Priority: Medium Comment: -Metformin and sulfonurea on hold due to ARF -Blood sugars low-normal, has sliding scale if needed (6) Anemia Current Visit: Yes Status: Acute Code(s): D64.9 - ANEMIA, UNSPECIFIED SNOMED Code(s): 410277457 Comment: -Hb 12.2 which is his baseline -on ferrous gluconate tab (7) DVT prophylaxis Current Visit: No Status: Acute Priority: Low Code(s): CJU2482 - SNOMED Code(s): 953726219 Comment: - Therapeutic on warfarin (8) Full code status Current Visit: No Status: Acute Code(s): Z78.9 - OTHER SPECIFIED HEALTH STATUS SNOMED Code(s): 642798247 Comment: Status and Disposition: inpatient; cardio following from aby Attending: Qasim Rogel Attestation Documenting Resident: Manuel Guy Supervising Physician: Pop Rogel Attestation: This service has been performed in part by a resident under the direction of a teaching physician.I, Pop Rogel, performed the service, or was physically present during the critical, or rehman portions of the service, furnished by the resident. I participated in the management of the patient.
[2019-02-02] MEDS: Magnesium Oxide TAB* 400 MG PO SCH (08:33)
[2019-02-02] MEDS: Metoprolol Succinate XL TAB* 25 MG PO SCH ×2 (08:33→22:10)
[2019-02-02] MEDS: Bumetanide IV* 0.25 MG/ML 4 ML VIAL SLOW PUSH SCH (08:33)
[2019-02-02] MEDS: Amiodarone TAB* 400 MG PO SCH (08:33)
[2019-02-02] MEDS: Docusate CAP* 100 MG PO SCH ×2 (08:33→22:10)
[2019-02-02] MEDS: Insulin LISPRO* 1 UNITS UNIT SUBCUT SCH ×4 (08:34→22:18)
--- NOTE | 2019-02-02 09:45 | PN ---
<Dahlia Villarreal - Last Filed: 02/02/19 09:38> Subjective Date of Service: 02/02/19 - Decompensated SHF, LBBB, Afib/flutter s/p CV Interval History: no events last night. Patient OOB to chair. NAD, states he is still having some orthopnea but states breathing is fine. No c/o chest pain, palpitations, sensation of heart racing. He is asking when grande cath can be discontinued. Medications Active Medications: Acetaminophen (Tylenol Tab*) 650 mg PO Q4H PRN PRN Reason: PAIN - MILD Last Admin: 02/01/19 15:03 Dose: 650 mg Albuterol (Ventolin 2.5 Mg/3 Ml Neb.Mariah*) 2.5 mg INH [id number] AWAKE PRN PRN Reason: sob/wheezing Amiodarone HCl (Cordarone Tab*) 400 mg PO BID [facility] Stop: 02/07/19 21:01 Last Admin: 02/02/19 08:33 Dose: 400 mg Atorvastatin Calcium (Lipitor*) 10 mg PO 2100 [facility] Last Admin: 02/01/19 19:30 Dose: 10 mg Bumetanide (Bumex*) 1 mg SLOW PUSH BID [facility] Last Admin: 02/02/19 08:33 Dose: 1 mg Dextrose (Dextrose 50% Vial 50 Ml*) 25 ml IV PUSH .FOR FS < 60 - SS PRN PRN Reason: FS < 60 Last Admin: 01/30/19 23:24 Dose: 25 ml Docusate Sodium (Colace Cap*) 100 mg PO BID [facility] Last Admin: 02/02/19 08:33 Dose: 100 mg Ferrous Sulfate (Ferrous Sulfate Tab*) 325 mg PO 1200 [facility] Last Admin: 02/01/19 12:19 Dose: 325 mg Insulin Human Lispro (Humalog*) 0 units SUBCUT ACHS [facility]; Protocol Last Admin: 02/02/19 08:34 Dose: 3 units Magnesium Hydroxide (Milk Of Magnesia Liq*) 30 ml PO BID PRN PRN Reason: CONSTIPATION Last Admin: 02/01/19 15:04 Dose: 30 ml Magnesium Oxide (Magox 400 Tab*) 400 mg PO DAILY [facility] Last Admin: 02/02/19 08:33 Dose: 400 mg Metoprolol Succinate (Toprol Xl Tab*) 25 mg PO BID [facility] Last Admin: 02/02/19 08:33 Dose: 25 mg Warfarin Sodium (Coumadin Tab(*)) 2 mg PO QPM [facility] Last Admin: 02/01/19 18:28 Dose: 2 mg Objective Vital Signs: Temp Pulse Resp BP Pulse Ox 98.1 F 57 20 136/60 99 02/02/19 08:00 02/02/19 08:00 02/02/19 08:00 02/02/19 08:00 02/02/19 08:00 Oxygen Devices in Use Now: Nasal Cannula Appearance: short obese male seated in chair. + SOB although he denies. A+O x3, cooperative with exam. Eyes: PERRLA Ears/Nose/Mouth/Throat: Clear Oropharnyx Neck: Trachea Midline Respiratory: Symmetrical Chest Expansion and Respiratory Effort - Diminished BS bases bilaterally, right worse than left. Cardiovascular: RRR - , occasional extrasystoles and no murmurs heard, distant. Abdominal: - - marked centripetal obesity, normal bowel sounds, rotund but distensible. Extremities: - - freckling of legs to knees. mild edema. Skin: - - no cyanosis. Neurological: Alert and Oriented x 3 Lines/Tubes/Other Access: Clean, Dry and Intact Grande, Clean, Dry and Intact Peripheral IV Laboratory Results: 02/02/19 05:39 02/02/19 05:39 INR (Anticoag Therapy) 2.04 (0.82-1.09) H 02/02/19 05:39 APTT 39.5 seconds (26.0-38.0) H 01/30/19 14:32 Total Bilirubin 0.40 mg/dL (0.2-1.0) 01/31/19 04:32 AST 142 U/L (13-39) H 01/31/19 04:32 ALT 280 U/L (7-52) H 01/31/19 04:32 Alkaline Phosphatase 60 U/L (34-104) 01/31/19 04:32 B-Natriuretic Peptide 1020 pg/mL (<=100) H 01/30/19 14:41 Total Protein 7.0 g/dL (6.4-8.9) 01/31/19 04:32 Albumin 3.3 g/dL (3.2-5.2) 01/31/19 04:32 Globulin 3.7 g/dL (2-4) 01/31/19 04:32 Albumin/Globulin Ratio 0.9 (1-3) L 01/31/19 04:32 01/30/19 01/30/19 01/30/19 14:32 17:00 21:28 Troponin I 0.16 H* 0.17 H* 0.15 H* 01/30/19 23:21 Troponin I 0.13 H* Laboratory Results - last 24 hr 02/01/19 02/01/19 02/01/19 09:49 11:29 16:53 WBC RBC Hgb Hct MCV MCH MCHC RDW Plt Count MPV Neut % (Auto) Lymph % (Auto) [place] % (Auto) Eos % (Auto) Baso % (Auto) Absolute Neuts (auto) Absolute Lymphs (auto) Absolute Monos (auto) Absolute Eos (auto) Absolute Basos (auto) Absolute Nucleated RBC Nucleated RBC % INR (Anticoag Therapy) VBG pH 7.34 VBG pCO2 56 H VBG pO2 TNP VBG HCO3 26.1 VBG O2 Saturation 52.6 L VBG Base Excess 3.1 Sodium Potassium Chloride Carbon Dioxide Anion Gap BUN Creatinine Est GFR ( Amer) Est GFR (Non-Af Amer) BUN/Creatinine Ratio Glucose POC Glucose (mg/dL) 179 H 141 H Calcium Magnesium 02/01/19 02/01/19 02/02/19 19:27 19:57 05:39 WBC 7.0 RBC 4.69 Hgb 12.2 L Hct 37 L MCV 80 MCH 26 L MCHC 33 RDW 16 H Plt Count 207 MPV 8.0 Neut % (Auto) 79.0 Lymph % (Auto) 11.0 [place] % (Auto) 8.6 Eos % (Auto) 1.0 Baso % (Auto) 0.4 Absolute Neuts (auto) 5.6 Absolute Lymphs (auto) 0.8 L Absolute Monos (auto) 0.6 Absolute Eos (auto) 0.1 Absolute Basos (auto) 0.0 Absolute Nucleated RBC 0.0 Nucleated RBC % 0.1 INR (Anticoag Therapy) VBG pH VBG pCO2 VBG pO2 VBG HCO3 VBG O2 Saturation VBG Base Excess Sodium Potassium Chloride Carbon Dioxide Anion Gap BUN Creatinine Est GFR ( Amer) Est GFR (Non-Af Amer) BUN/Creatinine Ratio Glucose POC Glucose (mg/dL) 316 H 292 H Calcium Magnesium 02/02/19 02/02/19 02/02/19 05:39 05:39 07:22 WBC RBC Hgb Hct MCV MCH MCHC RDW Plt Count MPV Neut % (Auto) Lymph % (Auto) [place] % (Auto) Eos % (Auto) Baso % (Auto) Absolute Neuts (auto) Absolute Lymphs (auto) Absolute Monos (auto) Absolute Eos (auto) Absolute Basos (auto) Absolute Nucleated RBC Nucleated RBC % INR (Anticoag Therapy) 2.04 H VBG pH VBG pCO2 VBG pO2 VBG HCO3 VBG O2 Saturation VBG Base Excess Sodium 138 Potassium 4.5 Chloride 93 L Carbon Dioxide 38 H Anion Gap 7 BUN 67 H Creatinine 1.85 H Est GFR ( Amer) 44.8 Est GFR (Non-Af Amer) 37.0 BUN/Creatinine Ratio 36.2 H Glucose 141 H POC Glucose (mg/dL) 153 H Calcium 9.3 Magnesium 2.0 Diagnostic Imaging: *[facility]* [place] [address] Fax #: [phone] Transthoracic Echocardiogram Patient: Cesar De La Cruz : 1955 Study Date: 01/18/2019 Summary: - Left ventricle: The cavity size is normal. Wall thickness is moderately increased. Systolic function is mildly to moderately reduced. The estimated ejection fraction is 35-40%. There is interventricular dyssynchrony c/w patients LBBB. - Right ventricle: Systolic function is low normal. - Tricuspid valve: There is trace to mild regurgitation. - Aorta: The ascending aorta internal dimension in the A-P direction, maximal systolic dimension is 3.5 cm. - Ascending aorta: The ascending aorta is mildly dilated. - Pulmonary arteries: Systolic pressure is within the normal range. The peak pressure during systole by Doppler is 24.0 mm Hg. - Compared with the patient's prior transesophageal echocardiogram of 04/04/17EF previously 30-35%, aortic, mitral and tricuspid valve function not significantly changed. Pulmonary regurgitation is new. Aorta dilatation of the arch is new. EKG Data: Monitor: NSR, frequent PAC's and PVC's. ECG 02/02/2019; reviewed. Assessment/Plan #1 h/o NICM with normalization of LVEF. Now with SHF LVEF 35-40% based on 2018 echo in the setting of recurrent AF with pneumonia. He is s/p CV 2018. Currently undergoing Amio load. He is in NSR and tolerating treatment. QTc on today's ECG is stable. given he is on medications that have the potential for QTc prolongation recommend keeping K+>4, Mag>2. In the past he was on Lasix 60mg/day. He appears stable. Will restart PO diuretic ( Bumex 2mg/ day) to maintain euvolemic status. Given known mild hypertrophic CM would avoid volume contraction. He is on Toprol therapy. Given EMELY ACEI/ARB/Entresto and Aldactone were not started. Can consider trial outpatient once renal function normalizes. In the past he was on Lisinopril 5mg/day. consideration for SLGT2I should be considered as well GFR is 37 which may be limiting factor. I suggest he follows up with PCP to discuss this option. he has an appt with primary paradi tender Dr. Guajardo on 03/01/2019. Recommend Na+ and fluid restricted diet. today's ECG shows new TW inversion in anterior leads comparable to yesterday's however, upon serial review of prior ECG it does not appear he has had this pattern. ? LV strain from LVH? will d/w Dr. Belcher. Trop peaked 02/02 at. 17. #2 EMELY; baseline creat .9-1 a year ago. Creat has been > 1.6 since 12/2018 however, he has been ill. Nephrology following ? ATN versus cardiorenal syndrome. creat improving. #3 black puller OAC; On coumadin due to h/o PAF/Flutter. goal INR 2-3. Denies bleeding events. #4 h/o PAF/Flutter with ? tachy mediated CM; Currently in NSR s/p CV on 2018. tolerating Amio load. QTc stable. #5 Disposition pending course. Will /speak with Dr. Belcher about ECG changes. in 04/2017 he had normal cors on C. Troponinemia likely due to AF with RVR 118. Will update echo re evaluate wall motion and LVOT gradient. Attending: Jose Belcher <Jose Belcher - Last Filed: 02/02/19 11:48> Medications Active Medications: Acetaminophen (Tylenol Tab*) 650 mg PO Q4H PRN PRN Reason: PAIN - MILD Last Admin: 02/01/19 15:03 Dose: 650 mg Albuterol (Ventolin 2.5 Mg/3 Ml Neb.Mariah*) 2.5 mg INH [id number] AWAKE PRN PRN Reason: sob/wheezing Amiodarone HCl (Cordarone Tab*) 400 mg PO DAILY [facility] Stop: 02/13/19 09:01 Atorvastatin Calcium (Lipitor*) 10 mg PO 2100 [facility] Last Admin: 02/01/19 19:30 Dose: 10 mg Bumetanide (Bumex Tab*) 2 mg PO DAILY [facility] Dextrose (Dextrose 50% Vial 50 Ml*) 25 ml IV PUSH .FOR FS < 60 - SS PRN PRN Reason: FS < 60 Last Admin: 01/30/19 23:24 Dose: 25 ml Docusate Sodium (Colace Cap*) 100 mg PO BID [facility] Last Admin: 02/02/19 08:33 Dose: 100 mg Ferrous Sulfate (Ferrous Sulfate Tab*) 325 mg PO 1200 [facility] Last Admin: 02/02/19 11:39 Dose: 325 mg Insulin Human Lispro (Humalog*) 0 units SUBCUT [facility]; Protocol Last Admin: 02/02/19 11:39 Dose: 6 units Magnesium Hydroxide (Milk Of Magnesia Liq*) 30 ml PO BID PRN PRN Reason: CONSTIPATION Last Admin: 02/01/19 15:04 Dose: 30 ml Magnesium Oxide (Magox 400 Tab*) 400 mg PO DAILY [facility] Last Admin: 02/02/19 08:33 Dose: 400 mg Metoprolol Succinate (Toprol Xl Tab*) 25 mg PO BID [facility] Last Admin: 02/02/19 08:33 Dose: 25 mg Warfarin Sodium (Coumadin Tab(*)) 2 mg PO QPM [facility] Last Admin: 02/01/19 18:28 Dose: 2 mg Objective Vital Signs: Temp Pulse Resp BP Pulse Ox 98.1 F 57 20 136/60 99 02/02/19 08:00 02/02/19 08:00 02/02/19 08:00 02/02/19 08:00 02/02/19 08:00 Laboratory Results: 02/02/19 05:39 02/02/19 05:39 INR (Anticoag Therapy) 2.04 (0.82-1.09) H 02/02/19 05:39 APTT 39.5 seconds (26.0-38.0) H 01/30/19 14:32 Total Bilirubin 0.40 mg/dL (0.2-1.0) 01/31/19 04:32 AST 142 U/L (13-39) H 01/31/19 04:32 ALT 280 U/L (7-52) H 01/31/19 04:32 Alkaline Phosphatase 60 U/L (34-104) 01/31/19 04:32 B-Natriuretic Peptide 1020 pg/mL (<=100) H 01/30/19 14:41 Total Protein 7.0 g/dL (6.4-8.9) 01/31/19 04:32 Albumin 3.3 g/dL (3.2-5.2) 01/31/19 04:32 Globulin 3.7 g/dL (2-4) 01/31/19 04:32 Albumin/Globulin Ratio 0.9 (1-3) L 01/31/19 04:32 01/30/19 01/30/19 01/30/19 14:32 17:00 21:28 Troponin I 0.16 H* 0.17 H* 0.15 H* 01/30/19 23:21 Troponin I 0.13 H* Assessment/Plan Discussed with Dr Rogel, Ms. [facility] and patient. Patient examined. Improving after cardioversion and diuresis. Ekg changes as above may be related recent tachycarrhythmias, intermittent IVCD , and underlying HOCM. Recent troponin elevations suspected to be related to tachycardia in the setting of CHF and HCM. Will continue amiodarone and advance activity as tolerated. ECho to reassess EF. Consider evaluation for sleep apnea as outpatient. MD Delaney 10.17.19 11;46 am. more than 50% of the 25+ minutes spent in consultation and coordination of care.
[2019-02-02] MEDS: Ferrous Sulfate TAB* 325 MG PO SCH (11:39)
--- NOTE | 2019-02-02 12:57 | CONSULT ---
Consult Consult: Patient has a nondisplaced left patellar fracture roughly 5 weeks old, he has been following with Dr Mccabe outpatient and we were asked to see him today as he may miss his outpatient followup. Today he has no complaints of left knee pain. He was having an echo today, so he was seen only briefly to ensure no complaints. Left knee in immobilizer. F/E at the ankle and MTPs intact. DP2+. Sensation intact to light touch distally. Xrays reviewed, patella fracture not visualized on xray Discussed patient with Dr Mccabe, due for follow up 02/06. If patient is still in house okay to reschedule follow up otherwise attend 02/06 appt. Consistent with last appt instruction please continue WBAT with knee locked in extension in immobilizer. Continue straight leg raises, ROM of ankle and toes. No change in knee ROM which is 0-20 degrees until office follow up which is scheduled 02/06.
[2019-02-02] MEDS ORDERED: Perflutren Lipid Microsphere* 3 ML VIAL ONE (15:18)
[2019-02-02] MEDS: Warfarin TAB(*) 2 MG PO SCH (16:59)
--- NOTE | 2019-02-02 19:12 | ECHO ---
*[facility]* [place] [address] Fax #: [phone] Transthoracic Echocardiogram Patient: Cesar De La Cruz : 1955 Study Date: 02/02/2019 Age: 63 Gender: M HR: 63 bpm Height: 69 in /175.3 cm BSA: 2.26 m^2 Weight: 247.5 lb /112.5 kg BMI: 36.6 kg/m^2 *Supervisor Partial Denture Department: * Shiloh Dumont RDCS RN *Referring Physician: * Dahlia Villarreal *Reading Physician: * Jose Belcher MD Indications: Abnormal EKG. History: Atrial fibrillation. Congestive heart failure. Risk factors: Former tobacco use. Diabetes mellitus. Morbidly obese. Conclusions Summary: - Left ventricle: Systolic function is mildly reduced. The estimated ejection fraction is 40-45%. Systolic function is improved from the study of 01/18/2018 when it was 34-40%. Hypokinesis of the mid-apicalanteroseptal myocardium. Doppler parameters are consistent with abnormal left ventricular relaxation (grade 1 diastolic dysfunction). - Regional wall motion abnormality: Moderate hypokinesis of the mid anteroseptal, mid inferoseptal, apical septal, and apical myocardium. - Ventricular septum: The interventricular septum appears dyssynchronous related to LBBB. - Left atrium: The atrium is mildly to moderately dilated. - Right atrium: The atrium is mildly to moderately dilated. - Mitral valve: There is mild regurgitation. - Aortic valve: The annulus is calcified. The valve is trileaflet. The leaflets are mildly thickened. - Tricuspid valve: There is trace to mild regurgitation. - Aortic root: The aortic root is mildly dilated. - Ascending aorta: The ascending aorta is mildly dilated. Study data: Transthoracic echocardiogram. Procedure: Transthoracic echocardiography was performed. Image quality was adequate. The study was technically limited due to body habitus and Smoking history. Intravenous Definity 4 ml was administered to enhance imaging. Complete 2D, spectral Doppler, and color flow Doppler. Location: Bedside. Patient status: Inpatient. Patient room number: 435. The previous study was not available, so comparison is made to the report of 01/18/2018. Rhythm: Normal sinus rhythm with PVCs and PACs. Findings Left ventricle: The cavity size is trivially reduced. Wall thickness is moderately increased. Systolic function is mildly reduced. The estimated ejection fraction is 40-45%. Systolic function is improved from the study of 01/18/2018 when it was 34-40%. Regional wall motion abnormalities: Hypokinesis of the mid-apicalanteroseptal myocardium. Moderate hypokinesis of the mid anteroseptal, mid inferoseptal, apical septal, and apical myocardium. Doppler parameters are consistent with abnormal left ventricular relaxation (grade 1 diastolic dysfunction). Right ventricle: The cavity size is mildly dilated. Systolic function is mildly reduced. Ventricular septum: The interventricular septum appears dyssynchronous related to LBBB. The outflow septum has a sigmoid appearance. Left atrium: The atrium is mildly to moderately dilated. Right atrium: The atrium is mildly to moderately dilated. Mitral valve: The Mitral valve annulus appears calcified. The leaflets are mildly thickened. There is no evidence of stenosis. There is mild regurgitation. Aortic valve: The annulus is calcified. The valve is trileaflet. The leaflets are mildly thickened. There is no evidence of stenosis. There is no regurgitation. Tricuspid valve: The leaflets are normal thickness. There is no evidence of stenosis. There is trace to mild regurgitation. Pulmonic valve: The leaflets are normal thickness. There is no evidence of stenosis. There is mild regurgitation. Aorta: Aortic root: The aortic root is mildly dilated. Ascending aorta: The ascending aorta is mildly dilated. Aortic arch: The aortic arch is not visualized. Pericardium: A prominent pericardial fat pad is present. There is no pericardial effusion. Pulmonary arteries: The main pulmonary artery is normal-sized. Systolic pressure is within the normal range. Systemic veins: Inferior vena cava: The vessel is normal in size. There is (>= 50%) respiratory change in the IVC dimension. Measurements Left ventricle Value Ref Aortic valve Value Ref VINCENZO, LAX (L) 4.1 cm 4.2 - 5.8 Parish diam, ED 2.4 cm ---- ESD, LAX 3.0 cm 2.5 - 4.0 Peak v, S 1.65 m/sec ---- FS, LAX 27 % 25 - 43 VTI, S 30.4 cm ---- PW, ED (H) 1.3 cm 0.6 - 1.0 Mean grad, S 7.0 mm Hg ---- IVS/PW, ED 1.27 Peak grad, S 11.0 mm Hg ---- E', med parish, TDI 8.8 cm/sec >=7.0 LVOT/AV, VTI ratio 0.89 --- - E/e', med parish, 9 TDI Mitral valve Value Ref Peak E 0.78 m/sec ---- LVOT Value Ref Peak A 0.69 m/sec ---- Peak tomas, S 1.37 m/sec Decel time 324 ms ---- VTI, S 27.2 cm Peak grad, D 2.4 mm Hg ---- Peak grad, S 8 mm Hg Peak E/A ratio 1.1 ---- Mean grad, S 4 mm Hg Pulmonic valve Value Ref Ventricular septum Value Ref Peak v, S 1.35 m/sec ---- IVS, ED (H) 1.6 cm 0.6 - 1.0 Peak grad, S 7.0 mm Hg ---- Right ventricle Value Ref Tricuspid valve Value Ref VINCENZO, LAX 3.7 cm Peak RV-RA grad, S 25 mm Hg ---- VINCENZO minor ax, A4C (H) 4.9 cm 1.9 - 3.5 Max TR tomas 2.5 m/sec ---- mid Pressure, S 28 mm Hg Aortic root Value Ref Root diam 3.7 cm <4.3 Left atrium Value Ref AP dim, ES (H) 4.10 cm 3.00 - Ascending aorta Value Ref 4.00 AAo AP diam, S 3.5 cm ---- ML dim, A4C 4.8 cm SI dim, A4C 5.4 cm Pulmonary artery Value Ref Vol/bsa, ES, 1-p (H) 40 ml/m^2 12 - 37 Pressure, S 28.0 mm Hg ---- A4C Vol/bsa, ES, A/L (H) 45 ml/m^2 16 - 34 Inferior vena cava Value Ref Diam 1.1 cm ---- Right atrium Value Ref ML dim, ES, A4C (H) 5.2 cm 2.6 - 4.4 SI dim, ES, A4C (H) 5.7 cm 3.4 - 5.3 Estimated RAP 3 mm Hg Legend: (L) and (H) guerita values outside specified reference range. Prepared and electronically signed by Jose Belcher MD 02/02/2019 19:11
[2019-02-02] MEDS: Atorvastatin* 10 MG TAB PO SCH (22:10)
[2019-02-03 04:35] LABS: ABS Eosinophils 0.1 10^3/ul (0-0.6); ABS Lymphocytes 0.9 10^3/ul (1.0-4.8); ABS Monocytes 0.5 10^3/ul (0-0.8); Eosinophil % 1.9 %; Hematocrit 37 % (42-52); Lymphocyte % 15.6 %; Mean Corpuscular HGB Conc 32 g/dL (31-36); Mean Corpuscular Hemoglobin 26 pg (27-31); Mean Corpuscular Volume 81 fL (80-94); Mean Platelet Volume 7.4 fL (7.4-10.4); Platelet Count 207 10^3/uL (150-450); Red Blood Count 4.64 10^6 /uL (4.18-5.48); Red Cell Distribution Width 16 % (10-15); White Blood Count 5.5 10^3/uL (3.5-10.8)
[2019-02-03 04:48] LABS: BUN/Creatinine Ratio 37.7 (8-20); Calcium 9.4 mg/dL (8.6-10.3); EGFR African American 55.3 (>60); EGFR Non-African American 45.7 (>60); Magnesium 2.2 mg/dL (1.9-2.7); Potassium 4.3 mmol/L (3.5-5.0)
--- NOTE | 2019-02-03 06:53 | PN ---
Subjective Date of Service: 02/03/19 Interval History: Hd 4 on 02/02 Transferred from ICU on 02/01 No acute overnight events; refused CPAP VS stable No compliant at present No chest pain, SOB uses on and off oxygen at [facility] Objective Active Medications: Acetaminophen (Tylenol Tab*) 650 mg PO Q4H PRN PRN Reason: PAIN - MILD Last Admin: 02/01/19 15:03 Dose: 650 mg Albuterol (Ventolin 2.5 Mg/3 Ml Neb.Mariah*) 2.5 mg INH [id number] AWAKE PRN PRN Reason: sob/wheezing Amiodarone HCl (Cordarone Tab*) 400 mg PO DAILY [facility] Stop: 02/13/19 09:01 Atorvastatin Calcium (Lipitor*) 10 mg PO 2100 [facility] Last Admin: 02/02/19 22:10 Dose: 10 mg Bumetanide (Bumex Tab*) 2 mg PO DAILY [facility] Dextrose (Dextrose 50% Vial 50 Ml*) 25 ml IV PUSH .FOR FS < 60 - SS PRN PRN Reason: FS < 60 Last Admin: 01/30/19 23:24 Dose: 25 ml Docusate Sodium (Colace Cap*) 100 mg PO BID [facility] Last Admin: 02/02/19 22:10 Dose: 100 mg Ferrous Sulfate (Ferrous Sulfate Tab*) 325 mg PO 1200 [facility] Last Admin: 02/02/19 11:39 Dose: 325 mg Insulin Human Lispro (Humalog*) 0 units SUBCUT ACHS [facility]; Protocol Last Admin: 02/02/19 22:18 Dose: 6 units Magnesium Hydroxide (Milk Of Magnesia Liq*) 30 ml PO BID PRN PRN Reason: CONSTIPATION Last Admin: 02/01/19 15:04 Dose: 30 ml Magnesium Oxide (Magox 400 Tab*) 400 mg PO DAILY [facility] Last Admin: 02/02/19 08:33 Dose: 400 mg Metoprolol Succinate (Toprol Xl Tab*) 25 mg PO BID [facility] Last Admin: 02/02/19 22:10 Dose: 25 mg Warfarin Sodium (Coumadin Tab(*)) 2 mg PO QPM [facility] Last Admin: 02/02/19 16:59 Dose: 2 mg Vital Signs - 8 hr 02/02/19 02/03/19 23:15 03:09 Temperature 98.2 F 97.8 F Pulse Rate 57 61 Respiratory 18 16 Rate Blood Pressure 151/75 155/65 (mmHg) O2 Sat by Pulse 100 100 Oximetry Oxygen Devices in Use Now: Nasal Cannula Exam: Patient is sitting on a chair with nasal canula wiht no acute distress. HEENT: Normocephalic and atramatic Lungs: Decreased breath sound Heart: S1/S2 heard with no murmur Abdomen: Soft, distended and nontender. NOrmal BS heard Extremities: Chronic venous stasis changes Neuro: Alert, oriented and conscious. Result Diagrams: 02/03/19 04:24 02/03/19 04:24 Additional Lab and Data: Laboratory Tests 02/01/19 02/01/19 02:58 02:58 INR (Anticoag Therapy) 2.55 H Magnesium 1.7 L Digoxin 1.5 Microbiology and Other Data: Microbiology 01/30/19 21:28 Nasal Nasal Screen MRSA (PCR) - Final Mrsa Not Detected 01/30/19 16:55 Urine Urine Culture - Final No Growth (<1,000 CFU/mL) 01/30/19 14:41 Blood Venous Aerobic Blood Culture - Preliminary 01/30/19 14:41 Blood Venous Anaerobic Blood Culture - Preliminary No Growth Day 1 No Growth Day 1 01/30/19 14:32 Blood Venous Aerobic Blood Culture - Preliminary 01/30/19 14:32 Blood Venous Anaerobic Blood Culture - Preliminary No Growth Day 1 No Growth Day 1 EKG Data: NSR, with frequent PVCs on monitor Assess/Plan/Problems-Billing Assessment: 63 year old with history of HFrEF, AF(on metoprolol and warfarin), HTN, DM, PVD , GERD, Gout and recent admission for pneumonia HFrEF, admitted with CHF exacerbation, atrial flutter, acute kidney injury. s/p cardioversion(01/31) - Patient Problems (1) Heart failure with reduced ejection fraction Status: Acute Code(s): I50.20 - UNSPECIFIED SYSTOLIC (CONGESTIVE) HEART FAILURE SNOMED Code(s): 723759095 Comment: - Acute on Chronic Heart failure - last echo on 01/18 shows Ef of 35-40% - On metoprolol and bumetanide - has T wave changes in today ECG; could be demand form LV strain - Cardio following -Echo done- Ef of 40-45% with grade 1 diatolic dysfxn. hypokinesis of mid- apicalanteroseptal myocardium -discussed with Dr. Belcher-okay to dc (2) Acute respiratory failure with hypoxia Status: Acute Priority: High Code(s): J96.01 - ACUTE RESPIRATORY FAILURE WITH HYPOXIA SNOMED Code(s): 32300179 Comment: -Improving -On 2.5 L of oxygen -blood gas shows elevated co2 -could be because of TONI or contraction alkalosis -dec bumex to every other day -outpt f/u with dr. castro (3) Atrial flutter with rapid ventricular response Status: Acute Priority: High Code(s): I48.92 - UNSPECIFIED ATRIAL FLUTTER SNOMED Code(s): 3747118 Comment: -S/P cardioversion on 01/31 -rate controlled by metoprolol -rhythm control- amiodarone 200 mg OD -Embolism control- warfarin 2 mg; INR is 2.04; goal INR 2-3 (4) EMELY (acute kidney injury) Status: Acute Priority: Medium Code(s): N17.9 - ACUTE KIDNEY FAILURE, UNSPECIFIED SNOMED Code(s): 87038573 Comment: - Creatinine dropping downn to 1.85 -most likely cardiorenal - on PO bumex now (5) Type 2 diabetes mellitus Status: Acute Priority: Medium Comment: -Metformin and sulfonurea on hold due to ARF -Blood sugars low-normal, has sliding scale if needed (6) Anemia Status: Acute Code(s): D64.9 - ANEMIA, UNSPECIFIED SNOMED Code(s): 201372925 Comment: -Hb 12.2 which is his baseline -on ferrous gluconate tab (7) DVT prophylaxis Status: Acute Priority: Low Code(s): NNM8458 - SNOMED Code(s): 365857581 Comment: - Therapeutic on warfarin (8) Full code status Status: Acute Code(s): Z78.9 - OTHER SPECIFIED HEALTH STATUS SNOMED Code(s) : 028165643 Comment: Status and Disposition: inpatient; cardio following from [facility] Attending: Qasim Rogel Attestation Documenting Resident: Manuel Guy Supervising Physician: Pop Rogel Attestation: This service has been performed in part by a resident under the direction of a teaching physician.I, Pop Rogel, performed the service, or was physically present during the critical, or rehman portions of the service, furnished by the resident. I participated in the management of the patient.
[2019-02-03] MEDS: Docusate CAP* 100 MG PO SCH (08:21)
[2019-02-03] MEDS: Insulin LISPRO* 1 UNITS UNIT SUBCUT SCH ×3 (08:21→17:00)
[2019-02-03] MEDS: Metoprolol Succinate XL TAB* 25 MG PO SCH (08:21)
[2019-02-03] MEDS: Magnesium Oxide TAB* 400 MG PO SCH (08:21)
[2019-02-03] MEDS ORDERED: Amiodarone TAB* 400 MG PO SCH (09:00)
[2019-02-03] MEDS ORDERED: Bumetanide TAB* 2 MG PO SCH (09:00)
[2019-02-03] MEDS: Ferrous Sulfate TAB* 325 MG PO SCH (11:49)
[2019-02-03 12:59] LABS: TSH (Thyroid Stimulating Horm) 0.34 mcIU/mL (0.34-5.60)
[2019-02-03 13:00] LABS: Free T3 3.1 pg/mL (2.5-3.9)
[2019-02-03 13:01] LABS: Free T4 1.27 ng/dL (0.61-1.12)
[2019-02-03 15:46] VITALS: BP 132/57
--- NOTE | 2019-02-03 16:08 | DS ---
CC: Dr. Lopes, Orthopedics; Dr. Guajardo; Dr. Potrillo; [facility] DATE OF ADMISSION: 01/30/2019. DATE OF DISCHARGE: 02/03/2019. PRIMARY DIAGNOSIS: Acute on chronic hypoxic and hypercapnic respiratory failure. SECONDARY DIAGNOSES: Atrial flutter with rapid ventricular response, the heart failure with reduction ejection improved from 35 to 40 percent up to 40 to 45 percent, acute renal failure due to cardiorenal syndrome, suspected obstructive sleep apnea with hypercapnia and metabolic compensation, hypertension, type 2 diabetes, peripheral vascular disease, GERD, gout, iron deficiency anemia, long - term anticoagulation. MEDICATIONS ON DISCHARGE: 1. Atorvastatin 10 mg p.o. q.p.m. 2. Docusate 100 mg p.o. b.i.d. 3. Uloric 80 mg p.o. daily. 4. Glipizide 5 mg p.o. b.i.d. 5. Probiotic one tab p.o. daily. 6. Potassium Chloride 10 mEq p.o. q.a.m. 7. Ranitidine 150 mg p.o. b.i.d. 8. Tizanidine 4 mg p.o. t.i.d. prn. 9. Acetaminophen as needed. 10. Albuterol nebulizer 2.5 mg inhaled q.4 hours prn wheezing. 11. Amiodarone 200 mg p.o. daily. 12. Bumex 2 mg p.o. every 48 hours in the morning. 13. Ferrous Sulfate 325 mg p.o. daily. 14. Milk of Magnesia 30 ml b.i.d. prn dyspepsia. 15. Metformin 1,000 mg p.o. daily. 16. Toprol XL 25 mg p.o. daily. 17. Tramadol 50 mg p.o. q.8 hours prn pain. 18. Warfarin 2 mg p.o. q.p.m. CONSULTATIONS: Dr. Whitaker from Nephrology; Dr. Steen of Cardiology; SUZI Gillette of Orthopedics. PROCEDURES: Electrical cardioversion for atrial flutter by Dr. Steen on the 31 of January; overnight oximetry on the that showed O2 sat was less than 98 percent on 16 percent of the night. HOSPITAL COURSE: This 63-year-old man with a history of heart failure, reduced ejection fraction, and in atrial flutter presented to the emergency department with dyspnea and fluid overload. Please see admission history and physical for full details of this complicated medical illness. The patient's initial BNP was 1020, initial troponin was 0.16 which maría to 0.17 and then began to fall consistent with demand ischemia. The patient's initial creatinine was 3.3 and maría to 4.3 overnight after admission. After beginning Bumex drip in the Intensive Care Unit, his creatinine fell to 3.6 and then down to 1.4 on discharge. The patient was seen in consultation by Dr. Whitaker of Nephrology who aided in titration of renal active medications. The patient did have an ultrasound of the kidneys to assess for postrenal obstruction which showed no hydronephrosis and a left renal cyst. The patient presented with atrial flutter without ventricular response. A cardiology consult with Dr. Steen led to a synchronized cardioversion which placed him in sinus rhythm. The patient was also loaded with intravenous Amiodarone prior to his cardioversion and this was switched over to oral Amiodarone and titrated down upon discharge. The patient was on long-term anticoagulation due to atrial flutter. His presenting INR was 1.8. Amiodarone will interfere with Warfarin dosing, so his Warfarin dose was cut down to 2 mg per day. Discharge INR was 2.04. We recommend repeating INR and a BMP in three days. The patient has suspected obstructive sleep apnea given his body habitus and his overnight desaturations. He also has an elevated carbon dioxide level on BMP and venous blood gases consistent with a respiratory acidosis and a metabolic compensation. This may also be due to contraction ankylosis given his heavy diuresis. In any case, the patient should have a BMP in one week to reassess his bicarb and he should see Dr. Portillo for outpatient consult for sleep apnea. During the hospital stay, he did have trouble tolerating BiPAP and CPAP used for sleep apnea, but he did respond well to BiPAP when he was initially on respiratory failure. The patient's oxygen was weaned down to one liter per minute which he can continue during the day and this can be weaned down further during the daytime and left on at night only at the alf. His left knee suffered a patellar fracture prior to admission. This led him to being in a straight knee brace. Orthopedics came and looked at him on February 02 and they recommended continued use of extension immobilizer, straight leg raises, and follow-up in the office in two weeks. DISPOSITION: To [facility] for acute rehab. ACTIVITY: Out of bed to chair with physical therapy and training on ambulation with full weightbearing. DIET: Low salt. The patient needs to have a weight taken every day and should call the Cardiology office if he gains weight more than three pounds above his baseline. STATUS: Inpatient. CONDITION ON DISCHARGE: Improved. FOLLOW-UP: Follow-up should be with primary care once he is out of the alf. Follow-up should be with the nursing program director within the alf. He also needs to see Dr. Guajardo for Cardiology consultation on March [address] Portillo in her office within one month. TIME SPENT: I spent more than 45 minutes with the patient on the day of discharge, including completing the necessary paperwork. [id number]/CPS #: [id number] MTDD
== END 2019-02-03 17:48 | DRG 308 ==
LOC: ED 13:33 → MEDTELE 17:18 → ICU 20:07 → MEDTELE 02-01 11:28
PROVIDERS: ADMIT Internal Medicine; ATTEND Internal Medicine
PROC: 5A2204Z Restoration of Cardiac Rhythm, Single (ICD-10-PCS; principal; 2019-01-31)
DX: I48.92 Unspecified atrial flutter (principal); J96.22 Acute and chronic respiratory failure with hypercapnia; J96.21 Acute and chronic respiratory failure with hypoxia; I50.23 Acute on chronic systolic (congestive) heart failure; N17.0 Acute kidney failure with tubular necrosis; S82.002A Unspecified fracture of left patella, initial encounter for closed fracture; E87.2 Acidosis; I24.8 Other forms of acute ischemic heart disease; I42.9 Cardiomyopathy, unspecified; E11.40 Type 2 diabetes mellitus with diabetic neuropathy, unspecified; I11.0 Hypertensive heart disease with heart failure; K21.9 Gastro-esophageal reflux disease without esophagitis; I73.9 Peripheral vascular disease, unspecified; R79.1 Abnormal coagulation profile; I44.7 Left bundle-branch block, unspecified; I45.9 Conduction disorder, unspecified; I48.0 Paroxysmal atrial fibrillation; R74.8 Abnormal levels of other serum enzymes; G47.33 Obstructive sleep apnea (adult) (pediatric); D50.9 Iron deficiency anemia, unspecified; M10.9 Gout, unspecified; Z74.09 Other reduced mobility; Z87.891 Personal history of nicotine dependence; Z79.01 Long term (current) use of anticoagulants; Z79.84 Long term (current) use of oral hypoglycemic drugs; Z79.51 Long term (current) use of inhaled steroids; Z79.899 Other long term (current) drug therapy; I87.8 Other specified disorders of veins; Z83.3 Family history of diabetes mellitus; Z82.49 Family history of ischemic heart disease and other diseases of the circulatory system
CPT/HCPCS: 36415; 71045; 76775; 80048; 80053; 80162; 81003; 81015; 82550; 82803; 82947; 83605; 83735; 83880; 84100; 84439; 84443; 84481; 84484; 85025; 85610; 85730; 86140; 87040; 87086; 87641; 89190; 93005; 93306; 94660; 96374; 96375; 99285; A9270-GY; C8929; G8978-GP-CK; G8978-GP-CM; G8979-GP-CI; J0282; J0456; J0692; J1160; J1940; J2250; J2704; J3490

== ENCOUNTER 2019-02-17 16:04 | Emergency (ER) | payer MEDICARE, MEDICAID ==
--- OUTSIDE RECORDS SUMMARY | 2019-02-17 16:39 | XMS REPORT | Continuity of Care Document ---
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 Onset: 09/28/2014 Localized, primary osteoarthritis Radha Lopes M.D. Onset: 11/15/2014 Lymphedema Radha Lopes M.D. Onset: 11/15/2014 Ulcer of lower extremity Radha Lopes M.D. Onset: 11/15/2014 Hypertrophic Obstructive Evan Guajardo M.D., [facility], Onset: 01/04/2015 Cardiomyopathy FASDE Electrocardiogram abnormal Evan Guajardo M.D., [facility], Onset: 03/08/2015 FASNC Disturbance in sleep behavior Nhi Portillo MD Onset: 07/24/2015 Morbid obesity Nhi Portillo MD Onset: 07/24/2015 Obstructive sleep apnea syndrome Nhi Portillo MD Onset: 10/16/2015 Persistent atrial fibrillation Evan Guajardo M.D., [facility], Onset: 2016 FASNC Essential hypertension Evan Guajardo M.D., [facility], Onset: 04/26/2017 FASNC Paroxysmal atrial fibrillation Evan Guajardo M.D., [facility], Onset: 2017 FASNC Cardiomyopathy, unspecified Evan Guajardo M.D., [facility], Onset: 04/26/2017 FASNC Acute renal failure syndrome Yessica Jean NP Onset: 12/17/2017 Atrial fibrillation Yessica Jean, [employer]GER Onset: 12/17/2017 Type 2 diabetes mellitus with diabetic Yessica JeanLUCIUS Onset: 12/17/2017 peripheral angiopathy without gangrene Peripheral vascular disease Yessica JeanLUCIUS Onset: 12/17/2017 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 Lamonte Guajardo, [facility] Toprol XL 1 po qd 90tabs Evan Ryan 04/27/2012 25mg Tablets Lamonte Guajardo, ER 24HR [facility], [facility] Metformin HCL take one tablet by Unknown [...] 0.1 MG Evan Guajardo M.D., 01/06/2017 Injection ARCHANAC, JOAQUINANC Aminophylline Evan Guajardo M.D., 01/06/2017 Injection CHETAN, CORAZON Technetium TC 99M Evan Guajardo M.D., 01/06/2017 [...] M.D., 03/21/2015 Tetrofosmin, Per Unit Dose Up ARCHANACCORAZON To 40 Millicuries Injection Technetium TC 99M [...] Information Available Procedures Date Code Description Status 01/18/2019 60154 ECHO Transthorasic Realtime 2D W Doppler & Color Flow Hosp Completed 11/09/2018 87833 EKG Tracing & Interpretation Completed 11/02/2018 26434 ECHO Transthoracic, Real-Time 2D With Doppler And Color Completed Flow 11/02/2018 47790 ECHO Transthoracic, Real-Time 2D With Doppler And Color Completed Flow Medical Devices Description No Information Available Encounters Type Date Location Provider Dx Diagnosis Office Visit 01/19/2019 [facility] Evan Connor I42.9 Cardiomyopathy, 7:27a Of Tyler Guajardo M.D., unspecified FACC, FASNC I50.9 Heart failure, unspecified I48.0 Paroxysmal atrial fibrillation J18.9 Pneumonia, unspecified organism L03.116 Cellulitis of left lower limb G47.30 Sleep apnea, unspecified Office Visit 01/04/2019 10:15a [facility] Zhou Salazar, S82.002A Unsp fracture at [place]onte of left patella, init for clos fx W19.xxxA Unspecified fall, initial encounter Office Visit 12/30/2018 8:05a [facility] Nia Barnes, S82.002A Unsp fracture [facility] of left Hospitalists patella, init for clos fx I48.91 Unspecified atrial fibrillation E11.9 Type 2 diabetes mellitus without complications Office Visit 12/29/2018 8:05a [facility] S82.002A Unsp fracture Assoc,dusty Ramos MD of left Hospitalists [place], init for clos fx I48.91 Unspecified atrial fibrillation I50.9 Heart failure, unspecified E11.9 Type 2 diabetes mellitus without complications W19.xxxA Unspecified fall, initial encounter Office Visit 11/09/2018 10:15a [facility] Evan Connor I77.810 Thoracic aortic Of Tyler Guajardo M.D., ectasia [facility], [facility] I10 Essential (primary) hypertension R94.31 Abnormal electrocardiogram [ECG] [EKG] I42.2 Other hypertrophic cardiomyopathy Assessments Date Code Description Provider 01/19/2019 I42.9 Cardiomyopathy, unspecified Evan Guajardo M.D., [facility], [facility] 01/19/2019 I50.9 Heart failure, unspecified Evan Guajardo M.D., [facility], [facility] 01/19/2019 I48.0 Paroxysmal atrial fibrillation Evan Guajardo M.D., [facility], [facility] 01/19/2019 J18.9 Pneumonia, unspecified organism Evan Guajardo M.D., [facility], [facility] 01/19/2019 L03.116 Cellulitis of left lower limb Evan Guajardo M.D., [facility], [facility] 01/19/2019 G47.30 Sleep apnea, unspecified Evan Guajardo M.D., [facility], [facility] 01/18/2019 R06.02 Shortness of breath Shraddha Cuellar M.D. 01/04/2019 S82.002A Unspecified fracture of left patella, Zhou Salazar M.D. initial encounter for closed fracture 01/04/2019 W19.xxxA Unspecified fall, initial encounter Zhou Salazar M.D. 12/30/2018 S82.002A Unspecified fracture of left patella, Nia Barnes, N.P. initial encounter for closed fracture 12/30/2018 I48.91 Unspecified atrial fibrillation Nia Barnes, N.P. 12/30/2018 E11.9 Type 2 diabetes mellitus without Nia Barnes, N.P. complications 12/29/2018 S82.002A Unspecified fracture of left patella, Jolene Ramos MD initial encounter for closed fracture 12/29/2018 I48.91 Unspecified atrial fibrillation Jolene Ramos MD 12/29/2018 I50.9 Heart failure, unspecified Jolene Ramos MD 12/29/2018 E11.9 Type 2 diabetes mellitus without Jolene Ramos MD complications 12/29/2018 W19.xxxA Unspecified fall, initial encounter Jolene Ramos MD 11/09/2018 I77.810 Thoracic aortic ectasia Evan Guajardo M.D., [facility] 11/09/2018 I10 Essential (primary) hypertension Evan Guajardo M.D., [facility], [facility] 11/09/2018 R94.31 Abnormal electrocardiogram [ECG] Evan Guajardo M.D., [EKG] [facility] 11/09/2018 I42.2 Other hypertrophic cardiomyopathy Evan Guajardo M.D., [facility] 11/02/2018 I42.9 Cardiomyopathy, unspecified Evan Guajardo M.D., [facility] 11/02/2018 I42.9 Cardiomyopathy, unspecified Traveling ECHO 1 Plan of Treatment Future Appointment(s):03/01/2019 9:45 am - Evan Guajardo M.D., [facility] at [facility]02/06/2019 10:45 am - Zhou Salazar M.D. at [facility] at [id number]/04/2019 - Zhou Salazar M.D.S82.002A Unspecified fracture of [...] knee cap takes 6-8 weeks to heal upW19.xxxA Unspecified fall, initial encounter Functional Status Description No Information Available Mental Status Description No Information Available Referrals Description No Information Available
--- OUTSIDE RECORDS SUMMARY | 2019-02-17 16:39 | XMS REPORT | Continuity of Care Document ---
:1955 External Reference #:[id number] Author Name SWETHA Mark Address [address] [place] [address] Care Team Providers Name Role Phone [facility] - Clinic/Center Care Team Information Director Of Revenue [facility] - Cardiovascular Care Team Information Director Of Revenue [phone] Disease Evan Guajardo MD - Cardiovascular Care Team Information Director Of Revenue Disease Problems Active Problems Provider Date Benign [...] Medications SIG Qnty Indications Ordering Date Provider Docusate Sodium take one capsule by 60caps K59.09 Pool Morin, 2017 mouth twice a day M.D. 100mg Capsules Miralax 17 gm in 8 oz water 527units Pool Morin, 05/31/2017 3350NF daily as needed for M.D. Powder constipation Uloric take one tablet by 30tabs M10.9 Pool Morin, 12/02/2015 80mg Tablets mouth every day for M.D. gout Tramadol HCL take one tablet by 120tabs I87.2 Pool Morin, 04/08/2015 50mg mouth every 6 hours M.D. Tablets as needed for pain maximum daily dose = 4 tablets M25.562 M79.622 Glipizide take one tablet by 60tabs Pool Morin, 11/05/2014 5mg Tablets mouth twice a day M.D. Metformin HCL ER take two tablets by 90tabs Pool Morin, 02/01/2014 500mg mouth every morning M.D. Tablets ER 24HR and 1 in the pm Atorvastatin Calcium take 1/2 tablet by 30tabs Pool Morin, 05/20/2012 20mg mouth every day M.D. Tablets Toprol XL take one tablet by 30tabs Rodriguez Gordon, 04/18/2012 25mg Tablets ER mouth every day M.D. 24HR Ranitidine HCL take 1/2 tablet by 60tabs R07.9 Pool Morin, 02/05/2012 150mg Tablets mouth two times M.D. daily for hiatal hernia Warfarin Sodium take two tablets by 60tabs Daniel Guzman, 07/31/2011 5mg Tablets mouth every day or M.D. as directed Probiotic 1 po tid Unknown Tablets DR Potassium Chloride ER take one tablet by 30tabs Pool Morin, 10Meq mouth every day M.D. Tablets ER Bumetanide take 1 tablet by Unknown 2mg Tablets mouth every other day Tizanidine HCL take one by mouth Unknown 4mg Capsules up to 3 times per day as needed for pain Amiodarone HCL 1 by mouth every Unknown 200mg Tablets day Magnesium 1 by mouth every Unknown 400mg Tablets day Ferrous Sulfate take 1 tablet by Unknown 324(65Fe) mg mouth 2 times a day Tablets DR Tylenol take 2 Unknown 325mg Tablets tablets(650mg) by mouth every 4 hours as needed for pain History Medications Betamethasone apply to affected 45gm R21 Lela Kylah 12/26/2018 - Dipropionate area twice a day LUCIUS Colon 01/09/2019 0.05% Cream Medications Administered in Office Medication SIG Qnty Indications Ordering Provider Date Injection Rocephrin 250 MG SWETHA Mark 03/25/2015 Injection Injection Subcutaneous Or SWETHA Mark 03/25/2015 Intramuscular Injection TB Intradermal Test Pool Morin M.D. 01/06/2010 Injection TB Intradermal Test Anastasia Theodore 12/18/2009 Injection Immunizations CPT Code Status Date Vaccine Lot # [id number] Given 04/02/2015 Tdap Tetanus, W Pertussis [id number] Vital Signs Date Vital Result Comment 02/16/2019 2:22pm BP Systolic 94 mmHg BP Diastolic 50 mmHg Heart Rate 60 /min Body Temperature 97.5 F Weight 265.00 lb 12/26/2018 10:11am BP Systolic 132 mmHg BP Diastolic 80 mmHg Heart Rate 112 /min Body Temperature 98.8 F Respiratory Rate 17 /min Weight 280.00 lb Results Test Date Facility Test Result H/L Range Note Laboratory test [facility] Troponin I 0.17 ng/mL Critical high <0.04 1 finding 9 Venous Blood [facility] Venous Blood 7.24 Low 7.32-7.43 Gas 9 pH Venous Pco2 92 mmHg High 41-51 Venous Po2 < 38.0 mmHg Normal 35-45 Venous O2 Saturation 56.4 % Low 70-80 Venous Blood Base Excess 8.3 mmol/L High 0.0-4.0 2 Venous Bicarbonate Hco3 30.3 mmol/L High 24-28 CBC Auto Diff 01/30/2019 [facility] White Blood Count 8.7 10^3/uL Normal 3.5- 10.8 Red Blood Count 4.58 10^6/uL Normal 4.18-5.48 Hemoglobin 11.8 g/dL Low 14.0-18.0 Hematocrit 38 % Low 42-52 Mean Corpuscular Volume 82 fL Normal 80-94 Mean Corpuscular Hemoglobin 26 pg Low 27-31 Mean Corpuscular HGB Conc 31 g/dL Normal 31-36 Red Cell Distribution Width 17 % High 10-15 Platelet Count 208 10^3/uL Normal 150-450 Mean Platelet Volume 7.8 fL Normal 7.4-10.4 Abs Neutrophils 6.5 10^3/uL Normal 1.5-7.7 Abs Lymphocytes 1.2 10^3/uL Normal 1.0-4.8 Abs Monocytes 1.0 10^3/uL High 0-0.8 Abs Eosinophils 0.0 10^3/uL Normal 0-0.6 Abs Basophils 0.0 10^3/uL Normal 0-0.2 Abs Nucleated RBC 0.0 10^3/uL Granulocyte % 74.2 % Lymphocyte % 14.1 % Monocyte % 11.3 % Eosinophil % 0.0 % Basophil % 0.4 % Nucleated Red Blood Cells % 0.0 Laboratory test finding 01/30/2019 [facility] Lactic Acid 1.4 mmol/L Normal 0.5- 2.0 3 Comp Metabolic Panel 01/30/2019 [facility] Sodium 137 mmol/L Normal 135-145 Chloride 97 mmol/L Low 101-111 Co2 Carbon Dioxide 32 mmol/L Normal 22-32 Glucose 88 mg/dL Normal 70-100 Blood Urea Nitrogen 46 mg/dL High 6-24 Creatinine 3.33 mg/dL High 0.67-1.17 BUN/Creatinine Ratio 13.8 Normal 8-20 Calcium 9.2 mg/dL Normal 8.6-10.3 Total Protein 8.0 g/dL Normal 6.4-8.9 Albumin 3.8 g/dL Normal 3.2-5.2 Globulin 4.2 g/dL High 2-4 Albumin/Globulin Ratio 0.9 Low 1-3 Total Bilirubin 0.40 mg/dL Normal 0.2-1.0 Alkaline Phosphatase 67 U/L Normal 34-104 Alt 352 U/L High 7-52 Ast 267 U/L High 13-39 Egfr Non- 18.8 >60 Egfr 22.7 >60 4 Potassium 5.1 mmol/L High 3.5-5.0 Anion Gap 8 mmol/L Normal 2-11 Laboratory test finding 01/30/2019 [facility] Troponin I 0.16 ng/mL Critical high <0.04 5 Blood Culture SEE RESULT BELOW 6 Inr/Protime 01/30/2019 [facility] Inr 1.83 High 0.82-1.09 7 Laboratory test 01/30/2019 [facility] Partial Thrombo 39.5 seconds High 26.0- 38.0 finding Time PTT C Reactive Protein 102.17 mg/L High <8.01 B-Type Natriuretic Peptide BNP 1020 pg/mL High <=100 Urinalysis Profile 01/30/2019 [facility] Urine Color [place] Urine Appearance Cloudy Urine Specific [place] 1.021 Normal 1.010-1.030 Urine pH 5.0 Normal 5-9 Urine Urobilinogen Negative Negative Urine Ketones Trace Abnormal Negative Urine Protein 1+(30 mg/dL) Abnormal Negative Urine Leukocytes Negative Negative Urine Blood Negative Negative Urine Nitrite Negative Negative Urine Bilirubin Negative Negative Urine Glucose 1+(50 mg/dL) Abnormal Negative Urine White Blood Cell 1+(6-10/hpf) Abnormal Absent Urine Red Blood Cell Absent Absent Urine Bacteria Absent Absent Urine Squamous Epithelial Cell Present Abnormal Absent Urine Hyaline Casts Present Abnormal Absent Urine Culture And 01/30/2019 [facility] Urine Culture SEE RESULT 8 Sensitivities BELOW Inr/Protime 01/30/2019 [facility] Inr 1.75 High 0.82-1.0 9, 10 9 Laboratory test 01/18/2019 [facility] Troponin I 0.01 ng/mL <0.04 11 finding B-Type Natriuretic Peptide BNP 79 pg/mL <=100 Comp Metabolic Panel 01/18/2019 [facility] Sodium 137 mmol/L Normal 135-145 Potassium 4.3 mmol/L Normal 3.5-5.0 Chloride 99 mmol/L Low 101-111 Co2 Carbon Dioxide 32 mmol/L Normal 22-32 Anion Gap 6 mmol/L Normal 2-11 Glucose 70 mg/dL Normal 70-100 Blood Urea Nitrogen 31 mg/dL High 6-24 Creatinine 1.41 mg/dL High 0.67-1.17 BUN/Creatinine Ratio 22.0 High 8-20 Calcium 9.4 mg/dL Normal 8.6-10.3 Total Protein 7.5 g/dL Normal 6.4-8.9 Albumin 4.0 g/dL Normal 3.2-5.2 Globulin 3.5 g/dL Normal 2-4 Albumin/Globulin Ratio 1.1 Normal 1-3 Total Bilirubin 0.40 mg/dL Normal 0.2-1.0 Alkaline Phosphatase 73 U/L Normal 34-104 Alt 18 U/L Normal 7-52 Ast 16 U/L Normal 13-39 Egfr Non- 50.6 >60 Egfr 61.2 >60 12 CBC Auto Diff 01/18/2019 [facility] White Blood Count 7.0 10^3/uL Normal 3.5- 10.8 Red Blood Count 4.73 10^6/uL Normal 4.18-5.48 Hemoglobin 12.1 g/dL Low 14.0-18.0 Hematocrit 38 % Low 42-52 Mean Corpuscular Volume 80 fL Normal 80-94 Mean Corpuscular Hemoglobin 26 pg Low 27-31 Mean Corpuscular HGB Conc 32 g/dL Normal 31-36 Red Cell Distribution Width 16 % High 10-15 Platelet Count 250 10^3/uL Normal 150-450 Mean Platelet Volume 7.3 fL Low 7.4-10.4 Abs Neutrophils 5.4 10^3/uL Normal 1.5-7.7 Abs Lymphocytes 0.9 10^3/uL Low 1.0-4.8 Abs Monocytes 0.6 10^3/uL Normal 0-0.8 Abs Eosinophils 0.1 10^3/uL Normal 0-0.6 Abs Basophils 0.0 10^3/uL Normal 0-0.2 Abs Nucleated RBC 0.0 10^3/uL Granulocyte % 76.6 % Lymphocyte % 13.4 % Monocyte % 8.3 % Eosinophil % 1.2 % Basophil % 0.5 % Nucleated Red Blood Cells % 0.0 Venous Blood Gas 01/18/2019 [facility] Venous Blood pH 7.40 Normal 7.32-7.43 Venous Pco2 66 mmHg High 41-51 Venous Po2 TNP mmHg 35-45 Venous O2 Saturation 72.6 % Normal 70-80 Venous Blood Base Excess 13.0 mmol/L High 0.0-4.0 13 Venous Bicarbonate Hco3 34.3 mmol/L High 24-28 Inr/Protime 01/18/2019 [facility] Inr 2.61 High 0.82-1.09 14 CBC No Diff 12/29/2018 [facility] White Blood Count 7.7 10^3/uL Normal 3.5-10.8 Red Blood Count 4.44 10^6/uL Normal 4.18-5.48 Hemoglobin 11.7 g/dL Low 14.0-18.0 Hematocrit 36 % Low 42-52 Mean Corpuscular Volume 82 fL Normal 80-94 Mean Corpuscular Hemoglobin 26 pg Low 27-31 Mean Corpuscular HGB Conc 32 g/dL Normal 31-36 Red Cell Distribution Width 17 % High 10-15 Platelet Count 201 10^3/uL Normal 150-450 Mean Platelet Volume 7.6 fL Normal 7.4-10.4 Basic Metabolic Panel 12/29/2018 [facility] Sodium 139 mmol/L Normal 135-145 Potassium 4.9 mmol/L Normal 3.5-5.0 Chloride 102 mmol/L Normal 101-111 Co2 Carbon Dioxide 35 mmol/L High 22-32 Anion Gap 2 mmol/L Normal 2-11 Glucose 76 mg/dL Normal 70-100 Blood Urea Nitrogen 42 mg/dL High 6-24 Creatinine 1.64 mg/dL High 0.67-1.17 BUN/Creatinine Ratio 25.6 High 8-20 Calcium 8.7 mg/dL Normal 8.6-10.3 Egfr Non- 42.5 >60 Egfr 51.4 >60 15 Laboratory test 12/29/2018 [facility] Magnesium 2.1 mg/dL Normal 1.9-2.7 finding Inr/Protime 12/29/2018 [facility] Inr 1.94 High 0.82-1.09 16 Laboratory test 12/06/2018 [facility] Inr (Fma) 2.9 2.0-3.0 finding (607)- - Laboratory test 11/03/2018 [facility] Inr (a) 2.2 2.0-3.0 finding (607)- - Lipid Profile 10/04/2018 Haris Aime([facility]) Cholesterol 133 mg/dL 120- 200 Triglycerides 95 mg/dL 30-200 HDL Cholesterol 41 mg/dL 30-70 LDL (Calculated) 73 CALC 0-129 VLDL Cholesterol 19 mg/dL 0-50 HDL Risk Factor 3.2 CALC 0.0-4.4 CBC Electronic a 10/04/2018 Haris Canela([facility]) WBC 4.7 x10^3/UL 4.0- 10.0 RBC 4.48 x10^6/UL 3.93-6.00 HGB 11.7 g/dL Low 12.0-17.0 HCT 38 % 35-50 MCV 85.5 fL 80.0-95.0 MCH 26.1 pg 25.6-32.2 MCHC 32.2 g/dL 32.2-36.0 RDW-CV 15.2 % High 11.6-14.4 PLT 186 x10^3/UL 163-400 MPV 10.2 fL 9.4-12.4 Tri# 2.84 x10^3/UL 1.56-6.13 Lymph# 1.19 x10^3/UL 1.18-3.74 [place]gett# 0.52 x10^3/UL 0.24-0.82 Eos # 0.2 x10^3/UL 0.0-0.5 Baso # 0.02 x10^3/UL 0.01-0.08 Tri% 60.2 % 34.0-70.0 Lymph % 25.2 % 20.0-52.0 [place]% 11.0 % 5.0-12.0 Eos% 3.2 % 0.7-7.0 Baso% 0.4 % 0.1-1.2 Comprehensive Metabolic 10/04/2018 Haris Canela([facility]) Sodium 140 mEq/L 134-149 Prof Potassium 5.2 mEq/L 3.6-5.5 Chloride 100 mEq/L 94-112 Carbon Dioxide 31 mEq/L 21-32 Glucose 63 mg/dL Low 70-105 17 BUN 46 mg/dL High 6-26 Creatinine 1.4 [...] GFR >60 ml/min/1.73m^ >=60 Laboratory test 10/04/2018 [facility] Hemoglobin A1c 6.3 % High 4.1- 5.7 finding (607)- - (Fma) Inr (Fma) 2.3 2.0-3.0 Laboratory test 08/31/2018 [facility] Inr (Fma) 2.3 2.0-3.0 finding (607)- - Wound 08/22/2018 [facility] Wound/Misc SEE RESULT 18 Culture/Sensi Culture-Gram BELOW Stain 1 Result TnIDx:0.17 Called to [id number] at: 17:27:49 by:[id number] Read back by: [id number] Troponin-I testing on Plasma Separator Tubes (PST) has a known false positive rate of 0.20-0.40%. All positive troponins reflex immediately to secondary confirmatory testing. Using the Contur DxI 800 Access Immunoassay systems, the 99th percentile upper reference limit was demonstrated to be < 0.03 ng/mL. 2 Reference ranges based on room air. 3 [facility] Severe Sepsis and Septic Shock Management Bundle Measure requires all lactic acids initially measuring >2.0 mmol/L be repeated. 4 Because ethnic data is not always readily available, this report includes an eGFR for both -Americans and non- Americans. The National Kidney Disease Education Program (NKDEP) does not endorse the use of the MDRD equation for patients that are not between the ages of 18 and 70, are , have extremes of body size, muscle mass, or nutritional status, or are non- or non-. According to the National Kidney Foundation, irrespective of diagnosis, the stage of the disease is based on the level of kidney function: Stage Description GFR(mL/min/1.73 m(2)) 1 Kidney damage with normal or decreased GFR 90 2 Kidney damage with mild decrease in GFR 60-89 3 Moderate decrease in GFR 30-59 4 Severe decrease in GFR 15-29 5 Kidney failure <15 (or dialysis) 5 Result TnIDx:0.16 Called to [id number] at: 15:18:53 by:[id number] Read back by: [id number] Troponin-I testing on Plasma Separator Tubes (PST) has a known false positive rate of 0.20-0.40%. All positive troponins reflex immediately to secondary confirmatory testing. Using the Contur DxI 800 Access Immunoassay systems, the 99th percentile upper reference limit was demonstrated to be < 0.03 ng/mL. 6 SEE RESULT BELOW Name: OLIVER COSTELLO : [address]: Talia Rogel MD Acct: [id number] Unit: [id number] AGE: 63 Location: [place] [address] Re01/30/19 Dis: 02/03/19 SEX: M Status: DIS IN SPEC: [id number] SABRINA: 01/30/[address] [facility] [address]: Micah ARCHER REQ: [id number] RECD: 01/30/19 STATUS: RONNIE DOWNING DR: Pool Morin MD _ SOURCE: BLOOD,VENO SPDESC: ORDERED: Blood Cult Procedure Result Reported Site Aerobic Culture Bottle Final 02/04/19- 1455 ML No Growth Day 5 Anaerobic Culture Bottle Final 02/04/19- 1455 ML No Growth Day 5 * ML - Main Lab . END OF REPORT DEPARTMENT OF PATHOLOGY, [address] [place] [address] Manjeet Del Valle M.D. Director [facility] # [id number] 7 Standard intensity warfarin therapeutic range: 2.0-3.0 High intensity warfarin therapeutic range: 2.5-3.5 8 SEE RESULT BELOW Name: OLIVER COSTELLO : [address]: Talia Rogel MD Acct: [id number] Unit: [id number] AGE: 63 Location: ICU Re01/30/19 SEX: M Status: ADM IN SPEC: [id number] SABRINA: 01/30/[address] [facility] [address]: Micah ARCHER REQ: [id number] RECD: 01/30/19 STATUS: RONNIE DOWNING DR: Pool Morin MD _ SOURCE: URINE SPDESC: ORDERED: Urine Culture Procedure Result Reported Site Urine Culture Final 01/31/19- 1614 ML No Growth (<1,000 CFU/mL) * ML - [facility] . 9 ROOM 158B 10 Standard intensity warfarin therapeutic range: 2.0-3.0 High intensity warfarin therapeutic range: 2.5-3.5 11 Troponin-I testing on Plasma Separator Tubes (PST) has a known false positive rate of 0.20-0.40%. All positive troponins reflex immediately to secondary confirmatory testing. Using the TagitoI 800 Access Immunoassay systems, the 99th percentile upper reference limit was demonstrated to be < 0.03 ng/mL. 12 Because ethnic data is not always readily available, this report includes an eGFR for both -Americans and non- Americans. The National Kidney Disease Education Program (NKDEP) does not endorse the use of the MDRD equation for patients that are not between the ages of 18 and 70, are , have extremes of body size, muscle mass, or nutritional status, or are non- or non-. According to the National Kidney Foundation, irrespective of diagnosis, the stage of the disease is based on the level of kidney function: Stage Description GFR(mL/min/1.73 m(2)) 1 Kidney damage with normal or decreased GFR 90 2 Kidney damage with mild decrease in GFR 60-89 3 Moderate decrease in GFR 30-59 4 Severe decrease in GFR 15-29 5 Kidney failure <15 (or dialysis) 13 Reference ranges based on room air. 14 Standard intensity warfarin therapeutic range: 2.0-3.0 High intensity warfarin therapeutic range: 2.5-3.5 15 Because ethnic data is not always readily available, this report includes an eGFR for both -Americans and non- Americans. The National Kidney Disease Education Program (NKDEP) does not endorse the use of the MDRD equation for patients that are not between the ages of 18 and 70, are , have extremes of body size, muscle mass, or nutritional status, or are non- or non-. According to the National Kidney Foundation, irrespective of diagnosis, the stage of the disease is based on the level of kidney function: Stage Description GFR(mL/min/1.73 m(2)) 1 Kidney damage with normal or decreased GFR 90 2 Kidney damage with mild decrease in GFR 60-89 3 Moderate decrease in GFR 30-59 4 Severe decrease in GFR 15-29 5 Kidney failure <15 (or dialysis) 16 Standard intensity warfarin therapeutic range: 2.0-3.0 High intensity warfarin therapeutic range: 2.5-3.5 17 RESULTS VERIFIED BY REPEAT ANALYSIS 18 SEE RESULT BELOW Name: OLIVER COSTELLO : [address]: Doreen Obrien MD Acct: [id number] Unit: [id number] AGE: 63 Location: WOUND Re08/22/18 SEX: M Status: REG REF SPEC: [id number] SABRINA: 08/22/[address] [facility] [address]: Doreen Obrien MD REQ: [id number] RECD: 08/22/18 STATUS: RONNIE DOWNING DR: Pool Morin MD _ SOURCE: LEG, RIGHT SPDESC: ORDERED: Culture Stain Procedure Result Reported Site Wound/Misc Gram Stain Final 08/23/18- 0820 ML 1+ Epithelial Cells No Neutrophils Observed No Organisms Seen Wound/Misc Culture Final 08/24/18- 1135 ML Organism 1 NORMAL AIME Quantity 3+ * - Main Lab . END OF REPORT DEPARTMENT OF PATHOLOGY, [address] [place] [address] Manjeet Del Valle M.D. 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 I87.2 Venous insufficiency (chronic) (peripheral) I42.1 Obstructive hypertrophic cardiomyopathy K21.9 Gastro-esophageal reflux disease without esophagitis Assessments Date Code Description Provider 02/16/2019 I10 Essential (primary) hypertension SWETHA Mark 02/16/2019 E11.9 Type 2 diabetes mellitus without Maria Del Carmen Ruvalcaba, [facility] complications 02/16/2019 I87.2 Venous insufficiency (chronic) Maria Del Carmen Piñabhart, [facility] (peripheral) 02/16/2019 I42.1 Obstructive hypertrophic cardiomyopathy Maria Del Carmen Piñabhart, [facility] 02/16/2019 I48.3 Typical atrial flutter Maria Del Carmen Peg, [facility] 02/16/2019 Z79.01 FDC (current) use of anticoagulants Maria Del Carmen Piñabhart, [facility] 02/16/2019 M25.562 Pain in left knee Maria Del Carmen Piñabhart, [facility] 12/26/2018 R21 Rash and other nonspecific skin eruption Ella Colon, LUCIUS 12/06/2018 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 12/06/2018 I48.3 Typical atrial flutter Pool Morin M.D. 11/15/2018 S90.922A Unspecified superficial injury of left Oralia Salvador , LUCIUS foot, initial encount 11/15/2018 M25.562 Pain in left knee Oralia Salvador, LUCIUS 11/03/2018 Z79.01 FDC (current) use of anticoagulants Pool Morin M.D. 11/03/2018 I48.3 Typical atrial flutter Pool Morin M.D. 10/04/2018 I10 Essential (primary) hypertension Pool Morin M.D. 10/04/2018 E11.9 Type 2 diabetes mellitus without Pool Morin M.D. complications 10/04/2018 I48.3 Typical atrial flutter Pool Morin M.D. 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 10/04/2018 I87.2 Venous insufficiency (chronic) Pool Morin M.D. (peripheral) 10/04/2018 I42.1 Obstructive hypertrophic cardiomyopathy Pool Morin M.D. 10/04/2018 K21.9 Gastro-esophageal reflux disease without Pool Morin M.D. 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 08/31/2018 I48.3 Typical atrial flutter Pool Morin M.D. Plan of Treatment Future Appointment(s):05/23/2019 12:40 pm - Pool Morin M.D. at Main [id number]/22/2019 10:15 am - Pool Morin M.D. at Main [id number]/16/2019 - Maria Del Carmen Ruvalcaba, [id number] Essential (primary) qkmesjgyjfrpK34.9 Type 2 diabetes mellitus without xulctvlnnbktyX24.2 Venous insufficiency (chronic) (peripheral) I42.1 Obstructive hypertrophic mkopnvkucyxxakA11.3 Typical atrial vmzdsqtC22.01 termite control servicer (current) use of anticoagulantsNew Labs:PT/Inr ([facility]), Ordered: M25.562 Pain in left knee Functional Status Description No Information Available Mental Status Description No Information Available Referrals Description No Information Available
--- OUTSIDE RECORDS SUMMARY | 2019-02-17 16:39 | XMS REPORT | Continuity of Care Document ---
:1955 External Reference #:[id number] Author Name Michael Leo MD, [facility], [facility] (transmitted by agent of provider Elida Hartman) Address [address] [address] Care Team Providers Name Role Phone Pool Morin MD - Family Medicine Care Team Information Registered Nurse Obstetrics Problems Active Problems Provider Date Osteoarthritis of knee Radha Lopes M.D. Onset: 09/28/2014 Localized, primary osteoarthritis Radha Lopes M.D. Onset: 11/15/2014 Lymphedema Radha Lopes M.D. Onset: 11/15/2014 Ulcer of lower extremity Radha Lopes M.D. Onset: 11/15/2014 Hypertrophic Obstructive Evan Guajardo M.D., [facility], Onset: 01/04/2015 Cardiomyopathy FASWI Electrocardiogram abnormal Evan Guajardo M.D., [facility], Onset: 03/08/2015 FASNC Disturbance in sleep behavior hNi Portillo MD Onset: 07/24/2015 Morbid obesity Nhi Portillo MD Onset: 07/24/2015 Obstructive sleep apnea syndrome Nhi Portillo MD Onset: 10/16/2015 Persistent atrial fibrillation Evan Guajardo M.D., [facility], Onset: 2016 FASNC Essential hypertension Evan Guajardo M.D., [facility], Onset: 04/26/2017 FASNC Paroxysmal atrial fibrillation Evan Guajardo M.D., [facility], Onset: 2017 FASNC Cardiomyopathy, unspecified Evan Guajardo M.D., [facility], Onset: 04/26/2017 FASNC Acute renal failure syndrome Yessica Jean NP Onset: 12/17/2017 Atrial fibrillation Yessica Jean, [employer]ISS[employer] SUPERVISOR Onset: 12/17/2017 Type 2 diabetes mellitus with diabetic Yessica JeanLUCIUS Onset: 12/17/2017 peripheral angiopathy without gangrene Peripheral vascular disease Yessica JeanLUCIUS Onset: 12/17/2017 Obesity 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 Lamonte Guajardo, [facility] Toprol XL 1 po qd 90tabs Evan Ryan 04/27/2012 25mg Tablets Lamonte Guajardo, ER 24HR [facility], [facility] Metformin HCL take one tablet by Unknown [...] Available Procedures Date Code Description Status 01/18/2019 78964 ECHO Transthorasic Realtime 2D W Doppler & Color Flow Hosp Completed 11/09/2018 43252 EKG Tracing & Interpretation Completed 11/02/2018 21194 ECHO Transthoracic, Real-Time 2D With Doppler And Color Completed Flow 11/02/2018 99281 ECHO Transthoracic, Real-Time 2D With Doppler And Color Completed Flow Medical Devices Description No Information Available Encounters Type Date Location Provider Dx Diagnosis Office Visit 01/19/2019 [facility] Evan Connor I42.9 Cardiomyopathy, 7:27a Of Tyler Guajardo M.D., unspecified FACC, FASNC I50.9 Heart failure, unspecified I48.0 Paroxysmal atrial fibrillation J18.9 Pneumonia, unspecified organism L03.116 Cellulitis of left lower limb G47.30 Sleep apnea, unspecified Office Visit 01/04/2019 10:15a [facility] Zhou Salazar, S82.002A Unsp fracture at [facility] [place]onte of left patella, init for clos fx W19.xxxA Unspecified fall, initial encounter Office Visit 12/30/2018 8:05a [facility] Nia Barnes, S82.002A Unsp fracture Assoc,pc N.P[facility] of left Hospitalists patella, init for clos fx I48.91 Unspecified atrial fibrillation E11.9 Type 2 diabetes mellitus without complications Office Visit 12/29/2018 8:05a [facility] S82.002A Unsp fracture Assoc,dusty Ramos MD of left Hospitalists [place], init for clos fx I48.91 Unspecified atrial fibrillation I50.9 Heart failure, unspecified E11.9 Type 2 diabetes mellitus without complications W19.xxxA Unspecified fall, initial encounter Office Visit 11/09/2018 10:15a [facility] Evan Connor I77.810 Thoracic aortic Of Tyler Guajardo M.D., ectasia [facility], [facility] I10 Essential (primary) hypertension R94.31 Abnormal electrocardiogram [ECG] [EKG] I42.2 Other hypertrophic cardiomyopathy Assessments Date Code Description Provider 01/19/2019 I42.9 Cardiomyopathy, unspecified Evan Guajardo M.D., [facility], [facility] 01/19/2019 I50.9 Heart failure, unspecified Evan Guajardo M.D., [facility], [facility] 01/19/2019 I48.0 Paroxysmal atrial fibrillation Evan Guajardo M.D., [facility], [facility] 01/19/2019 J18.9 Pneumonia, unspecified organism Evan Guajardo M.D., [facility], [facility] 01/19/2019 L03.116 Cellulitis of left lower limb Evan Guajardo M.D., [facility], [facility] 01/19/2019 G47.30 Sleep apnea, unspecified Evan Guajardo M.D., [facility], [facility] 01/18/2019 R06.02 Shortness of breath Shraddha Cuellar [...] I77.810 Thoracic aortic ectasia Evan Guajardo M.D., [facility], [facility] 11/09/2018 I10 Essential (primary) hypertension Evan Guajardo M.D., [facility], [facility] 11/09/2018 R94.31 Abnormal electrocardiogram [ECG] Evan Guajardo M.D., [EKG] [facility] 11/09/2018 I42.2 Other hypertrophic cardiomyopathy Evan Guajardo M.D., [facility] 11/02/2018 I42.9 Cardiomyopathy, unspecified Evan Guajardo M.D., [facility] 11/02/2018 I42.9 Cardiomyopathy, unspecified Traveling ECHO 1 Plan of Treatment Future Appointment(s):03/01/2019 9:45 am - Evan Guajardo M.D., [facility], [facility] at [facility]02/06/2019 10:45 am - Zhou Salazar M.D. at [facility] at [id number]/04/2019 - Zhou Salazar M.D.S82.002A Unspecified fracture of [...]
--- OUTSIDE RECORDS SUMMARY | 2019-02-17 16:39 | XMS REPORT | Continuity of Care Document ---
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 Onset: 09/28/2014 Localized, primary osteoarthritis Radha Lopes M.D. Onset: 11/15/2014 Lymphedema Radha Lopes M.D. Onset: 11/15/2014 Ulcer of lower extremity Radha Lopes M.D. Onset: 11/15/2014 Hypertrophic Obstructive Evan Guajardo M.D., [facility], Onset: 01/04/2015 Cardiomyopathy FASWV Electrocardiogram abnormal Evan Guajardo M.D., [facility], Onset: 03/08/2015 FASNC Disturbance in sleep behavior Nhi Portillo MD Onset: 07/24/2015 Morbid obesity Nhi Portillo MD Onset: 07/24/2015 Obstructive sleep apnea syndrome Nhi Portillo MD Onset: 10/16/2015 Persistent atrial fibrillation Evan Guajardo M.D., [facility], Onset: 2016 FASNC Essential hypertension Evan Guajardo M.D., [facility], Onset: 04/26/2017 FASNC Paroxysmal atrial fibrillation Evan Guajardo M.D., [facility], Onset: 2017 FASNC Cardiomyopathy, unspecified Evan Guajardo M.D., [facility], Onset: 04/26/2017 FASNC Acute renal failure syndrome Yessica Jean NP Onset: 12/17/2017 Atrial fibrillation Yessica Jean, SUPERVISOR [employer] Onset: 12/17/2017 Type 2 diabetes mellitus with diabetic Yessica JeanLUCIUS Onset: 12/17/2017 peripheral angiopathy without gangrene Peripheral vascular disease Yessica JeanLUCIUS Onset: 12/17/2017 Obesity Pastora Mims, SUPERVISOR [employer] Onset: 12/18/2017 Thoracic aortic ectasia Evan Guajardo M.D., [facility], Onset: 04/22/2018 [facility] Social History Type Date Description Comments [...] Price, 05/17/2018 66mg Tablets day OLGA RN, TOP AND SEAT COVER FITTER-BC Vitron-C 1 po q day x 6 30tabs D50.8 Taina Price, 05/17/2018 65-125mg months OLGA RN, TOP AND SEAT COVER FITTER-BC Tablets Meloxicam 1 by mouth daily 60tabs Melvina Lloyd 04/07/2018 7.5mg Tablets M.DSonam Lisinopril 1 by mouth per 90tabs R94.31 Evan Ryan 03/09/2017 5mg Tablets day. Lamonte Guajardo, [facility] Toprol XL 1 po qd 90tabs Evan Ryan 04/27/2012 25mg Tablets Lamonte Guajardo, ER 24HR [facility], [facility] Metformin HCL take one tablet by [...] Available Procedures Date Code Description Status 01/18/2019 92386 ECHO Transthorasic Realtime 2D W Doppler & Color Flow Hosp Completed 11/09/2018 90929 EKG Tracing & Interpretation Completed 11/02/2018 08816 ECHO Transthoracic, Real-Time 2D With Doppler And Color Completed Flow 11/02/2018 16288 ECHO Transthoracic, Real-Time 2D With Doppler And Color Completed Flow Medical Devices Description No Information Available Encounters Type Date Location Provider Dx Diagnosis Office Visit 01/19/2019 [facility] Evan Connor I42.9 Cardiomyopathy, 7:27a Of Tyler Guajardo M.D., unspecified FACC, FASNC I50.9 Heart failure, unspecified I48.0 Paroxysmal atrial fibrillation J18.9 Pneumonia, unspecified organism L03.116 Cellulitis of left lower limb G47.30 Sleep apnea, unspecified Office Visit 01/04/2019 10:15a [facility] Zhou Salazar, S82.002A Unsp fracture at [facility] [place]onte of left patella, init for clos fx W19.xxxA Unspecified fall, initial encounter Office Visit 12/30/2018 8:05a [facility] Nia Barnes, S82.002A Unsp fracture Assoc,pc N.P. of left Hospitalists patella, init for clos fx I48.91 Unspecified atrial fibrillation E11.9 Type 2 diabetes mellitus without complications Office Visit 12/29/2018 8:05a [facility] S82.002A Unsp fracture Assoc,dusty Ramos MD of left Hospitalists [place], init for clos fx I48.91 Unspecified atrial fibrillation I50.9 Heart failure, unspecified E11.9 Type 2 diabetes mellitus without complications W19.xxxA Unspecified fall, initial encounter Office Visit 11/09/2018 10:15a [facility] Evan Connor I77.810 Thoracic aortic Of Tyler Guajardo M.D., ectasia [facility], [facility] I10 Essential (primary) hypertension R94.31 Abnormal electrocardiogram [ECG] [EKG] I42.2 Other hypertrophic cardiomyopathy Assessments Date Code Description Provider 01/19/2019 I42.9 Cardiomyopathy, unspecified Evan Guajardo M.D., [facility], [facility] 01/19/2019 I50.9 Heart failure, unspecified Evan Guajardo M.D., [facility], [facility] 01/19/2019 I48.0 Paroxysmal atrial fibrillation Evan Guajardo M.D., [facility], [facility] 01/19/2019 J18.9 Pneumonia, unspecified organism Evan Guajardo M.D., [facility], [facility] 01/19/2019 L03.116 Cellulitis of left lower limb Evan Guajardo M.D., [facility], [facility] 01/19/2019 G47.30 Sleep apnea, unspecified Evan Guajardo M.D., [facility], [facility] 01/18/2019 R06.02 Shortness of breath Shraddha [...] I77.810 Thoracic aortic ectasia Evan Guajardo M.D., [facility], [facility] 11/09/2018 I10 Essential (primary) hypertension Evan Guajardo M.D., [facility], [facility] 11/09/2018 R94.31 Abnormal electrocardiogram [ECG] Evan Guajardo M.D., [EKG] [facility] 11/09/2018 I42.2 Other hypertrophic cardiomyopathy Evan Gu[facility]ardo M.D., [facility] 11/02/2018 I42.9 Cardiomyopathy, unspecified [facility] M.D., [facility] 11/02/2018 I42.9 Cardiomyopathy, unspecified Traveling ECHO 1 Plan of Treatment Future Appointment(s):03/01/2019 9:45 am - Evan Guajardo M.D., [facility], [facility] at [facility]02/06/2019 10:45 am - Zhou Salazar M.D. at [facility] at [id number]/04/2019 - Zhou Salazar M.D.S82.002A Unspecified fracture of [...]
--- NOTE | 2019-02-17 20:28 | ED ---
Upper Extremity Pain - HPI Summary HPI Summary: 63 year old male presents to [facility] with a chief complaint of wrist injury secondary to falling. Patient was walking on the sidewalk when he tripped and landed on his wrist. Patient has a history of DM. He denies numbness, tingling and elbow pain. Patient does not smoke tobacco, drink alcohol, or do recreational drugs. Medications reviewed. Allergies noted. - History of Current Complaint Chief Complaint: EDFall Stated Complaint: RIGHT HAND PAIN PER EMS Time Seen by Provider: 02/17/19 20:21 Hx Obtained From: Patient Mechanism Of Injury: Fall From A Standing Position Onset/Duration: Started Minutes Ago Timing: Constant Severity Initially: Moderate Severity Currently: Moderate Pain Location: Wrist Character: Unable to Describe Aggravating Factor(s): Movement Associated Signs & Symptoms: Negative: Numbness/Tingling - Allergies/Home Medications Allergies/Adverse Reactions: Allergies Allergy/AdvReac Type Severity Reaction Status Date / Time No Known Allergies Allergy Verified 12/29/18 00:28 PMH/Surg Hx/FS Hx/Imm Hx Endocrine/Hematology History: Reports: Hx Anticoagulant Therapy - coumadin, Hx Diabetes Denies: Hx Thyroid Disease Cardiovascular History: Reports: Hx Atrial Fibrillation, Hx Congestive Heart Failure, Hx Hypercholesterolemia, Other Cardiovascular Problems/Disorders - CARDIOMYOPATHY, BL LE VEIN SX Denies: Hx Angina, Hx Coronary Artery Disease, Hx Hypertension, Hx Myocardial Infarction, Hx Peripheral Vascular Disease, Hx Valvular Heart Disease Respiratory History: Reports: Hx Chronic Obstructive Pulmonary Disease (COPD), Hx Seasonal Allergies Denies: Hx Asthma GI History: Reports: Hx Gastroesophageal Reflux Disease Denies: Hx Ulcer Comment Only: Other GI Disorders - chest pain intermittent over weekned, constant starting last evening History: Reports: Hx Kidney Stones - hx "small one" per pt, Hx Renal Disease - HX OF KIDNEY STONES Denies: Hx Acute Renal Failure, Hx Benign Prostatic Hyperplasia, Hx Chronic Renal Failure, Hx Dialysis, Hx Kidney Infection Musculoskeletal History: Reports: Hx Arthritis - KNEES, Hx Gout, Hx Orthopedic Injury - ORIF left elbow, Hx Scoliosis, Other Musculoskeletal History - carpal tunnel bilateral wrists Sensory History: Reports: Hx Cataracts - BILAT, Hx Contacts or Glasses Denies: Hx Hearing Aid Opthamlomology History: Reports: Hx Cataracts - BILAT, Hx Contacts or Glasses Neurological History: Reports: Other Neuro Impairments/Disorders - 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 scoliosis repair 1972 WITH SPINAL EJET. left elbow repair after [place] in [place] 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 Denies: Hx Hepatitis, Hx Human Immunodeficiency Virus (HIV), Traveled Outside the [place] in Last 30 Days - Family History Known Family History: Positive: Diabetes, Non-Contributory - Social History Alcohol Use: None Hx Substance Use: No Substance Use Type: Reports: None Hx Tobacco Use: Yes Smoking Status (MU): Former Smoker Type: Cigarettes Length of Time of Smoking/Using Tobacco: 15 yrs Have You Smoked in the Last Year: No Review of Systems Negative: Fever Negative: Paresthesia, Numbness All Other Systems Reviewed And Are Negative: Yes Physical Exam - Summary Physical Exam Summary: Constitutional: Well-developed, Well-nourished, Alert. (-) Distressed Skin: Warm, Dry HENT: Normocephalic; Atraumatic Eyes: Conjunctiva normal Neck: Musculoskeletal ROM normal neck. (-) JVD, (-) Stridor, (-) Tracheal deviation Cardio: Rhythm regular, rate normal, Heart sounds normal; Intact distal pulses; Radial pulses are 2+ and symmetric. (-) Murmur Pulmonary/Chest wall: Effort normal. (-) Respiratory distress, (-) Wheezes, (-) Rales Abd: Soft, (-) tenderness, (-) Distension, (-) Guarding, (-) Rebound Musculoskeletal: Edema and tenderness to right wrist. Radial pulse 2+. No obvious deformity. Patient is able to make a fist. Lymph: (-) Cervical adenopathy Neuro: Alert, Oriented x3 Psych: Mood and affect Normal Triage Information Reviewed: Yes Vital Signs On Initial Exam: Initial Vitals Temp Pulse Resp BP Pulse Ox 98.1 F 50 18 112/62 95 02/17/19 16:05 02/17/19 16:05 02/17/19 16:05 02/17/19 16:05 02/17/19 16:05 Vital Signs Reviewed: Yes Procedures - Sedation Patient Received Moderate/Deep Sedation with Procedure: No Diagnostics - Vital Signs Vital Signs Temp Pulse Resp BP Pulse Ox 02/17/19 19:45 99.5 F 52 22 124/56 92 02/17/19 17:37 98.4 F 46 18 98/54 95 02/17/19 16:05 98.1 F 50 18 112/62 95 - Laboratory Result Diagrams: 02/17/19 20:28 02/17/19 20:28 Lab Statement: Any lab studies that have been ordered have been reviewed, and results considered in the medical decision making process. - Radiology wrist XR Radiology Interpretation Completed By: ED Physician Summary of Radiographic Findings: Severe osteopenia and osteoarthritis. No obvious fracture. An ED physician has interpreted and reviewed this report. Pending official read. Course/Dx - Course Course Of Treatment: Patient is here with a mechanical fall. Patient had an x- ray of his wrist which was reviewed by myself with no obvious fractures. However, patient has osteopenia and is fairly difficult x-ray to read so he was placed in a splint empirically. Patient has an orthopedic surgeon appointment in 4 days for his knee. Patient does have elevated creatinine compared to his last but this is not atypical for patient. Patient is encouraged to have his creatinine rechecked in one week. - Diagnoses Provider Diagnoses: Fall, Right wrist fracture Discharge ED - Sign-Out/Discharge Documenting (check all that apply): Patient Departure - discharge - Discharge Plan Condition: Stable Disposition: HOME Patient Education Materials: Wrist Fracture in Adults (ED), Fall Prevention for Older Adults (ED) Referrals: Pool Morin MD [Primary Care Provider] - Blanco Edwards MD [Medical Doctor] - Additional Instructions: Follow up with ortho on the 5th. Take Tylenol for the pain. Do not get your splint wet. You need to get youre kidney function check in one week by your PCP. - Billing Disposition and Condition Condition: STABLE Disposition: Home - Attestation Statements Document Initiated by Twin: Yes Documenting Scribe: Dre Rodriguez Provider For Whom Twin is Documenting (Include Credential): Tima Read MD Scribe Attestation: Dre Preciado, scribed for Tima Read MD on 02/18/19 at 1907. Scribe Documentation Reviewed: Yes Provider Attestation: The documentation as recorded by the scribeDre accurately reflects the service I personally performed and the decisions made by me, Tima Read MD Status of Scribe Document: Viewed
[2019-02-17 20:45] LABS: ABS Monocytes 0.8 10^3/ul (0-0.8); ABS Neutrophils 4.6 10^3/ul (1.5-7.7); Eosinophil % 0.5 %; Hematocrit 36 % (42-52); Hemoglobin 11.4 g/dL (14.0-18.0); Lymphocyte % 16.1 %; Mean Corpuscular HGB Conc 32 g/dL (31-36); Mean Corpuscular Hemoglobin 26 pg (27-31); Mean Corpuscular Volume 82 fL (80-94); Mean Platelet Volume 7.6 fL (7.4-10.4); Nucleated Red Blood Cells % 0.1; Platelet Count 211 10^3/uL (150-450); Red Blood Count 4.38 10^6 /uL (4.18-5.48); Red Cell Distribution Width 18 % (10-15); White Blood Count 6.5 10^3/uL (3.5-10.8)
[2019-02-17 20:56] LABS: Albumin 3.9 g/dL (3.2-5.2); Albumin/Globulin Ratio 1.1 (1-3); BUN/Creatinine Ratio 12.6 (8-20); Calcium 9.1 mg/dL (8.6-10.3); EGFR African American 27.2 (>60); EGFR Non-African American 22.5 (>60); Globulin 3.7 g/dL (2-4); Potassium 4.6 mmol/L (3.5-5.0); Total Bilirubin 0.4 mg/dL (0.2-1.0); Total Protein 7.6 g/dL (6.4-8.9)
[2019-02-17 23:15] VITALS: BP 133/70
== END 2019-02-17 23:14 | disposition home or self-care (01) ==
LOC: ED 16:04
DX: S62.101A Fracture of unspecified carpal bone, right wrist, initial encounter for closed fracture (principal); M15.9 Polyosteoarthritis, unspecified; W01.0XXA Fall on same level from slipping, tripping and stumbling without subsequent striking against object, initial encounter; Y92.480 Sidewalk as the place of occurrence of the external cause; E11.9 Type 2 diabetes mellitus without complications; I48.91 Unspecified atrial fibrillation; E78.00 Pure hypercholesterolemia, unspecified; I50.9 Heart failure, unspecified; J44.9 Chronic obstructive pulmonary disease, unspecified; K21.9 Gastro-esophageal reflux disease without esophagitis; Z87.891 Personal history of nicotine dependence; Z87.442 Personal history of urinary calculi; Z79.01 Long term (current) use of anticoagulants
CPT/HCPCS: 36415; 80053; 85025; 99282